=== PATIENT | female | born 1950 | race Caucasian/White ===

== ENCOUNTER 2018-03-29 10:32 | Emergency (ER) | payer BC, MEDICAID, SELFPAY ==
[2018-03-29 10:33] VITALS: BP 173/103; PULSE 71; RESP 16; TEMP 36.6; O2SAT 97; BMI 24.9
--- NOTE | 2018-03-29 11:03 | CT_ITS ---
STUDY: CT BRAIN WITHOUT CONTRAST REASON FOR EXAM: Female, 67 years old. Dizziness. RADIATION DOSAGE (If Supplied By Facility): CTDIvol = ( 44.99 ) mGy, DLP = ( 711.75 ) mGycm TECHNIQUE: Transaxial CT imaging of the brain was performed without administration of intravenous contrast material. Individualized dose optimization techniques were used for this CT. COMPARISON: None. FINDINGS: Normal soft tissue structures. Normal calvarium. There is mild cerebral atrophy with widening of the extra-axial spaces and ventricular dilatation. There are areas of decreased attenuation within the white matter tracts of the supratentorial brain, consistent with microvascular disease changes. Normal basal ganglia and thalami. Normal brainstem. Normal cerebellum. There is no intracranial hemorrhage. There are no findings of an acute ischemic infarction. Normal visualized paranasal sinuses. CT/Brain/Head without Contrast IMPRESSION: Chronic involutional changes of the brain. Electronically Signed: Cole Ngo MD at 12:26 EDT Tel [phone], Service support ,
--- NOTE | 2018-03-29 11:03 | EKG12_ITS ---
Test Reason : DIZZINESS Blood Pressure : / mmHG Vent. Rate : 061 BPM Atrial Rate : 061 BPM P-R Int : 164 ms QRS Dur : 070 ms QT Int : 426 ms P-R-T Axes : 035 040 022 degrees QTc Int : 428 ms Normal sinus rhythm T wave abnormality, consider anterolateral ischemia Abnormal ECG Confirmed by MELINDA ELLER ([id number]), science editor JEEVAN LINDQUIST ([id number]) on 04/02/2018 2:46:15 PM Referred By: MIGDALIA Confirmed By:MELINDA ELLER
--- NOTE | 2018-03-29 11:12 | ED.DCSUM_ITS ---
- ER Visit Summary Date of Service: 03/29/18 Chief Complaint: [] Intractable dizziness with ataxia for a few days History of Present Illness: The patient is a 67 F [] hypertension diabetes high cholesterol all stable reports a few days ago she began to have a sense of spinning sensation and trouble walking that has persisted to the point now she constantly bumps into things and she cannot walk normally. She does not have a headache she has no change in vision no mental cloudiness no neck pain chest pain abdominal pain #6 or paresthesias. She does have a history distant related to some type of a stroke that does not apparently cause any residual deficit, all of her other vitals are within normal range, she indicates her blood sugars running 120 and she is generally enjoyed good health review of systems are generally negative no vomiting fever cough normal bowel bladder habits she lives out of town is visiting Physical Examination: [] Vital signs are within normal range she will not stand up to walk because she states she is so ataxic she can keep her balance in the bed she has her normal speech she has prior facial surgery, she cranial nerves are intact without nystagmus full vision is normal neck is supple lungs are clear heart tones are unremarkable M soft nontender strength of upper lower extremities are normal sensation appears normal finger-nose [id number]-[id number] exams are normal her NIH currently would be 0 but again she will not walk her mental status is normal awake and alert ?3 answering questions appropriately with her normal speech pattern Test Results: [] Emergency Department Course and Treatment: [] The patient's studies are all generally unremarkable the CT head shows nothing acute chronic involution, the labs are all unremarkable, EKG shows a sinus rhythm with inverted T waves no old EKGs are available as the patient has not been [facility]. We discussed inpatient versus outpatient management with her we discussed the concept of a subtle or occult stroke TIA etc. she wanted to go home as a precaution I had the hospitalist see her, her desire to go home after discussion with the hospitalist we were able to arrange for an immediate MRI of brain which showed chronic changes nothing acute and she has been having symptoms for 2 or 3 days, she is on Plavix for prior stroke Treatment Plan: [] After the MRI returned I discussed all the test results with her and her daughter we discussed inpatient versus outpatient management again she wanted to go home understands to the concept of an occult injury or stroke she does indicate that she believes she has had in the past echocardiograms and carotid studies that were unremarkable she is taking the Plavix she will continue the Plavix she will take 2 baby aspirin she will follow-up with her family physician and I will also refer her to Dr. Mustafa of neurology at [place] for further management and she will return for change in symptoms Disposition: [] Home stable patient declined admission Impression: [] Acute vertigo spinning sensation improved to almost resolved This note was generated with [employer] dictation software. It may contain incorrect words, spelling, and punctuation that were not noted in review of the chart prior to signing ED Disposition - Plan for ED Patient: Chief Complaint: Dizziness
[2018-03-29 11:28] LABS: Absolute Lymphocyte Count 0.71 X10^3/ul (0.83-4.51); Absolute Neutrophil Count 2.7 X10^3/uL (2.0-7.7); Basophil# 0.01 X10^3/uL; Basophil% 0.3 % (0-1); Eosinophil# 0.07 X10^3/uL; Eosinophils% 1.8 % (0-5); Hematocrit 38.4 % (37-47); Hemoglobin 12.6 g/dl (12.0-15.0); Lymphocyte # 0.71 X10^3/ul (4.0); Lymphocyte % 18.3 % (19-41); Mean Corp Hgb Conc 32.8 g/gl (32-36); Mean Corpuscular Hgb 31.6 pg (27.0-32.0); Mean Corpuscular Volume 96.2 fL (81-99); Mean Platelet Vol. 12.2 fl (6.2-12.0); Monocyte# 0.41 X10^3/uL; Monocyte% 10.6 % (0-10); Neutrophil # 2.67 X10^3/uL (2.7-7.7); POSITIVE COUNT NO; POSITIVE DIFFERENTIAL NO; POSITIVE MORPHOLOGY NO; Platelet Count 172 K/mm3 (150-450); RBC Distribution Width CV 12.5 % (11.6-14.6); RBC Distribution Width SD 42.9 fl (35.1-43.9); Red Blood Count 3.99 M/mm3 (4.2-5.4); White Blood Count 3.9 K/mm3 (4.4-11.0)
[2018-03-29] MEDS: LORazepam 2 MG/ML Syringe 0.5 MG IV (11:29)
[2018-03-29 11:38] LABS: Anion Gap 6 (5-15); BUN 19 mg/dL (7-18); BUN/Creat Ratio 18.1 RATIO (10-20); Calcium,Total 9.3 mg/dL (8.5-10.1); Chloride 106 mmol/L (98-107); Creatinine, Serum 1.05 mg/dL (0.55-1.02); EST Glomerular Filtration Rate 56 mL/min (>60); Est Glom Filt Rate - Afr Amer 67 mL/min (>60); Estimated Creatinine Clearance 48.67 ml/min; Glucose 232 mg/dL (74-106); Potassium 3.8 mmol/L (3.5-5.1); Sodium Level 143 mmol/L (136-145)
--- NOTE | 2018-03-29 13:08 | MRI_ITS ---
STUDY: MRI BRAIN WITHOUT CONTRAST REASON FOR EXAM: Female, 67 years old. vertigo, hx prior cva TECHNIQUE: Standardized multiplanar fat and water weighted pulse sequences were obtained. COMPARISON: CT earlier in the day FINDINGS: Normal size of the ventricles and extra-axial spaces for the patient's age. There are multiple white matter hyperintensities, distributed throughout the deep white matter tracts of the cerebral hemispheres, consistent with mild to moderate chronic white matter ischemic changes. Normal bilateral basal ganglia. Normal thalami. There is no extra-axial fluid accumulation. Normal flow voids within the major intracranial circulation suggesting patency by spin echo criteria. Normal sella turcica, pituitary gland, infundibular stalk, optic chiasm and hypothalamus. Normal tectal plate and pineal gland. Normal midbrain, reji and medulla. Normal cerebellum. Normal basal cisterns. Normal bilateral temporal bones. Normal bilateral internal auditory canals. No demonstrated orbital abnormality, within the constraints of a routine brain study. Normal visualized paranasal sinuses. Normal calvarium and skull base. Normal visualized soft tissue structures. Normal visualized upper cervical spine. MRI/Brain without Contrast IMPRESSION: Involutional changes of the brain, as described above. There is mild to moderate small vessel ischemic white matter disease. Electronically Signed: Sandy Borges MD at 14:30 EDT , Service support ,
--- NOTE | 2018-03-29 13:13 | CASEMGMT ---
Social Work Note In to complete initial assessment as pt is to be admitted. Introduced self and role at [facility]. The pt is accompanied by her granddaughter, Lencho. Reports to live with her granddaughter and Great Granddaughter, Amber. They live in a one-story home and she denies access issues. DME consists of a walker and cane, but pt denies use of these. Claims to be independent with care and still drives. Denies having advanced directives and declines information at this time. Confirms that her PCP is Dr. Natalie Regan in [place], and denies any specialists. Preferred pharmacy is [facility] in [place], and SW educated pt to [facility] if more convenient at discharge. Pt denies hx of HHC or SNF. Reports a hx of depression and counseling years ago. Denies being on medication presently and feels that her mental health is well managed. Denies hx of substance abuse. Pt does not anticipate discharge needs, but is made aware that there will be an RN CM on her assigned unit that can assist with any discharge needs that may arise. Yi Rios, [employer], CLINICAL FACULTY
--- NOTE | 2018-03-29 13:23 | ED.RN ---
MRI INFORMATION SHEET COMPLETED AND FAXED TO MRI.
[2018-03-29 14:53] VITALS: BP 172/78; PULSE 61; RESP 20; O2SAT 96
[2018-03-29 16:05] VITALS: BP 148/95; PULSE 69; RESP 19; O2SAT 96
--- NOTE | 2018-03-29 16:26 | ED.DEP ---
ED Disposition - Plan for ED Patient: Chief Complaint: Dizziness Instructions: ED Dizziness [facility] Prescriptions: Meclizine HCl [Antivert] 25 mg PO BID PRN PRN 5 Days tab PRN Reason: Dizziness Referrals: Jason Mustafa MD [STAFF PHYSICIAN] - Additional Instructions: Please continue the Plavix, take 2 baby aspirin as well until your follow-up with your doctor or the neurologist you must follow-up with one or the other in a few days
== END 2018-03-29 17:00 | disposition home or self-care (01) ==
PROVIDERS: Emergency Provider Emergency Medicine
DX: R42 Dizziness and giddiness (principal); E11.9 Type 2 diabetes mellitus without complications; I10 Essential (primary) hypertension; E78.00 Pure hypercholesterolemia, unspecified
CPT/HCPCS: 70450; 70551; 80048; 84484; 85025; 93005; 99282; A4216

== ENCOUNTER 2019-04-29 15:09 | Observation (INO) | payer MEDICARE, MEDICAID, SELFPAY ==
[2019-04-29 15:09] VITALS: BP 141/90; PULSE 71; RESP 15; TEMP 36.6; O2SAT 97; BMI 24.7
--- NOTE | 2019-04-29 16:52 | ED.RN ---
PATIENT STATES DIZZINESS IS MOSTLY WITH MOVEMENT.
--- NOTE | 2019-04-29 17:15 | EKG12_ITS ---
Test Reason : DIZZINESS Blood Pressure : / mmHG Vent. Rate : 070 BPM Atrial Rate : 070 BPM P-R Int : 160 ms QRS Dur : 070 ms QT Int : 378 ms P-R-T Axes : 037 045 004 degrees QTc Int : 408 ms Normal sinus rhythm Nonspecific T wave abnormality Abnormal ECG Confirmed by ROXANN PALACIOS MD ([id number]), book editor JAROD HENRIQUEZ ([id number]) on 05/01/2019 1:39:28 PM Referred By: TAVO
--- NOTE | 2019-04-29 17:15 | CT_ITS ---
HISTORY:DIZZY DIZZY TECHNIQUE: Multiple axial images were obtained of the brain without intravenous contrast. A radiation dose optimization technique was used for this scan. IV Contrast dosage and agent: None. COMPARISON: March 29, 2018 FINDINGS: # of images incl. paperwork: 221 INFARCT: There is subtle irregularity seen within the midbrain that was not seen on the prior study however this may be artifactual. I would recommend MRI for further evaluation. This is best seen on axial image 14 series 1002 HEMORRHAGE: None PARENCHYMAL ATTENUATION:Mild periventricular white matter low density compatible with chronic small vessel ischemic change MASS: None MIDLINE SHIFT: None BASAL CISTERNS: Patent VENTRICLES: Normal in size and configuration for age PARANASAL SINUSES:Clear MASTOID AIR CELLS: Clear ORBITS:No acute pathology CALVARIUM: No acute pathology OTHER TISSUES: No acute pathology ASPECTS Score for Acute Strokes: 10 CT/Brain/Head without Contrast IMPRESSION: Subtle area of low density seen within the midbrain as discussed. This may be artifactual. It was not seen on the prior study however. I would recommend MRI for further evaluation Individualized dose optimization techniques were used for this CT. at 1800 Reported and signed by: Glendy Schmitz DO N.B. : The above information has been verbally conveyed by Glendy Schmitz DO to Julian Vegas MD, on 04/29/2019 17:59:20 (ET). Electronically Signed: Glendy Schmitz DO at 17:59 EDT Tel , Service support ,
[2019-04-29 17:26] VITALS: PULSE 73; RESP 14; O2SAT 98
[2019-04-29] MEDS: LORazepam 2 MG/ML Syringe 0.5 MG IV (17:27)
--- NOTE | 2019-04-29 17:50 | RAD_ITS ---
HISTORY:DIZZINESS DIZZINESS EXAM: XR Chest 1 View: COMPARISON: None FINDINGS: # of images incl. paperwork: 1 LINES/DEVICES: Postsurgical changes in the lower cervical spine LUNGS: Radiographically clear. No consolidation, edema or effusion. No pneumothorax. MEDIASTINUM AND CARDIOVASCULAR STRUCTURES: Cardiac silhouette not enlarged. BONES AND SOFT TISSUES: Unremarkable. RAD/Chest 1 View IMPRESSION: No radiographic evidence of acute cardiopulmonary disease. at 1801 Reported and signed by: Glendy Schmitz DO Electronically Signed: Glendy Schmitz DO at 18:00 EDT Tel , Service support ,
[2019-04-29 17:51] LABS: Absolute Lymphocyte Count 1.08 X10^3/uL (0.83-4.51); Absolute Neutrophil Count 2.7 X10^3/uL (2.0-7.7); Basophil# 0.02 X10^3/uL; Basophil% 0.5 % (0-1); Eosinophil# 0.07 X10^3/uL; Eosinophils% 1.6 % (0-5); Hemoglobin 12.4 g/dL (12.0-15.0); Lymphocyte # 1.08 X10^3/ul (4.0); Lymphocyte % 24.6 % (19-41); Mean Corp Hgb Conc 32.6 g/dL (32-36); Mean Corpuscular Hgb 32.6 pg (27.0-32.0); Monocyte# 0.47 X10^3/uL; Monocyte% 10.7 % (0-10); NRBC Flagged by Analyzer 0 % (0-5); Neutrophil # 2.74 X10^3/uL (2.7-7.7); Neutrophil % 62.4 % (47-70); Platelet Count 219 K/mm3 (150-450); RBC Distribution Width CV 14.1 % (11.6-14.6); RBC Distribution Width SD 50.4 fl (35.1-43.9); White Blood Count 4.4 K/mm3 (4.4-11.0)
[2019-04-29 17:54] LABS: Prothrombin Time (Protime)PT. 13.4 SECONDS (11.7-14.9)
[2019-04-29 18:00] LABS: Anion Gap 4 (5-15); BUN 19 mg/dL (7-18); BUN/Creat Ratio 16.1 RATIO (10-20); Calcium,Total 9.4 mg/dL (8.5-10.1); Chloride 104 mmol/L (98-107); Creatinine, Serum 1.18 mg/dL (0.55-1.02); EST Glomerular Filtration Rate 48 mL/min (>60); Est Glom Filt Rate - Afr Amer 59 mL/min (>60); Estimated Creatinine Clearance 42.72 ml/min; Glucose 272 mg/dL (74-106); Potassium 3.9 mmol/L (3.5-5.1); Sodium Level 136 mmol/L (136-145)
--- NOTE | 2019-04-29 19:03 | ED.VISSUMM ---
- ER Visit Summary Date of Service: 04/29/19 Chief Complaint: Dizziness History of Present Illness: The patient is a 68 F with dizziness that started overnight last night around 1 AM. She woke up with the room spinning. Worse with moving her head. She feels unsteady on her feet. She had similar symptoms about a year ago and had an MRI that was normal. Patient denies fevers or other neurologic symptoms. Denies any trauma. Physical Examination: Afebrile and vital signs unremarkable. HEENT exam unremarkable except for a small amount of blood or a possible hemorrhagic vesicle at her right tympanic membrane. No other abnormal findings. Heart regular peer lungs clear. Cranial nerves grossly intact. Normal strength and sensation. NIH stroke scale is 0. Test Results: EKG showed sinus rhythm at a rate of 70 with nonspecific T wave changes. CBC, BMP, coags, troponin unremarkable. Chest x-ray normal. CT brain showed a midbrain low-density lesion and MRI was advised. Emergency Department Course and Treatment: Patient presents with vertigo. She was treated with Ativan and had modest improvement. Her work-up was as above. She will need further evaluation in the hospital for MRI. Hospitalist was contacted and will admit. Treatment Plan: As above Disposition: Admission Impression: 1. Dizziness I still think doing this myles quicker than put in the whole thing in the computer This note was generated with [employer] dictation software. It may contain incorrect words, spelling, and punctuation that were not noted in review of the chart prior to signing ED Disposition - Plan for ED Patient: Referrals: Care Physician,No Primary [Primary Care Provider] -
[2019-04-29 19:17] VITALS: PULSE 71; RESP 17; O2SAT 96
--- NOTE | 2019-04-29 19:50 | HP.PCM_ITS ---
Problem List (1) Vertigo Status: Acute (2) DM type 2 (diabetes mellitus, type 2) Status: Acute (3) Hypothyroidism Status: Acute (4) HTN (hypertension) Status: Chronic History of Present Illness Date of Admission: 04/29/19 Chief Complaint: Dizziness The patient is a 68 year old F with PMH as below who presents with her second ep isode of vertigo in a year. She states that this is very similar to the last time she presented to the ER and was discharged home. She was normal last night when she went to bed and then this morning when she woke up she was very dizzy when she is stood up and she could hardly walk. She had some nausea and an episode of vomiting. It has since improved when she stays upright, however when she was in the ER and they laid her flat for her chest x-ray and then set her back up she became even more dizzy. Currently she is feeling okay after receiving a dose of Ativan in the ER though she still has some dizziness. She denies any focal weakness, numbness, tingling, lightheadedness, palpitations, chest pain, or shortness of breath. He did have a CT of her brain in the ER which demonstrated a possible hypodensity which is new from her previous exam. She also had an MRI during her previous ER stay last year. Past Medical History Past Medical History (Chronic Problems): Chronic Problems HTN (hypertension) (Chronic) Allergies morphine Allergy (Verified 04/29/19 16:53) Itching meperidine [From Demerol] Adverse Reaction (Verified 04/29/19 16:53) Nausea/Vom/Diarrhea Home Medications: Ambulatory Orders Medication Instructions Recorded Atorvastatin Calcium 80 mg PO DAILY 03/29/18 Clopidogrel Bisulfate [Clopidogrel] 75 mg PO DAILY 03/29/18 Fenofibrate [Tricor] 145 mg PO DAILY 03/29/18 Insulin Detemir [Levemir (BKC)] 100 units SC DAILY 03/29/18 Levothyroxine Sodium [Synthroid] 100 mcg PO DAILY 03/29/18 Losartan/Hydrochlorothiazide 1 each PO DAILY 03/29/18 [Losartan-Hctz 50-12.5 mg Tab] Metoprolol Tartrate 50 mg PO DAILY 03/29/18 Omeprazole 40 mg PO DAILY 03/29/18 Potassium Chloride [Klor-Con 8] 8 meq PO DAILY 03/29/18 Exenatide Microspheres [Bydureon 2 mg SQ DAILY 04/29/19 Bcise] Folic Acid 1 mg PO DAILY 04/29/19 Methotrexate Sodium [Methotrexate] 2.5 mg PO DAILY 04/29/19 Surgical History: - - Plastic surgery for cleft lip, metal plate and ankle and neck Lives: With Family Smoking Status: Former smoker Tobacco Use: Cigarettes Alcohol: None Drugs: None - *Family History Paternal History Items: Heart Disease Maternal History Items: Stroke Review of Systems Constitutional: Denies: Chills, Fever, Weight Change Eyes: Denies: Double vision HEENT: Denies: Dysphasia, Head Aches, Sinus Congestion, Sinus Drainage Cardiovascular: Denies: Chest Pain, Light Headedness, Palpitations Respiratory: Denies: Cough, Shortness of breath at rest, Sputum production Gastrointestinal: Denies: Abdominal Pain, Nausea, Vomiting Genitourinary: Denies: Dysuria Musculoskeletal: Denies: Joint Pain, Joint Tenderness Skin: Denies: Rash, Wounds Neurological: Reports: - - Dizziness. Denies: Blurred vision, Double vision, Change in Speech, Slurred speech, Difficulty swallowing, Focal weakness, Headaches, Incoordination, Numbness, Tingling Psychiatric: Denies: Anxiety, Depression Hematologic/ Lymphatic: Denies: Easy Bruising, Easy Bleeding VTE Information - Inpt Only VTE Present on Admission: No Patient Problems: Active and Suspected Problems Vertigo (Acute) DM type 2 (diabetes mellitus, type 2) (Acute) Hypothyroidism (Acute) - Physical Exam General: Alert, Oriented x3, Cooperative, No apparent distress HEENT: Atraumatic, PERRLA, EOMI, Normocephalic Oral: Moist Mucosa Neck: Supple, No JVD Lungs: Clear to auscultation, Normal air movement, No rhonchi, No wheeze, No rales, Diminished Cardiovascular: Regular rate, Regular Rhythm, Normal S1, Normal S2, No murmurs Abdomen: Soft, Non Tender, Non-Distended, No Hepato-splenomegaly Extremities: No edema, Capillary Refill Less than 3 Seconds Skin: No rashes, No breakdown Neurological: Neuro grossly intact, Motor Exam 5/5 strength throughout, Sensory exam intact to light touch and pain, - - No ataxia or drift Psych/Mental Status: Normal Affect, Appropriate Vital Signs Temp Pulse Resp BP Pulse Ox 97.9 F 71 17 141/90 H 96 04/29/19 15:09 04/29/19 19:17 04/29/19 19:17 04/29/19 15:09 04/29/19 19:17 Oxygen Delivery Method Room Air Weight: 153 lb Body Mass Index (BMI) 24.7 Laboratory Tests Past 24 Hrs 04/29/19 04/29/19 04/29/19 17:24 17:24 17:24 WBC 4.4 RBC 3.80 L Hgb 12.4 Hct 38.0 MCV 100.0 H MCH 32.6 H MCHC 32.6 RDW Std Deviation 50.4 H RDW Coeff of John 14.1 Plt Count 219 MPV 12.0 Immature Gran % (Auto) 0.200 Neut % (Auto) 62.4 Lymph % (Auto) 24.6 [place] % (Auto) 10.7 H Eos % (Auto) 1.6 Baso % (Auto) 0.5 Absolute Neuts (auto) 2.7 Absolute Lymphs (auto) 1.08 Absolute Nucleated RBC 0.00 Nucleated RBC % 0 PT 13.4 INR 1.0 APTT 23.0 L Sodium 136 Potassium 3.9 Chloride 104 Carbon Dioxide 28.0 Anion Gap 4 L BUN 19 H Creatinine 1.18 H Estim Creat Clear Calc 42.72 Est GFR (MDRD) Af Amer 59 L Est GFR (MDRD) Non-Af 48 L BUN/Creatinine Ratio 16.1 Glucose 272 H Calcium 9.4 Troponin I < 0.015 Assessment/Plan All Active Problems Vertigo (Acute) DM type 2 (diabetes mellitus, type 2) (Acute) Hypothyroidism (Acute) 1. Vertigo -Ativan did help, will start her on meclizine as an inpatient as needed -Orthostatics -We will obtain an MRI with and without contrast given this hypodensity on the CT of her brain -PT/OT evaluation 2. DM 2 -We will resume her home long-acting insulin and start her on a sliding scale -Accu-Cheks AC at bedtime 3. HTN/HLD -Blood pressure and vital signs are stable -We will continue her home medications and see if any of these medications cause her dizziness while here 4. GERD -Stable -Continue with PPI 5. Hypothyroidism -Stable -Continue with Synthroid 6. Macrocytosis with no significant anemia -Her lack of anemia with her macrocytosis likely secondary to her folic acid -will check a B12 7. RA -Stable -Continue with methotrexate and folic acid DVT: Lovenox Code Visit OBSV E&M: [id number] Initial observation care L3
[2019-04-29 20:47] LABS: Vitamin B12 770 pg/mL (211-911)
[2019-04-29 20:49] VITALS: BP 158/83; PULSE 72; RESP 16; TEMP 36.7; O2SAT 96
[2019-04-29 20:51] VITALS: BP 151/83
[2019-04-29 20:55] VITALS: BMI 23.6
[2019-04-29 21:04] VITALS: BMI 23.7
[2019-04-29] MEDS: 0.9% Normal Saline 1,000 ML 100 ML IV (21:13)
[2019-04-29 21:17] VITALS: BP 153/89; BP 165/88; BP 177/89; PULSE 76; PULSE 77; PULSE 80
[2019-04-29 22:55] LABS: Bedside Glucose 167 mg/dL (70-110)
[2019-04-29] MEDS: Insulin Lispro 100 UNIT/ML INSULN.PEN SC (23:03)
[2019-04-30 02:50] VITALS: BP 133/84; PULSE 69; RESP 18; TEMP 36.6; O2SAT 97
--- NOTE | 2019-04-30 05:55 | MRI_ITS ---
HISTORY: Dizziness 1 day and question of abnormal brainstem lesion seen on CT exam performed one day prior COMPARISON: CT brain performed one day prior 04/27/2019 and MRI brain 03/29/2018 TECHNIQUE: Multiphasic multiplanar MR imaging of the brain per department protocol without and with 13 ml of Dotarem intravenous gadolinium. # of images including paperwork: 329 FINDINGS: BRAIN: Diffusion-weighted imaging shows no acute infarct. No remote parenchymal infarct. No parenchymal hemorrhage, intra-axial mass, mass effect, or midline shift. No abnormal extra-axial fluid collections. Mild subcortical, deep, and periventricular white matter changes as seen by small foci of FLAIR and T2 hyperintense signal, not substantially changed from prior exam. VENTRICLES: Ventricles are normal in size and configuration. No hydrocephalus. POST CONTRAST: No abnormal enhancing parenchymal or dural based lesions. OTHER: Paranasal sinuses are clear. Mastoid air cells are clear. Orbits are unremarkable. MRI/Brain W/WO Contrast IMPRESSION: 1. No acute infarct or acute intracranial disease. 2. Mild chronic small vessel ischemic white matter changes. 3. Otherwise, negative pre-and postcontrast MR examination of brain. No significant interval change from March 2018. 4. The recently reported questionable lesion within the brainstem on CT exam performed one day prior is attributed to artifact. at 1303 Reported and signed by: Estevan Vicente MD Electronically Signed: Estevan Vicente MD at 13:02 EDT Tel , Service support ,
[2019-04-30 05:59] LABS: Absolute Lymphocyte Count 1.34 X10^3/uL (0.83-4.51); Absolute Neutrophil Count 1.9 X10^3/uL (2.0-7.7); Basophil# 0.01 X10^3/uL; Basophil% 0.3 % (0-1); Eosinophil# 0.11 X10^3/uL; Eosinophils% 2.9 % (0-5); Hemoglobin 11.3 g/dL (12.0-15.0); Lymphocyte # 1.34 X10^3/ul (4.0); Lymphocyte % 35.6 % (19-41); Mean Corp Hgb Conc 34.2 g/dL (32-36); Mean Corpuscular Hgb 33.9 pg (27.0-32.0); Mean Corpuscular Volume 99.1 fL (81-99); Mean Platelet Vol. 11.7 fl (6.2-12.0); Monocyte# 0.37 X10^3/uL; Monocyte% 9.8 % (0-10); NRBC Flagged by Analyzer 0 % (0-5); Neutrophil # 1.93 X10^3/uL (2.7-7.7); Neutrophil % 51.4 % (47-70); Platelet Count 190 K/mm3 (150-450); RBC Distribution Width CV 13.9 % (11.6-14.6); RBC Distribution Width SD 49.5 fl (35.1-43.9); Red Blood Count 3.33 M/mm3 (4.2-5.4); White Blood Count 3.8 K/mm3 (4.4-11.0)
[2019-04-30 06:22] LABS: Anion Gap 7 (5-15); BUN 16 mg/dL (7-18); BUN/Creat Ratio 16.3 RATIO (10-20); Calcium,Total 8.7 mg/dL (8.5-10.1); Chloride 108 mmol/L (98-107); Creatinine, Serum 0.98 mg/dL (0.55-1.02); EST Glomerular Filtration Rate 60 mL/min (>60); Est Glom Filt Rate - Afr Amer 73 mL/min (>60); Estimated Creatinine Clearance 51.43 ml/min; Glucose 180 mg/dL (74-106); Potassium 3.4 mmol/L (3.5-5.1); Sodium Level 142 mmol/L (136-145)
[2019-04-30] MEDS: Levothyroxine 100 MCG Tablet PO (07:05)
[2019-04-30 07:20] LABS: Bedside Glucose 147 mg/dL (70-110)
[2019-04-30 08:14] VITALS: BP 132/82; PULSE 65; RESP 15; TEMP 36.8; O2SAT 98
[2019-04-30] MEDS: Folic Acid 1 MG Tablet PO (08:27)
[2019-04-30 10:16] VITALS: BP 142/77; PULSE 67; RESP 14; TEMP 36.6; O2SAT 95
[2019-04-30] MEDS: Pantoprazole Sodium 40 MG Tablet PO (10:36)
[2019-04-30] MEDS: Losartan Potassium 50 MG Tablet PO (10:36)
[2019-04-30] MEDS: hydroCHLOROthiazide 12.5mg 12.5 MG PO (10:36)
[2019-04-30] MEDS: Fenofibrate 145 MG Tablet PO (10:36)
[2019-04-30] MEDS: Clopidogrel Bisulfate 75 MG Tablet PO (10:36)
[2019-04-30 10:37] VITALS: BP 142/77; PULSE 67
[2019-04-30] MEDS: Metoprolol Tartrate 50 MG Tablet PO (10:37)
[2019-04-30] MEDS: Enoxaparin 40 MG/0.4 ML Syringe SC (10:39)
[2019-04-30] MEDS: 0.9% Normal Saline 1,000 ML 100 ML IV (10:42)
[2019-04-30 11:11] LABS: Bedside Glucose 273 mg/dL (70-110)
[2019-04-30] MEDS: Insulin Lispro 100 UNIT/ML INSULN.PEN SC (12:41)
--- NOTE | 2019-04-30 13:08 | DCINST_ITS ---
- Discharge Diagnoses Current Active Problems: Current Active and Chronic Problems Vertigo (Acute) DM type 2 (diabetes mellitus, type 2) (Acute) Hypothyroidism (Acute) HTN (hypertension) (Chronic) You will use the following diet at home:: Calorie/Carbohydrate Controlled (specify 1200, 1400, etc) - 1800 [place]osh, Cardiac Your food should be the consistency of: Regular Discharge Activity: Return to Normal Activity Weight Bearing Status: Weight bearing as tolerated Call your doctor if you observe: Fever of 101 or Higher, Shortness of breath, Dizziness, Fainting spells, Chest pain, Increased palpitations (irregular heart beat), Uncontrolled pain Allergies/Adverse Reactions: Allergies morphine Allergy (Verified 04/29/19 16:53) Itching meperidine [From Demerol] Adverse Reaction (Verified 04/29/19 16:53) Nausea/Vom/Diarrhea Medications to take at Discharge Atorvastatin Calcium 80 mg PO DAILY 03/29/18 Clopidogrel Bisulfate [Clopidogrel] 75 mg PO DAILY 03/29/18 Fenofibrate [Tricor] 145 mg PO DAILY 03/29/18 Insulin Detemir [Levemir FlexPen] 80 units SC QHS 03/29/18 Levothyroxine Sodium [Synthroid] 100 mcg PO DAILY 03/29/18 Losartan/Hydrochlorothiazide [Losartan-Hctz 50-12.5 mg Tab] 1 each PO DAILY 03/29/18 Metoprolol Tartrate 50 mg PO DAILY 03/29/18 Omeprazole 40 mg PO DAILY 03/29/18 Potassium Chloride [Klor-Con 8] 8 meq PO DAILY 03/29/18 Exenatide Microspheres [Bydureon Bcise] 2 mg SQ DAILY 04/29/19 Folic Acid 1 mg PO DAILY 04/29/19 Methotrexate Sodium [Methotrexate] 2.5 mg PO DAILY 04/29/19 Primary Care Physician: Care Physician,No Primary [Primary Care Provider] - Please follow up with your Primary Care Physician in: 1-2 weeks. Test Results: Test results from this visit will be discussed in further detail at your follow- up appointment, if applicable.
--- NOTE | 2019-04-30 13:09 | DS.PCM_ITS ---
Discharge Date and Diagnosis - Problem List Patient Problems: Active and Suspected Problems Vertigo (Acute) Date of Admission: 04/29/19 Date of Discharge: 04/30/19 - Primary Discharge Diagnosis Active and Suspected Problems #1 vertigo, likely due to BPPV. #2 incidental finding of midbrain low-density, proved to be due to artifact by MRI brain, no acute infarct or hemorrhage. - Secondary Discharge Diagnosis Chronic Problems HTN (hypertension) (Chronic) Hospital Course and Treatment Imaging Results: 04/30/19 05:55 Brain W/WO Contrast [MRI] AM (NON MEDS) Clinical Impression(s) from Imaging Studies Brain CT 04/29/19 17:15 IMPRESSION: Subtle area of low density seen within the midbrain as discussed. This may be artifactual. It was not seen on the prior study however. I would recommend MRI for further evaluation Individualized dose optimization techniques were used for this CT. at 1800 Reported and signed by: Glendy Schmitz DO N.B. : The above information has been verbally conveyed by Glendy Schmitz DO to Julian Vegas MD, on 04/29/2019 17:59:20 (ET). Electronically Signed: Glendy Schmitz DO at 17:59 EDT Tel , Service support , ADDENDUM: 04/29/19 1203 IMPRESSION: Subtle area of low density seen within the midbrain as discussed. This may be artifactual. It was not seen on the prior study however. I would recommend MRI for further evaluation Individualized dose optimization techniques were used for this CT. at 1800 Reported and signed by: Glendy Schmitz DO N.B. : The above information has been verbally conveyed by Glendy Schmitz DO to Julian Vegas MD, on 04/29/2019 17:59:20 (ET). Electronically Signed: Glendy Schmitz DO at 17:59 EDT Tel , Service support , Chest X-Ray 04/29/19 17:50 IMPRESSION: No radiographic evidence of acute cardiopulmonary disease. at 1801 Reported and signed by: Glendy Schmitz DO Electronically Signed: Glendy Schmitz DO at 18:00 EDT Tel , Service support , Brain MRI 04/30/19 05:55 IMPRESSION: 1. No acute infarct or acute intracranial disease. 2. Mild chronic small vessel ischemic white matter changes. 3. Otherwise, negative pre-and postcontrast MR examination of brain. No significant interval change from March 2018. 4. The recently reported questionable lesion within the brainstem on CT exam performed one day prior is attributed to artifact. at 1303 Reported and signed by: Estevan Vicente MD Electronically Signed: Estevan Vicente MD at 13:02 EDT Tel , Service support , Operations: None Procedures: None Summary of Care Provided: Patient seen and examined on the day of discharge and appeared to be stable to be discharged home. She denies any more dizziness or spinning sensation upon ambulation. She has been ambulating to bathroom without any symptoms. Her vital signs are stable. The patient is a 68 year old F admitted because of dizziness with spinning sensation for evaluation. The working diagnosis was vertigo. On admission, CT scan brain showed revealed subtle area of low density within the midbrain. Patient was treated with Ativan and Antivert. With Antivert, his symptoms improved and she was able to ambulate without any symptoms. Her vital signs were stable. Her routine blood work was remarkable for mild hypokalemia which was replaced and corrected. She had MRI brain done with and without contrast that showed no acute infarct or hemorrhage, negative pre-and postcontrast MRI of the brain and they mentioned that the recently reported questionable lesion within the brainstem in the CAT scan was an artifact. Acute stroke or hemorrhage ruled out. Symptoms are likely due to BPPV. Patient discharged home in a stable medical condition, discharged on her previous home medication without any changes, discharged on Antivert as needed for vertigo, recommended follow-up with PCP in 1 to 2 weeks. Patient Problems: Active and Suspected Problems Vertigo (Acute) - Physical Exam General: Alert, Oriented x3, Cooperative, No apparent distress HEENT: Atraumatic, PERRLA, EOMI, Normocephalic Oral: Moist Mucosa, No Gingival or Mucosal Lesions/ Ulcerations Neck: Supple, No JVD, Negative Carotid Bruits, Trachea Midline, Thyroid Normal Size and Texture Lungs: Clear to auscultation, Normal air movement, No rhonchi, No wheeze, No rales, Diminished Cardiovascular: Regular rate, Regular Rhythm, Normal S1, Normal S2, PMI Normal Abdomen: Bowel Sounds Present, Soft, Non Tender, Non-Distended, No Hepato- splenomegaly Extremities: No clubbing, No cyanosis, No edema Skin: No rashes, No breakdown Lymphatic: No Cervical, Supraclavicular, or Inguinal Adenopathy Neurological: Cranial nerves II-XII grossly intact, Neuro grossly intact Psych/Mental Status: Normal Affect, Appropriate Vital Signs Temp Pulse Resp BP Pulse Ox 98 F 67 14 142/77 H 95 04/30/19 10:16 04/30/19 10:37 04/30/19 10:16 04/30/19 10:37 04/30/19 10:16 Oxygen Delivery Method Room Air Weight: 146 lb 9.718 oz Body Mass Index (BMI) 23.6 Orthostatic Vital Signs Start: 04/29/19 21:17 Freq: q24h Status: Active Protocol: Activity Type Activity Date Activity User E-Sign Co-Sign Detail Recorded Client Recorded Date Recorded By Document 04/29/19 21:17 CAD [id number] 04/29/19 21:25 CAD 04/29/19 21:17 Orthostatic Vitals Standing -Blood Pressure (90/60-120/80) 153/89 H -Extremity Use Right Arm -Pulse Rate (60-100) 80 Sitting -Blood Pressure (90/60-120/80) 165/88 H -Extremity Use Right Arm -Pulse Rate (60-100) 77 Lying -Blood Pressure (90/60-120/80) 177/89 H -Extremity Use Right Arm -Pulse Rate (60-100) 76 Intake and Output for Last 24 Hours 04/28/19 04/29/19 04/30/19 23:59 23:59 23:59 Intake Total 2045 Balance 2045 Laboratory Tests Past 24 Hrs 04/29/19 04/29/19 04/29/19 17:24 17:24 17:24 WBC 4.4 RBC 3.80 L Hgb 12.4 Hct 38.0 MCV 100.0 H MCH 32.6 H MCHC 32.6 RDW Std Deviation 50.4 H RDW Coeff of John 14.1 Plt Count 219 MPV 12.0 Immature Gran % (Auto) 0.200 Neut % (Auto) 62.4 Lymph % (Auto) 24.6 [place] % (Auto) 10.7 H Eos % (Auto) 1.6 Baso % (Auto) 0.5 Absolute Neuts (auto) 2.7 Absolute Lymphs (auto) 1.08 Absolute Nucleated RBC 0.00 Nucleated RBC % 0 PT 13.4 INR 1.0 APTT 23.0 L Sodium 136 Potassium 3.9 Chloride 104 Carbon Dioxide 28.0 Anion Gap 4 L BUN 19 H Creatinine 1.18 H Estim Creat Clear Calc 42.72 Est GFR (MDRD) Af Amer 59 L Est GFR (MDRD) Non-Af 48 L BUN/Creatinine Ratio 16.1 Glucose 272 H Calcium 9.4 Troponin I < 0.015 Vitamin B12 04/29/19 04/30/19 04/30/19 17:24 05:25 05:25 WBC 3.8 L RBC 3.33 L Hgb 11.3 L Hct 33.0 L MCV 99.1 H MCH 33.9 H MCHC 34.2 RDW Std Deviation 49.5 H RDW Coeff of John 13.9 Plt Count 190 MPV 11.7 Immature Gran % (Auto) 0.000 Neut % (Auto) 51.4 Lymph % (Auto) 35.6 [place] % (Auto) 9.8 Eos % (Auto) 2.9 Baso % (Auto) 0.3 Absolute Neuts (auto) 1.9 L Absolute Lymphs (auto) 1.34 Absolute Nucleated RBC 0.00 Nucleated RBC % 0 PT INR APTT Sodium 142 Potassium 3.4 L Chloride 108 H Carbon Dioxide 27.0 Anion Gap 7 BUN 16 Creatinine 0.98 Estim Creat Clear Calc 51.43 Est GFR (MDRD) Af Amer 73 Est GFR (MDRD) Non-Af 60 BUN/Creatinine Ratio 16.3 Glucose 180 H Calcium 8.7 Troponin I Vitamin B12 770 POC Glucose 04/30/19 04/30/19 04/29/19 11:05 07:07 21:30 POC Glucose 273 H 147 H 167 H Discharge Activity: Return to Normal Activity Weight Bearing Status: Weight bearing as tolerated Call your doctor if you observe: Fever of 101 or Higher, Shortness of breath, Dizziness, Fainting spells, Chest pain, Increased palpitations (irregular heartbeat), Uncontrolled pain Home Medications: Medications to take at Discharge Atorvastatin Calcium 80 mg PO DAILY 03/29/18 Clopidogrel Bisulfate [Clopidogrel] 75 mg PO DAILY 03/29/18 Fenofibrate [Tricor] 145 mg PO DAILY 03/29/18 Insulin Detemir [Levemir FlexPen] 80 units SC QHS 03/29/18 Levothyroxine Sodium [Synthroid] 100 mcg PO DAILY 03/29/18 Losartan/Hydrochlorothiazide [Losartan-Hctz 50-12.5 mg Tab] 1 each PO DAILY 03/29/18 Metoprolol Tartrate 50 mg PO DAILY 03/29/18 Omeprazole 40 mg PO DAILY 03/29/18 Potassium Chloride [Klor-Con 8] 8 meq PO DAILY 03/29/18 Exenatide Microspheres [Bydureon Bcise] 2 mg SQ DAILY 04/29/19 Folic Acid 1 mg PO DAILY 04/29/19 Methotrexate Sodium [Methotrexate] 2.5 mg PO DAILY 04/29/19 Meclizine HCl [Antivert] 12.5 mg PO TID PRN PRN #14 tab 04/30/19 Following Prescrptions Were Given to Patient: Meclizine HCl [Antivert] 12.5 mg PO TID PRN PRN #14 tab PRN Reason: Dizziness, vertigo Transmission Status: Received by [id number] Primary Care Physician: Care Physician,No Primary [Primary Care Provider] - Please follow up with your Primary Care Physician in: 1-2 weeks. Disposition: Home Minutes spent on discharge:: 25 Patient Condition:: Stable Medical Necessity - Tobacco Use Smoking Status: Former smoker Tobacco Use: Cigarettes Meaningful Use Info Meaningful Use Diagnoses (Choose all that apply): None applicable Code Visit OBSV E&M: 39789 Observation care discharge
--- NOTE | 2019-04-30 13:19 | DCINST_ITS ---
- Discharge Diagnoses Current Active Problems: Current Active and Chronic Problems Vertigo (Acute) DM type 2 (diabetes mellitus, type 2) (Chronic) Hypothyroidism (Chronic) HTN (hypertension) (Chronic) You will use the following diet at home:: Calorie/Carbohydrate Controlled (specify 1200, 1400, etc) - 1800 [place]., Cardiac Your food should be the consistency of: Regular Discharge Activity: Return to Normal Activity Weight Bearing Status: Weight bearing as tolerated Call your doctor if you observe: Fever of 101 or Higher, Shortness of breath, Dizziness, Fainting spells, Chest pain, Increased palpitations (irregular heartbeat), Uncontrolled pain Allergies/Adverse Reactions: Allergies morphine Allergy (Verified 04/29/19 16:53) Itching meperidine [From Demerol] Adverse Reaction (Verified 04/29/19 16:53) Nausea/Vom/Diarrhea Medications to take at Discharge Atorvastatin Calcium 80 mg PO DAILY 03/29/18 Clopidogrel Bisulfate [Clopidogrel] 75 mg PO DAILY 03/29/18 Fenofibrate [Tricor] 145 mg PO DAILY 03/29/18 Insulin Detemir [Levemir FlexPen] 80 units SC QHS 03/29/18 Levothyroxine Sodium [Synthroid] 100 mcg PO DAILY 03/29/18 Losartan/Hydrochlorothiazide [Losartan-Hctz 50-12.5 mg Tab] 1 each PO DAILY 03/29/18 Metoprolol Tartrate 50 mg PO DAILY 03/29/18 Omeprazole 40 mg PO DAILY 03/29/18 Potassium Chloride [Klor-Con 8] 8 meq PO DAILY 03/29/18 Exenatide Microspheres [Bydureon Bcise] 2 mg SQ DAILY 04/29/19 Folic Acid 1 mg PO DAILY 04/29/19 Methotrexate Sodium [Methotrexate] 2.5 mg PO DAILY 04/29/19 Meclizine HCl [Antivert] 12.5 mg PO TID PRN PRN #14 tab 04/30/19 The following prescriptions were given: Meclizine HCl [Antivert] 12.5 mg PO TID PRN PRN #14 tab PRN Reason: Dizziness, vertigo Transmission Status: [facility]ending to [id number] Primary Care Physician: Care Physician,No Primary [Primary Care Provider] - Please follow up with your Primary Care Physician in: 1-2 weeks. Test Results: Test results from this visit will be discussed in further detail at your follow- up appointment, if applicable.
[2019-04-30 13:59] VITALS: BP 132/70; PULSE 66; RESP 14; TEMP 36.7; O2SAT 96
== END 2019-04-30 13:08 | disposition home or self-care (01) ==
LOC: ED 17:30 → PCU 21:25
PROVIDERS: Admitting Provider Family Medicine; Emergency Provider Emergency Medicine; Visit Provider Hospitalist
DX: R42 Dizziness and giddiness (principal); E11.9 Type 2 diabetes mellitus without complications; E03.9 Hypothyroidism, unspecified; I10 Essential (primary) hypertension; K21.9 Gastro-esophageal reflux disease without esophagitis; E78.5 Hyperlipidemia, unspecified; D75.89 Other specified diseases of blood and blood-forming organs; M06.9 Rheumatoid arthritis, unspecified; Z79.899 Other long term (current) drug therapy; Z79.02 Long term (current) use of antithrombotics/antiplatelets; Z79.4 Long term (current) use of insulin; Z87.891 Personal history of nicotine dependence; R94.31 Abnormal electrocardiogram [ECG] [EKG]; R29.700 NIHSS score 0
CPT/HCPCS: 36415; 70450; 70553; 71045; 80048; 82607; 82962; 84484; 85025; 85610; 85730; 93005; 96361; 96372; 96374; 99218; 99285; A9575; J7030; A4216; G0378

== ENCOUNTER 2021-09-04 10:38 | Emergency (ER) | payer MEDICARE, MEDICAID, SELFPAY ==
[2021-09-04 10:39] VITALS: BP 187/105; PULSE 76; RESP 18; TEMP 35.8; O2SAT 98; BMI 21.4
--- NOTE | 2021-09-04 11:06 | EKG12_ITS ---
Test Reason : CP Blood Pressure : / mmHG Vent. Rate : 061 BPM Atrial Rate : 061 BPM P-R Int : 156 ms QRS Dur : 068 ms QT Int : 392 ms P-R-T Axes : 030 028 013 degrees QTc Int : 394 ms Normal sinus rhythm Normal ECG Confirmed by PHILIP SULTANA, ROXANN ([id number]), news videotape editor JAROD HENRIQUEZ ([id number]) on 09/07/2021 8:50:17 AM Referred By: CHIO/KRISTIN Confirmed By:ROXANN PALACIOS MD
--- NOTE | 2021-09-04 11:10 | RAD_ITS ---
STUDY: X-RAY CHEST REASON FOR EXAM: Female, 70 years old. Chest pain TECHNIQUE: Single AP portable view of the chest. COMPARISON: 04/29/2019. FINDINGS: The lungs are clear and expanded. There is no demonstrated pleural abnormality. Normal size heart. Normal mediastinum and bev. Normal visualized pulmonary arteries. Mild tortuosity of the thoracic aorta. Status post fusion of the lower cervical spine with plate and screws. Normal visualized ribs, clavicles, and shoulders. There is no demonstrated abnormality of the visualized soft tissue structures of the upper abdomen. RAD/Chest 1 View (Portable) IMPRESSION: No active pulmonary disease. Electronically Signed: Duran Jhaveri, at 11:32 EST Tel , Service support ,
[2021-09-04 11:13] LABS: Absolute Lymphocyte Count 1.58 X10^3/uL (0.83-4.51); Absolute Neutrophil Count 3.9 X10^3/uL (2.0-7.7); Basophil# 0.04 X10^3/uL; Basophil% 0.6 % (0-1); Eosinophil# 0.13 X10^3/uL; Eosinophils% 2.1 % (0-5); Hematocrit 36.2 % (37-47); Hemoglobin 12.2 g/dL (12.0-15.0); Lymphocyte # 1.58 X10^3/ul (0.83-4.51); Lymphocyte % 25.3 % (19-41); Mean Corp Hgb Conc 33.7 g/dL (32-36); Mean Corpuscular Hgb 32.8 pg (27.0-32.0); Mean Corpuscular Volume 97.3 fL (81-99); Mean Platelet Vol. 12.3 fl (6.2-12.0); Monocyte# 0.59 X10^3/uL; Monocyte% 9.5 % (0-10); NRBC Flagged by Analyzer 0 % (0-5); Neutrophil # 3.89 X10^3/uL (2.7-7.7); Neutrophil % 62.3 % (47-70); Platelet Count 237 K/mm3 (150-450); RBC Distribution Width CV 14.8 % (11.6-14.6); RBC Distribution Width SD 52.6 fl (35.1-43.9); Red Blood Count 3.72 M/mm3 (4.2-5.4); White Blood Count 6.2 K/mm3 (4.4-11.0)
[2021-09-04] MEDS: Aspirin 81 MG TAB.CHEW 324 MG PO (11:17)
[2021-09-04 11:18] VITALS: BP 170/91; PULSE 59; RESP 19; O2SAT 97
--- NOTE | 2021-09-04 11:21 | EDS_ITS ---
HPI History of Present Illness Chief Complaint: Chest Pain Informant: patient Narrative Narrative: 70-year-old female presenting to the emergency department with left arm pain. Patient states that around 2:00 in the morning she developed pain in the left shoulder which she was attributing to arthritis. She used some icy hot but felt that the pain was moving down her arm and her hand began to have paresthesias. She had a slight amount of left upper chest discomfort. She noted a slight amount of shortness of breath but no nausea or vomiting. No sweating. She states she has had prior heart cath and stress test that were normal. She notes a history of diabetes hypertension and is on Plavix due to prior stroke. She states that she is feeling better now but still has some discomfort in the left arm. [facility] Medical History (Updated 09/04/21 @ 12:[address] Julian Santana, ) DM hyperosmolarity type II High cholesterol HTN (hypertension) Hypothyroid Vertigo Home Medications atorvastatin 80 mg PO DAILY 03/29/18 [History Last Taken Unknown] clopidogrel 75 mg PO DAILY 03/29/18 [History Last Taken Unknown] fenofibrate nanocrystallized 145 mg PO DAILY 03/29/18 [History Last Taken Unknown] insulin detemir U-100 [Levemir FlexTouch U-100 Insuln] 80 units SUBCUT QHS 03/29/18 [History Last Taken Unknown] levothyroxine [Synthroid] 100 mcg PO DAILY 03/29/18 [History Last Taken Unknown] losartan-hydrochlorothiazide 1 ea PO DAILY 03/29/18 [History Last Taken Unknown] metoprolol tartrate 50 mg PO DAILY 03/29/18 [History Last Taken Unknown] omeprazole 40 mg PO DAILY 03/29/18 [History Last Taken Unknown] potassium chloride [Klor-Con 8] 8 meq PO DAILY 03/29/18 [History Last Taken Unknown] exenatide microspheres 2 mg SQ DAILY 04/29/19 [History Last Taken Unknown] folic acid 1 mg PO DAILY 04/29/19 [History Last Taken Unknown] methotrexate sodium 2.5 mg PO DAILY 04/29/19 [History Last Taken Unknown] meclizine 12.5 mg PO TID PRN PRN #14 tab 04/30/19 [Rx Last Taken Unknown] Allergy/AdvReac Type Severity Reaction Status Date / Time morphine Allergy Itching Verified 09/04/21 10:41 meperidine [From Demerol] AdvReac Nausea/Vom/ Verified 09/04/21 10:41 Diarrhea Social History (Updated 09/04/21 @ 11:[address] Julian Santana, DO) Smoking Status: Former smoker substance use type: does not use ROS ROS ED Constitutional Constitutional ED: Denies chills, fever(s) or weight loss Eyes Eyes: Denies change in vision or diplopia ENT ENT ED: Denies ear pain, rhinorrhea or sore throat Cardiovascular Cardiovascular: Reports chest pain; Denies orthopnea, palpitations or racing heartbeat Respiratory/Chest Respiratory/Chest: Denies cough, dyspnea or orthopnea Gastrointestinal Gastrointestinal: Denies abdominal pain, diarrhea, nausea or vomiting Genitourinary Genitourinary ED: Denies dysuria, hematuria or urinary frequency Musculoskeletal Musculoskeletal: Reports other Details: Left arm pain ; Denies arthralgias or myalgias Integumentary Denies abscess or rash Neurologic Neurologic: Reports paresthesias; Denies headache(s) or weakness Psychiatric Psychiatric: Denies anxiety, depression, suicidal ideation or suicidal thoughts Endocrine Endocrinology: Denies polydipsia, polyphagia or polyuria Allergic/Immunologic Allergic/Immunologic ED: Denies mouth swelling, tongue swelling or urticaria EXAM Physical Exam Const Vital Signs: 09/04/21 10:39 09/04/21 11:18 09/04/21 12:18 Temperature 96.5 F L Temperature Source Temporal Pulse Rate 76 59 L 57 L Respiratory Rate 18 19 H 17 Respiratory Effort Normal Non-Labored Blood Pressure 187/105 H 170/91 H 187/90 H Blood Pressure Mean 132 117 122 Pulse Ox 98 97 Oxygen Delivery Method Room Air Room Air 09/04/21 12:31 Temperature Temperature Source Pulse Rate Respiratory Rate Respiratory Effort Blood Pressure 198/92 H Blood Pressure Mean 127 Pulse Ox Oxygen Delivery Method Positive well nourished and well developed General Appearance ED: well developed HEENT Reports normocephalic, head/scalp atraumatic, TM's clear and moist mucous memb ranes normocephalic and atraumatic Tympanic Membrane ED: Yes TM's clear Eyes PERRL and EOMs intact bilaterally Neck no lymphadenopathy, supple and no JVD Resp normal respiratory effort and clear to auscultation bilaterally Cardio regular rate, regular rhythm and no murmurs GI normal to inspection, nondistended, normoactive bowel sounds and non-tender Palpation: soft Back/Spine no CVA tenderness and normal ROM Extremity normal to inspection General Extremety ED: Negative for edema General Extremity: Negative for edema Neuro oriented x3 and CN's II-XII intact bilaterally Sensorium / Orientation: alert Motor Exam: strength 5/5 throughout Psych mental status grossly normal Mood & Affect: Negative for depressed or tearful Skin no rashes or lesions noted and no wounds Heart Score History: Slightly/Non-Suspicious ECG: Normal Age: >/= 65 years Risk Factors: 1 or 2 Risk Factors Troponin: </= Normal Limit Score: 3 MDM MDM MDM Narrative Medical decision making narrative: Patient has had greater than 8 hours of symptoms. Her troponin is 10. Her EKG is a normal sinus rhythm with symptoms. Interpretation of the chest x-ray is no acute process. This point I think the patient can be discharged home. I gave her a dose of Toradol. Advised early follow-up return if worsening or new symptoms. Lab Data Attestation: I reviewed the patient's lab results. Labs: Laboratory Results - last 24 hr 09/04/21 09/04/21 10:55 10:55 WBC 6.2 RBC 3.72 L Hgb 12.2 Hct 36.2 L MCV 97.3 MCH 32.8 H MCHC 33.7 RDW Std Deviation 52.6 H RDW Coeff of John 14.8 H Plt Count 237 MPV 12.3 H Immature Gran % (Auto) 0.200 Neut % (Auto) 62.3 Lymph % (Auto) 25.3 [place] % (Auto) 9.5 Eos % (Auto) 2.1 Baso % (Auto) 0.6 Absolute Neuts (auto) 3.9 Absolute Lymphs (auto) 1.58 Nucleated RBC % 0 Sodium 142 Potassium 3.3 L Chloride 110 H Carbon Dioxide 26.0 Anion Gap 6 BUN 15 Creatinine 1.00 Estim Creat Clear Calc 49.00 Est GFR (MDRD) Af Amer 71 Est GFR (MDRD) Non-Af 58 L BUN/Creatinine Ratio 15.1 Glucose 89 Calcium 9.7 Troponin I High Sens 10 Radiography Diagnostic Testing: Clinical Impression(s) from Imaging Studies Chest X-Ray 09/04/21 11:10 IMPRESSION: No active pulmonary disease. Electronically Signed: Lele Viera1/11/27 at 11:32 EST Tel , Service support , EKG Initial EKG: Attestation: I personally reviewed and interpreted this EKG as follows: Comments: EKG demonstrates a normal sinus rhythm with a ventricular rate of 61 bpm. No concerning features of ACS or ectopy noted. Discharge Plan Triage Chief Complaint: Chest Pain ED Provider: Julian Santana Dx/Rx/DC Orders Clinical Impression: Chest pain, Arm pain, left Instructions: ED Chest Pain, Uncertain Cause Prescriptions: No Action levothyroxine [Synthroid] 137 MCG tablet 100 mcg PO DAILY RF: 0 atorvastatin 80 MG tablet 80 mg PO DAILY RF: 0 clopidogrel 75 MG tablet 75 mg PO DAILY RF: 0 omeprazole 40 MG Capsule.Dr 40 mg PO DAILY RF: 0 potassium chloride [Klor-Con 8] 8 MEQ Tablet.Er 8 meq PO DAILY RF: 0 metoprolol tartrate 50 MG tablet 50 mg PO DAILY RF: 0 losartan-hydrochlorothiazide 1 EACH tablet 1 ea PO DAILY RF: 0 insulin detemir U-100 [Levemir FlexTouch U-100 Insuln] 100 UNITS/ML Insuln.Pen 80 units subcut QHS RF: 0 fenofibrate nanocrystallized 145 MG tablet 145 mg PO DAILY RF: 0 methotrexate sodium 2.5 MG tablet 2.5 mg PO DAILY RF: 0 folic acid 1 MG tablet 1 mg PO DAILY RF: 0 exenatide microspheres 2MG/0.8 auto-injector 2 mg SQ DAILY RF: 0 meclizine 12.5 MG tablet 12.5 mg PO TID PRN PRN (Reason: Dizziness, vertigo) Qty: 14 RF: 0 Primary Care Provider: Meghan Person [employer]IOR [employer] INTELLIGENCE CONSULTANT Referrals: Meghan Person S[employer]IOR MARKET INTELLIGENCE CONSULTANT, S[employer]IOR MARKET INTELLIGENCE CONSULTANT-C [Primary Care Provider] - As Needed Disposition Disposition: Home, Self Care
[2021-09-04 11:35] LABS: Anion Gap 6 (5-15); BUN 15 mg/dL (7-18); BUN/Creat Ratio 15.1 RATIO (10-20); Calcium,Total 9.7 mg/dL (8.5-10.1); Chloride 110 mmol/L (98-107); EST Glomerular Filtration Rate 58 mL/min (>60); Est Glom Filt Rate - Afr Amer 71 mL/min (>60); Glucose 89 mg/dL (74-106); Potassium 3.3 mmol/L (3.5-5.1); Sodium Level 142 mmol/L (136-145); Troponin-I HS 10 pg/mL (3.0-54.0)
[2021-09-04 12:18] VITALS: BP 187/90; PULSE 57; RESP 17
[2021-09-04] MEDS: Ketorolac 15 MG/ML Vial IV (12:27)
[2021-09-04 12:31] VITALS: BP 198/92
[2021-09-04 12:39] VITALS: BP 192/99; PULSE 54; RESP 13; O2SAT 100
--- NOTE | 2021-09-04 12:54 | ED.RN ---
provider aware of bp
[2021-09-04 13:02] VITALS: BP 182/95
== END 2021-09-04 13:03 | disposition home or self-care (01) ==
PROVIDERS: Emergency Provider Emergency Medicine; PCP Nurse Practitioner
DX: M79.602 Pain in left arm (principal); R07.9 Chest pain, unspecified; E11.9 Type 2 diabetes mellitus without complications; I10 Essential (primary) hypertension; E03.9 Hypothyroidism, unspecified; Z86.73 Personal history of transient ischemic attack (TIA), and cerebral infarction without residual deficits; Z79.02 Long term (current) use of antithrombotics/antiplatelets; Z79.4 Long term (current) use of insulin; Z79.899 Other long term (current) drug therapy; Z87.891 Personal history of nicotine dependence
CPT/HCPCS: 71045; 80048; 84484; 85025; 93005; 96374; 99284; A4216

== ENCOUNTER 2021-11-28 16:26 | Emergency (ER) | payer MEDICARE, MEDICAID, SELFPAY ==
[2021-11-28 16:27] VITALS: BP 158/102; PULSE 71; RESP 15; TEMP 36.9; O2SAT 98; BMI 23.0
--- NOTE | 2021-11-28 16:54 | EDS_ITS ---
HPI <KINDRA HOWELL - Last Filed: 11/28/21 17:37> History of Present Illness Chief Complaint: Laceration Detail of Chief Complaint: Cut my finger while I was cutting a watermelon. Informant: patient Narrative Narrative: Patient presents with finger laceration to the 5th finger that occurred just prior to arrival while cutting a watermelon. PFSH <KINDRA HOWELL - Last Filed: 11/28/21 17:37> [facility] Medical History DM hyperosmolarity type II High cholesterol HTN (hypertension) Hypothyroid Vertigo Home Medications atorvastatin 80 mg PO DAILY 03/29/18 [History Last Taken Unknown] clopidogrel 75 mg PO DAILY 03/29/18 [History Last Taken Unknown] fenofibrate nanocrystallized 145 mg PO DAILY 03/29/18 [History Last Taken Unknown] insulin detemir U-100 [Levemir FlexTouch U-100 Insuln] 80 units SUBCUT QHS 03/29/18 [History Last Taken Unknown] levothyroxine [Synthroid] 100 mcg PO DAILY 03/29/18 [History Last Taken Unknown] losartan-hydrochlorothiazide 1 ea PO DAILY 03/29/18 [History Last Taken Unknown] metoprolol tartrate 50 mg PO DAILY 03/29/18 [History Last Taken Unknown] omeprazole 40 mg PO DAILY 03/29/18 [History Last Taken Unknown] potassium chloride [Klor-Con 8] 8 meq PO DAILY 03/29/18 [History Last Taken Unknown] exenatide microspheres 2 mg SQ DAILY 04/29/19 [History Last Taken Unknown] folic acid 1 mg PO DAILY 04/29/19 [History Last Taken Unknown] methotrexate sodium 2.5 mg PO DAILY 04/29/19 [History Last Taken Unknown] meclizine 12.5 mg PO TID PRN PRN #14 tab 04/30/19 [Rx Last Taken Unknown] Allergy/AdvReac Type Severity Reaction Status Date / Time morphine Allergy Itching Verified 11/28/21 16:27 meperidine [From Demerol] AdvReac Nausea/Vom/ Verified 11/28/21 16:27 Diarrhea Social History Smoking Status: Former smoker substance use type: does not use ROS <KINDRA HOWELL - Last Filed: 11/28/21 17:37> ROS ED Constitutional Constitutional ED: Denies chills or fever(s) Eyes Eyes: Denies change in vision ENT ENT ED: Denies sore throat Cardiovascular Cardiovascular: Denies chest pain Respiratory/Chest Respiratory/Chest: Denies dyspnea Gastrointestinal Gastrointestinal: Denies nausea Integumentary Reports other Details: Pain to laceration. Denies paresthesia to Lt 5th finger. EXAM <KINDRA REYESBECKY - Last Filed: 11/28/21 17:37> Physical Exam Const Vital Signs: 11/28/21 16:27 Temperature 98.5 F Temperature Source Temporal Pulse Rate 71 Respiratory Rate 15 Blood Pressure 158/102 H Blood Pressure Mean 120 Pulse Ox 98 Oxygen Delivery Method Room Air Positive well nourished and well developed General Appearance ED: well developed HEENT atraumatic Eyes PERRL and EOMs intact bilaterally Neck full ROM Resp normal respiratory effort and clear to auscultation bilaterally Cardio regular rhythm Rate: regular rate GI normal to inspection, nondistended, normoactive bowel sounds Neuro oriented x3 Sensorium / Orientation: alert Psych mental status grossly normal Skin Skin Narrative: 0.5 cm laceration to proximal, ventral LEFT 5th finger. Patient is on Plavix but bleeding has subsided. Full ROM of finger. Wounds: wounds noted size <Dr. Jolie Mendoza MD - Last Filed: 11/29/21 00:14> Physical Exam Const Vital Signs: 11/28/21 16:27 Temperature 98.5 F Temperature Source Temporal Pulse Rate 71 Respiratory Rate 15 Blood Pressure 158/102 H Blood Pressure Mean 120 Pulse Ox 98 Oxygen Delivery Method Room Air PROC <KINDRA HOWELL - Last Filed: 11/28/21 17:37> Procedures Lacerations Lt 5th finger: Length: 0.2 in Depth: Sub Q Shape: Linear Prep: Shure-Clens Laceration repair: Lidocaine (0.5 ml) and Skin sutures Number of Sutures/[place]: 2 Suture Information: Vicryl and 5-0 MDM <KINDRA REYESBECKY - Last Filed: 11/28/21 17:37> [facility] Narrative Medical decision making narrative: Patient states her last Tetanus immunization was 5 years ago. Treatment and Re-Evaluation Comments:: Bacitracin and bandaid applied after suture. Patient aware to follow- up with PCP for suture removal in 8 days. <Dr. Jolie Mendoza MD - Last Filed: 11/29/21 00:14> [facility] Treatment and Re-Evaluation Comments:: Patient seen and evaluated with [employer] student. Note reviewed and endorsed. Patient presents with laceration to the left fifth finger. She was cutting watermelon and cut her left fifth finger. She is left-hand dominant. Patient is a upright in bed no acute distress. Heart regular rate and rhythm. Lung sounds are clear. Left upper extremity examination reveals a 1/2 cm laceration along the radial side of the left fifth finger along the proximal phalanx. Bleeding is well controlled. Good range of motion with normal sensation and cap refill distally. 1/2 cc 1% lidocaine infused locally. Wound cleansed and irrigated. 2 simple interrupted sutures of 5-0 nylon placed with good approximation. Antibiotic ointment and Band-Aid applied. Patient instructed to have sutures out in 1 week. Discharge Plan Triage Chief Complaint: Laceration ED Provider: Jolie Mendoza Dx/Rx/DC Orders Clinical Impression: Finger laceration Instructions: ED Laceration, Hand: All Closures Prescriptions: No Action levothyroxine [Synthroid] 137 MCG tablet 100 mcg PO DAILY RF: 0 atorvastatin 80 MG tablet 80 mg PO DAILY RF: 0 clopidogrel 75 MG tablet 75 mg PO DAILY RF: 0 omeprazole 40 MG Capsule.Dr 40 mg PO DAILY RF: 0 potassium chloride [Klor-Con 8] 8 MEQ Tablet.Er 8 meq PO DAILY RF: 0 metoprolol tartrate 50 MG tablet 50 mg PO DAILY RF: 0 losartan-hydrochlorothiazide 1 EACH tablet 1 ea PO DAILY RF: 0 insulin detemir U-100 [Levemir FlexTouch U-100 Insuln] 100 UNITS/ML Insuln.Pen 80 units subcut QHS RF: 0 fenofibrate nanocrystallized 145 MG tablet 145 mg PO DAILY RF: 0 methotrexate sodium 2.5 MG tablet 2.5 mg PO DAILY RF: 0 folic acid 1 MG tablet 1 mg PO DAILY RF: 0 exenatide microspheres 2MG/0.8 auto-injector 2 mg SQ DAILY RF: 0 meclizine 12.5 MG tablet 12.5 mg PO TID PRN PRN (Reason: Dizziness, vertigo) Qty: 14 RF: 0 Primary Care Provider: Meghan Person [employer] Referrals: Meghan Person [employer], [employer] [Primary Care Provider] - 7 Days for suture removal Disposition Disposition: Home, Self Care Discharge Date/Time: 11/28/21 17:21
== END 2021-11-28 17:21 | disposition home or self-care (01) ==
LOC: ED 17:19
PROVIDERS: Emergency Provider Emergency Medicine; PCP Nurse Practitioner; Visit Provider Emergency Medicine
DX: S61.217A Laceration without foreign body of left little finger without damage to nail, initial encounter (principal); Z87.891 Personal history of nicotine dependence; X58.XXXA Exposure to other specified factors, initial encounter
CPT/HCPCS: 12001; 99283

== ENCOUNTER 2022-03-29 12:42 | Emergency (ER) | payer MEDICARE, MEDICAID, SELFPAY ==
[2022-03-29 12:44] VITALS: BP 115/73; PULSE 80; RESP 18; TEMP 36.5; O2SAT 99; BMI 23.3
[2022-03-29 13:41] LABS: Mucous, Urine 0 SEEN /hpf (<or=2+)
[2022-03-29 13:43] LABS: Color, Urine Amber (Yellow); Glucose, Dipstick 50 mg/dl (Normal); Ketone-Dipstick 5 mg/dl (Negative); Leukocyte Esterase-Dipstick 500 /ul (Negative); Nitrite-Dipstick Negative (Negative); Occult Blood-Urine 250 /ul (Negative); Protein-Dipstick 100 mg/dl (Negative); Specific Gravity, Urine 1.025 (1.002-1.030); Urine Clarity Cloudy (Clear); Urine Urobilinogen 4 mg/dl (Normal)
[2022-03-29 13:53] LABS: Urine Bilirubin Dipstick 3 mg/dL (Negative)
[2022-03-29 13:54] LABS: Bacteria 1+ /hpf (None Seen); White Blood Cells >100 SEEN /hpf (0-5)
[2022-03-29 13:55] LABS: Red Blood Cells-Urine 0-5 SEEN /hpf (0-5); Squamous Epithelial Cells - UA 0-5 SEEN /hpf (5-10)
[2022-03-29 14:08] VITALS: BP 124/76; PULSE 96; RESP 15; O2SAT 98
--- NOTE | 2022-03-29 14:14 | EDS_ITS ---
HPI History of Present Illness Chief Complaint: Complaint Informant: patient Narrative Narrative: -year-old female presenting to the emergency department dysuria. This is been present for 3 days. She notes urinary frequency. She denies nausea vomiting fever or flank pain. She notes frequent UTIs. She states her last UTI was 3 months ago. Patient states also that she has had pain in the left shoulder. This also began on Monday. She does not recall any injury to it or overuse injury. [facility] Medical History DM hyperosmolarity type II High cholesterol HTN (hypertension) Hypothyroid Vertigo Home Medications atorvastatin 80 mg tablet 80 mg PO DAILY 03/29/18 [History Last Taken Unknown] clopidogrel 75 mg tablet 75 mg PO DAILY 03/29/18 [History Last Taken Unknown] fenofibrate nanocrystallized 145 mg tablet 145 mg PO DAILY 03/29/18 [History Last Taken Unknown] insulin detemir U-100 100 unit/mL (3 mL) subcutaneous pen (Levemir FlexTouch U- 100 Insulin) 80 units subcut QHS 03/29/18 [History Last Taken Unknown] levothyroxine 137 mcg tablet (Synthroid) 100 mcg PO DAILY 03/29/18 [History Last Taken Unknown] losartan 50 mg-hydrochlorothiazide 12.5 mg tablet 1 ea PO DAILY 03/29/18 [History Last Taken Unknown] metoprolol tartrate 50 mg tablet 50 mg PO DAILY 03/29/18 [History Last Taken Unknown] omeprazole 40 mg capsule,delayed release 40 mg PO DAILY 03/29/18 [History Last Taken Unknown] potassium chloride 8 mEq tablet,extended release (Klor-Con) 8 meq PO DAILY 03/29/18 [History Last Taken Unknown] exenatide microspheres 2 mg/0.85 mL subcutaneous auto-injector 2 mg SQ DAILY 04/29/19 [History Last Taken Unknown] folic acid 1 mg tablet 1 mg PO DAILY 04/29/19 [History Last Taken Unknown] methotrexate sodium 2.5 mg tablet 2.5 mg PO DAILY 04/29/19 [History Last Taken Unknown] meclizine 12.5 mg tablet 12.5 mg PO TID PRN PRN Dizziness, vertigo #14 tabs 04/30/19 [Rx Last Taken Unknown] phenazopyridine 200 mg tablet (Pyridium) 200 mg PO TID #9 tabs 03/29/22 [Rx Last Taken Unknown] prednisone 20 mg tablet 60 mg PO DAILY #15 TABLETS 03/29/22 [Rx Last Taken Unk nown] sulfamethoxazole 800 mg-trimethoprim 160 mg tablet 1 tab PO BID #14 TABLETS 03/29/22 [Rx Last Taken Unknown] Allergy/AdvReac Type Severity Reaction Status Date / Time morphine Allergy Itching Verified 03/29/22 12:45 meperidine [From Demerol] AdvReac Nausea/Vom/ Verified 03/29/22 12:45 Diarrhea Social History Smoking Status: Former smoker substance use type: does not use ROS ROS ED Constitutional Constitutional ED: Denies chills or weight loss Eyes Eyes: Denies change in vision or diplopia ENT ENT ED: Denies ear pain, rhinorrhea or sore throat Cardiovascular Cardiovascular: Denies chest pain, orthopnea, palpitations or racing heartbeat Respiratory/Chest Respiratory/Chest: Denies cough, dyspnea or orthopnea Gastrointestinal Gastrointestinal: Denies abdominal pain, diarrhea, nausea or vomiting Genitourinary Genitourinary ED: Reports dysuria and urinary frequency; Denies hematuria Musculoskeletal Musculoskeletal: Denies arthralgias or myalgias Integumentary Denies abscess or rash Neurologic Neurologic: Denies headache(s) or weakness Psychiatric Psychiatric: Denies anxiety, depression, suicidal ideation or suicidal thoughts Endocrine Endocrinology: Denies polydipsia, polyphagia or polyuria Allergic/Immunologic Allergic/Immunologic ED: Denies mouth swelling, tongue swelling or urticaria EXAM Physical Exam Const Vital Signs: 03/29/22 12:44 03/29/22 14:08 Temperature 97.7 F L Temperature Source Temporal Pulse Rate 80 96 Respiratory Rate 18 15 Blood Pressure 115/73 124/76 H Blood Pressure Mean 87 92 Pulse Ox 99 98 Oxygen Delivery Method Room Air Room Air Positive well nourished and well developed General Appearance ED: well developed HEENT Reports normocephalic, head/scalp atraumatic and moist mucous membranes Eyes PERRL and EOMs intact bilaterally Neck no lymphadenopathy, supple and no JVD Resp normal respiratory effort and clear to auscultation bilaterally Cardio regular rate, regular rhythm and no murmurs GI normal to inspection, nondistended, normoactive bowel sounds and non-tender Palpation: soft Back/Spine no CVA tenderness and normal ROM Extremity Extremity Narrative: Patient notes tenderness to palpation in the subacromial space. She notes painful range of motion. She is unable to raise her arm past 60 degrees of abduction General Extremety ED: Negative for edema General Extremity: Negative for edema Neuro oriented x3 and CN's II-XII intact bilaterally Sensorium / Orientation: alert Motor Exam: strength 5/5 throughout Psych mental status grossly normal Mood & Affect: Negative for depressed or tearful Skin no rashes or lesions noted and no wounds MDM MDM MDM Narrative Medical decision making narrative: Urinalysis shows greater than 100 white cells 1+ bacteria. This be sent for culture. Place her on Bactrim. For the shoulder I will write for [place] and some prednisone. Follow-up with primary care Lab Data Attestation: I reviewed the patient's lab results. Labs: Laboratory Results - last 24 hr 03/29/22 13:36 Urine Color [place] Urine Clarity Cloudy Urine pH 5.0 Ur Specific [place] 1.025 Urine Protein 100 H Urine Glucose (UA) 50 H Urine Ketones 5 H Urine Occult Blood 250 H Urine Nitrite Negative Urine Bilirubin 3 H Urine Urobilinogen 4 H Ur Leukocyte Esterase 500 H Urine RBC 0-5 SEEN Urine WBC >100 SEEN Ur Squamous Epith Cells 0-5 SEEN Urine Bacteria 1+ Urine Mucus 0 SEEN Discharge Plan Triage Chief Complaint: Complaint ED Provider: Julian Santana Dx/Rx/DC Orders Clinical Impression: Acute cystitis, Acute bursitis of left shoulder Instructions: ED Bursitis, ED CYSTITIS Female Adult Prescriptions: New phenazopyridine [Pyridium] 200 mg tablet 200 mg PO TID Qty: 9 0RF prednisone 20 mg tablet 60 mg PO DAILY Qty: 15 0RF sulfamethoxazole-trimethoprim [sulfamethoxazole-trimethoprim] 800-160 mg tablet 1 tab PO BID Qty: 14 0RF No Action levothyroxine [Synthroid] 137 MCG tablet 100 mcg PO DAILY atorvastatin 80 MG tablet 80 mg PO DAILY clopidogrel 75 MG tablet 75 mg PO DAILY omeprazole 40 MG capsule,delayed release(DR/EC) 40 mg PO DAILY potassium chloride [Klor-Con 8] 8 MEQ tablet extended release 8 meq PO DAILY metoprolol tartrate 50 MG tablet 50 mg PO DAILY losartan-hydrochlorothiazide 1 EACH tablet 1 ea PO DAILY insulin detemir U-100 [Levemir FlexTouch U-100 Insuln] 100 UNITS/ML insulin pen 80 units subcut QHS fenofibrate nanocrystallized 145 MG tablet 145 mg PO DAILY methotrexate sodium 2.5 MG tablet 2.5 mg PO DAILY folic acid 1 MG tablet 1 mg PO DAILY exenatide microspheres 2MG/0.8 auto-injector 2 mg SQ DAILY meclizine 12.5 MG tablet 12.5 mg PO TID PRN PRN (Reason: Dizziness, vertigo) Qty: 14 0RF Primary Care Provider: Meghan Person NP Referrals: Meghan Person [employer]AC[employer] TECHNICAL DEVELOPER, [employer] [Primary Care Provider] - 1 Week Disposition Disposition: Home, Self Care
== END 2022-03-29 14:37 | disposition home or self-care (01) ==
LOC: ED 14:28
PROVIDERS: Emergency Provider Emergency Medicine; PCP Nurse Practitioner; Visit Provider Emergency Medicine
DX: N30.00 Acute cystitis without hematuria (principal); E11.9 Type 2 diabetes mellitus without complications; I10 Essential (primary) hypertension; Z87.891 Personal history of nicotine dependence; E78.00 Pure hypercholesterolemia, unspecified; R35.0 Frequency of micturition; M75.52 Bursitis of left shoulder; Z79.899 Other long term (current) drug therapy; Z79.02 Long term (current) use of antithrombotics/antiplatelets; Z79.890 Hormone replacement therapy
CPT/HCPCS: 81001; 87077; 87086; 87088; 87186; 99282

== ENCOUNTER 2022-10-27 08:40 | Emergency (ER) | payer MEDICARE, MEDICAID, SELFPAY ==
[2022-10-27 08:41] VITALS: BP 168/106; PULSE 96; RESP 16; TEMP 36; O2SAT 99; BMI 21.1
--- NOTE | 2022-10-27 09:15 | EX.ED.DYSGE1 ---
HPI History of Present Illness Chief Complaint: Complaint Informant: patient Onset/Context/Timing Onset: Days (2) Context: Gradual Onset Timing: Continuous Quality: Aching Location: Left flank and low back Worsened by: Nothing Relieved by: Nothing Narrative Narrative: Patient presents with left flank pain and low back pain that has been getting worse over the past 2 days. Patient states that she has also had some dribbling of her urine over the past couple days. Patient states she has been urinating somewhat more frequently. Patient denies any dysuria or hematuria however. Patient describes her pain as aching. Patient states the pain is mainly over the left flank and left lower lumbar area. Patient states nothing makes it worse and nothing makes it better. Patient denies any fevers or chills. Patient denies any nausea or vomiting. [facility] Medical History (Updated 10/27/22 @ 10:[address] Shaq Morataya, ) DM hyperosmolarity type II High cholesterol HTN (hypertension) Hypothyroid Vertigo Home Medications atorvastatin 80 mg tablet 80 mg PO DAILY 03/29/18 [History Last Taken Unknown] clopidogrel 75 mg tablet 75 mg PO DAILY 03/29/18 [History Last Taken Unknown] fenofibrate nanocrystallized 145 mg tablet 145 mg PO DAILY 03/29/18 [History Last Taken Unknown] insulin detemir U-100 100 unit/mL (3 mL) subcutaneous pen (Levemir FlexTouch U-100 Insulin) 80 units subcut QHS 03/29/18 [History Last Taken Unknown] levothyroxine 137 mcg tablet (Synthroid) 100 mcg PO DAILY 03/29/18 [History Last Taken Unknown] losartan 50 mg-hydrochlorothiazide 12.5 mg tablet 1 ea PO DAILY 03/29/18 [History Last Taken Unknown] metoprolol tartrate 50 mg tablet 50 mg PO DAILY 03/29/18 [History Last Taken Unknown] omeprazole 40 mg capsule,delayed release 40 mg PO DAILY 03/29/18 [History Last Taken Unknown] potassium chloride 8 mEq tablet,extended release (Klor-Con) 8 meq PO DAILY 03/29/18 [History Last Taken Unknown] exenatide microspheres 2 mg/0.85 mL subcutaneous auto-injector 2 mg SQ DAILY 04/29/19 [History Last Taken Unknown] folic acid 1 mg tablet 1 mg PO DAILY 04/29/19 [History Last Taken Unknown] methotrexate sodium 2.5 mg tablet 2.5 mg PO DAILY 04/29/19 [History Last Taken Unknown] meclizine 12.5 mg tablet 12.5 mg PO TID PRN PRN Dizziness, vertigo #14 tabs 04/30/19 [Rx Last Taken Unknown] phenazopyridine 200 mg tablet (Pyridium) 200 mg PO TID #9 tabs 03/29/22 [Rx Last Taken Unknown] prednisone 20 mg tablet 60 mg PO DAILY #15 TABLETS 03/29/22 [Rx Last Taken Unknown] sulfamethoxazole 800 mg-trimethoprim 160 mg tablet 1 tab PO BID #14 TABLETS 03/29/22 [Rx Last Taken Unknown] cephalexin 500 mg capsule 500 mg PO Q6 #20 CAPSULES 10/27/22 [Rx Last Taken Unknown] Allergy/AdvReac Type Severity Reaction Status Date / Time morphine Allergy Itching Verified 10/27/22 08:43 meperidine [From Demerol] AdvReac Nausea/Vom/ Verified 10/27/22 08:43 Diarrhea Surgical History History of facial surgery History of spinal fusion Hx of hysterectomy Status post ORIF of fracture of ankle Social History Smoking Status: Former smoker substance use type: does not use ROS ROS ED Constitutional Constitutional ED: Denies chills or fever(s) Eyes Eyes: Denies blurry vision or change in vision ENT ENT ED: Denies rhinorrhea or sore throat Cardiovascular Cardiovascular: Denies chest pain or palpitations Respiratory/Chest Respiratory/Chest: Reports cough; Denies dyspnea Gastrointestinal Gastrointestinal: Denies nausea or vomiting Genitourinary Genitourinary ED: Reports urinary frequency; Denies dysuria or hematuria Musculoskeletal Musculoskeletal: Reports back pain; Denies neck pain Integumentary Denies abscess or rash Neurologic Neurologic: Denies headache(s) or weakness Allergic/Immunologic Allergic/Immunologic ED: Denies mouth swelling or urticaria EXAM Physical Exam Const Vital Signs: 10/27/22 08:41 10/27/22 09:53 Temperature 96.8 F L 97.8 F Temperature Source Temporal Oral Pulse Rate 96 92 Respiratory Rate 16 17 Blood Pressure 168/106 H 158/92 H Blood Pressure Mean 126 114 Pulse Ox 99 95 Oxygen Delivery Method Room Air Room Air Positive well nourished and well developed General Appearance ED: well developed and NAD Neck supple and no JVD Resp normal respiratory effort and clear to auscultation bilaterally Cardio regular rate and regular rhythm GI normal to inspection, nondistended, normoactive bowel sounds and non-distended Palpation: soft and tender LLQ and LUQ; Negative for guarding or rebound tenderness present Back/Spine General Back: CVA tenderness left Neuro oriented x3, CN's II-XII intact bilaterally and no sensory deficits noted Sensorium / Orientation: alert Motor Exam: strength 5/5 throughout MDM MDM MDM Narrative Medical decision making narrative: Differential diagnosis includes pyelonephritis, urinary tract infection, ureteral calculus, or musculoskeletal strain. Patient was given IV fluids and a dose of [place]. CT scan of the abdomen pelvis will be obtained to check for urinary calculus and inflammatory changes with infection. Urinalysis will be obtained to check for infection or hematuria. CBC will be obtained to assess for leukocytosis and anemia. Basic metabolic profile will be obtained to check for electrolytes and renal function. Lab Data Lab results narrative: CBC was reviewed. This was essentially within normal limits. Basic metabolic profile was reviewed. Glucose was slightly elevated at 153 but the remainder was within normal limits. Urinalysis was reviewed. There is a leukocyte esterases of 500. There are no white blood cells. There are 5-10 hyaline cast. Because of this, a urine culture was ordered. Labs: Laboratory Results - last 24 hr 10/27/22 10/27/22 10/27/22 09:30 09:35 09:35 WBC 6.1 RBC 3.64 L Hgb 12.0 Hct 37.1 MCV 101.9 H MCH 33.0 H MCHC 32.3 RDW Std Deviation 52.1 H RDW Coeff of John 14.1 Plt Count 224 MPV 12.6 H Immature Gran % (Auto) 0.300 Neut % (Auto) 71.2 H Lymph % (Auto) 20.3 [place] % (Auto) 6.0 Eos % (Auto) 1.5 Baso % (Auto) 0.7 Absolute Neuts (auto) 4.3 Absolute Lymphs (auto) 1.23 Nucleated RBC % 0 Sodium 139 Potassium 4.0 Chloride 106 Carbon Dioxide 27.0 Anion Gap 6 BUN 16 Creatinine 0.93 Estim Creat Clear Calc 51.94 Est GFR (MDRD) Af Amer 76 Est GFR (MDRD) Non-Af 63 BUN/Creatinine Ratio 17.1 Glucose 153 H Calcium 9.3 Urine Color Yellow Urine Clarity Clear Urine pH 5.0 Ur Specific [place] 1.025 Urine Protein Negative Urine Glucose (UA) Normal Urine Ketones 5 H Urine Occult Blood Negative Urine Nitrite Negative Urine Bilirubin Negative Urine Urobilinogen Normal Ur Leukocyte Esterase 500 H Urine RBC 0 SEEN Urine WBC 0-5 SEEN Ur Squamous Epith Cells 0-5 SEEN Urine Bacteria 0 SEEN Hyaline Casts 5-10 SEEN Urine Mucus 1+ Radiography Diagnostic Testing: Clinical Impression(s) from Imaging Studies Abdomen/Pelvis CT 10/27/22 09:22 IMPRESSION: Solitary gallstone. No obstructive uropathy is seen. Calcified density in the posterior right cul-de-sac. Electronically Signed: Cole Ngo MD at 10:17 EST , CT scan of the abdomen pelvis was obtained. On my independent review, there is no obstructive uropathy. There is no free air. Radiologist also interpreted the CT scan noted a solitary gallstone. There is also calcified density in the posterior right cul-de-sac. Treatment and Re-Evaluation Narrative: Reevaluation at 1045, patient is resting comfortably. Patient was advised of her findings. Given her symptoms, we will treat the patient for urinary tract infection. Patient was given a prescription for Keflex. Patient was instructed to drink plenty of fluids. Patient was instructed to follow-up with her primary care physician in 5 to 7 days. Patient understood and was agreeable with the plan. All questions were answered. Discharge Plan Triage Chief Complaint: Complaint ED Provider: Shaq Morataya Dx/Rx/DC Orders Clinical Impression: Urinary tract infection, DM type 2 (diabetes mellitus, type 2), HTN (hypertension) Instructions: ED Cystitis Female Adult Prescriptions: New cephalexin [cephalexin] 500 mg capsule 500 mg PO Q6 Qty: 20 0RF No Action levothyroxine [Synthroid] 137 MCG tablet 100 mcg PO DAILY atorvastatin 80 MG tablet 80 mg PO DAILY clopidogrel 75 MG tablet 75 mg PO DAILY omeprazole 40 MG capsule,delayed release(DR/EC) 40 mg PO DAILY potassium chloride [Klor-Con 8] 8 MEQ tablet extended release 8 meq PO DAILY metoprolol tartrate 50 MG tablet 50 mg PO DAILY losartan-hydrochlorothiazide 1 EACH tablet 1 ea PO DAILY insulin detemir U-100 [Levemir FlexTouch U-100 Insuln] 100 UNITS/ML insulin pen 80 units subcut QHS fenofibrate nanocrystallized 145 MG tablet 145 mg PO DAILY methotrexate sodium 2.5 MG tablet 2.5 mg PO DAILY folic acid 1 MG tablet 1 mg PO DAILY exenatide microspheres 2MG/0.8 auto-injector 2 mg SQ DAILY meclizine 12.5 MG tablet 12.5 mg PO TID PRN PRN (Reason: Dizziness, vertigo) Qty: 14 0RF phenazopyridine [Pyridium] 200 mg tablet 200 mg PO TID Qty: 9 0RF prednisone 20 mg tablet 60 mg PO DAILY Qty: 15 0RF sulfamethoxazole-trimethoprim [sulfamethoxazole-trimethoprim] 800-160 mg tablet 1 tab PO BID Qty: 14 0RF Primary Care Provider: Meghan Person HEALTH MANAGER Referrals: Meghan Person HEALTH MANAGER, HEALTH MANAGER-C [Primary Care Provider] - 5-7 Days Disposition Disposition: Home, Self Care
--- NOTE | 2022-10-27 09:22 | CT_ITS ---
STUDY: CT ABDOMEN AND PELVIS WITHOUT CONTRAST REASON FOR EXAM: Female, 71 years old. Left flank pain. Dysuria. RADIATION DOSAGE (If Supplied By Facility): CTDIvol = ( 6.20 ) mGy, DLP = ( 320.72 ) mGycm TECHNIQUE: Transaxial images were obtained from the dome of the diaphragm to the symphysis pubis without oral contrast, and without intravenous contrast. Sagittal and coronal images were reconstructed. Individualized dose optimization techniques were used for this CT. COMPARISON: None. FINDINGS: The visualized lung bases are unremarkable. Coronary artery calcification. Macrocalcification in the right breast tissue. Normal liver. There is a solitary gallstone. Normal spleen. Normal pancreas. Normal bilateral adrenal glands. Normal right kidney. Normal left kidney. There is a small hiatal hernia. Normal small intestine. There are scattered colonic diverticula consistent with diverticulosis. The appendix is visualized and appears normal. There is scattered atherosclerotic calcification of the abdominal aorta, without a demonstrated aneurysm. Normal inferior vena cava. Normal retroperitoneum. Normal urinary bladder. There is absence of the uterus consistent with a prior hysterectomy. Ms. 1.5 sono by 1 cm densely calcified nodule in the posterior right cul-de-sac. Small right inguinal hernia containing fat. There are diffuse degenerative changes of the visualized lumbar spine. Straightening of the normal lumbar lordosis. CT/Abdomen/Pelvis without Cont IMPRESSION: Solitary gallstone. No obstructive uropathy is seen. Calcified density in the posterior right cul-de-sac. Electronically Signed: Cole Ngo MD at 10:17 EST ,
[2022-10-27 09:37] LABS: Bacteria 0 SEEN /hpf (None Seen); Red Blood Cells-Urine 0 SEEN /hpf (0-5)
[2022-10-27 09:38] LABS: Color, Urine Yellow (Yellow); Glucose, Dipstick Normal (Normal); Ketone-Dipstick 5 mg/dl (Negative); Leukocyte Esterase-Dipstick 500 /ul (Negative); Nitrite-Dipstick Negative (Negative); Occult Blood-Urine Negative /ul (Negative); Protein-Dipstick Negative (Negative); Specific Gravity, Urine 1.025 (1.002-1.030); Urine Bilirubin Dipstick Negative (Negative); Urine Clarity Clear (Clear); Urine Urobilinogen Normal (Normal)
[2022-10-27 09:43] LABS: Absolute Lymphocyte Count 1.23 X10^3/uL (0.83-4.51); Absolute Neutrophil Count 4.3 X10^3/uL (2.0-7.7); Basophil# 0.04 X10^3/uL; Basophil% 0.7 % (0-1); Eosinophil# 0.09 X10^3/uL; Eosinophils% 1.5 % (0-5); Hematocrit 37.1 % (37-47); Lymphocyte # 1.23 X10^3/ul (0.83-4.51); Lymphocyte % 20.3 % (19-41); Mean Corp Hgb Conc 32.3 g/dL (32-36); Mean Corpuscular Volume 101.9 fL (81-99); Mean Platelet Vol. 12.6 fl (6.2-12.0); Monocyte# 0.36 X10^3/uL; NRBC Flagged by Analyzer 0 % (0-5); Neutrophil # 4.31 X10^3/uL (2.7-7.7); Neutrophil % 71.2 % (47-70); Platelet Count 224 K/mm3 (150-450); RBC Distribution Width CV 14.1 % (11.6-14.6); RBC Distribution Width SD 52.1 fl (35.1-43.9); Red Blood Count 3.64 M/mm3 (4.2-5.4); White Blood Count 6.1 K/mm3 (4.4-11.0)
[2022-10-27] MEDS: HYDROcodone Bitartrate/Apap 5/325 Tablet PO (09:47)
[2022-10-27] MEDS: 0.9% Normal Saline 1,000 ML 1000 ML IV (09:48)
[2022-10-27 09:53] VITALS: BP 158/92; PULSE 92; RESP 17; TEMP 36.6; O2SAT 95
[2022-10-27 09:54] LABS: Anion Gap 6 (5-15); BUN 16 mg/dL (7-18); BUN/Creat Ratio 17.1 RATIO (10-20); Calcium,Total 9.3 mg/dL (8.5-10.1); Chloride 106 mmol/L (98-107); Creatinine, Serum 0.93 mg/dL (0.55-1.02); EST Glomerular Filtration Rate 63 mL/min (>60); Est Glom Filt Rate - Afr Amer 76 mL/min (>60); Estimated Creatinine Clearance 51.94 ml/min; Glucose 153 mg/dL (74-106); Sodium Level 139 mmol/L (136-145)
[2022-10-27 10:06] LABS: Hyaline Cast 5-10 SEEN /lpf (0-5); Mucous, Urine 1+ /hpf (<or=2+); Squamous Epithelial Cells - UA 0-5 SEEN /hpf (5-10); White Blood Cells 0-5 SEEN /hpf (0-5)
[2022-10-27 11:03] VITALS: BP 182/84; PULSE 84; RESP 16; O2SAT 97
[2022-10-27] MEDS: Cephalexin 500 MG Capsule PO (11:06)
== END 2022-10-27 11:11 | disposition home or self-care (01) ==
PROVIDERS: Emergency Provider Emergency Medicine; PCP Nurse Practitioner; Visit Provider Emergency Medicine
DX: N39.0 Urinary tract infection, site not specified (principal); E11.9 Type 2 diabetes mellitus without complications; E78.00 Pure hypercholesterolemia, unspecified; I10 Essential (primary) hypertension; R35.0 Frequency of micturition; Z87.891 Personal history of nicotine dependence
CPT/HCPCS: 74176; 80048; 81001; 85025; 87086; 96360; 99284; J7030; A4216

== ENCOUNTER → 2023-02-07 | Outpatient (CLI) | payer MEDICARE, MEDICAID, SELFPAY ==
[2023-02-07 16:42] LABS: Erythrocyte Sedimentation Rate 14 mm/hr (0-30)
[2023-02-07 16:44] LABS: Uric Acid 2.1 mg/dL (2.6-6.0)
== END | disposition home or self-care (01) ==
LOC: LABSPEC 16:01
PROVIDERS: PCP Nurse Practitioner; Referring Provider Nurse Practitioner Acute Care; Visit Provider Nurse Practitioner Acute Care
DX: M25.432 Effusion, left wrist (principal)
CPT/HCPCS: 84550; 85652

== ENCOUNTER 2023-05-20 10:58 | Emergency (ER) | payer MEDICARE, MEDICAID, SELFPAY ==
[2023-05-20 10:59] VITALS: BP 177/87; PULSE 96; RESP 16; TEMP 36.1; O2SAT 96
--- NOTE | 2023-05-20 11:10 | EX.ED.DYSGE1 ---
HPI <JESSICA Jacobs - Last Filed: 05/20/23 11:40> History of Present Illness Chief Complaint: Lower Extremity Injury Narrative Narrative: Patient presenting today with pain to her left second and third toes that she has had for the past week. She reports that she accidentally kicked the back of her granddaughter's heel a week ago and was experiencing pain for few days that did seem to be going away. [place] and now reports that the pain is worse than it has ever been. She denies any other injury. [facility] <JESSICA Jacobs - Last Filed: 05/20/23 11:40> [facility] Medical History DM hyperosmolarity type II High cholesterol HTN (hypertension) Hypothyroid Vertigo Home Medications atorvastatin 80 mg tablet 80 mg PO DAILY 03/29/18 [History Last Taken Unknown] clopidogrel 75 mg tablet 75 mg PO DAILY 03/29/18 [History Last Taken Unknown] fenofibrate nanocrystallized 145 mg tablet 145 mg PO DAILY 03/29/18 [History Last Taken Unknown] insulin detemir U-100 100 unit/mL (3 mL) subcutaneous pen (Levemir FlexTouch U-100 Insulin) 80 units subcut QHS 03/29/18 [History Last Taken Unknown] levothyroxine 137 mcg tablet (Synthroid) 100 mcg PO DAILY 03/29/18 [History Last Taken Unknown] losartan 50 mg-hydrochlorothiazide 12.5 mg tablet 1 ea PO DAILY 03/29/18 [History Last Taken Unknown] metoprolol tartrate 50 mg tablet 50 mg PO DAILY 03/29/18 [History Last Taken Unknown] omeprazole 40 mg capsule,delayed release 40 mg PO DAILY 03/29/18 [History Last Taken Unknown] potassium chloride 8 mEq tablet,extended release (Klor-Con) 8 meq PO DAILY 03/29/18 [History Last Taken Unknown] exenatide microspheres 2 mg/0.85 mL subcutaneous auto-injector 2 mg SQ DAILY 04/29/19 [History Last Taken Unknown] folic acid 1 mg tablet 1 mg PO DAILY 04/29/19 [History Last Taken Unknown] methotrexate sodium 2.5 mg tablet 2.5 mg PO DAILY 04/29/19 [History Last Taken Unknown] meclizine 12.5 mg tablet 12.5 mg PO TID PRN PRN Dizziness, vertigo #14 tabs 04/30/19 [Rx Last Taken Unknown] phenazopyridine 200 mg tablet (Pyridium) 200 mg PO TID #9 tabs 03/29/22 [Rx Last Taken Unknown] prednisone 20 mg tablet 60 mg (3 x 20 mg) PO DAILY #15 TABLETS 03/29/22 [Rx Last Taken Unknown] sulfamethoxazole 800 mg-trimethoprim 160 mg tablet 1 tab PO BID #14 TABLETS 03/29/22 [Rx Last Taken Unknown] cephalexin 500 mg capsule 500 mg PO Q6 #20 CAPSULES 10/27/22 [Rx Last Taken Unknown] Allergy/AdvReac Type Severity Reaction Status Date / Time morphine Allergy Itching Verified 05/20/23 11:01 meperidine [From Demerol] AdvReac Nausea/Vom/ Verified 05/20/23 11:01 Diarrhea Surgical History History of facial surgery History of spinal fusion Hx of hysterectomy Status post ORIF of fracture of ankle Social History Smoking Status: Former smoker substance use type: does not use ROS <JESSICA Jacobs - Last Filed: 05/20/23 11:40> ROS ED Constitutional Constitutional ED: Denies chills or fever(s) Cardiovascular Cardiovascular: Denies chest pain Respiratory/Chest Respiratory/Chest: Denies cough or dyspnea Gastrointestinal Gastrointestinal: Denies abdominal pain, nausea or vomiting Genitourinary Genitourinary ED: Denies dysuria, hematuria or urinary urgency Musculoskeletal Musculoskeletal: Reports arthralgias; Denies myalgias Integumentary Denies Abrasions or rash Neurologic Neurologic: Denies paresthesias or weakness EXAM <EJSSICA Jacobs - Last Filed: 05/20/23 11:40> Physical Exam Const Vital Signs: 05/20/23 10:59 Temperature 97 F L Temperature Source Temporal Pulse Rate 96 Respiratory Rate 16 Blood Pressure 177/87 H Blood Pressure Mean 117 Pulse Ox 96 Oxygen Delivery Method Room Air Positive well nourished, well developed and no apparent distress General Appearance ED: well developed HEENT Reports normocephalic and head/scalp atraumatic Mouth ED: Yes moist mucous membranes normal Eyes PERRL and EOMs intact bilaterally Neck full ROM and supple Chest Wall inspection of chest normal Resp normal respiratory effort and clear to auscultation bilaterally Cardio regular rate and regular rhythm GI soft to palpation, non-tender, non-distended and no masses Back/Spine normal ROM and normal to inspection Extremity Extremity Narrative: Left second and third toes slightly edematous in comparison to the right foot. Decreased range of motion to left second and third toes due to pain. DP pulses 2+ and equal bilaterally, good capillary refill, sensation intact. Neuro oriented x3, CN's II-XII intact bilaterally, moves all extremities, no focal motor deficits and no sensory deficits noted Sensorium / Orientation: awake and alert Psych mental status grossly normal and thought process normal Skin no rashes or lesions noted and no wounds <Dr. Chava Cleveland MD - Last Filed: 05/20/23 11:49> Physical Exam Const Vital Signs: 05/20/23 10:59 Temperature 97 F L Temperature Source Temporal Pulse Rate 96 Respiratory Rate 16 Blood Pressure 177/87 H Blood Pressure Mean 117 Pulse Ox 96 Oxygen Delivery Method Room Air MDM <JESSICA Jacobs - Last Filed: 05/20/23 11:40> [facility] Narrative Medical decision making narrative: Patient presenting for evaluation due to pain to her left second and third toes that she has had over the past week after kicking the back of her granddaughter's heel. The pain did seem to be getting better over this week but [place] and the pain has now worsened. She is well-appearing and in no acute distress. She has pain to palpation to the left second and third toes with very mild edema to the toes. There is no signs of infection. X-ray of the left foot will be obtained to rule out fracture/dislocation and is negative. She has been given RICE instructions and will be discharged home in stable condition. She is comfortable with plan. <Dr. Chava Cleveland MD - Last Filed: 05/20/23 11:49> [facility] Narrative Medical decision making narrative: Patient presenting for evaluation due to pain to her left second and third toes that she has had over the past week after kicking the back of her granddaughter's heel. The pain did seem to be getting better over this week but then [place] and the pain has now worsened. She is well-appearing and in no acute distress. She has pain to palpation to the left second and third toes with very mild edema to the toes. There is no signs of infection. X-ray of the left foot will be obtained to rule out fracture/dislocation and is negative. She has been given RICE instructions and will be discharged home in stable condition. She is comfortable with plan. I have personally performed a face to face assessment of the patient and have reviewed the AMANDA Note. I performed a substantive portion of the visit including all aspects of the following. My blair findings include: History is remarkable for blunt trauma. She bumped into the back of grandchild's foot. She presents with pain to her second and third toe. She states he is unable to put her shoe on. She denies paresthesia, anesthesia medics. She does have history of renal disease due to diabetes. Exam is there is soft tissue swelling over the proximal phalanx of the left second and third toe and second and third metatarsal. There is pain to palpation dominantly dorsal side versus plantar side. There is no subungual hematoma of any toe. Cap refill is normal. Sensation is normal. There is no pain ovation of the base of the fifth metatarsal. Medical Decision Making x-ray was obtained to evaluate for fracture. Three-view x-rays independent reviewed interpreted by me at 1138 as negative for fracture, subluxation or dislocation. There is no foreign body noted. Other additions or changes: Patient was instructed ice, elevate and Tylenol for pain Discharge Plan Triage Chief Complaint: Lower Extremity Injury ED Midlevel Provider: Dayna Staley ED Provider: Chava Cleveland Dx/Rx/DC Orders Clinical Impression: Contusion of second toe of left foot, Contusion of left foot, Contusion of third toe of left foot Instructions: ED Foot Contusion Prescriptions: No Action levothyroxine [Synthroid] 137 MCG tablet 100 mcg PO DAILY atorvastatin 80 MG tablet 80 mg PO DAILY clopidogrel 75 MG tablet 75 mg PO DAILY omeprazole 40 MG capsule,delayed release(DR/EC) 40 mg PO DAILY potassium chloride [Klor-Con 8] 8 MEQ tablet extended release 8 meq PO DAILY metoprolol tartrate 50 MG tablet 50 mg PO DAILY losartan-hydrochlorothiazide 1 EACH tablet 1 ea PO DAILY insulin detemir U-100 [Levemir FlexTouch U100 Insulin] 100 UNITS/ML insulin pen 80 units subcut QHS fenofibrate nanocrystallized 145 MG tablet 145 mg PO DAILY methotrexate sodium 2.5 MG tablet 2.5 mg PO DAILY folic acid 1 MG tablet 1 mg PO DAILY exenatide microspheres 2MG/0.8 auto-injector 2 mg SQ DAILY meclizine 12.5 MG tablet 12.5 mg PO TID PRN PRN (Reason: Dizziness, vertigo) Qty: 14 0RF phenazopyridine [Pyridium] 200 mg tablet 200 mg PO TID Qty: 9 0RF prednisone 20 mg tablet 60 mg PO DAILY Qty: 15 0RF sulfamethoxazole-trimethoprim [sulfamethoxazole-trimethoprim] 800-160 mg tablet 1 tab PO BID Qty: 14 0RF cephalexin [cephalexin] 500 mg capsule 500 mg PO Q6 Qty: 20 0RF Primary Care Provider: Meghan Person FOOD SERVICE AMBASSADOR Referrals: Meghan Person FOOD SERVICE AMBASSADOR, FOOD SERVICE AMBASSADOR-C [Primary Care Provider] - 5-7 Days Activity Restrictions/Additional Instructions: Please your toe several times a day for the next few days your foot elevated to help with swelling. You can take Tylenol for your pain as needed. Disposition Disposition: Home, Self Care
--- NOTE | 2023-05-20 11:19 | RAD_ITS ---
INDICATION: pain 2nd and 3rd toes EXAMINATION/TECHNIQUE: X-RAY - LEFT XR Foot Min 3 Views 3 VIEWS COMPARISON: No prior examinations are available for comparison. FINDINGS: SOFT TISSUES: No soft tissue swelling or gas. No radiopaque foreign body. BONES/JOINTS: No acute fracture or subluxation.. Normal alignment. Preservation of the joint space.. Surgical screws in medial malleolus. Side plate and screws in the visualized distal fibula. RAD/Foot min 3 Views IMPRESSION: No evidence of acute osseous changes. Electronically Signed: Duran Jhaveri MD at 12:11 EDT ,
== END 2023-05-20 11:56 | disposition home or self-care (01) ==
PROVIDERS: Emergency Provider Emergency Medicine; PCP Nurse Practitioner; Visit Provider Emergency Medicine
DX: S90.122A Contusion of left lesser toe(s) without damage to nail, initial encounter (principal); E11.22 Type 2 diabetes mellitus with diabetic chronic kidney disease; I12.9 Hypertensive chronic kidney disease with stage 1 through stage 4 chronic kidney disease, or unspecified chronic kidney disease; E78.00 Pure hypercholesterolemia, unspecified; S90.32XA Contusion of left foot, initial encounter; Z87.891 Personal history of nicotine dependence; N18.9 Chronic kidney disease, unspecified; W22.8XXA Striking against or struck by other objects, initial encounter
CPT/HCPCS: 73630; 99282

== ENCOUNTER 2024-01-08 10:53 | Inpatient (IN) | payer MEDICARE, SELFPAY ==
[2024-01-08] VITALS (7 sets, daily range): BP systolic 147–204; BP diastolic 71–114; PULSE 69–92; RESP 12–20; TEMP 36.1–36.9; O2SAT 94–98; BMI 24.0; BMI 23.3
--- NOTE | 2024-01-08 11:25 | EDS_ITS ---
HPI History of Present Illness Chief Complaint: Back Informant: patient Narrative Narrative: Patient presents secondary to left-sided low back pain. She has a history of chronic back pain and is in pain management. She normally takes oxycodone. She states that over the past months she has had intermittent symptoms consistent with sciatica. Over the past 3 days the symptoms have been worse and she has not been able to get out of bed. She states she did run out of her pain medication overnight and has no more oxycodone at home. Her prescription was last filled on December 13 for a 30-day supply. Patient denies any new trauma or injury to her back. No problems with bowel or bladder control. No fever. [facility] Medical History DM hyperosmolarity type II High cholesterol HTN (hypertension) Hypothyroid Vertigo Home Medications atorvastatin 80 mg tablet 80 mg PO DAILY 03/29/18 [History Last Taken Unknown] clopidogrel 75 mg tablet 75 mg PO DAILY 03/29/18 [History Last Taken Unknown] fenofibrate nanocrystallized 145 mg tablet 145 mg PO DAILY 03/29/18 [History Last Taken Unknown] insulin detemir U-100 100 unit/mL (3 mL) subcutaneous pen (Levemir FlexTouch U- 100 Insulin) 80 units subcut QHS 03/29/18 [History Last Taken Unknown] losartan 50 mg-hydrochlorothiazide 12.5 mg tablet 1 ea PO DAILY 03/29/18 [History Last Taken Unknown] metoprolol tartrate 50 mg tablet 50 mg PO DAILY 03/29/18 [History Last Taken Unknown] omeprazole 40 mg capsule,delayed release 40 mg PO DAILY 03/29/18 [History Last Taken Unknown] potassium chloride 8 mEq tablet,extended release (Klor-Con) 8 meq PO DAILY 03/29/18 [History Last Taken Unknown] exenatide microspheres 2 mg/0.85 mL subcutaneous auto-injector 2 mg SQ DAILY 04/29/19 [History Last Taken Unknown] folic acid 1 mg tablet 1 mg PO DAILY 04/29/19 [History Last Taken Unknown] methotrexate sodium 2.5 mg tablet 2.5 mg PO DAILY 04/29/19 [History Last Taken Unknown] meclizine 12.5 mg tablet 12.5 mg PO TID PRN PRN Dizziness, vertigo #14 tabs 04/30/19 [Rx Last Taken Unknown] phenazopyridine 200 mg tablet (Pyridium) 200 mg PO TID #9 tabs 03/29/22 [Rx Last Taken Unknown] prednisone 20 mg tablet 60 mg (3 x 20 mg) PO DAILY #15 TABLETS 03/29/22 [Rx Last Taken Unknown] sulfamethoxazole 800 mg-trimethoprim 160 mg tablet 1 tab PO BID #14 TABLETS 03/29/22 [Rx Last Taken Unknown] cephalexin 500 mg capsule 500 mg PO Q6 #20 CAPSULES 10/27/22 [Rx Last Taken Unknown] dulaglutide 3 mg/0.5 mL subcutaneous pen injector (Trulicity) mg subcut 01/08/24 [History Last Taken Unknown] duloxetine 30 mg capsule,delayed release 30 mg PO DAILY 01/08/24 [History Last Taken Unknown] insulin lispro 100 unit/mL subcutaneous pen (Humalog KwikPen (U-100) Insulin) subcut 01/08/24 [History Last Taken Unknown] levothyroxine 125 mcg tablet 125 mcg PO 01/08/24 [History Last Taken Unknown] losartan 100 mg-hydrochlorothiazide 12.5 mg tablet 1 tab PO DAILY 01/08/24 [History Last Taken Unknown] metformin 500 mg tablet,extended release 24 hr 1,000 mg PO BID 01/08/24 [History Last Taken Unknown] oxycodone 5 mg tablet 5 mg PO 4X/DAY 01/08/24 [History Last Taken Unknown] Allergy/AdvReac Type Severity Reaction Status Date / Time morphine Allergy Itching Verified 05/20/23 11:01 meperidine [From Demerol] AdvReac Nausea/Vom/ Verified 05/20/23 11:01 Diarrhea Surgical History History of facial surgery History of spinal fusion Hx of hysterectomy Status post ORIF of fracture of ankle Social History Smoking Status: Former smoker substance use type: does not use ROS ROS ED Constitutional Constitutional ED: Denies chills or fever(s) Eyes Eyes: Denies change in vision or discharge from eye(s) ENT ENT ED: Denies discharge from eye(s), rhinorrhea or sore throat Cardiovascular Cardiovascular: Denies chest pain or palpitations Respiratory/Chest Respiratory/Chest: Denies cough or dyspnea Gastrointestinal Gastrointestinal: Denies abdominal pain, nausea or vomiting Genitourinary Genitourinary ED: Denies dysuria Musculoskeletal Musculoskeletal: Reports back pain and extremity pain Integumentary Denies Abrasions or rash Neurologic Neurologic: Denies headache(s) or weakness Psychiatric Psychiatric: Denies anxiety or depression Allergic/Immunologic Allergic/Immunologic ED: Denies lip swelling or urticaria EXAM Physical Exam Const Vital Signs: 01/08/24 10:54 01/08/24 10:58 01/08/24 10:58 Temperature 96.9 F L Temperature Source Temporal Pulse Rate 92 88 Respiratory Rate 18 Blood Pressure 204/114 H Blood Pressure Mean 144 Pulse Ox 98 97 Oxygen Delivery Method Room Air 01/08/24 11:45 01/08/24 13:19 Temperature Temperature Source Pulse Rate 80 69 Respiratory Rate 16 12 Blood Pressure 159/99 H 167/113 H Blood Pressure Mean 119 131 Pulse Ox 97 97 Oxygen Delivery Method Room Air Room Air Positive well nourished and well developed General Appearance ED: well developed HEENT Reports moist mucous membranes Resp normal respiratory effort and clear to auscultation bilaterally Cardio regular rate and regular rhythm GI soft to palpation and non-tender Back/Spine Back/Spine Narrative: Tenderness outpatient over the left SI joint. Patient most comfortable when holding her hip in flexion. Good distal pulses and sensation. Extremity normal to inspection Neuro oriented x3 MDM MDM MDM Narrative Medical decision making narrative: Patient is significantly hypertensive on arrival, but states that she has not been able to get out of bed to take her blood pressure medication. IV line will be established. She will be given IV labetalol for blood pressure control. She will be given a dose of fentanyl along with lab work. A dose of IV steroid also given to control nerve inflammation. History & Record Review Discussion w/independent historian: Patient Lab Data Attestation: I reviewed the patient's lab results. Labs: Laboratory Results - last 24 hr 01/08/24 10:20 WBC 7.3 RBC 4.72 Hgb 14.7 Hct 45.7 MCV 96.8 MCH 31.1 MCHC 32.2 RDW Std Deviation 52.0 H RDW Coeff of John 14.5 Plt Count 265 MPV 12.2 H Immature Gran % (Auto) 0.400 Neut % (Auto) 61.7 Lymph % (Auto) 24.8 Mccreary % (Auto) 11.2 H Eos % (Auto) 1.2 Baso % (Auto) 0.7 Absolute Neuts (auto) 4.5 Absolute Lymphs (auto) 1.81 Nucleated RBC % 0 Sodium 139 Potassium 3.2 L Chloride 101 Carbon Dioxide 27.0 Anion Gap 11 BUN 15 Creatinine 1.08 H Estim Creat Clear Calc 43.43 Est GFR (MDRD) Af Amer 64 Est GFR (MDRD) Non-Af 53 L BUN/Creatinine Ratio 13.9 Glucose 230 H Calcium 10.7 H Treatment and Re-Evaluation Narrative: CBC was normal white count 7.3 with a hemoglobin of 14.7. Differential unremarkable. Chemistry studies significant for slightly low potassium at 3.2. Glucose is 230. Patient has been ordered labetalol for blood pressure control, however nursing staff states her next blood pressure reading was in the 150-160 systolic range. Labetalol was therefore held. Patient has received 2 doses of fentanyl along with a dose of IV Solu-Medrol. She states her pain is somewhat better, but not well enough where she can walk and take care of herself. I will speak with hospitalist regarding observation for pain management and physical therapy. Discharge Plan Triage Chief Complaint: Back ED Provider: Jolie Mendoza Dx/Rx/DC Orders Clinical Impression: Sciatica, Unable to ambulate Prescriptions: No Action atorvastatin 80 MG tablet 80 mg PO DAILY clopidogrel 75 MG tablet 75 mg PO DAILY omeprazole 40 MG capsule,delayed release(DR/EC) 40 mg PO DAILY potassium chloride [Klor-Con 8] 8 MEQ tablet extended release 8 meq PO DAILY metoprolol tartrate 50 MG tablet 50 mg PO DAILY losartan-hydrochlorothiazide 1 EACH tablet 1 ea PO DAILY insulin detemir U-100 [Levemir FlexTouch U100 Insulin] 100 UNITS/ML insulin pen 80 units subcut QHS fenofibrate nanocrystallized 145 MG tablet 145 mg PO DAILY methotrexate sodium 2.5 MG tablet 2.5 mg PO DAILY folic acid 1 MG tablet 1 mg PO DAILY exenatide microspheres 2MG/0.8 auto-injector 2 mg SQ DAILY meclizine 12.5 MG tablet 12.5 mg PO TID PRN PRN (Reason: Dizziness, vertigo) Qty: 14 0RF phenazopyridine [Pyridium] 200 mg tablet 200 mg PO TID Qty: 9 0RF prednisone 20 mg tablet 60 mg PO DAILY Qty: 15 0RF sulfamethoxazole-trimethoprim [sulfamethoxazole-trimethoprim] 800-160 mg tablet 1 tab PO BID Qty: 14 0RF cephalexin [cephalexin] 500 mg capsule 500 mg PO Q6 Qty: 20 0RF levothyroxine 125 mcg tablet 125 mcg PO metformin 500 mg tablet extended release 24 hr 1,000 mg PO BID oxycodone 5 mg tablet 5 mg PO 4X/DAY insulin lispro [Humalog KwikPen Insulin] 100 unit/mL insulin pen subcut duloxetine 30 mg capsule,delayed release(DR/EC) 30 mg PO DAILY losartan-hydrochlorothiazide 100-12.5 mg tablet 1 tab PO DAILY Trulicity 3 mg/0.5 mL pen injector subcut Primary Care Provider: Vincent Beal Referrals: Meghan Gaines SHEET METAL TECHNICIAN, SHEET METAL TECHNICIAN-C [Non-Staff] - Disposition Disposition: Acute Care Hospital [facility]
[2024-01-08] MEDS: Ketorolac 15 MG/ML Vial IV (11:32)
[2024-01-08 11:33] LABS: Absolute Lymphocyte Count 1.81 X10^3/uL (0.83-4.51); Absolute Neutrophil Count 4.5 X10^3/uL (2.0-7.7); Basophil# 0.05 X10^3/uL; Basophil% 0.7 % (0-1); Eosinophil# 0.09 X10^3/uL; Eosinophils% 1.2 % (0-5); Hematocrit 45.7 % (37-47); Hemoglobin 14.7 g/dL (12.0-15.0); Lymphocyte # 1.81 X10^3/ul (0.83-4.51); Lymphocyte % 24.8 % (19-41); Mean Corp Hgb Conc 32.2 g/dL (32-36); Mean Corpuscular Hgb 31.1 pg (27.0-32.0); Mean Corpuscular Volume 96.8 fL (81-99); Mean Platelet Vol. 12.2 fl (6.2-12.0); Monocyte# 0.82 X10^3/uL; Monocyte% 11.2 % (0-10); NRBC Flagged by Analyzer 0 % (0-5); Neutrophil # 4.51 X10^3/uL (2.7-7.7); Neutrophil % 61.7 % (47-70); Platelet Count 265 K/mm3 (150-450); RBC Distribution Width CV 14.5 % (11.6-14.6); Red Blood Count 4.72 M/mm3 (4.2-5.4); White Blood Count 7.3 K/mm3 (4.4-11.0)
[2024-01-08] MEDS: fentaNYL 100 MCG/2 ML Ampul 25 MCG IV ×2 (11:36→12:42)
[2024-01-08] MEDS: MethylPREDNISolone 125 MG/2 ML Vial 80 MG IV (11:39)
--- NOTE | 2024-01-08 11:42 | ED.RN ---
BP159/99.HOLD LABETALOL PER DR LOVE
[2024-01-08 11:46] LABS: Anion Gap 11 (5-15); BUN 15 mg/dL (7-18); BUN/Creat Ratio 13.9 RATIO (10-20); Calcium,Total 10.7 mg/dL (8.5-10.1); Chloride 101 mmol/L (98-107); Creatinine, Serum 1.08 mg/dL (0.55-1.02); EST Glomerular Filtration Rate 53 mL/min (>60); Est Glom Filt Rate - Afr Amer 64 mL/min (>60); Estimated Creatinine Clearance 43.43 ml/min; Glucose 230 mg/dL (74-106); Potassium 3.2 mmol/L (3.5-5.1); Sodium Level 139 mmol/L (136-145)
[2024-01-08] MEDS: Potassium Chloride Oral Soln 20 MEQ/15 ML UDC 40 MEQ PO (12:42)
--- NOTE | 2024-01-08 14:12 | PCM.HP.STD ---
HPI - General General Date of Admission: 01/08/24 Date of Service: 01/08/24 Chief Complaint: Left thumb leg radicular pain HPI Narrative GABRIELLE RIDLEY, is a 73 F who presents to the emergency room at [facility] with complaints of severe pain going from the left hip area radiating down the leg to the left foot x 3 days. Patient has not been able ambulate, she has had a past history of lumbar surgery in 2016-patient states L4-L5, she denies having any MRI of her back recently. She sees a family practice doctor in [place] who dispenses pain medication for her. Her family doctor is Dr. Beal. Patient denies any lower lumbar pain. Patient lives with her daughter. Patient states that she has so much pain yesterday that she did not take her blood pressure pills, she did did not give me a reason other than pain why she did not take the medication. No imaging studies were obtained in the ER, patient was given 80 mg of Solu-Medrol IV and IV fentanyl. Patient will be placed into observation status on MedSurg 3 for left leg radicular pain, MRI will be ordered, patient will be seen by PT and OT and she will receive IV pain meds and oral pain meds as needed. I will place the patient on IV Decadron 4 mg every 6 hours. [facility] Medical History DM hyperosmolarity type II High cholesterol HTN (hypertension) Hypothyroid Vertigo Home Medications atorvastatin 80 mg tablet 80 mg PO DAILY 03/29/18 [History Last Taken 01/07/24] clopidogrel 75 mg tablet 75 mg PO DAILY 03/29/18 [History Last Taken 01/07/24] fenofibrate nanocrystallized 145 mg tablet 145 mg PO DAILY 03/29/18 [History Last Taken 01/07/24] insulin detemir U-100 100 unit/mL (3 mL) subcutaneous pen (Levemir FlexTouch U-100 Insulin) 32 units subcut QHS 03/29/18 [History Last Taken 01/07/24] metoprolol tartrate 50 mg tablet 50 mg PO DAILY 03/29/18 [History Last Taken 01/07/24] omeprazole 40 mg capsule,delayed release 40 mg PO DAILY 03/29/18 [History Last Taken 01/07/24] potassium chloride 8 mEq tablet,extended release (Klor-Con) 8 meq PO DAILY 03/29/18 [History Last Taken 01/07/24] dulaglutide 3 mg/0.5 mL subcutaneous pen injector (Trulicity) 3 mg subcut QWEEK 01/08/24 [History Last Taken 12/31/23] duloxetine 30 mg capsule,delayed release 30 mg PO DAILY 01/08/24 [History Last Taken Unknown] insulin lispro 100 unit/mL subcutaneous pen (Humalog KwikPen (U-100) Insulin) 14 unit subcut TID 01/08/24 [History Last Taken Unknown] levothyroxine 125 mcg tablet 125 mcg PO DAILY 01/08/24 [History Last Taken 01/07/24] oxycodone 5 mg tablet 5 mg PO 4X/DAY 01/08/24 [History Last Taken 01/07/24] Allergy/AdvReac Type Severity Reaction Status Date / Time morphine Allergy Itching Verified 05/20/23 11:01 meperidine [From Demerol] AdvReac Nausea/Vom/ Verified 05/20/23 11:01 Diarrhea Surgical History History of facial surgery History of spinal fusion Hx of hysterectomy Status post ORIF of fracture of ankle Social History Smoking Status: Former smoker substance use type: does not use ROS Constitutional Constitutional: Denies anorexia, change in weight, chills, fatigue, fever(s), night sweats or weakness Eyes Eyes: Denies blurry vision, change in vision, discharge from eye(s) or eye pain Cardiovascular Cardiovascular: Denies chest pain, claudication, dyspnea on exertion, edema or palpitations Respiratory/Chest Respiratory/Chest: Denies cough, hemoptysis, shortness of breath at rest or shortness of breath with exertion Gastrointestinal Gastrointestinal: Denies abdominal pain, constipation, diarrhea, hematemesis, hematochezia, melena, nausea or vomiting Genitourinary Genitourinary: Denies dysuria, hematuria, urinary frequency, urinary hesitancy, urinary incontinence or urinary urgency Musculoskeletal Musculoskeletal: Reports other Details: Patient complains of left leg pain, the pain radiates from the patient's left hip area down to the left foot. She is unable to ambulate because of this ; Denies back pain, joint pain, joint stiffness, joint swelling, myalgias or neck pain Neurologic Neurologic: Reports other Details: Patient complains of left leg radicular pain x 3 days ; Denies abnormal speech, dizziness, focal weakness, headache(s), loss of vision, numbness, other visual disturbances, paresthesias, syncope or tingling Psychiatric Psychiatric: Denies anxiety, cognitive impairment, depression, irritability, mood swings or suicidal ideation Endocrine Endocrinology: Denies change in body appearance, cold intolerance, excessive sweating, heat intolerance, polydipsia or polyuria Hematologic/Lymphatic Hematologic/Lymphatic: Denies none, anemia, easy bleeding, easy bruising or lymphadenopathy Allergic/Immunologic Allergic/Immunologic: Denies rhinitis, urticaria, eczemia or asthma Vital Signs Vital Signs Vital Signs: 01/08/24 10:54 01/08/24 10:58 01/08/24 10:58 Temperature 96.9 F L Temperature Source Temporal Pulse Rate 92 88 Respiratory Rate 18 Blood Pressure 204/114 H Blood Pressure Mean 144 Pulse Ox 98 97 Oxygen Delivery Method Room Air 01/08/24 11:45 01/08/24 13:19 Temperature Temperature Source Pulse Rate 80 69 Respiratory Rate 16 12 Blood Pressure 159/99 H 167/113 H Blood Pressure Mean 119 131 Pulse Ox 97 97 Oxygen Delivery Method Room Air Room Air Weight Weight: 67.5 kg Body Mass Index (BMI) 24.0 Physical Exam Const alert, oriented x3 and no apparent distress General Appearance: cooperative, well kempt and well developed Orientation / Consciousness: awake, oriented to person, oriented to place and oriented to time HEENT normocephalic, head/scalp atraumatic, hearing grossly normal bilaterally and moist oral mucous membranes Eyes PERRL, EOMs intact bilaterally and conjunctivae normal Neck supple, no JVD, thyroid normal and no carotid bruits General: trachea midline Resp normal respiratory effort, no retractions, no use of accessory muscles and clear to auscultation bilaterally Auscultation: Negative for rales, rhonchi or wheezes Cardio regular rate, regular rhythm, S1 normal heart sound, S2 normal heart sound, no murmurs, no rub and no gallops GI normal to inspection, nondistended, normoactive bowel sounds, soft to palpation, non-tender and non-distended Extremity no clubbing, cyanosis or edema Skin no rashes or lesions noted General Skin Exam: no breakdown Neuro oriented x3, CN's II-XII intact bilaterally, moves all extremities, no focal motor deficits and no sensory deficits noted Sensorium / Orientation: awake, alert, oriented to person, oriented to place and oriented to time Speech: speech normal Psych affect normal Results Lab / Micro Data 01/08/24 10:20 01/08/24 10:20 Labs: Laboratory Results - last 24 hr 01/08/24 10:20: WBC 7.3, RBC 4.72, Hgb 14.7, Hct 45.7, MCV 96.8, MCH 31.1, MCHC 32.2, RDW Std Deviation 52.0 H, RDW Coeff of John 14.5, Plt Count 265, MPV 12.2 H, Immature Gran % (Auto) 0.400, Neut % (Auto) 61.7, Lymph % (Auto) 24.8, Cross % (Auto) 11.2 H, Eos % (Auto) 1.2, Baso % (Auto) 0.7, Absolute Neuts (auto) 4.5, Absolute Lymphs (auto) 1.81, Nucleated RBC % 0, Sodium 139, Potassium 3.2 L, Chloride 101, Carbon Dioxide 27.0, Anion Gap 11, BUN 15, Creatinine 1.08 H, Estim Creat Clear Calc 43.43, Est GFR (MDRD) Af Amer 64, Est GFR (MDRD) Non-Af 53 L, BUN/Creatinine Ratio 13.9, Glucose 230 H, Calcium 10.7 H Assessment & Plan Assessment/Plan (1) Sciatica: PLAN: Plan 1. Left leg radicular pain-most probably secondary to nerve impingement at the L4-L5 and L5-S1 level, patient will be placed in observation status on MedSur, she will receive IV corticosteroids, IV narcotics as needed and oral narcotics if needed. Patient will undergo an MRI of the lumbar spine, she will be seen by PT and OT #2 type 2 diabetes-blood sugars will be monitored via fingerstick blood sugars, sliding scale insulin will be given #3 essential hypertension-patient will remain on her blood pressure medications #4 hyperlipidemia-patient is on a statin #5 acute debility-patient will be seen by PT and OT, it is possible she may need temporary placement in long term facility if her symptoms do not improve. #6 cerebrovascular disease-patient stated that she had a stroke in the , she is currently taking Plavix Total clinical time spent by myself addressing the patient's medical issues, reviewing all of her data, collaborating with patient's care team: 75-minute Charges/Coding Visit Charges Inpatient E&M: 85293 Init Hosp L3
--- NOTE | 2024-01-08 15:57 | MRI_ITS ---
STUDY: MRI LUMBAR SPINE WITHOUT CONTRAST REASON FOR EXAM: Female, 73 years old. Left leg radiculopathy TECHNIQUE: Standardized fat and water weighted pulse sequences were obtained in the sagittal and axial planes. COMPARISON: None FINDINGS: T12-L1: Normal endplates. Normal disc height, hydration and morphology. Normal bilateral facet joints. Normal central canal and bilateral lateral recesses. Normal bilateral intervertebral neural foramina. Normal lumbar lordosis. There is no substantial scoliosis. Normal conus medullaris that terminates at T12-L1 L1-2: Normal endplates. Normal disc height, desiccation and normal morphology. Normal bilateral facet joints. Normal central canal and bilateral lateral recesses. Normal bilateral intervertebral neural foramina. L2-3: Normal endplates. Narrowed disc space with desiccation of disc and moderate annular bulge.. Mild facet arthropathy and thickening of ligamenta flava.. Mild to moderate narrowing of the central canal association with posterior epidural fat pad. Normal bilateral lateral recesses. Moderate bilateral neural foraminal stenosis L3-4: Narrowed disc space with desiccation of the disc and mild to moderate annular bulge. Arthropathy and thickening of ligamenta flava Moderate central canal stenosis exaggerated by prominent posterior epidural fat. Moderate bilateral lateral recess stenosis and severe neural foraminal stenosis exaggerated by shortened pedicles L4-5: Status post post bilateral laminectomy Degenerative endplate changes.. Normal disc height, desiccation and moderate annular bulge. Facet arthropathy.. Moderate central canal and bilateral lateral recess stenosis. Severe bilateral neural foraminal stenosis exaggerated by shortened pedicles L5-S1: Normal endplates. Normal disc height, disc space and mild annular bulge with left posterolateral/foraminal disc protrusion.. Mild facet arthropathy. Mildly narrowed central canal and moderate left lateral recess stenosis. Moderate right neural foraminal stenosis and severe narrowing on the left.. Normal visualized sacral ala. Normal visualized paraspinous soft tissue structures. MRI/Spine Lumbar (Routine) IMPRESSION: No acute fracture or other significant bony pathology. Postop changes at L4-5. Multilevel spinal stenosis secondary to disc disease and bony hypertrophy Findings as above Electronically Signed: Praful Beach MD at 19:42 EDT ,
[2024-01-08] MEDS: oxyCODONE 5 MG Tablet 10 MG PO ×2 (16:23→20:28)
[2024-01-08] MEDS: Acetaminophen 325 MG Tablet 650 MG PO (16:24)
[2024-01-08] MEDS: Insulin Lispro 100 UNIT/ML INSULN.PEN SC ×2 (16:30→21:21)
[2024-01-08] MEDS: Insulin Lispro 100 UNIT/ML INSULN.PEN 14 UNIT SC (16:30)
[2024-01-08 16:45] LABS: Bedside Glucose 303 mg/dL (74-106)
[2024-01-08] MEDS: dexAMETHasone 4 MG/ML Vial IV ×2 (17:56→23:11)
[2024-01-08] MEDS: 0.9% Saline Lock 10 ML Syringe IV (17:56)
[2024-01-08] MEDS: Insulin Glargine-YFGN 100 UNIT/ML Pen 32 UNIT SC (21:20)
[2024-01-08] MEDS: Heparin Injection (Vial) 5,000 UNIT/ML VIAL 5000 UNIT SC (21:22)
[2024-01-08 22:01] LABS: Bedside Glucose 379 mg/dL (74-106)
[2024-01-09] VITALS (8 sets, daily range): BP systolic 157–192; BP diastolic 78–96; PULSE 66–102; RESP 18; TEMP 36.3–36.8; O2SAT 93–97
[2024-01-09] MEDS: Levothyroxine 125 MCG Tablet PO (05:54)
[2024-01-09] MEDS: Insulin Lispro 100 UNIT/ML INSULN.PEN SC ×4 (05:55→20:51)
[2024-01-09] MEDS: dexAMETHasone 4 MG/ML Vial IV ×2 (05:56→11:41)
[2024-01-09 06:15] LABS: Bedside Glucose 292 mg/dL (74-106)
[2024-01-09] MEDS: Metoprolol Tartrate 50 MG Tablet PO (08:18)
[2024-01-09] MEDS: Pantoprazole Sodium 40 MG Tablet PO (08:18)
[2024-01-09] MEDS: Atorvastatin Calcium 80 MG Tablet PO (08:18)
[2024-01-09] MEDS: Potassium Chloride Oral Tablet 10 MEQ PO (08:18)
[2024-01-09] MEDS: Fenofibrate 145 MG Tablet PO (08:18)
[2024-01-09] MEDS: Heparin Injection (Vial) 5,000 UNIT/ML VIAL 5000 UNIT SC (08:19)
[2024-01-09] MEDS: Insulin Lispro 100 UNIT/ML INSULN.PEN 14 UNIT SC ×3 (08:19→16:20)
[2024-01-09 09:14] LABS: Anion Gap 8 (5-15); BUN 30 mg/dL (7-18); BUN/Creat Ratio 23.6 RATIO (10-20); Calcium,Total 9.9 mg/dL (8.5-10.1); Chloride 104 mmol/L (98-107); Creatinine, Serum 1.27 mg/dL (0.55-1.02); EST Glomerular Filtration Rate 44 mL/min (>60); Est Glom Filt Rate - Afr Amer 53 mL/min (>60); Estimated Creatinine Clearance 36.93 ml/min; Glucose 250 mg/dL (74-106); Potassium 3.6 mmol/L (3.5-5.1); Sodium Level 137 mmol/L (136-145)
--- NOTE | 2024-01-09 09:49 | CASEMGMT ---
Discharge Planning A list of?SNF providers including quality and resource use data and consistent with the patient's preferred geographic region, medical needs, and insurance network was created in [employer] Guide.? This list was provided to the SW. Ritu Teague Discharge Planning Asst.
[2024-01-09] MEDS: 0.9% Saline Lock 10 ML Syringe IV (11:41)
[2024-01-09 12:22] LABS: Bedside Glucose 285 mg/dL (74-106)
--- NOTE | 2024-01-09 13:26 | CASEMGMT ---
DOMINIQUE XAVIER Assessment Face to Face with patient for initial transition planning/care coordination assessment. RN MORENITA introduced self and role at [facility], pt voices understanding. Pt is A&Ox4 and is resting comfortably in bed and is calm. Pt GD at bedside. Care providers, pharmacy, and demographics verified. Admitting dx: Sciatica LACE Strata: 2 PCP: Emigdio Specialists: Denies Preferred Pharmacy:[facility] Insurance: FRACISCO Carl Prescription Benefit: Yes LNOK: Lencho Light (GD) Living Arrangements: Pt lives with her GD and 2 Great GD's (Age 1 and 6) in a single story home with a BM with HR with 3 steps to enter with HR. ADLs/IADLs: Pt reports normally being Ind before all of this. Transportation: Self, GD DME: Walker, cane, and shower seat that the pt does not need to use. Pt also states that she has a working BGM with enough supplies to check her BS. Shower GB. Raised toilet seat. BP Cuff HHC/SNF: Denies history Pt?s goal: Return to PLOF Plan: TBD. 6-click score is 13. PT Eval is pending. Pt states that she wants to go home at DC but does not know if she will be able to ambulate independently. Per Dr. Simmons, the pt is to have surgery on Monday. CM and JENNA to follow pt progression in the hospital for safe DC from [facility]. Jonathan Harper RN, CM
--- NOTE | 2024-01-09 14:00 | PN_ITS ---
Subjective Subjective Patient seen and examined. She says her left leg pain is much better when she is laying still but is aggravated by movement. Review of systems otherwise negative. Objective Data Objective Data Vital Signs: Vital Signs Temp Pulse Resp BP Pulse Ox O2 Del Method 97.7 F L 79 18 185/96 H 93 Room Air 01/09/24 08:02 01/09/24 08:18 01/09/24 08:02 01/09/24 08:02 01/09/24 08:02 01/09/24 08:15 Oxygen Delivery Method Room Air Weight: 144 lb 6.444 oz Body Mass Index (BMI) 23.3 Intake & Output: Intake and Output for Last 24 Hours 01/07/24 01/08/24 01/09/24 23:59 23:59 23:59 Intake Total 50 / 50 440 / 440 Output Total 700 / 700 Balance 50 / -250 -260 / -260 Lab / Micro Data 01/08/24 10:20 01/09/24 08:35 Labs: Laboratory Results - last 24 hr 01/08/24 16:27: POC Glucose 303 H 01/08/24 21:18: POC Glucose 379 H 01/09/24 05:53: POC Glucose 292 H 01/09/24 08:35: Sodium 137, Potassium 3.6, Chloride 104, Carbon Dioxide 25.0, Anion Gap 8, BUN 30 H, Creatinine 1.27 H, Estim Creat Clear Calc 36.93, Est GFR (MDRD) Af Amer 53 L, Est GFR (MDRD) Non-Af 44 L, BUN/Creatinine Ratio 23.6 H, Glucose 250 H, Calcium 9.9 01/09/24 11:38: POC Glucose 285 H Radiography Diagnostic Testing: Radiology Impression Lumbar Spine MRI 01/08/24 15:57 IMPRESSION: No acute fracture or other significant bony pathology. Postop changes at L4-5. Multilevel spinal stenosis secondary to disc disease and bony hypertrophy Findings as above Electronically Signed: Praful Beach MD at 19:42 EDT , Physical Exam Const alert, oriented x3, no apparent distress and well nourished General Appearance: cooperative and well developed HEENT normocephalic, head/scalp atraumatic, moist oral mucous membranes and oropharynx normal Eyes PERRL and EOMs intact bilaterally Neck no lymphadenopathy and supple Lymph Lymphatic: no lymphadenopathy noted and no lymphedema noted Resp normal respiratory effort, normal air movement and clear to auscultation bi laterally Cardio regular rate, regular rhythm, S1 normal heart sound, S2 normal heart sound and no murmurs GI normal to inspection, nondistended, normoactive bowel sounds, soft to palpation, non-tender and non-distended Extremity normal capillary refill, no clubbing, cyanosis or edema and no calf tenderness General Extremity: no tenderness to palpation of joints or extremities Skin General Skin Exam: no breakdown Neuro CN's II-XII intact bilaterally, no focal motor deficits, no sensory deficits noted and deep tendon reflexes 2+ bilaterally Neuro Narrative: Straight leg raising test of the right lower extremity positive Motor Exam: strength 5/5 throughout and general weakness Psych thought process normal, cooperative and affect normal Appearance: appropriate Assessment & Plan Assessment/Plan (1) Sciatica: (2) HTN (hypertension): PLAN: Plan #Left lower radicular pain due to sciatica * says pain is much better when she is laying still but is aggravated by movement. * MRI of the lumbar spine showed no acute fracture or other significant bony pathology, with multilevel spinal stenosis secondary to disc disease and bony hypertrophy as well as postop changes at L4-5 * PT/OT on board * on IV steroids, IV pain meds * will dc IV solumedrol, especially in light of type 2 diabetes mellitus and potential for hyperglycemia * pain management consulted. * #Benign essential hypertension: on metoprolol #Hyperlipidemia: on statin. #Hyperlipidemia: on statin and fenofibrate #BRAYAN: Cr is 1.27. Baseline Cr is ~ 0.93. Will hydrate with IVF and trend Cr. #TYpe 2 diabetes mellitus * on lantus 32 units daily. * ISS. Accuchecks ACHS * #Hypothyroidism: on synthroid #History of CVA; on plavix. WIll hold plavix as pain management is considering doing a procedure on Monday. DVT prophylaxis: SCDs Charges/Coding Visit Charges Inpatient E&M: 43260 Subs Hosp L2
--- NOTE | 2024-01-09 15:39 | CASEMGMT ---
Met with pt to complete KUMARI form. KUMARI form explained to pt who voiced understanding and signed form. Original form placed in pt?s chart and copy provided to pt.? Ritu Teague, Discharge Planning Asst
[2024-01-09 17:13] LABS: Bedside Glucose 246 mg/dL (74-106)
[2024-01-09] MEDS: oxyCODONE 5 MG Tablet 10 MG PO (20:47)
[2024-01-09] MEDS: Insulin Glargine-YFGN 100 UNIT/ML Pen 32 UNIT SC (20:51)
[2024-01-09] MEDS: hydrALAZINE 20 MG/ML Vial 10 MG IV (22:07)
[2024-01-09 22:18] LABS: Bedside Glucose 308 mg/dL (74-106)
[2024-01-10] VITALS (7 sets, daily range): BP systolic 145–193; BP diastolic 68–105; PULSE 60–94; RESP 12–18; TEMP 36.6–37; O2SAT 95–98; BMI 23.3
[2024-01-10] MEDS: Levothyroxine 125 MCG Tablet PO (05:06)
[2024-01-10 05:54] LABS: Absolute Lymphocyte Count 3.34 X10^3/uL (0.83-4.51); Absolute Neutrophil Count 11.5 X10^3/uL (2.0-7.7); Basophil# 0.03 X10^3/uL; Basophil% 0.2 % (0-1); Eosinophil# 0.01 X10^3/uL; Eosinophils% 0.1 % (0-5); Hemoglobin 13.2 g/dL (12.0-15.0); Lymphocyte # 3.34 X10^3/ul (0.83-4.51); Lymphocyte % 20.5 % (19-41); Mean Corp Hgb Conc 32.2 g/dL (32-36); Mean Corpuscular Hgb 31.2 pg (27.0-32.0); Mean Corpuscular Volume 96.9 fL (81-99); Mean Platelet Vol. 11.8 fl (6.2-12.0); Monocyte# 1.33 X10^3/uL; Monocyte% 8.2 % (0-10); NRBC Flagged by Analyzer 0 % (0-5); Neutrophil # 11.47 X10^3/uL (2.7-7.7); Neutrophil % 70.4 % (47-70); Platelet Count 271 K/mm3 (150-450); RBC Distribution Width CV 14.9 % (11.6-14.6); RBC Distribution Width SD 53.1 fl (35.1-43.9); Red Blood Count 4.23 M/mm3 (4.2-5.4); White Blood Count 16.3 K/mm3 (4.4-11.0)
[2024-01-10 06:21] LABS: Anion Gap 5 (5-15); BUN 37 mg/dL (7-18); BUN/Creat Ratio 31.1 RATIO (10-20); Chloride 107 mmol/L (98-107); Creatinine, Serum 1.19 mg/dL (0.55-1.02); EST Glomerular Filtration Rate 47 mL/min (>60); Est Glom Filt Rate - Afr Amer 57 mL/min (>60); Estimated Creatinine Clearance 39.42 ml/min; Glucose 132 mg/dL (74-106); Sodium Level 139 mmol/L (136-145)
[2024-01-10 08:25] LABS: Hemoglobin A1c 7.3 % (3.8-5.6)
[2024-01-10] MEDS: Metoprolol Tartrate 50 MG Tablet PO (08:47)
[2024-01-10 09:06] LABS: Bedside Glucose 122 mg/dL (74-106)
--- NOTE | 2024-01-10 09:47 | NURSING ---
call placed to dr. brown's office as surgery charge nurse states no knowledge of procedure at this time.
--- NOTE | 2024-01-10 09:49 | CASEMGMT ---
DOMINIQUE CM to pt room regarding DC planning. Pt did well with therapy and PT is not recommending any additional therapy. At this time, pt states that she feels safe and comfortable discharging home with no additional needs. Pt denies the need for OP therapy or HHC. Per Dr. Simmons, the pt is scheduled for a procedure today with Dr. Soliz and the DC will either be today or tomorrow depending on when the pt can be seen. SUSY.
--- NOTE | 2024-01-10 10:32 | PN_ITS ---
Subjective Subjective Patient seen and examined. She had no complaints and felt better today. Back pain is better controlled. She is due for a pain shot by pain management today. Review of systems is otherwise negative. Objective Data Objective Data Vital Signs: Vital Signs Temp Pulse Resp BP Pulse Ox O2 Del Method 97.8 F 72 18 181/90 H 97 Room Air 01/10/24 07:42 01/10/24 08:47 01/10/24 07:42 01/10/24 07:42 01/10/24 07:42 01/10/24 07:43 Oxygen Delivery Method Room Air Weight: 144 lb 6.444 oz Body Mass Index (BMI) 23.3 Intake & Output: Intake and Output for Last 24 Hours 01/08/24 01/09/24 01/10/24 23:59 23:59 23:59 Intake Total 50 / 50 840 / 840 200 / 200 Output Total 1100 / 1100 Balance 50 / -250 -260 / -260 200 / 200 Lab / Micro Data 01/10/24 05:43 01/10/24 05:43 Labs: Laboratory Results - last 24 hr 01/09/24 11:38: POC Glucose 285 H 01/09/24 16:18: POC Glucose 246 H 01/09/24 20:50: POC Glucose 308 H 01/10/24 05:43: WBC 16.3 H, RBC 4.23, Hgb 13.2, Hct 41.0, MCV 96.9, MCH 31.2, MCHC 32.2, RDW Std Deviation 53.1 H, RDW Coeff of John 14.9 H, Plt Count 271, MPV 11.8, Immature Gran % (Auto) 0.600, Neut % (Auto) 70.4 H, Lymph % (Auto) 20.5, [place] % (Auto) 8.2, Eos % (Auto) 0.1, Baso % (Auto) 0.2, Absolute Neuts (auto) 11.5 H, Absolute Lymphs (auto) 3.34, Nucleated RBC % 0, Sodium 139, Potassium 4 .0, Chloride 107, Carbon Dioxide 27.0, Anion Gap 5, BUN 37 H, Creatinine 1.19 H, Estim Creat Clear Calc 39.42, Est GFR (MDRD) Af Amer 57 L, Est GFR (MDRD) Non-Af 47 L, BUN/Creatinine Ratio 31.1 H, Glucose 132 H, Hemoglobin A1c 7.3 H, Calcium 10.0 01/10/24 07:35: POC Glucose 122 H Physical Exam Const alert, oriented x3 and no apparent distress General Appearance: cooperative, well kempt and well developed Orientation / Consciousness: awake HEENT normocephalic, head/scalp atraumatic, hearing grossly normal bilaterally, moist oral mucous membranes and oropharynx normal Eyes PERRL, EOMs intact bilaterally and conjunctivae normal Neck no lymphadenopathy, supple, no JVD, thyroid normal and no carotid bruits General: trachea midline Lymph Lymphatic: no lymphadenopathy noted and no lymphedema noted Resp normal respiratory effort, normal air movement, no retractions, no use of accessory muscles and clear to auscultation bilaterally Auscultation: Negative for rales, rhonchi or wheezes Cardio regular rate, regular rhythm, S1 normal heart sound, S2 normal heart sound, no murmurs, no rub and no gallops GI normal to inspection, nondistended, normoactive bowel sounds, soft to palpation, non-tender and non-distended Extremity normal capillary refill, no clubbing, cyanosis or edema and no calf tenderness General Extremity: no tenderness to palpation of joints or extremities Skin no rashes or lesions noted General Skin Exam: no breakdown Neuro oriented x3, CN's II-XII intact bilaterally, moves all extremities, no focal motor deficits, no sensory deficits noted and deep tendon reflexes 2+ bilaterally Sensorium / Orientation: awake and alert Speech: speech normal Motor Exam: strength 5/5 throughout and general weakness Psych thought process normal, cooperative and affect normal Appearance: appropriate Assessment & Plan Assessment/Plan (1) Sciatica: (2) HTN (hypertension): PLAN: Plan #Left lower radicular pain due to sciatica * says pain has improved significantly. * MRI of the lumbar spine showed no acute fracture or other significant bony pathology, with multilevel spinal stenosis secondary to disc disease and bony hypertrophy as well as postop changes at L4-5 * PT/OT on board * pain management consulted; for a pain shot today by pain management * on PO tylenol and PO oxyodone * #Benign essential hypertension: on metoprolol #Hyperlipidemia: on statin. #Hyperlipidemia: on statin and fenofibrate #BRAYAN: improving. Cr is down to 1.19. Will continue to monitor. #TYpe 2 diabetes mellitus * on lantus 32 units daily. * ISS. Accuchecks ACHS * #Hypothyroidism: on synthroid #History of CVA; on plavix. Plavix held as pain management is considering doing a procedure on Monday. DVT prophylaxis: SCDs Charges/Coding Visit Charges Inpatient E&M: 53127 Subs Hosp L2
[2024-01-10] MEDS: Pantoprazole Sodium 40 MG Tablet PO (10:39)
[2024-01-10 12:03] LABS: Bedside Glucose 112 mg/dL (74-106)
--- NOTE | 2024-01-10 15:35 | NURSING ---
called Dr. Soliz's office again talked with his nurse Lizeth. aware Epidural injection would not be occuring today. discussed per pt not had plavix since Monday. Aware pt's diet may change to NPO after midnight.
[2024-01-10] MEDS: Potassium Chloride Oral Tablet 10 MEQ PO (15:47)
[2024-01-10] MEDS: Fenofibrate 145 MG Tablet PO (15:48)
[2024-01-10] MEDS: Atorvastatin Calcium 80 MG Tablet PO (15:49)
--- NOTE | 2024-01-10 16:04 | NURSING ---
All documentation by nursing unit manager, Judith Condon, reviewed by supervisor public health nursing, Jolie BRENNANN, RN.
[2024-01-10 17:10] LABS: Bedside Glucose 93 mg/dL (74-106)
[2024-01-10] MEDS: oxyCODONE 5 MG Tablet 10 MG PO (18:28)
[2024-01-10] MEDS: Insulin Lispro 100 UNIT/ML INSULN.PEN SC (21:12)
[2024-01-10] MEDS: hydroCHLOROthiazide 12.5mg 12.5 MG PO (21:17)
[2024-01-10] MEDS: Losartan Potassium 100 MG Tablet PO (21:18)
[2024-01-10] MEDS: Insulin Glargine-YFGN 100 UNIT/ML Pen 32 UNIT SC (21:18)
[2024-01-10 22:12] LABS: Bedside Glucose 194 mg/dL (74-106)
[2024-01-11] VITALS (9 sets, daily range): BP systolic 112–179; BP diastolic 62–107; PULSE 56–88; RESP 14–16; TEMP 36–36.6; O2SAT 96–98; BMI 23.3
[2024-01-11 06:29] LABS: Absolute Lymphocyte Count 3.46 X10^3/uL (0.83-4.51); Absolute Neutrophil Count 5.3 X10^3/uL (2.0-7.7); Basophil# 0.05 X10^3/uL; Basophil% 0.5 % (0-1); Eosinophil# 0.08 X10^3/uL; Eosinophils% 0.8 % (0-5); Hematocrit 39.7 % (37-47); Hemoglobin 12.9 g/dL (12.0-15.0); Lymphocyte # 3.46 X10^3/ul (0.83-4.51); Lymphocyte % 35.7 % (19-41); Mean Corp Hgb Conc 32.5 g/dL (32-36); Mean Corpuscular Hgb 31.6 pg (27.0-32.0); Mean Corpuscular Volume 97.3 fL (81-99); Mean Platelet Vol. 11.2 fl (6.2-12.0); Monocyte# 0.81 X10^3/uL; Monocyte% 8.4 % (0-10); NRBC Flagged by Analyzer 0 % (0-5); Neutrophil # 5.27 X10^3/uL (2.7-7.7); Neutrophil % 54.3 % (47-70); Platelet Count 231 K/mm3 (150-450); RBC Distribution Width SD 53.9 fl (35.1-43.9); Red Blood Count 4.08 M/mm3 (4.2-5.4); White Blood Count 9.7 K/mm3 (4.4-11.0)
[2024-01-11 06:48] LABS: Anion Gap 5 (5-15); BUN 35 mg/dL (7-18); BUN/Creat Ratio 28.9 RATIO (10-20); Calcium,Total 9.3 mg/dL (8.5-10.1); Chloride 110 mmol/L (98-107); Creatinine, Serum 1.21 mg/dL (0.55-1.02); EST Glomerular Filtration Rate 46 mL/min (>60); Est Glom Filt Rate - Afr Amer 56 mL/min (>60); Estimated Creatinine Clearance 38.76 ml/min; Glucose 121 mg/dL (74-106); Potassium 3.8 mmol/L (3.5-5.1); Sodium Level 142 mmol/L (136-145)
[2024-01-11 08:11] LABS: Bedside Glucose 123 mg/dL (74-106)
[2024-01-11] MEDS: Pantoprazole Sodium 40 MG Tablet PO (11:20)
[2024-01-11] MEDS: Levothyroxine 125 MCG Tablet PO (11:20)
[2024-01-11] MEDS: oxyCODONE 5 MG Tablet 10 MG PO (11:20)
[2024-01-11] MEDS: Metoprolol Tartrate 50 MG Tablet PO (11:20)
[2024-01-11 11:52] LABS: Bedside Glucose 171 mg/dL (74-106)
--- NOTE | 2024-01-11 14:20 | RAD_ITS ---
PROCEDURE: Transforaminal L4-L5 and L5-S1 block. DATE OF EXAMINATION: January 11, 2024. INDICATION: Female, 73 years old. Pain. FLUOROSCOPY TIME (if supplied): (10.7 seconds) minutes/seconds. 2 images were submitted. RAD/Fluor Guidance for Spine Inj IMPRESSION: Intraoperative imaging provided for L4-L5 L5-S1 transforaminal block. Electronically Signed: Cole Ngo MD at 15:03 EDT ,
[2024-01-11] MEDS: Lidocaine 0.5% (50 ml) 50 ML Vial (14:24)
[2024-01-11] MEDS: Triamcinolone Acetonide 40 MG/ML Vial (14:24)
--- NOTE | 2024-01-11 15:37 | DS.PCM_ITS ---
Providers Date of Admission: 01/10/24 Date of Discharge: 01/11/24 Primary Care Physician: Dr. Vincent Beal MD Consultations 01/08/24 15:57 Consult: Pain Management Routine Consulting Provider: Chano Soliz Reason for Consult: left leg radicular apain EMERGENT Consult: No MD Notified: Yes Date Notified: 01/08/24 Time Notified: 16:17 Method of Notification: office Reason For Visit: back Diagnosis Discharge Diagnosis (1) Sciatica: Status: Acute Code(s): M54.30 - Sciatica, unspecified side (2) HTN (hypertension): Status: Chronic Code(s): I10 - Essential (primary) hypertension Plan #Left lower radicular pain due to sciatica * says pain has improved significantly. * MRI of the lumbar spine showed no acute fracture or other significant bony pathology, with multilevel spinal stenosis secondary to disc disease and bony hypertrophy as well as postop changes at L4-5 * PT/OT on board * pain management consulted; for a pain shot today by pain management * on PO tylenol and PO oxyodone * #Benign essential hypertension: on metoprolol #Hyperlipidemia: on statin. #Hyperlipidemia: on statin and fenofibrate #BRAYAN: improving. Cr is down to 1.19. Will continue to monitor. #TYpe 2 diabetes mellitus * on lantus 32 units daily. * ISS. Accuchecks ACHS * #Hypothyroidism: on synthroid #History of CVA; on plavix. Plavix held as pain management is considering doing a procedure on Monday. DVT prophylaxis: SCDs Medications at Discharge Home Medications atorvastatin 80 mg tablet 80 mg PO DAILY 03/29/18 clopidogrel 75 mg tablet 75 mg PO DAILY 03/29/18 fenofibrate nanocrystallized 145 mg tablet 145 mg PO DAILY 03/29/18 insulin detemir U-100 100 unit/mL (3 mL) subcutaneous pen (Levemir FlexTouch U-1 00 Insulin) 32 units subcut QHS 03/29/18 metoprolol tartrate 50 mg tablet 50 mg PO DAILY 03/29/18 omeprazole 40 mg capsule,delayed release 40 mg PO DAILY 03/29/18 potassium chloride 8 mEq tablet,extended release (Klor-Con) 8 meq PO DAILY 03/29/18 dulaglutide 3 mg/0.5 mL subcutaneous pen injector (Trulicity) 3 mg subcut THAO dm 01/08/24 insulin lispro 100 unit/mL subcutaneous pen (Humalog KwikPen (U-100) Insulin) 14 unit subcut TID 01/08/24 levothyroxine 125 mcg tablet 125 mcg PO DAILY 01/08/24 oxycodone 5 mg tablet 5 mg PO 4X/DAY 01/08/24 duloxetine 30 mg capsule,delayed release 30 mg PO DAILY see provider 01/10/24 losartan 100 mg-hydrochlorothiazide 12.5 mg tablet 1 tab PO DAILY blood pressure 01/10/24 Hospital Course Operations None Procedures - (selective nerve root block on the left of L5-S1) Summary of Care Provided Minutes Spent on Discharge: 45 Hospital Course: Coming patient is a 73-year-old female with past medical history as outlined was admitted through the ED on 01/08/2024 with a complaint of severe lower back pain. Patient had a history of lumbar stenosis and says she had also had sciatica and had required surgery for it in the past. She was on chronic pain medication. She started having severe pain in her lower back which radiated down her left lower leg and she could not lift her leg to any significant degree. She therefore came into the ED. She was started on IV Solu-Medrol and IV fentanyl. She had MRI of the lumbar spine which showed acute fracture or other significant bony pathology with multilevel spinal stenosis secondary to disc disease and bony hypertrophy as well as postop changes at L4-L5. The IV Solu-Medrol was discontinued in light of her type 2 diabetes mellitus and risk for hyperglycemia. She did have BRAYAN as well with creatinine of 1.27 and baseline of 0.93. Creatinine trended down with hydration. Pain management was consulted and patient had a selective nerve root block on the left of L5-S1 on 01/11/2024. She had been doing well with therapy and ambulating around the hospital. She was therefore discharged on 01/11/2024. She is follow-up with her primary care doctor within 1 to 2 weeks and also to follow-up with pain management. Next Patient seen and examined prior to discharge. She felt well and was eager to be discharged home. She had no other complaints and review of symptoms otherwise negative. Labs and vitals reviewed. Home medication reviewed and reconciled. Physical Exam Const alert, oriented x3, no apparent distress and well nourished General Appearance: cooperative, comfortable, well kempt and well developed Orientation / Consciousness: awake, oriented to person, oriented to place and oriented to time Exam Limitations: no limitations HEENT normocephalic, head/scalp atraumatic, hearing grossly normal bilaterally, moist oral mucous membranes and oropharynx normal Mouth: oral and palatal mucosa normal Eyes PERRL, EOMs intact bilaterally and conjunctivae normal Neck no lymphadenopathy, supple, no JVD, thyroid normal and no carotid bruits General: trachea midline Lymph Lymphatic: no lymphadenopathy noted and no lymphedema noted Resp normal respiratory effort, normal air movement, no retractions, no use of accessory muscles and clear to auscultation bilaterally Auscultation: Negative for rales, rhonchi or wheezes Cardio regular rate, regular rhythm, S1 normal heart sound, S2 normal heart sound, no murmurs, no rub and no gallops GI normal to inspection, nondistended, normoactive bowel sounds, soft to palpation, non-tender and non-distended Extremity normal capillary refill, no clubbing, cyanosis or edema and no calf tenderness General Extremity: no tenderness to palpation of joints or extremities Skin no rashes or lesions noted General Skin Exam: no breakdown Neuro oriented x3, CN's II-XII intact bilaterally, moves all extremities, no focal motor deficits, no sensory deficits noted and deep tendon reflexes 2+ bilaterally Neuro Narrative: Straight leg raising test of the right lower extremity positive Sensorium / Orientation: awake, alert, oriented to person, oriented to place and oriented to time Speech: speech normal Motor Exam: strength 5/5 throughout and general weakness Psych thought process normal, cooperative and affect normal Appearance: appropriate Weight / BMI Weight Weight: 144 lb 6.444 oz Body Mass Index (BMI) 23.3 ABG / Lab / Microbiology Data 01/11/24 06:15 01/11/24 06:15 Laboratory: Laboratory Results - last 24 hr 01/10/24 16:08: POC Glucose 93 01/10/24 21:11: POC Glucose 194 H 01/11/24 06:15: WBC 9.7, RBC 4.08 L, Hgb 12.9, Hct 39.7, MCV 97.3, MCH 31.6, MCHC 32.5, RDW Std Deviation 53.9 H, RDW Coeff of John 15.0 H, Plt Count 231, MPV 11.2, Immature Gran % (Auto) 0.300, Neut % (Auto) 54.3, Lymph % (Auto) 35.7, [place] % (Auto) 8.4, Eos % (Auto) 0.8, Baso % (Auto) 0.5, Absolute Neuts (auto) 5.3, Absolute Lymphs (auto) 3.46, Nucleated RBC % 0, Sodium 142, Potassium 3.8, Chloride 110 H, Carbon Dioxide 27.0, Anion Gap 5, BUN 35 H, Creatinine 1.21 H, Estim Creat Clear Calc 38.76, Est GFR (MDRD) Af Amer 56 L, Est GFR (MDRD) Non-Af 46 L, BUN/Creatinine Ratio 28.9 H, Glucose 121 H, Calcium 9.3 01/11/24 07:53: POC Glucose 123 H 01/11/24 11:31: POC Glucose 171 H Radiography Diagnostic Testing: Radiology Impression Guidance Fluoroscopy 01/11/24 14:20 IMPRESSION: Intraoperative imaging provided for L4-L5 L5-S1 transforaminal block. Electronically Signed: Cole Ngo MD at 15:03 EDT Reading Location ID and State: [address] [place] [address] , Service support , D/C Instructions Discharge Diet: Low fat / Low cholesterol Discharge Activity: Return to Normal Activity Weight Bearing Status: Weight bearing as tolerated Call your doctor if you observe: Fever of 101 or Higher, Shortness of breath, Dizziness, Swelling in the ankles and Chest pain Meaningful Use Info Meaningful Use Diagnoses (Choose all that apply): None applicable Discharge Plan Admission Admit Date/Time: 01/10/24 14:33 Primary Reason for Your Visit: back pain Attending Provider: Noemi Simmons Primary Care Provider: Vincent Beal Consulting Providers: Chano Soliz; Rick Pineda Instructions Patient Instructions: Self-Care for Low Back Pain, Low Back Leg Pain Causes, ED Sciatica Discharge Orders/Prescriptions Prescriptions: Continued atorvastatin 80 MG tablet 80 mg PO DAILY clopidogrel 75 MG tablet 75 mg PO DAILY omeprazole 40 MG capsule,delayed release(DR/EC) 40 mg PO DAILY potassium chloride [Klor-Con 8] 8 MEQ tablet extended release 8 meq PO DAILY metoprolol tartrate 50 MG tablet 50 mg PO DAILY Levemir FlexTouch U100 Insulin 100 UNITS/ML insulin pen 32 units subcut QHS fenofibrate nanocrystallized 145 MG tablet 145 mg PO DAILY levothyroxine 125 mcg tablet 125 mcg PO DAILY oxycodone 5 mg tablet 5 mg PO 4X/DAY insulin lispro [Humalog KwikPen Insulin] 100 unit/mL insulin pen 14 unit subcut TID Trulicity 3 mg/0.5 mL pen injector 3 mg subcut THOA Patient Comments: Take it on Sundays duloxetine 30 mg capsule,delayed release(DR/EC) 30 mg PO DAILY losartan-hydrochlorothiazide 100-12.5 mg tablet 1 tab PO DAILY Referrals / Follow Up: Chano Soliz MD [Med Staff - Active Staff] - (f/u in 2 weeks) Vincent Beal MD [Primary Care Provider] - Meghan Gaines [employer] REPAIRER, [employer] REPAIRER-C [Non-Staff] - Disposition Disposition (needs filled in before D/C Order can be placed): Home, Self Care Charges/Coding Visit Charges Inpatient E&M: 38376 Disch Hosp >30min
--- NOTE | 2024-01-11 15:37 | PCM.DC ---
Discharge Instructions Diet Discharge Diet: Low fat / Low cholesterol Activity Discharge Activity: Return to Normal Activity Weight Bearing Status: Weight bearing as tolerated Dressing / Incision Call your doctor if you observe: Fever of 101 or Higher, Shortness of breath, Dizziness, Swelling in the ankles and Chest pain Follow Up Care Test Results: Test results from this visit will be discussed in further detail at your follow-up appointment, if applicable. Discharge Plan Admission Admit Date/Time: 01/10/24 14:33 Primary Reason for Your Visit: back pain Attending Provider: Noemi Simmons Primary Care Provider: Vincent Beal Consulting Providers: Chano Soliz; Rick Pineda Instructions Patient Instructions: Self-Care for Low Back Pain, Low Back Leg Pain Causes, ED Sciatica Discharge Orders/Prescriptions Prescriptions: Continued atorvastatin 80 MG tablet 80 mg PO DAILY clopidogrel 75 MG tablet 75 mg PO DAILY omeprazole 40 MG capsule,delayed release(DR/EC) 40 mg PO DAILY potassium chloride [Klor-Con 8] 8 MEQ tablet extended release 8 meq PO DAILY metoprolol tartrate 50 MG tablet 50 mg PO DAILY Levemir FlexTouch U100 Insulin 100 UNITS/ML insulin pen 32 units subcut QHS fenofibrate nanocrystallized 145 MG tablet 145 mg PO DAILY levothyroxine 125 mcg tablet 125 mcg PO DAILY oxycodone 5 mg tablet 5 mg PO 4X/DAY insulin lispro [Humalog KwikPen Insulin] 100 unit/mL insulin pen 14 unit subcut TID Trulicity 3 mg/0.5 mL pen injector 3 mg subcut THAO Patient Comments: Take it on Sundays duloxetine 30 mg capsule,delayed release(DR/EC) 30 mg PO DAILY losartan-hydrochlorothiazide 100-12.5 mg tablet 1 tab PO DAILY Referrals / Follow Up: Chano Soliz MD [Med Staff - Active Staff] - (f/u in 2 weeks) Vincent Beal MD [Primary Care Provider] - Meghan Gaines RETAIL ASSET PROTECTION SPECIALIST, RETAIL ASSET PROTECTION SPECIALIST-C [Non-Staff] - Disposition Disposition (needs filled in before D/C Order can be placed): Home, Self Care
[2024-01-11 18:35] LABS: Bedside Glucose 129 mg/dL (74-106)
== END 2024-01-11 17:40 | disposition home or self-care (01) | DRG 552 ==
LOC: ED 13:59 → MS3 14:37
PROVIDERS: Anesthesiology; Anesthesiology Pain Medicine; Admitting Provider Internal Medicine; Emergency Provider Emergency Medicine; PCP Internal Medicine; Visit Provider Student in an Organized Health Care Education/Training Program
PROC: 3E0S3BZ Introduction of Anesthetic Agent into Epidural Space, Percutaneous Approach (ICD-10-PCS; principal; 2024-01-11 13:55)
DX: M54.42 Lumbago with sciatica, left side (principal); N17.9 Acute kidney failure, unspecified; E11.9 Type 2 diabetes mellitus without complications; Z79.4 Long term (current) use of insulin; E03.9 Hypothyroidism, unspecified; I10 Essential (primary) hypertension; M96.1 Postlaminectomy syndrome, not elsewhere classified; E78.00 Pure hypercholesterolemia, unspecified; M48.061 Spinal stenosis, lumbar region without neurogenic claudication; R53.81 Other malaise; G89.29 Other chronic pain; Z79.02 Long term (current) use of antithrombotics/antiplatelets; Z79.85 Long-term (current) use of injectable non-insulin antidiabetic drugs; Z79.890 Hormone replacement therapy; Z79.899 Other long term (current) drug therapy; Z86.73 Personal history of transient ischemic attack (TIA), and cerebral infarction without residual deficits; Z87.891 Personal history of nicotine dependence
CPT/HCPCS: 36415; 64483; 72148; 77003; 80048; 82962; 83036; 85025; 93005; 97116; 97161; 97166; 99283; J7040; J7120; A4216; J2405

== ENCOUNTER 2024-01-14 18:09 | Inpatient (IN) | payer MEDICARE, SELFPAY ==
[2024-01-14 18:13] VITALS: BP 234/99; PULSE 62; RESP 16; TEMP 36.4; O2SAT 98; BMI 24.5
--- NOTE | 2024-01-14 18:25 | EX.ED.DYSGE1 ---
HPI <JESSICA Sagastume - Last Filed: 01/14/24 19:53> History of Present Illness Chief Complaint: Lower Extremity Injury Narrative Narrative: Patient was admitted on 01/08/2024 through 01/11/2024 for left lower radicular pain due to sciatica. She had an MRI of the lumbar spine showing multilevel spinal stenosis from disc disease and bony hypertrophy, and no acute fracture, postoperative changes at L4-L5. On 01/10 pain management did a selective nerve root block on the left of L5-S1. She was ambulatory at discharge and states she was taking her oxycodone every 6 hours and felt fine for 2 days. This morning she was able to walk a little bit but then had increased left low back pain in the same spot and has been lying in bed all day. Her granddaughter states she could not get up. They had to use a cup in bed so she could urinate. Patient is had no new fall or trauma. No fever or chills. No urinary symptoms. She was brought in by EMS who administered IV fentanyl and Zofran. Patient still feels nauseated. [facility] <JESSICA Sagastume - Last Filed: 01/14/24 19:53> [facility] Medical History (Updated 01/14/24 @ 19:53 by JESSICA Sagastume) Diabetes DM hyperosmolarity type II Former smoker High cholesterol HTN (hypertension) Hypothyroid Rheumatoid arthritis Stroke/cerebrovascular accident Vertigo Home Medications atorvastatin 80 mg tablet 80 mg PO DAILY 03/29/18 [History Last Taken 01/07/24] clopidogrel 75 mg tablet 75 mg PO DAILY 03/29/18 [History Last Taken 01/07/24] fenofibrate nanocrystallized 145 mg tablet 145 mg PO DAILY 03/29/18 [History Last Taken 01/07/24] insulin detemir U-100 100 unit/mL (3 mL) subcutaneous pen (Levemir FlexTouch U-100 Insulin) 32 units subcut QHS 03/29/18 [History Last Taken 01/07/24] metoprolol tartrate 50 mg tablet 50 mg PO DAILY 03/29/18 [History Last Taken 01/07/24] omeprazole 40 mg capsule,delayed release 40 mg PO DAILY 03/29/18 [History Last Taken 01/07/24] potassium chloride 8 mEq tablet,extended release (Klor-Con) 8 meq PO DAILY 03/29/18 [History Last Taken 01/07/24] dulaglutide 3 mg/0.5 mL subcutaneous pen injector (Trulicity) 3 mg subcut THAO dm 01/08/24 [History Last Taken 12/31/23] insulin lispro 100 unit/mL subcutaneous pen (Humalog KwikPen (U-100) Insulin) 14 unit subcut TID 01/08/24 [History Last Taken Unknown] levothyroxine 125 mcg tablet 125 mcg PO DAILY 01/08/24 [History Last Taken 01/07/24] duloxetine 30 mg capsule,delayed release 30 mg PO DAILY see provider 01/10/24 [History Last Taken Unknown] losartan 100 mg-hydrochlorothiazide 12.5 mg tablet 1 tab PO DAILY blood pressure 01/10/24 [History Last Taken Unknown] oxycodone 5 mg tablet 5 mg PO Q6H PRN pain 5 days #20 tabs 01/11/24 [Rx Last Taken Unknown] Allergy/AdvReac Type Severity Reaction Status Date / Time morphine Allergy Itching Verified 05/20/23 11:01 meperidine [From Demerol] AdvReac Nausea/Vom/ Verified 05/20/23 11:01 Diarrhea Surgical History History of appendectomy History of facial surgery History of spinal fusion Hx of hysterectomy Status post ORIF of fracture of ankle Social History Smoking Status: Former smoker substance use type: does not use ROS <JESSICA Sagastume - Last Filed: 01/14/24 19:53> ROS ED ROS Narrative Constitutional: Negative for fever, chills, malaise. GI: Negative for abdominal pain. : Negative for dysuria, frequency. Neuro: Negative for motor/sensory dysfunction. EXAM <JESSICA Sagastume - Last Filed: 01/14/24 19:53> Physical Exam Narrative Exam Narrative: CONST: Patient lying in bed on her right side with emesis bag. EYES: Normal inspection. NECK: Normal inspection. RESP: No respiratory distress, CTAB. CVS: Regular rate and rhythm, no murmur, no gallop. ABD: Soft and nontender, no guarding or rebound, nondistended. Back: Normal inspection, no midline tenderness. Healed lumbar surgical scar. Tender over left SI joint. SKIN: Color normal, no rash, warm, dry, intact. EXTREMITIES: Normal appearance, 5/5 strength in bilateral hip flexion and DF/PF, normal sensation, 2+ DP pulses, no pedal edema. NEURO: Alert and answering questions appropriately. PSYCH: Normal affect. Const Vital Signs: 01/14/24 18:13 01/14/24 19:01 Temperature 97.6 F L Temperature Source Oral Pulse Rate 62 Respiratory Rate 16 Blood Pressure 234/99 H 186/76 H Blood Pressure Mean 144 112 Pulse Ox 98 Oxygen Delivery Method Room Air <Dr. Shahbaz Liriano MD - Last Filed: 01/14/24 18:47> Physical Exam Const Vital Signs: 01/14/24 18:13 01/14/24 19:01 Temperature 97.6 F L Temperature Source Oral Pulse Rate 62 Respiratory Rate 16 Blood Pressure 234/99 H 186/76 H Blood Pressure Mean 144 112 Pulse Ox 98 Oxygen Delivery Method Room Air MDM <JESSICA Sagastume - Last Filed: 01/14/24 19:53> [facility] Narrative Medical decision making narrative: History gathered from: Patient and granddaughter Patient was recently admitted for left lower back pain from sciatica. She had a nerve block done and has been taking oxycodone. Today her pain worsened to the point she could not get out of bed all day. She had no new fall or injury. She was given IV fentanyl and Zofran by the squad and presents and is vomiting after medication. She is hypertensive likely from pain. The rest of her vitals are stable. She has no spinal tenderness. There is an old lumbar surgical scar. She is tender over the left lumbar muscles/SI joint. Lower extremity MSPs intact. She was treated with IM Phenergan and screening labs were obtained. CBC and BMP overall unremarkable except for glucose of 297. At this point the patient failed outpatient back pain control and cannot ambulate safely and case was discussed with the hospitalist for admission. I have personally performed a face to face assessment of the patient and have reviewed the AMANDA Note. I performed a substantive portion of the visit including all aspects of the following. My blair findings include: History is 73-year-old female history of sciatica her recent hospitalization and discharged on . She did have a nerve block done. Today having increased pain going down her leg. No bowel or bladder incontinence. Was brought in by squad treated with IV fentanyl and now has nausea and vomiting and spite of nausea medication they gave her. Exam is [73-year-old female vital signs stable blood pressure elevated 234/99 most likely secondary to her pain. H EENT exam unremarkable atraumatic. Pupils round react light. No facial droop. Normal speech. Neck nontender. Lungs clear to auscultation bilaterally. Heart regular rhythm rate about 60 no murmur. Chest wall and ribs nontender. Abdomen soft nontender. Back she has no spine tenderness. Well-healed prior lumbar surgical scar. She has left SI tenderness with a positive straight leg raise. No cauda equina. No saddle anesthesia. Normal medial thigh sensation. Normal dorsi plantarflexion. Patient is awake alert. Answer questions following commands.] Medical Decision Making [73-year-old recent admission for left-sided sciatica. Additional nausea medication. She may need to be admitted screening labs.] Other additions or changes: [None] Lab Data Labs: Laboratory Results - last 24 hr 01/14/24 18:55 WBC 4.5 RBC 3.79 L Hgb 12.3 Hct 36.2 L MCV 95.5 MCH 32.5 H MCHC 34.0 RDW Std Deviation 50.0 H RDW Coeff of John 14.2 Plt Count 163 MPV 12.7 H Immature Gran % (Auto) 0.200 Neut % (Auto) 66.5 Lymph % (Auto) 20.9 [place] % (Auto) 11.8 H Eos % (Auto) 0.2 Baso % (Auto) 0.4 Absolute Neuts (auto) 3.0 Absolute Lymphs (auto) 0.94 Nucleated RBC % 0 Sodium 140 Potassium 3.8 Chloride 107 Carbon Dioxide 27.0 Anion Gap 6 BUN 25 H Creatinine 1.08 H Estim Creat Clear Calc 43.43 Est GFR (MDRD) Af Amer 64 Est GFR (MDRD) Non-Af 53 L BUN/Creatinine Ratio 23.1 H Glucose 297 H Calcium 9.4 <Dr. Shahbaz Liriano MD - Last Filed: 01/14/24 18:47> [facility] MDM Narrative Medical decision making narrative: I have personally performed a face to face assessment of the patient and have reviewed the AMANDA Note. I performed a substantive portion of the visit including all aspects of the following. My blair findings include: History is 73-year-old female history of sciatica her recent hospitalization and discharged on . She did have a nerve block done. Today having increased pain going down her leg. No bowel or bladder incontinence. Was brought in by squad treated with IV fentanyl and now has nausea and vomiting and spite of nausea medication they gave her. Exam is [73-year-old female vital signs stable blood pressure elevated 234/99 most likely secondary to her pain. H EENT exam unremarkable atraumatic. Pupils round react light. No facial droop. Normal speech. Neck nontender. Lungs clear to auscultation bilaterally. Heart regular rhythm rate about 60 no murmur. Chest wall and ribs nontender. Abdomen soft nontender. Back she has no spine tenderness. Well-healed prior lumbar surgical scar. She has left SI tenderness with a positive straight leg raise. No cauda equina. No saddle anesthesia. Normal medial thigh sensation. Normal dorsi plantarflexion. Patient is awake alert. Answer questions following commands.] Medical Decision Making [73-year-old recent admission for left-sided sciatica. Additional nausea medication. She may need to be admitted screening labs.] Other additions or changes: [None] History & Record Review Discussion w/independent historian: Patient and Family Additional record(s) reviewed:: Prior inpatient record, Prior outpatient record, Prior ED visit and Prior labs Lab Data Labs: Laboratory Results - last 24 hr 01/14/24 18:55 WBC 4.5 RBC 3.79 L Hgb 12.3 Hct 36.2 L MCV 95.5 MCH 32.5 H MCHC 34.0 RDW Std Deviation 50.0 H RDW Coeff of John 14.2 Plt Count 163 MPV 12.7 H Immature Gran % (Auto) 0.200 Neut % (Auto) 66.5 Lymph % (Auto) 20.9 [place] % (Auto) 11.8 H Eos % (Auto) 0.2 Baso % (Auto) 0.4 Absolute Neuts (auto) 3.0 Absolute Lymphs (auto) 0.94 Nucleated RBC % 0 Sodium 140 Potassium 3.8 Chloride 107 Carbon Dioxide 27.0 Anion Gap 6 BUN 25 H Creatinine 1.08 H Estim Creat Clear Calc 43.43 Est GFR (MDRD) Af Amer 64 Est GFR (MDRD) Non-Af 53 L BUN/Creatinine Ratio 23.1 H Glucose 297 H Calcium 9.4 Discharge Plan Triage Chief Complaint: Lower Extremity Injury ED Midlevel Provider: Tennille Jackson ED Provider: Shahbaz Liriano Dx/Rx/DC Orders Clinical Impression: Intractable back pain, Unable to ambulate Prescriptions: No Action atorvastatin 80 MG tablet 80 mg PO DAILY clopidogrel 75 MG tablet 75 mg PO DAILY omeprazole 40 MG capsule,delayed release(DR/EC) 40 mg PO DAILY potassium chloride [Klor-Con 8] 8 MEQ tablet extended release 8 meq PO DAILY metoprolol tartrate 50 MG tablet 50 mg PO DAILY Levemir FlexTouch U100 Insulin 100 UNITS/ML insulin pen 32 units subcut QHS fenofibrate nanocrystallized 145 MG tablet 145 mg PO DAILY levothyroxine 125 mcg tablet 125 mcg PO DAILY insulin lispro [Humalog KwikPen Insulin] 100 unit/mL insulin pen 14 unit subcut TID Trulicity 3 mg/0.5 mL pen injector 3 mg subcut THAO Patient Comments: Take it on Sundays duloxetine 30 mg capsule,delayed release(DR/EC) 30 mg PO DAILY losartan-hydrochlorothiazide 100-12.5 mg tablet 1 tab PO DAILY oxycodone 5 mg tablet 5 mg PO Q6H PRN (Reason: pain) 5 Days Qty: 20 0RF Primary Care Provider: Vincent Beal Referrals: Vincent Beal MD [Primary Care Provider] -
[2024-01-14] MEDS: proMETHazine 25 MG/ML Syringe 12.5 MG IM (18:34)
[2024-01-14 19:01] VITALS: BP 186/76
[2024-01-14 19:14] LABS: Absolute Lymphocyte Count 0.94 X10^3/uL (0.83-4.51); Basophil# 0.02 X10^3/uL; Basophil% 0.4 % (0-1); Eosinophil# 0.01 X10^3/uL; Eosinophils% 0.2 % (0-5); Hematocrit 36.2 % (37-47); Hemoglobin 12.3 g/dL (12.0-15.0); Lymphocyte # 0.94 X10^3/ul (0.83-4.51); Lymphocyte % 20.9 % (19-41); Mean Corpuscular Hgb 32.5 pg (27.0-32.0); Mean Corpuscular Volume 95.5 fL (81-99); Mean Platelet Vol. 12.7 fl (6.2-12.0); Monocyte# 0.53 X10^3/uL; Monocyte% 11.8 % (0-10); NRBC Flagged by Analyzer 0 % (0-5); Neutrophil # 2.99 X10^3/uL (2.7-7.7); Neutrophil % 66.5 % (47-70); Platelet Count 163 K/mm3 (150-450); RBC Distribution Width CV 14.2 % (11.6-14.6); Red Blood Count 3.79 M/mm3 (4.2-5.4); White Blood Count 4.5 K/mm3 (4.4-11.0)
[2024-01-14 19:15] LABS: Anion Gap 6 (5-15); BUN 25 mg/dL (7-18); BUN/Creat Ratio 23.1 RATIO (10-20); Calcium,Total 9.4 mg/dL (8.5-10.1); Chloride 107 mmol/L (98-107); Creatinine, Serum 1.08 mg/dL (0.55-1.02); EST Glomerular Filtration Rate 53 mL/min (>60); Est Glom Filt Rate - Afr Amer 64 mL/min (>60); Estimated Creatinine Clearance 43.43 ml/min; Glucose 297 mg/dL (74-106); Potassium 3.8 mmol/L (3.5-5.1); Sodium Level 140 mmol/L (136-145)
--- NOTE | 2024-01-14 19:28 | HP.PCM.HOS_ITS ---
HPI - General General Date of Admission: 01/14/24 Date of Service: 01/14/24 Chief Complaint: Recurrent lumbar back pain and radiculopathy, unable to ambulate. HPI Narrative The patient is a 73 y/o F w/ PMHx: HTN, HLD, GERD, Hypothyroidism, Rheumatoid arthritis, Hx CVA, Diabetes mellitus type II, Anxiety and Depression, recent discharge 01/11/24 secondary to significant lumbar back pain with left lower extremity radiculopathy with MRI of the lumbar spine with multilevel spinal stenosis from disc disease, bony hypertrophy with no acute fracture but noted postoperative changes L4-5 with pain management nerve root block L5-S1 on the left with improvements in ability to discharge to home on oral oxycodone however patient now represents to the [facility] ED on 01/14/24 with recurrent symptoms unable to get out of bed through the last day requiring her to even urinate in a cup with recurrent similar symptoms prompting EMS call. EMS on route given patient pain complaints administered her IV fentanyl and IV Zofran. Patient has been nauseated with the pain. Patient denies any recent falls or injury. She does report currently her pain is 8 out of 10 in severity and worse, 10 out of 10 with any attempted movement even in the bed alone. She notes her current status is exactly how she felt when she initially presented. Workup in the ED included T97.6, heart 62, BP 234/99, respiratory rate 16, 98% on room air, CBC with WBC 4.5, hemoglobin 12.3, MCV 95.5, platelet 163 without marked shift, BMP with BUN/creatinine 25/1.08, glucose 297 otherwise not marked appearing. In the ED patient ministered Phenergan 12.5 mg IM x 1. [facility], [facility] Medical History (Updated 01/14/24 @ 19:[address] Ting Franklin MD) DM type 2 (diabetes mellitus, type 2) Former smoker High cholesterol HTN (hypertension) Hypothyroidism Rheumatoid arthritis Stroke/cerebrovascular accident Home Medications atorvastatin 80 mg tablet 80 mg PO DAILY 03/29/18 [History Last Taken 01/07/24] clopidogrel 75 mg tablet 75 mg PO DAILY 03/29/18 [History Last Taken 01/07/24] fenofibrate nanocrystallized 145 mg tablet 145 mg PO DAILY 03/29/18 [History Last Taken 01/07/24] insulin detemir U-100 100 unit/mL (3 mL) subcutaneous pen (Levemir FlexTouch U- 100 Insulin) 32 units subcut QHS 03/29/18 [History Last Taken 01/07/24] metoprolol tartrate 50 mg tablet 50 mg PO DAILY 03/29/18 [History Last Taken 01/07/24] omeprazole 40 mg capsule,delayed release 40 mg PO DAILY 03/29/18 [History Last Taken 01/07/24] potassium chloride 8 mEq tablet,extended release (Klor-Con) 8 meq PO DAILY 03/29/18 [History Last Taken 01/07/24] dulaglutide 3 mg/0.5 mL subcutaneous pen injector (Trulicity) 3 mg subcut THAO dm 01/08/24 [History Last Taken 12/31/23] insulin lispro 100 unit/mL subcutaneous pen (Humalog KwikPen (U-100) Insulin) 14 unit subcut TID 01/08/24 [History Last Taken Unknown] levothyroxine 125 mcg tablet 125 mcg PO DAILY 01/08/24 [History Last Taken 01/07/24] duloxetine 30 mg capsule,delayed release 30 mg PO DAILY see provider 01/10/24 [History Last Taken Unknown] losartan 100 mg-hydrochlorothiazide 12.5 mg tablet 1 tab PO DAILY blood pressure 01/10/24 [History Last Taken Unknown] oxycodone 5 mg tablet 5 mg PO Q6H PRN pain 5 days #20 tabs 01/11/24 [Rx Last Taken Unknown] Allergy/AdvReac Type Severity Reaction Status Date / Time morphine Allergy Itching Verified 05/20/23 11:01 meperidine [From Demerol] AdvReac Nausea/Vom/ Verified 05/20/23 11:01 Diarrhea Family History Mother Thyroid disorder Father Heart disease CAD (coronary artery disease) Hypertension Myocardial infarction Surgical History History of appendectomy History of facial surgery History of spinal fusion Hx of hysterectomy Status post ORIF of fracture of ankle Social History (Updated 01/14/24 @ 19:[address] Ting Franklin MD) household members: none Smoking Status: Former smoker how long ago did patient quit smoking: Smoked age [age] ~1/2 ppd. alcohol intake: never substance use type: does not use ROS ROS Narrative Admission Review of Systems: CONSTITUTIONAL: No weight loss, fever, chills, + weakness or fatigue. HEENT: Eyes: No visual loss, blurred vision, double vision or yellow sclerae. Ears, Nose, Throat: No hearing loss, sneezing, congestion, runny nose or sore throat. SKIN: No rash or itching, lesions, wounds. CARDIOVASCULAR: No chest pain, chest pressure or chest discomfort, palpitations, edema, orthopnea, syncopal events. RESPIRATORY: No shortness of breath, cough or sputum, wheezing, hemoptysis. GASTROINTESTINAL: + Anorexia, nausea. No vomiting or diarrhea, abdominal pain, melena, BRBPR. GENITOURINARY: No dysuria, frequency, urgency or retention. NEUROLOGICAL: + Lumbar back pain with significant radiculopathy left lower extremity, debility, unable to ambulate. No headache, dizziness, syncope, para lysis, ataxia, change in bowel or bladder control, seizure. MUSCULOSKELETAL: + muscle, back pain, joint pain or stiffness. HEMATOLOGIC: No anemia, bleeding or bruising. LYMPHATICS: No enlarged nodes. No history of splenectomy. PSYCHIATRIC: + History of anxiety and depression. ENDOCRINOLOGIC: No reports of sweating, cold or heat intolerance. No polyuria or polydipsia. ALLERGIES: No history of asthma, hives, eczema or rhinitis. Vital Signs Vital Signs Vital Signs: 01/14/24 18:13 01/14/24 19:01 Temperature 97.6 F L Temperature Source Oral Pulse Rate 62 Respiratory Rate 16 Blood Pressure 234/99 H 186/76 H Blood Pressure Mean 144 112 Pulse Ox 98 Oxygen Delivery Method Room Air Weight Weight: 151 lb 14.376 oz Body Mass Index (BMI) 24.5 Physical Exam Narrative Physical Examination: General: Awake, alert, oriented x 3 and cooperative, laying in the ED bed, uncomfortable, rating pain 8 out of 10 in severity, mildly tearful. Skin: Normal color, normal turgor, no icterus, no cyanosis except for occasional staged ecchymoses. HEENT: AT/NC, EOMI, PERRLA, dry MM, no carotid bruits or JVD noted. Lungs: Mildly diminished, greater bases, appropriate effort, no rales, ronchi or wheezing. Heart: Mildly bradycardic with regular rhythm; no gallop, rub audible. Abdomen: Soft, NTTP, ND, hyperactive BS, no appreciated HSM. Extremities: No cyanosis, no clubbing, no marked peripheral edema, significant difficulty with lower extremity leg raise bilaterally although left greater than right. Neurological: Patient awake, alert, oriented as noted, cognitive function intact; pupils equally reactive to light and accommodation, cranial nerves grossly normal, moving all 4 extremities however extremely limited given significant debility with left lower extremity radicular pain, lumbar back pain, strength accordingly severely globally decreased, sensation intact. Psychiatric: Affect appears uncomfortable appearing, no acute evidence of depressive or anxiety feelings. Results Lab / Micro Data 01/14/24 18:55 01/14/24 18:55 Labs: Laboratory Results - last 24 hr 01/14/24 18:55: WBC 4.5, RBC 3.79 L, Hgb 12.3, Hct 36.2 L, MCV 95.5, MCH 32.5 H, MCHC 34.0, RDW Std Deviation 50.0 H, RDW Coeff of John 14.2, Plt Count 163, MPV 1 2.7 H, Immature Gran % (Auto) 0.200, Neut % (Auto) 66.5, Lymph % (Auto) 20.9, Jennings % (Auto) 11.8 H, Eos % (Auto) 0.2, Baso % (Auto) 0.4, Absolute Neuts (auto) 3.0, Absolute Lymphs (auto) 0.94, Nucleated RBC % 0, Sodium 140, Potassium 3.8, Chloride 107, Carbon Dioxide 27.0, Anion Gap 6, BUN 25 H, Creatinine 1.08 H, Estim Creat Clear Calc 43.43, Est GFR (MDRD) Af Amer 64, Est GFR (MDRD) Non-Af 53 L, BUN/Creatinine Ratio 23.1 H, Glucose 297 H, Calcium 9.4 Assessment & Plan Assessment/Plan (1) Intractable back pain: PLAN: Plan The patient is a 73 y/o F w/ PMHx: HTN, HLD, GERD, Hypothyroidism, Rheumatoid arthritis, Hx CVA, Diabetes mellitus type II, Anxiety and Depression, recent discharge 01/11/24 secondary to significant lumbar back pain with left lower extremity radiculopathy with MRI of the lumbar spine with multilevel spinal stenosis from disc disease, bony hypertrophy with no acute fracture but noted postoperative changes L4-5 with pain management nerve root block L5-S1 on the left with improvements in ability to discharge to home on oral oxycodone however patient now represents to the [facility] ED on 01/14/24 with recurrent symptoms unable to get out of bed through the last day requiring her to even urinate in a cup with recurrent similar symptoms prompting EMS call. #1. Acute Intractable Back Pain, recurrent with left lower extremity radiculopathy, inability to ambulate with adult failure to thrive: Will admit to [place] and given notable debility, recent similar presentation with 4 day admission will admit as full admission status given suspect > 48 hour admission and high fall risk to return to home, given recent films including recent MRI back will defer repeat imaging at this time but will maintain on fall precautions, fr equent positioning, initiate IV toradol low dose x 5 doses cautiously, low-dose TID gabapentin, lidocaine patches, low dose PRN tizanidine, medrol dose pack, po/IV narcotic pain regimen, anti-emetics, bowel regimen. Will consult PT and OT for evaluation as well as Case management for discharge planning. If patient has minimal improvement then may need to reconsult pain management versus orthospine. #2. History CVA: Will continue patient home Plavix, statin, hypertensive regimen, diabetic regimen with adjustments as noted. #3. Diabetes mellitus type II: Hold oral home regimen, continue home insulin regimen, ADA diet, accu checks w/ ISS. #4. Hypertension: Continue home regimen including losartan, metoprolol, PRN hydralazine. #5. Hyperlipidemia: We will continue patient on statin therapy. #6. Hypothyroidism: We will continue patient on levothyroxine regimen #7. Anxiety and depression: We will continue patient home duloxetine regimen. #8. Rheumatoid arthritis: Per current list not on any specific chronic regimen, encourage continued outpatient follow-up with rheumatology as previously arranged. #9. GERD: We will continue patient on PPI. #10. DVT prophylaxis: Lovenox. If patient were to need any type of injection would need to hold chemoprophylaxis but also would need to hold patient Plavix and given recent injection already performed usually these are not immediately redone but if necessary as noted may reinvolve pain management to ascertain. #11. CODE status: Patient HCPOA and living will are not in place but she notes that she was unable to make medical decisions for herself she would want her granddaughter who is present to make these decisions. Discussed CODE status at length including difference between FULL code, DNR-CCA and DNR-CC status. Foll owing discussions about the differences in these status, requested Full Code status. Advanced Care Planning Face to Face Time: 16 minutes. Charges/Coding Visit Charges Inpatient E&M: 61013 Init Hosp L2 Procedures Hospitalists Procedures: 62271 Advncd Care Plan 30 Min
[2024-01-14 20:29] VITALS: BP 180/93; PULSE 69; RESP 16; TEMP 37; O2SAT 97
[2024-01-14 20:55] VITALS: BMI 23.2
[2024-01-14 21:03] VITALS: BP 222/94; PULSE 64; RESP 17; TEMP 36.9; O2SAT 98
[2024-01-14] MEDS: 0.9% Normal Saline (1000mL) 1,000 ML 100 ML IV (21:22)
[2024-01-14] MEDS: Ketorolac 15 MG/ML Vial IV (21:22)
[2024-01-14] MEDS: oxyCODONE 5 MG Tablet PO (21:23)
[2024-01-14 21:29] VITALS: BP 222/94; PULSE 64
[2024-01-14] MEDS: tiZANidine HCl 2 MG Tablet PO (21:29)
[2024-01-14] MEDS: Gabapentin 100 MG Capsule PO (21:29)
[2024-01-14] MEDS: hydrALAZINE 20 MG/ML Vial 10 MG IV (21:29)
[2024-01-14] MEDS: Insulin Lispro 100 UNIT/ML INSULN.PEN 14 UNIT SC (21:35)
[2024-01-14] MEDS: Insulin Lispro 100 UNIT/ML INSULN.PEN SC (21:35)
[2024-01-14] MEDS: DiphenhydrAMINE 50 MG/ML Syringe 25 MG IV (21:59)
[2024-01-14] MEDS: Morphine 2 MG/ML Syringe IV (21:59)
[2024-01-14] MEDS: 0.9% Saline Lock 10 ML Syringe IV (22:01)
[2024-01-14] MEDS: Ondansetron 4 MG/2 ML Vial IV (22:04)
[2024-01-14] MEDS: MethylPREDNISolone DosePak 4 MG BOX PO (22:05)
[2024-01-14] MEDS: Lidocaine 5% Patch 2 PATCH TOPICAL (22:07)
[2024-01-14] MEDS: Insulin Glargine-YFGN 100 UNIT/ML Pen 32 UNIT SC (22:08)
[2024-01-14 22:10] LABS: Bedside Glucose 223 mg/dL (74-106)
[2024-01-14 22:23] VITALS: BP 198/82; PULSE 86; RESP 16; TEMP 36.6; O2SAT 97
[2024-01-15] VITALS (8 sets, daily range): BP systolic 121–198; BP diastolic 56–90; PULSE 60–86; RESP 16–18; TEMP 36.6–37.1; O2SAT 93–95; BMI 23.1
[2024-01-15] MEDS: hydrALAZINE 20 MG/ML Vial 10 MG IV (00:03)
[2024-01-15] MEDS: Acetaminophen 325 MG Tablet 650 MG PO ×4 (05:33→23:20)
[2024-01-15] MEDS: oxyCODONE 5 MG Tablet PO ×3 (05:33→16:49)
[2024-01-15] MEDS: Levothyroxine 125 MCG Tablet PO (05:33)
[2024-01-15] MEDS: Ketorolac 15 MG/ML Vial IV ×3 (05:34→23:10)
[2024-01-15 06:21] LABS: Absolute Lymphocyte Count 0.72 X10^3/uL (0.83-4.51); Absolute Neutrophil Count 6.7 X10^3/uL (2.0-7.7); Basophil# 0.02 X10^3/uL; Basophil% 0.3 % (0-1); Eosinophil# 0.01 X10^3/uL; Eosinophils% 0.1 % (0-5); Hematocrit 37.2 % (37-47); Hemoglobin 12.1 g/dL (12.0-15.0); Lymphocyte # 0.72 X10^3/ul (0.83-4.51); Lymphocyte % 9.1 % (19-41); Mean Corp Hgb Conc 32.5 g/dL (32-36); Mean Corpuscular Hgb 31.7 pg (27.0-32.0); Mean Corpuscular Volume 97.4 fL (81-99); Mean Platelet Vol. 12.7 fl (6.2-12.0); Monocyte% 6.3 % (0-10); NRBC Flagged by Analyzer 0 % (0-5); Neutrophil # 6.68 X10^3/uL (2.7-7.7); Neutrophil % 83.9 % (47-70); Platelet Count 160 K/mm3 (150-450); RBC Distribution Width CV 14.6 % (11.6-14.6); RBC Distribution Width SD 51.9 fl (35.1-43.9); Red Blood Count 3.82 M/mm3 (4.2-5.4)
[2024-01-15 06:50] LABS: ALB/GLOB Ratio 0.8 RATIO (0.9-2.4); AST(SGOT) 27 U/L (15-37); Alanine Aminotransfer ALT/SGPT 24 U/L (13-56); Albumin, Serum 2.8 g/dL (3.2-5.0); Alkaline Phosphatase 52 U/L (45-117); Anion Gap 4 (5-15); BUN 26 mg/dL (7-18); BUN/Creat Ratio 22.2 RATIO (10-20); Calcium,Total 8.9 mg/dL (8.5-10.1); Chloride 109 mmol/L (98-107); Creatinine, Serum 1.17 mg/dL (0.55-1.02); EST Glomerular Filtration Rate 48 mL/min (>60); Est Glom Filt Rate - Afr Amer 58 mL/min (>60); Estimated Creatinine Clearance 40.09 ml/min; Globulin 3.7 g/dL (2.2-4.2); Glucose 158 mg/dL (74-106); Potassium 4.2 mmol/L (3.5-5.1); Protein, Total 6.5 g/dL (6.4-8.2); Sodium Level 141 mmol/L (136-145)
[2024-01-15] MEDS: Insulin Lispro 100 UNIT/ML INSULN.PEN 14 UNIT SC ×2 (07:17→11:35)
[2024-01-15] MEDS: Insulin Lispro 100 UNIT/ML INSULN.PEN SC ×2 (07:17→11:35)
[2024-01-15 07:45] LABS: Bedside Glucose 168 mg/dL (74-106)
[2024-01-15] MEDS: DULoxetine Hcl 30 MG Capsule PO (08:58)
[2024-01-15] MEDS: Clopidogrel Bisulfate 75 MG Tablet PO (08:58)
[2024-01-15] MEDS: Gabapentin 100 MG Capsule PO ×2 (08:58→11:59)
[2024-01-15] MEDS: hydroCHLOROthiazide 12.5mg 12.5 MG PO (08:58)
[2024-01-15] MEDS: Metoprolol Tartrate 50 MG Tablet PO (08:58)
[2024-01-15] MEDS: Losartan Potassium 100 MG Tablet PO (08:58)
[2024-01-15] MEDS: Potassium Chloride Oral Tablet 10 MEQ PO (08:58)
[2024-01-15] MEDS: Pantoprazole Sodium 40 MG Tablet PO (08:58)
[2024-01-15] MEDS: Lidocaine 5% Patch 2 PATCH TOPICAL (08:59)
[2024-01-15] MEDS: Fenofibrate 145 MG Tablet PO (08:59)
[2024-01-15] MEDS: MethylPREDNISolone DosePak 4 MG BOX PO ×3 (08:59→16:44)
[2024-01-15] MEDS: Enoxaparin 40 MG/0.4 ML Syringe SC (09:03)
[2024-01-15] MEDS: tiZANidine HCl 2 MG Tablet PO ×2 (09:49→23:20)
--- NOTE | 2024-01-15 10:58 | CASEMGMT ---
DOMINIQUE XAVIER Readmission Note Previous Admission: 01/08/24-01/11/24 Diagnosis: back pain DC Disposition: Home Current Admission: Admitted 01/14/24 Current Diagnosis: intractable back pain Pt admitted on index admission with back pain and was seen by pain management, and pt received nerve block. Pt then had significant relief and was dc'd home with no therapy recommended. Pt subsequently returned on 01/14/24 with inability to ambulate. DOMINIQUE XAVIER into pt room, pt states that initially when she got home she did well and then a couple of days later she was in so much pain she couldn't get out of bed again. Pt states she hopes she can have surgery to take care of this issue. Pt would like to return home. , ortho consulted. DC Plan: TBD pending therapy and ortho consult
[2024-01-15 11:54] LABS: Bedside Glucose 181 mg/dL (74-106)
[2024-01-15] MEDS: 0.9% Saline Lock 10 ML Syringe IV ×2 (14:24→23:19)
--- NOTE | 2024-01-15 14:36 | CON.PCM.OR_ITS ---
HPI Consult Data Date of Consult: 01/15/24 HPI Narrative HPI Narrative: GABRIELLE RIDLEY, is a 73 F who presents low back pain and left lower extremity radiation. Patient has had multiple admissions for the same issue. This is a second admission. Her last admission was about a week ago when she received an epidural injection. I was consulted for the first time today. I saw the patient in 317. She is comfortable lying in bed. She complains of pain that starts in the left buttock region goes into the posterior and lateral thigh. Below the knee, her pain and numbness is vague and seems circumferential. She says that the injection did not help. Based on imaging available, it appears that she underwent left L4-5 and L5-S1 transforaminal epidural injection. She says that she was able to ambulate without any ambulatory aid. She started having pain going to the left lower extremity about 2 months ago. She denies any obvious injury or episode that aggravated this pain. Her pain severely worsened about 2 weeks ago for which she was admitted. She has not been able to walk at least since yesterday morning. She says that anytime she moves or tries to get out of bed, there is severe shooting pain. She is a diabetic with last A1c of 7.3. She underwent L4-5 laminectomy in 2016 for similar left-sided radicular symptoms which resolved after the surgery. She has also had an ACDF about 10 years ago for symptoms of left-sided neck pain. She has had a stroke in the 90s which caused her to have left hemiparesis. She however does not say that she ever used ambulatory aid after the stroke. She is on blood thinners including Plavix. [facility] Medical History (Updated 01/15/24 @ 14:[address] Lenin Jones MD) DM type 2 (diabetes mellitus, type 2) Former smoker High cholesterol HTN (hypertension) Hypothyroidism Rheumatoid arthritis Stroke/cerebrovascular accident Home Medications atorvastatin 80 mg tablet 80 mg PO DAILY CHOLESTEROL 03/29/18 [History Last Taken 01/07/24] clopidogrel 75 mg tablet 75 mg PO DAILY BLOOD THINNER 03/29/18 [History Last Taken 01/07/24] fenofibrate nanocrystallized 145 mg tablet 145 mg PO DAILY SUPLIMENT 03/29/18 [History Last Taken 01/07/24] insulin detemir U-100 100 unit/mL (3 mL) subcutaneous pen (Levemir FlexTouch U- 100 Insulin) 32 units subcut QHS GLUCOSE 03/29/18 [History Last Taken 01/07/24] metoprolol tartrate 50 mg tablet 50 mg PO DAILY bp 03/29/18 [History Last Taken 01/07/24] omeprazole 40 mg capsule,delayed release 40 mg PO DAILY n/v 03/29/18 [History Last Taken 01/07/24] potassium chloride 8 mEq tablet,extended release (Klor-Con) 8 meq PO DAILY suppliment 03/29/18 [History Last Taken 01/07/24] dulaglutide 3 mg/0.5 mL subcutaneous pen injector (Trulicity) 3 mg subcut THAO dm 01/08/24 [History Last Taken 01/13/24] insulin lispro 100 unit/mL subcutaneous pen (Humalog KwikPen (U-100) Insulin) 14 unit subcut TID GLUCOSE 01/08/24 [History Last Taken Unknown] levothyroxine 125 mcg tablet 125 mcg PO DAILY THRYROID 01/08/24 [History Last Taken 01/07/24] duloxetine 30 mg capsule,delayed release 30 mg PO DAILY see provider 01/10/24 [History Last Taken Unknown] oxycodone 5 mg tablet 5 mg PO Q6H PRN pain 5 days #20 tabs 01/11/24 [Rx Last Taken 01/13/24] diclofenac sodium 1 % topical gel (Arthritis Pain (diclofenac)) 2 g topical DAILY PRN Pain 01/14/24 [History Last Taken Unknown] losartan 50 mg-hydrochlorothiazide 12.5 mg tablet 1 tab PO DAILY Fluid 01/14/24 [History Last Taken 01/13/24] Allergy/AdvReac Type Severity Reaction Status Date / Time morphine Allergy Itching Verified 05/20/23 11:01 meperidine [From Demerol] AdvReac Nausea/Vom/ Verified 05/20/23 11:01 Diarrhea Family History Mother Thyroid disorder Father Heart disease CAD (coronary artery disease) Hypertension Myocardial infarction Surgical History History of appendectomy History of facial surgery History of spinal fusion Hx of hysterectomy Status post ORIF of fracture of ankle Social History (Updated 01/14/24 @ 19:[address] Ting Franklin MD) household members: none Smoking Status: Former smoker how long ago did patient quit smoking: Smoked age [age] ~1/2 ppd. alcohol intake: never substance use type: does not use Vital Signs Vital Signs Vital Signs: 01/14/24 18:13 01/14/24 19:01 01/14/24 20:29 Temperature 97.6 F L 98.6 F Temperature Source Oral Pulse Rate 62 69 Respiratory Rate 16 16 Respiratory Effort Respiratory Depth Respiratory Pattern Blood Pressure 234/99 H 186/76 H 180/93 H Blood Pressure Mean 144 112 122 Blood Pressure Source Blood Pressure Position Blood Pressure Location Pulse Ox 98 97 Oxygen Delivery Method Room Air 01/14/24 21:03 01/14/24 21:29 01/14/24 22:23 Temperature 98.4 F 98 F Temperature Source Temporal Temporal Pulse Rate 64 64 86 Respiratory Rate 17 16 Respiratory Effort Respiratory Depth Respiratory Pattern Blood Pressure 222/94 H 222/94 H 198/82 H Blood Pressure Mean 136 120 Blood Pressure Source Monitor Manual Blood Pressure Position Semi-Fowlers Semi-Fowlers Blood Pressure Location Right Arm Left Arm Pulse Ox 98 97 Oxygen Delivery Method Room Air Room Air 01/14/24 21:00 01/15/24 00:03 01/15/24 01:00 Temperature 97.8 F Temperature Source Temporal Pulse Rate 86 67 Respiratory Rate 16 Respiratory Effort Normal Non-Labored Respiratory Depth Normal Respiratory Pattern Normal Blood Pressure 198/82 H 128/56 H Blood Pressure Mean 80 Blood Pressure Source Monitor Blood Pressure Position Semi-Fowlers Blood Pressure Location Left Arm Pulse Ox 94 Oxygen Delivery Method Room Air Room Air 01/15/24 06:00 01/15/24 08:54 01/15/24 08:58 Temperature 98.5 F 98.7 F Temperature Source Temporal Oral Pulse Rate 66 72 72 Respiratory Rate 16 18 Respiratory Effort Respiratory Depth Respiratory Pattern Blood Pressure 154/90 H 121/58 H Blood Pressure Mean 111 79 Blood Pressure Source Monitor Monitor Blood Pressure Position Semi-Fowlers Semi-Fowlers Blood Pressure Location Left Arm Left Arm Pulse Ox 95 94 Oxygen Delivery Method Room Air Room Air 01/15/24 09:00 01/15/24 13:31 01/15/24 14:29 Temperature 98 F Temperature Source Temporal Pulse Rate 60 Respiratory Rate 18 Respiratory Effort Normal Non-Labored Respiratory Depth Normal Respiratory Pattern Normal Blood Pressure 167/79 H Blood Pressure Mean 108 Blood Pressure Source Monitor Blood Pressure Position Semi-Fowlers Blood Pressure Location Left Arm Pulse Ox 93 93 Oxygen Delivery Method Room Air Room Air Room Air Weight Weight: 143 lb 2.4 oz Body Mass Index (BMI) 23.1 Physical Exam Narrative Examination the back shows lidocaine patch. I remove the patch to evaluate. She has a midline incisional scar. There is left paraspinal tenderness to lower lumbar spine. Neurologic evaluation of lower extremity shows 5 out of 5 power in all muscle groups except for left ankle dorsiflexion and plantarflexion which is 4, normal sensations in all dermatomes. Passive straight leg raise test is positive on the left. There is no hyperreflexia. Upper extremity shows 5 x 5 strength in the right and 4+ by 5 on the left which, patient says is baseline. Isabelle's is negative. I was not able to evaluate patient's gait as patient de clines any change of position. Lab / Micro Data 01/15/24 05:57 01/15/24 05:57 Labs: Laboratory Results - last 24 hr 01/14/24 18:55: WBC 4.5, RBC 3.79 L, Hgb 12.3, Hct 36.2 L, MCV 95.5, MCH 32.5 H, MCHC 34.0, RDW Std Deviation 50.0 H, RDW Coeff of John 14.2, Plt Count 163, MPV 12.7 H, Immature Gran % (Auto) 0.200, Neut % (Auto) 66.5, Lymph % (Auto) 20.9, Harlan % (Auto) 11.8 H, Eos % (Auto) 0.2, Baso % (Auto) 0.4, Absolute Neuts (auto) 3.0, Absolute Lymphs (auto) 0.94, Nucleated RBC % 0, Sodium 140, Potassium 3.8, Chloride 107, Carbon Dioxide 27.0, Anion Gap 6, BUN 25 H, Creatinine 1.08 H, Estim Creat Clear Calc 43.43, Est GFR (MDRD) Af Amer 64, Est GFR (MDRD) Non-Af 53 L, BUN/Creatinine Ratio 23.1 H, Glucose 297 H, Calcium 9.4 01/14/24 21:27: POC Glucose 223 H 01/15/24 05:57: WBC 8.0, RBC 3.82 L, Hgb 12.1, Hct 37.2, MCV 97.4, MCH 31.7, MCHC 32.5, RDW Std Deviation 51.9 H, RDW Coeff of John 14.6, Plt Count 160, MPV 12.7 H, Immature Gran % (Auto) 0.300, Neut % (Auto) 83.9 H, Lymph % (Auto) 9.1 L , Harlan % (Auto) 6.3, Eos % (Auto) 0.1, Baso % (Auto) 0.3, Absolute Neuts (auto) 6.7, Absolute Lymphs (auto) 0.72 L, Nucleated RBC % 0, Sodium 141, Potassium 4.2, Chloride 109 H, Carbon Dioxide 28.0, Anion Gap 4 L, BUN 26 H, Creatinine 1.17 H, Estim Creat Clear Calc 40.09, Est GFR (MDRD) Af Amer 58 L, Est GFR (MDRD) Non-Af 48 L, BUN/Creatinine Ratio 22.2 H, Glucose 158 H, Calcium 8.9, Total Bilirubin 0.50, AST 27, ALT 24, Alkaline Phosphatase 52, Total Protein 6.5, Albumin 2.8 L, Globulin 3.7, Albumin/Globulin Ratio 0.8 L 01/15/24 07:16: POC Glucose 168 H 01/15/24 11:34: POC Glucose 181 H Assessment & Plan Assessment/Plan (1) Lumbar radiculopathy: PLAN: Plan I evaluated the MRI lumbar spine done on 01/08/2024. I also reviewed CT abdomen from last year to evaluate the spine. She has postsurgical changes of L4-5 laminectomy. There is a recurrent acute disc herniation L4-5 which is left paracentral causing mild lateral recess stenosis. There is also a broad-based left L5-S1 disc bulge with lateral recess stenosis. Severe left foraminal stenosis at both L4-5 and L5-S1 noticed. Patient has degenerative scoliosis although upright images are not available. CT abdomen from last year shows vacuum phenomenon at both L3-4 and L4-5 levels. Current MRI shows right L3-4 disc extrusion, but patient does not have any right-sided symptoms. Screening i mages of cervical spine show prior ACDF with possible adjacent segment degeneration above and below with possible cord compression, although patient does not seem myelopathic clinically. I explained to her the imaging findings in detail. Her acute LLE radiculopathy symptoms are likely related to the L4-5 and L5-S1 left-sided disc herniations. Of these L4-5 left paracentral disc extrusion seems acute, and is likely a recurrent disc herniation at this level. I explained to her that since she has had laminectomy her central canal is wide open. Addressing the newer acute symptoms surgically would likely require wider decompression into the foramina which may entail a fusion. I explained to her that such as surgery should be contemplated only after exertion of nonsurgical treatment. Surgery may not guarantee pain relief and is only a quality of life surgery. Having had a recent epidural injection, I would like to wait at least 6 weeks until discussion of fusion surgery. Patient will follow-up with me on an outpatient basis for discuss this if needed. At this point, for her acute pain, pain management will be appropriate. No acute surgical intervention recommended. Continued physical therapy with possible modalities was discussed. Trial of further injections was also discussed. Encouraged patient to maintain mobility even if it hurts. Patient was in agreement and may follow-up as an outpatient. Charges/Coding Visit Charges Inpatient E&M: 16185 Init Hosp L3
--- NOTE | 2024-01-15 16:00 | PCM.PN.HOSP ---
Reason for Visit Reason for Visit: Diagnoses Radiculopathy, lumbar region (01/14/24) Dorsalgia, unspecified (01/14/24) Subjective Subjective Patient was seen and examined today, I had orthopedic surgery see the patient to give an opinion whether she would need to undergo a surgical option for her radicular pain, they felt that the patient would not be a good candidate and would need a fusion. They recommended PT and OT and medical treatment. Objective Data Objective Data Vital Signs: Vital Signs Temp Pulse Resp BP Pulse Ox O2 Del Method 98 F 60 18 167/79 H 93 Room Air 01/15/24 14:29 01/15/24 14:29 01/15/24 14:29 01/15/24 14:29 01/15/24 14:29 01/15/24 14:29 Oxygen Delivery Method Room Air Weight: 64.932 kg Body Mass Index (BMI) 23.1 Intake & Output: Intake and Output for Last 24 Hours 01/13/24 01/14/24 01/15/24 23:59 23:59 23:59 Intake Total 0 / 0 1000 / 1000 Output Total 800 / 800 Balance 0 / -300 200 / 200 Lab / Micro Data 01/15/24 05:57 01/15/24 05:57 Labs: Laboratory Results - last 24 hr 01/14/24 18:55: WBC 4.5, RBC 3.79 L, Hgb 12.3, Hct 36.2 L, MCV 95.5, MCH 32.5 H, MCHC 34.0, RDW Std Deviation 50.0 H, RDW Coeff of John 14.2, Plt Count 163, MPV 12.7 H, Immature Gran % (Auto) 0.200, Neut % (Auto) 66.5, Lymph % (Auto) 20.9, Hughes % (Auto) 11.8 H, Eos % (Auto) 0.2, Baso % (Auto) 0.4, Absolute Neuts (auto) 3.0, Absolute Lymphs (auto) 0.94, Nucleated RBC % 0, Sodium 140, Potassium 3.8, Chloride 107, Carbon Dioxide 27.0, Anion Gap 6, BUN 25 H, Creatinine 1.08 H, Estim Creat Clear Calc 43.43, Est GFR (MDRD) Af Amer 64, Est GFR (MDRD) Non-Af 53 L, BUN/Creatinine Ratio 23.1 H, Glucose 297 H, Calcium 9.4 01/14/24 21:27: POC Glucose 223 H 01/15/24 05:57: WBC 8.0, RBC 3.82 L, Hgb 12.1, Hct 37.2, MCV 97.4, MCH 31.7, MCHC 32.5, RDW Std Deviation 51.9 H, RDW Coeff of John 14.6, Plt Count 160, MPV 12.7 H, Immature Gran % (Auto) 0.300, Neut % (Auto) 83.9 H, Lymph % (Auto) 9.1 L, Hughes % (Auto) 6.3, Eos % (Auto) 0.1, Baso % (Auto) 0.3, Absolute Neuts (auto) 6.7, Absolute Lymphs (auto) 0.72 L, Nucleated RBC % 0, Sodium 141, Potassium 4.2, Chloride 109 H, Carbon Dioxide 28.0, Anion Gap 4 L, BUN 26 H, Creatinine 1.17 H, Estim Creat Clear Calc 40.09, Est GFR (MDRD) Af Amer 58 L, Est GFR (MDRD) Non-Af 48 L, BUN/Creatinine Ratio 22.2 H, Glucose 158 H, Calcium 8.9, Total Bilirubin 0.50, AST 27, ALT 24, Alkaline Phosphatase 52, Total Protein 6.5, Albumin 2.8 L, Globulin 3.7, Albumin/Globulin Ratio 0.8 L 01/15/24 07:16: POC Glucose 168 H 01/15/24 11:34: POC Glucose 181 H Physical Exam Const alert, oriented x3 and no apparent distress General Appearance: cooperative, well kempt and well developed Orientation / Consciousness: awake, oriented to person, oriented to place and oriented to time HEENT normocephalic, head/scalp atraumatic and moist oral mucous membranes Eyes PERRL, EOMs intact bilaterally and conjunctivae normal Neck supple, no JVD, thyroid normal and no carotid bruits General: trachea midline Resp normal respiratory effort, no retractions, no use of accessory muscles and clear to auscultation bilaterally Auscultation: Negative for rales, rhonchi or wheezes Cardio regular rate, regular rhythm, S1 normal heart sound, S2 normal heart sound, no murmurs, no rub and no gallops GI normal to inspection, nondistended, normoactive bowel sounds, soft to palpation, non-tender and non-distended Extremity no clubbing, cyanosis or edema Skin no rashes or lesions noted General Skin Exam: no breakdown Neuro oriented x3, CN's II-XII intact bilaterally and no sensory deficits noted Sensorium / Orientation: awake and alert Speech: speech normal Psych affect normal Assessment & Plan Assessment/Plan (1) Lumbar radiculopathy: PLAN: Plan 1. Lumbar radiculopathy with debility, I decided to place the patient on IV corticosteroids, continue PT and OT, patient told me that her transforaminal nerve block which she had done on 01/11/2024 did not provide any relief from her discomfort. Patient will continue to receive pain meds as needed and I will look at increasing her gabapentin. #2 degenerative disc disease lumbar spine-complicates care, management, recovery, and prognosis, again orthopedic/spine surgery does not feel they can offer her any surgical intervention. #3 essential hypertension-patient will remain on her current medications, they will be adjusted as needed #4 type 2 diabetes-blood sugars will be monitored, it is likely her blood sugars will elevate due to IV corticosteroids. Total clinical time spent by myself addressing patient's medical issues, reviewing all of her data, and collaborating with patient's care team: 35 minutes Charges/Coding Visit Charges Inpatient E&M: 02777 Subs Hosp L2
[2024-01-15 17:03] LABS: Bedside Glucose 85 mg/dL (74-106)
[2024-01-15] MEDS: Atorvastatin Calcium 80 MG Tablet PO (23:12)
[2024-01-15] MEDS: dexAMETHasone 4 MG/ML Vial IV (23:17)
[2024-01-16] VITALS (12 sets, daily range): BP systolic 102–208; BP diastolic 63–95; PULSE 57–63; RESP 16–20; TEMP 36.2–37; O2SAT 94–98; BMI 23.1
[2024-01-16] MEDS: oxyCODONE 5 MG Tablet PO ×3 (01:57→12:20)
[2024-01-16] MEDS: Acetaminophen 325 MG Tablet 650 MG PO ×3 (05:50→21:14)
[2024-01-16] MEDS: 0.9% Saline Lock 10 ML Syringe IV ×3 (05:51→21:14)
[2024-01-16] MEDS: dexAMETHasone 4 MG/ML Vial IV ×3 (05:51→21:14)
[2024-01-16] MEDS: Levothyroxine 125 MCG Tablet PO (05:51)
[2024-01-16] MEDS: Ketorolac 15 MG/ML Vial IV (05:51)
[2024-01-16 06:04] LABS: Bedside Glucose 126 mg/dL (74-106)
[2024-01-16] MEDS: Metoprolol Tartrate 50 MG Tablet PO (07:52)
[2024-01-16] MEDS: Gabapentin 300 MG Capsule PO ×3 (07:52→16:44)
[2024-01-16] MEDS: DULoxetine Hcl 30 MG Capsule PO (07:53)
[2024-01-16] MEDS: Losartan Potassium 100 MG Tablet PO (07:53)
[2024-01-16] MEDS: hydroCHLOROthiazide 12.5mg 12.5 MG PO (07:54)
[2024-01-16] MEDS: tiZANidine HCl 2 MG Tablet PO (08:00)
[2024-01-16 08:01] LABS: Bedside Glucose 210 mg/dL (74-106)
[2024-01-16] MEDS: Insulin Lispro 100 UNIT/ML INSULN.PEN 14 UNIT SC ×3 (09:00→16:40)
[2024-01-16] MEDS: Insulin Lispro 100 UNIT/ML INSULN.PEN SC ×4 (09:01→21:23)
[2024-01-16] MEDS: Potassium Chloride Oral Tablet 10 MEQ PO (10:02)
[2024-01-16] MEDS: Lidocaine 5% Patch 2 PATCH TOPICAL (10:02)
[2024-01-16] MEDS: Enoxaparin 40 MG/0.4 ML Syringe SC (10:03)
[2024-01-16] MEDS: Clopidogrel Bisulfate 75 MG Tablet PO (10:03)
[2024-01-16] MEDS: Pantoprazole Sodium 40 MG Tablet PO (10:03)
[2024-01-16] MEDS: Fenofibrate 145 MG Tablet PO (10:03)
--- NOTE | 2024-01-16 11:57 | CASEMGMT ---
Noted pt PT annie. RN CM into pt room, pt tearful with granddtr at bedside. Pt states she did not receive good news from ortho yesterday. She states she cannot bear this pain and will have to go somewhere where she can have surgery. Pt not able to discuss dc planning at this time, she would like to wait until she sees hospitalist.
[2024-01-16 12:30] LABS: Bedside Glucose 238 mg/dL (74-106)
--- NOTE | 2024-01-16 13:11 | CHAPLAIN ---
Type of Pastoral Visit _x__ Initial Visit ___ Follow-up Visit ___ On-call Visit ___ General Patient Visit ___ Spiritual Assessment ___ Family Conference ___ Bereavement ___ Rapid Response ___ Code Blue ___ Other (describe below) Pastoral Care Referral From _x__ Patient ___ Family ___ Nurse ___ Physician ___ Clinical Trials Specialist ___ Geothermal Heat Pump Machinist ___ Other (describe below) Sacrament/Intervention _x__ Active listening ___ Anointing ___ Pentecostalism ___ Bereavement ___ Communion ___ Chelsie exploration ___ ___ Life review _x__ Prayer ___ Reconciliation ___ Sacrament of Sick _x__ Supportive presence ___ Wedding ___ Other (describe below) Pastoral Comments patient is alert and admits to pain; pt is focused on her pain and wants relief; pt is given opportunity to have some other things to think about and talk about; prayer is given
[2024-01-16] MEDS: oxyCODONE CR 15 MG Tablet PO ×2 (14:58→21:17)
--- NOTE | 2024-01-16 16:02 | PCM.PN.HOSP ---
Reason for Visit Reason for Visit: Diagnoses Radiculopathy, lumbar region (01/14/24) Dorsalgia, unspecified (01/14/24) Subjective Subjective Patient was seen and examined today, she is still having radicular pain down her left leg, I have elected to place her on time-released narcotics and attempt to allow her to be more mobile and work with physical therapy. Objective Data Objective Data Vital Signs: Vital Signs Temp Pulse Resp BP Pulse Ox O2 Del Method 98.3 F 62 16 146/75 H 96 Room Air 01/16/24 13:59 01/16/24 13:59 01/16/24 13:59 01/16/24 13:59 01/16/24 14:50 01/16/24 13:59 Oxygen Delivery Method Room Air Weight: 64.93 kg Body Mass Index (BMI) 23.1 Intake & Output: Intake and Output for Last 24 Hours 01/14/24 01/15/24 01/16/24 23:59 23:59 23:59 Intake Total 0 / 0 1000 / 1000 450 / 450 Output Total 1100 / 1300 650 / 650 Balance 0 / -300 -100 / -300 -200 / -200 Lab / Micro Data 01/15/24 05:57 01/15/24 05:57 Labs: Laboratory Results - last 24 hr 01/15/24 16:42: POC Glucose 85 01/15/24 23:07: POC Glucose 126 H 01/16/24 07:43: POC Glucose 210 H 01/16/24 12:12: POC Glucose 238 H Physical Exam Narrative alert, oriented x3 and no apparent distress General Appearance: cooperative, well kempt and well developed Orientation / Consciousness: awake, oriented to person, oriented to place and oriented to time HEENT normocephalic, head/scalp atraumatic and moist oral mucous membranes Eyes PERRL, EOMs intact bilaterally and conjunctivae normal Neck supple, no JVD, thyroid normal and no carotid bruits General: trachea midline Resp normal respiratory effort, no retractions, no use of accessory muscles and clear to auscultation bilaterally Auscultation: Negative for rales, rhonchi or wheezes Cardio regular rate, regular rhythm, S1 normal heart sound, S2 normal heart sound, no murmurs, no rub and no gallops GI normal to inspection, nondistended, normoactive bowel sounds, soft to palpation, non-tender and non-distended Extremity no clubbing, cyanosis or edema Skin no rashes or lesions noted General Skin Exam: no breakdown Neuro oriented x3, CN's II-XII intact bilaterally and no sensory deficits noted Sensorium / Orientation: awake and alert Speech: speech normal Psych affect normal Assessment & Plan Assessment/Plan (1) Lumbar radiculopathy: PLAN: Plan 1. Lumbar radiculopathy with debility-patient will continue gabapentin, IV corticosteroids, and was placed on time-released pain medication at this time, I have also increased her as needed oxycodone to 10 mg. #2 degenerative disc disease lumbar spine-complicates care, management, recovery, and prognosis, again orthopedic/spine surgery does not feel they can offer her any surgical intervention. #3 essential hypertension-patient will remain on her current medications, they will be adjusted as needed #4 type 2 diabetes-blood sugars will be monitored, patient's blood sugars remain elevated due to corticosteroid administration, sliding scale insulin continue to be given as needed Total clinical time spent by myself addressing patient's medical issues, reviewing all of her data, and collaborating with patient's care team: 35 minutes Charges/Coding Visit Charges Inpatient E&M: 23781 Subs Hosp L2
[2024-01-16 16:28] LABS: Bedside Glucose 331 mg/dL (74-106)
[2024-01-16] MEDS: Atorvastatin Calcium 80 MG Tablet PO (21:21)
[2024-01-16] MEDS: Insulin Glargine-YFGN 100 UNIT/ML Pen 32 UNIT SC (21:22)
[2024-01-16 21:36] LABS: Bedside Glucose 343 mg/dL (74-106)
[2024-01-17] VITALS (7 sets, daily range): BP systolic 129–208; BP diastolic 65–88; PULSE 57–61; RESP 16–18; TEMP 36.3–36.7; O2SAT 95–97; BMI 23.1
[2024-01-17] MEDS: hydrALAZINE 20 MG/ML Vial 10 MG IV (00:10)
[2024-01-17] MEDS: dexAMETHasone 4 MG/ML Vial IV ×3 (05:23→22:23)
[2024-01-17] MEDS: 0.9% Saline Lock 10 ML Syringe IV ×3 (05:23→22:24)
[2024-01-17] MEDS: Levothyroxine 125 MCG Tablet PO (05:23)
[2024-01-17] MEDS: Lidocaine 5% Patch 2 PATCH TOPICAL (08:35)
[2024-01-17] MEDS: Insulin Lispro 100 UNIT/ML INSULN.PEN SC ×4 (08:36→22:29)
[2024-01-17] MEDS: Insulin Lispro 100 UNIT/ML INSULN.PEN 14 UNIT SC ×3 (08:36→16:48)
[2024-01-17] MEDS: Enoxaparin 40 MG/0.4 ML Syringe SC (08:37)
[2024-01-17] MEDS: Metoprolol Tartrate 50 MG Tablet PO (08:38)
[2024-01-17] MEDS: Clopidogrel Bisulfate 75 MG Tablet PO (08:38)
[2024-01-17] MEDS: Fenofibrate 145 MG Tablet PO (08:38)
[2024-01-17] MEDS: Pantoprazole Sodium 40 MG Tablet PO (08:38)
[2024-01-17] MEDS: Potassium Chloride Oral Tablet 10 MEQ PO (08:39)
[2024-01-17] MEDS: hydroCHLOROthiazide 12.5mg 12.5 MG PO (08:39)
[2024-01-17] MEDS: Losartan Potassium 100 MG Tablet PO (08:39)
[2024-01-17] MEDS: DULoxetine Hcl 30 MG Capsule PO (08:39)
[2024-01-17] MEDS: oxyCODONE CR 15 MG Tablet PO (08:44)
[2024-01-17] MEDS: Gabapentin 300 MG Capsule PO ×2 (08:44→12:08)
[2024-01-17 08:56] LABS: Bedside Glucose 293 mg/dL (74-106)
[2024-01-17 12:41] LABS: Bedside Glucose 271 mg/dL (74-106)
--- NOTE | 2024-01-17 15:00 | CASEMGMT ---
Social Work This worker met with patient to discuss DC options. Pt was pleasant during visit. She stated she is feeling better today with recent pain medication adjustments. She stated she feels that she can go home in the current state she is feeling. She stated she was hoping to get out of bed and do some walking to see how she does. She stated she really does not want to go to a long-term. SW discussed option of short term rehab in a SNF vs returning home with home health therapy. SW provided patient with list of both SNF and C providers including quality and resource use data and consistent with the patient?s preferred geographic region, medical needs, and insurance network from the [employer]. SW notified therapy that patient is feeling better today and wants to try therapy. SW will continue to assist with DC planning. Bonita HODGE
--- NOTE | 2024-01-17 15:33 | CASEMGMT ---
DOMINIQUE CM into pt room, pt worked with therapy. Pt reports that she feels she can go home if she is sent home on the same meds that she is on in the hospital. Pt is agreeable to [facility]. Updated hospitalist who reports that pt can be dc'd on meds. Updated pt on this. She will review [facility] list and provide top 3 preferences. Plan for dc tomorrow.
--- NOTE | 2024-01-17 16:20 | NURSING ---
All documentation by student nurse, Judith Condon, reviewed by nursing department chairperson, Jolie BRENNANN, RN.
[2024-01-17] MEDS: Gabapentin 400 MG Capsule PO (16:48)
[2024-01-17 17:04] LABS: Bedside Glucose 382 mg/dL (74-106)
--- NOTE | 2024-01-17 17:41 | PCM.PN.HOSP ---
Reason for Visit Reason for Visit: Diagnoses Radiculopathy, lumbar region (01/14/24) Dorsalgia, unspecified (01/14/24) Subjective Subjective Patient was seen and examined today, I increased her gabapentin and OxyContin, she told case management today that she plans on going home rather than go to an extended care facility. Objective Data Objective Data Vital Signs: Vital Signs Temp Pulse Resp BP Pulse Ox O2 Del Method 97.4 F L 60 16 136/71 H 96 Room Air 01/17/24 14:00 01/17/24 14:00 01/17/24 14:00 01/17/24 14:00 01/17/24 14:00 01/17/24 14:00 Oxygen Delivery Method Room Air Weight: 65 kg Body Mass Index (BMI) 23.1 Intake & Output: Intake and Output for Last 24 Hours 01/15/24 01/16/24 01/17/24 23:59 23:59 23:59 Intake Total 1000 / 1000 750 / 750 Output Total 1100 / 1300 1000 / 1250 1000 / 1000 Balance -100 / -300 -250 / -500 -1000 / -1000 Lab / Micro Data 01/15/24 05:57 01/15/24 05:57 Labs: Laboratory Results - last 24 hr 01/16/24 21:13: POC Glucose 343 H 01/17/24 08:31: POC Glucose 293 H 01/17/24 12:01: POC Glucose 271 H 01/17/24 16:46: POC Glucose 382 H Physical Exam Narrative alert, oriented x3 and no apparent distress General Appearance: cooperative, well kempt and well developed Orientation / Consciousness: awake, oriented to person, oriented to place and oriented to time HEENT normocephalic, head/scalp atraumatic and moist oral mucous membranes Eyes PERRL, EOMs intact bilaterally and conjunctivae normal Neck supple, no JVD, thyroid normal and no carotid bruits General: trachea midline Resp normal respiratory effort, no retractions, no use of accessory muscles and clear to auscultation bilaterally Auscultation: Negative for rales, rhonchi or wheezes Cardio regular rate, regular rhythm, S1 normal heart sound, S2 normal heart sound, no murmurs, no rub and no gallops GI normal to inspection, nondistended, normoactive bowel sounds, soft to palpation, non-tender and non-distended Extremity no clubbing, cyanosis or edema Skin no rashes or lesions noted General Skin Exam: no breakdown Neuro oriented x3, CN's II-XII intact bilaterally and no sensory deficits noted Sensorium / Orientation: awake and alert Speech: speech normal Psych affect normal Assessment & Plan Assessment/Plan (1) Lumbar radiculopathy: PLAN: Plan 1. Lumbar radiculopathy with debility-patient will continue gabapentin, IV corticosteroids, and OxyContin, she will receive oxycodone as needed, I will reevaluate the patient in the morning #2 degenerative disc disease lumbar spine-complicates care, management, recovery, and prognosis, again orthopedic/spine surgery does not feel they can offer her any surgical intervention. #3 essential hypertension-patient will remain on her current medications, they will be adjusted as needed #4 type 2 diabetes-blood sugars will be monitored, patient's blood sugars remain elevated due to corticosteroid administration, sliding scale insulin continue to be given as needed Total clinical time spent by myself addressing patient's medical issues, reviewing all of her data, and collaborating with patient's care team: 35 minutes Charges/Coding Visit Charges Inpatient E&M: 54894 Subs Hosp L2
[2024-01-17] MEDS: oxyCODONE HCl Cr 10 MG Tablet 20 MG PO (22:22)
[2024-01-17] MEDS: Atorvastatin Calcium 80 MG Tablet PO (22:23)
[2024-01-17] MEDS: Insulin Glargine-YFGN 100 UNIT/ML Pen 32 UNIT SC (22:30)
[2024-01-17 23:04] LABS: Bedside Glucose 393 mg/dL (74-106)
[2024-01-18] VITALS (7 sets, daily range): BP systolic 144–187; BP diastolic 74–85; PULSE 55–70; RESP 16–18; TEMP 36.2–37.1; O2SAT 94–98; BMI 23.2
[2024-01-18] MEDS: Levothyroxine 125 MCG Tablet PO (06:44)
[2024-01-18] MEDS: Acetaminophen 325 MG Tablet 650 MG PO (06:44)
[2024-01-18] MEDS: Losartan Potassium 100 MG Tablet PO (06:44)
[2024-01-18] MEDS: oxyCODONE 5 MG Tablet 10 MG PO (06:44)
[2024-01-18] MEDS: dexAMETHasone 4 MG/ML Vial IV (06:45)
[2024-01-18] MEDS: 0.9% Saline Lock 10 ML Syringe IV (06:45)
[2024-01-18] MEDS: Insulin Lispro 100 UNIT/ML INSULN.PEN 14 UNIT SC ×2 (08:38→12:07)
[2024-01-18] MEDS: Insulin Lispro 100 UNIT/ML INSULN.PEN SC (08:38)
[2024-01-18] MEDS: Gabapentin 400 MG Capsule PO ×2 (08:46→13:11)
[2024-01-18 08:57] LABS: Bedside Glucose 262 mg/dL (74-106)
[2024-01-18] MEDS: oxyCODONE HCl Cr 10 MG Tablet 20 MG PO (10:10)
[2024-01-18] MEDS: Lidocaine 5% Patch 2 PATCH TOPICAL (10:11)
[2024-01-18] MEDS: hydroCHLOROthiazide 12.5mg 12.5 MG PO (10:11)
[2024-01-18] MEDS: Clopidogrel Bisulfate 75 MG Tablet PO (10:12)
[2024-01-18] MEDS: Pantoprazole Sodium 40 MG Tablet PO (10:12)
[2024-01-18] MEDS: Metoprolol Tartrate 50 MG Tablet PO (10:12)
[2024-01-18] MEDS: Enoxaparin 40 MG/0.4 ML Syringe SC (10:13)
[2024-01-18] MEDS: Potassium Chloride Oral Tablet 10 MEQ PO (10:13)
[2024-01-18] MEDS: DULoxetine Hcl 30 MG Capsule PO (10:13)
[2024-01-18] MEDS: Fenofibrate 145 MG Tablet PO (10:13)
--- NOTE | 2024-01-18 10:30 | CASEMGMT ---
Social Work SW met with patient to discuss DC plans. Pt will be DC home today. Pt stated she looked through the list provided and would like [facility]. Pt stated her granddaughter can pick her up to take her home. Pt stated she is feeling good today and feels ready to return home. Bonita HODGE
--- NOTE | 2024-01-18 10:31 | CASEMGMT ---
Addendum entered by Deanna Raman 01/18/24 12:11: TC from Nadeen at [facility], they can accept pt for SOC tomorrow. RN CM updated pt. Original Note: TC to [facility], spoke with Nadeen, referral made for SN, PT and OT. Will await acceptance.
--- NOTE | 2024-01-18 11:53 | PCM.DC ---
Discharge Instructions Diet Discharge Diet: 1800 Calorie Control Diet Activity Discharge Activity: Return to Normal Activity and Use Walker (If necessary) Weight Bearing Status: Full weight bearing Follow Up Care Test Results: Test results from this visit will be discussed in further detail at your follow-up appointment, if applicable. Discharge Plan Admission Admit Date/Time: 01/14/24 19:28 Primary Reason for Your Visit: Spinal stenosis, degenerative disc disease of the lumbar spine Attending Provider: Rick Pineda Primary Care Provider: Vincent Beal Consulting Providers: Ting Franklin; Lenin Jones Instructions Additional Instructions / Restrictions: Follow-up with your paperhanger and painter within 10 days Discharge Orders/Prescriptions Prescriptions: New gabapentin 400 mg Capsule 400 mg PO TIDCM Qty: 90 0RF oxycodone 5 mg Tablet 10 mg PO Q4H PRN PRN (Reason: Pain Score 4-10) 7 Days Qty: 40 0RF Rx Instructions: 1-2 every 4 hours as needed for left leg pain oxycodone [OxyContin] 10 mg Tablet,Oral Only,Ext.Rel.12 Hr 20 mg PO BID 10 Days Qty: 40 0RF prednisone 20 mg tablet 20 mg PO BID Qty: 20 0RF Rx Instructions: 1 tab twice a day for 3 days, then 1 and half tabs daily for 3 days, then 1 tab daily thereafter until prescription finished Continued atorvastatin 80 MG tablet 80 mg PO DAILY clopidogrel 75 MG tablet 75 mg PO DAILY omeprazole 40 MG capsule,delayed release(DR/EC) 40 mg PO DAILY potassium chloride [Klor-Con 8] 8 MEQ tablet extended release 8 meq PO DAILY metoprolol tartrate 50 MG tablet 50 mg PO DAILY Levemir FlexTouch U100 Insulin 100 UNITS/ML insulin pen 32 units subcut QHS fenofibrate nanocrystallized 145 MG tablet 145 mg PO DAILY losartan-hydrochlorothiazide 50-12.5 mg tablet 1 tab PO DAILY diclofenac sodium [Arthritis Pain (diclofenac)] 1 % gel 2 g topical DAILY PRN levothyroxine 125 mcg tablet 125 mcg PO DAILY insulin lispro [Humalog KwikPen Insulin] 100 unit/mL insulin pen 14 unit subcut TID Trulicity 3 mg/0.5 mL pen injector 3 mg subcut THAO Patient Comments: Take it on Sundays duloxetine 30 mg capsule,delayed release(DR/EC) 30 mg PO DAILY Discontinued oxycodone 5 mg tablet 5 mg PO Q6H PRN (Reason: pain) 5 Days Qty: 20 0RF Referrals / Follow Up: Vincent Beal MD [Primary Care Provider] - Within 2 Weeks Disposition Disposition (needs filled in before D/C Order can be placed): Home, Self Care
--- NOTE | 2024-01-18 12:08 | PCM.DC.SUM ---
Providers Date of Admission: 01/14/24 Date of Discharge: 01/18/24 Primary Care Physician: Dr. Vincent Beal MD Consultations 01/15/24 10:59 Consult: Orthopedics Routine Consulting Provider: Lenin Jones Reason for Consult: spinal stenosis EMERGENT Consult: No MD Notified: Yes Date Notified: 01/15/24 Time Notified: 10:59 Method of Notification: Verbal Reason For Visit: INTRACTABLE BACK PAIN Diagnosis Discharge Diagnosis (1) Lumbar radiculopathy: Status: Acute Code(s): M54.16 - Radiculopathy, lumbar region Plan 1. Lumbar radiculopathy with debility-patient will continue gabapentin, IV corticosteroids, and OxyContin, she will receive oxycodone as needed, I will reevaluate the patient in the morning #2 degenerative disc disease lumbar spine-complicates care, management, recovery, and prognosis, again orthopedic/spine surgery does not feel they can offer her any surgical intervention. #3 essential hypertension-patient will remain on her current medications, they will be adjusted as needed #4 type 2 diabetes-blood sugars will be monitored, patient's blood sugars remain elevated due to corticosteroid administration, sliding scale insulin continue to be given as needed Total clinical time spent by myself addressing patient's medical issues, reviewing all of her data, and collaborating with patient's care team: 35 minutes Medications at Discharge Home Medications atorvastatin 80 mg tablet 80 mg PO DAILY CHOLESTEROL 03/29/18 clopidogrel 75 mg tablet 75 mg PO DAILY BLOOD THINNER 03/29/18 fenofibrate nanocrystallized 145 mg tablet 145 mg PO DAILY SUPLIMENT 03/29/18 insulin detemir U-100 100 unit/mL (3 mL) subcutaneous pen (Levemir FlexTouch U-100 Insulin) 32 units subcut QHS GLUCOSE 03/29/18 metoprolol tartrate 50 mg tablet 50 mg PO DAILY bp 03/29/18 omeprazole 40 mg capsule,delayed release 40 mg PO DAILY n/v 03/29/18 potassium chloride 8 mEq tablet,extended release (Klor-Con) 8 meq PO DAILY suppliment 03/29/18 dulaglutide 3 mg/0.5 mL subcutaneous pen injector (Trulicity) 3 mg subcut THAO dm 01/08/24 insulin lispro 100 unit/mL subcutaneous pen (Humalog KwikPen (U-100) Insulin) 14 unit subcut TID GLUCOSE 01/08/24 levothyroxine 125 mcg tablet 125 mcg PO DAILY THRYROID 01/08/24 duloxetine 30 mg capsule,delayed release 30 mg PO DAILY see provider 01/10/24 diclofenac sodium 1 % topical gel (Arthritis Pain (diclofenac)) 2 g topical DAILY PRN Pain 01/14/24 losartan 50 mg-hydrochlorothiazide 12.5 mg tablet 1 tab PO DAILY Fluid 01/14/24 gabapentin 400 mg capsule 400 mg PO TIDCM #90 caps 01/18/24 oxycodone 10 mg tablet,crush resistant,extended release 12 hr (OxyContin) 20 mg (2 x 10 mg) PO BID Chronic left leg radiculopathy 10 days #40 tabs 01/18/24 oxycodone 5 mg tablet 10 mg (2 x 5 mg) PO Q4H PRN PRN Pain Score 4-10 7 days #40 tabs 01/18/24 prednisone 20 mg tablet 20 mg PO BID #20 tabs 01/18/24 Hospital Course Operations None Procedures None Summary of Care Provided Minutes Spent on Discharge: 32 Hospital Course: This 73-year-old white female was seen in the emergency room at [facility] with complaints of severe left leg pain and inability to ambulate at home. Patient had been discharged from the hospital here at [facility] recently for the same complaints [place]. Received a transforaminal steroid injection and appeared to improve during that hospitalization and was sent home. Patient has a history of degenerative joint disease of the lumbar spine with spinal stenosis. Patient was admitted to [place] [id number] and placed on IV corticosteroids, she was seen by PT and OT, she was placed on gabapentin and she was placed on narcotics for pain. Patient improved slowly during her hospitalization, she was seen in consultation by spinal surgery who recommended no acute surgery at this time and recommend the patient continue PT and OT and medical modalities. Patient improved during hospitalization, on 01/18/2024, patient was seen and examined: On examination she appeared in good health and spirits, she does not appear to be in any distress. Vital signs as documented. Skin warm and dry and without overt rashes. Neck without JVD, thyroid appears normal, trachea is midline, neck is supple. Lungs clear, normal air movement was noted. Heart exam notable for regular rhythm, normal sounds and absence of murmurs, rubs or gallops. Abdomen unremarkable and without evidence of organomegaly, masses, or abdominal aortic enlargement, bowel sounds are present in all 4 quadrants, no abdominal tenderness was noted. Extremities nonedematous, no cyanosis was noted, no clubbing was noted. Neuro: Cranial nerves II through XII are grossly intact, no focal motor deficits were noted, sensation to light touch and pinprick is intact, motor exam 5/5 throughout. Psych: Patient is alert and oriented x3, she does not appear anxious or depressed, she does not appear agitated. Patient appears stable for discharge home on 01/18/2024. Weight / BMI Weight Weight: 65.3 kg Body Mass Index (BMI) 23.2 ABG / Lab / Microbiology Data 01/15/24 05:57 01/15/24 05:57 Laboratory: Laboratory Results - last 24 hr 01/17/24 12:01: POC Glucose 271 H 01/17/24 16:46: POC Glucose 382 H 01/17/24 22:26: POC Glucose 393 H 01/18/24 08:37: POC Glucose 262 H D/C Instructions Discharge Diet: 1800 Calorie Control Diet Weight Bearing Status: Full weight bearing Meaningful Use Info Meaningful Use Diagnoses (Choose all that apply): None applicable Discharge Plan Admission Admit Date/Time: 01/14/24 19:28 Primary Reason for Your Visit: Spinal stenosis, degenerative disc disease of the lumbar spine Attending Provider: Rick Pineda Primary Care Provider: Vincent Beal Consulting Providers: Ting Franklin; Lenin Jones Instructions Additional Instructions / Restrictions: Follow-up with your spray i painter within 10 days Discharge Orders/Prescriptions Prescriptions: New gabapentin 400 mg Capsule 400 mg PO TIDCM Qty: 90 0RF oxycodone 5 mg Tablet 10 mg PO Q4H PRN PRN (Reason: Pain Score 4-10) 7 Days Qty: 40 0RF Rx Instructions: 1-2 every 4 hours as needed for left leg pain oxycodone [OxyContin] 10 mg Tablet,Oral Only,Ext.Rel.12 Hr 20 mg PO BID 10 Days Qty: 40 0RF prednisone 20 mg tablet 20 mg PO BID Qty: 20 0RF Rx Instructions: 1 tab twice a day for 3 days, then 1 and half tabs daily for 3 days, then 1 tab daily thereafter until prescription finished Continued atorvastatin 80 MG tablet 80 mg PO DAILY clopidogrel 75 MG tablet 75 mg PO DAILY omeprazole 40 MG capsule,delayed release(DR/EC) 40 mg PO DAILY potassium chloride [Klor-Con 8] 8 MEQ tablet extended release 8 meq PO DAILY metoprolol tartrate 50 MG tablet 50 mg PO DAILY Levemir FlexTouch U100 Insulin 100 UNITS/ML insulin pen 32 units subcut QHS fenofibrate nanocrystallized 145 MG tablet 145 mg PO DAILY losartan-hydrochlorothiazide 50-12.5 mg tablet 1 tab PO DAILY diclofenac sodium [Arthritis Pain (diclofenac)] 1 % gel 2 g topical DAILY PRN levothyroxine 125 mcg tablet 125 mcg PO DAILY insulin lispro [Humalog KwikPen Insulin] 100 unit/mL insulin pen 14 unit subcut TID Trulicity 3 mg/0.5 mL pen injector 3 mg subcut THAO Patient Comments: Take it on Sundays duloxetine 30 mg capsule,delayed release(DR/EC) 30 mg PO DAILY Discontinued oxycodone 5 mg tablet 5 mg PO Q6H PRN (Reason: pain) 5 Days Qty: 20 0RF Referrals / Follow Up: Vincent Beal MD [Primary Care Provider] - Within 2 Weeks Disposition Disposition (needs filled in before D/C Order can be placed): Home, Self Care Charges/Coding Visit Charges Inpatient E&M: 16745 Disch Hosp >30min
[2024-01-18 12:25] LABS: Bedside Glucose 458 mg/dL (74-106)
[2024-01-18] MEDS: Insulin Lispro 100 UNIT/ML INSULN.PEN 15 UNIT SC (12:30)
== END 2024-01-18 13:29 | disposition home health service (06) | DRG 552 ==
LOC: ED 18:43 → MS3 20:02
PROVIDERS: Physician Assistant; Admitting Provider Family Medicine; Emergency Provider Emergency Medicine; PCP Internal Medicine; Visit Provider Internal Medicine
DX: M51.16 Intervertebral disc disorders with radiculopathy, lumbar region (principal); I69.354 Hemiplegia and hemiparesis following cerebral infarction affecting left non-dominant side; E11.9 Type 2 diabetes mellitus without complications; Z79.4 Long term (current) use of insulin; M06.9 Rheumatoid arthritis, unspecified; E03.9 Hypothyroidism, unspecified; I10 Essential (primary) hypertension; F32.A Depression, unspecified; M51.17 Intervertebral disc disorders with radiculopathy, lumbosacral region; K21.9 Gastro-esophageal reflux disease without esophagitis; E78.00 Pure hypercholesterolemia, unspecified; M48.061 Spinal stenosis, lumbar region without neurogenic claudication; M41.50 Other secondary scoliosis, site unspecified; M48.07 Spinal stenosis, lumbosacral region; F41.9 Anxiety disorder, unspecified; R62.7 Adult failure to thrive; Z68.23 Body mass index [BMI] 23.0-23.9, adult; R53.81 Other malaise; Z91.81 History of falling; Z79.02 Long term (current) use of antithrombotics/antiplatelets; Z79.85 Long-term (current) use of injectable non-insulin antidiabetic drugs; Z79.890 Hormone replacement therapy; Z79.899 Other long term (current) drug therapy; Z87.891 Personal history of nicotine dependence
CPT/HCPCS: 36415; 80048; 80053; 82962; 85025; 94668; 97116; 97162; 97166; 97530; 97535; 99252; 99284; J7030; A4216; G0463; J2405

== ENCOUNTER 2024-10-17 09:29 | Inpatient (IN) | payer MEDICARE, SELFPAY ==
[2024-10-17] VITALS (21 sets, daily range): BP systolic 160–234; BP diastolic 91–124; PULSE 72–86; RESP 10–19; TEMP 36.4–36.6; O2SAT 95–99; BMI 27.6; BMI 27.4
--- NOTE | 2024-10-17 09:52 | EKG12_ITS ---
Test Reason : EDEMA Blood Pressure : */* mmHG Vent. Rate : 77 BPM Atrial Rate : 77 BPM P-R Int : 176 ms QRS Dur : 58 ms QT Int : 362 ms P-R-T Axes : 31 28 3 degrees QTcB Int : 409 ms Normal sinus rhythm Normal ECG Confirmed by Estevan Nieto ([id number]), newspaper or periodical editor JAROD HENRIQUEZ ([id number]) on 10/18/2024 9:34:10 AM Referred By: Confirmed By: Estevan Nieto
--- NOTE | 2024-10-17 09:53 | VDLE_ITS ---
Reason For Study: Bilateral leg swelling RIGHT LEFT GSV is normal. GSV is normal. CFV is compressible, spontaneous, competent CFV is compressible, spontaneous, competent, and demonstrates pulsatile venous flow. and demonstrates pulsatile venous flow. FV is compressible, spontaneous, competent FV is compressible, spontaneous, competent and demonstrates pulsatile venous flow. and demonstrates pulsatile venous flow. POP V is compressible, spontaneous, competent POP V is compressible, spontaneous, competent and demonstrates pulsatile venous flow. and demonstrates pulsatile venous flow. T/P Trunk is compressible. T/P Trunk is compressible. PTV is compressible. PTV is compressible. RT PerV is compressible. LT PerV is compressible. Procedure This is a venous duplex using B-mode, color flow and spectral Doppler. Exam performed portable in ED. A preliminary report was called and/or faxed to Dr. Vazquez. VL/Venous Duplex US - Alberto Extrem Interpretation Summary Deep veins of the bilateral lower extremity are patent and compressible segment ally. There is no evidence of bilateral lower extremity deep vein thrombosis. The bilateral great saphenous veins appear patent and compressible segmentally. Ordering Physician: Sen Vazquez Referring Physician: Vincent Beal M.D. Performed By: Melonie Villa RVT
--- NOTE | 2024-10-17 09:53 | EDS_ITS ---
HPI History of Present Illness Chief Complaint: Other, Pain/Inj Narrative Narrative: 73-year-old female past medical history of hypertension, diabetes, hypothyroidism, presents at the direction of her primary care provider Dr. Beal because of concern for heart failure and DVTs because of swelling of both legs. Patient relates history that over the last month she has had swollen legs. She also states she has had at least a 40 pound weight gain over the last few months as well. Her main complaint is that she has had dyspnea on exertion as well. No recent fevers or chills, no cough. She states that she saw her primary care provider last week, and they performed her laboratory work. She states that they called her today and told her to come to the emergency department because her laboratory work was out of whack. She states that she is going into renal failure, and now they think that she has congestive heart failure. [facility] Medical History Intractable back pain Rheumatoid arthritis Former smoker Stroke/cerebrovascular accident Sciatica High cholesterol HTN (hypertension) HTN (hypertension) Hypothyroidism DM type 2 (diabetes mellitus, type 2) Home Medications ?Medication ?Instructions ?Recorded ?Last Taken ?Type atorvastatin 80 mg tablet 80 mg PO DAILY CHOLESTEROL 03/29/18 01/07/24 History clopidogrel 75 mg tablet 75 mg PO DAILY BLOOD THINNER 03/29/18 01/07/24 History fenofibrate nanocrystallized 145 145 mg PO DAILY SUPLIMENT 03/29/18 01/07/24 History mg tablet insulin detemir U-100 100 unit/mL 32 units subcut QHS GLUCOSE 03/29/18 01/07/24 History (3 mL) subcutaneous pen (Levemir FlexTouch U-100 Insulin) omeprazole 40 mg capsule,delayed 40 mg PO DAILY n/v 03/29/18 01/07/24 History release potassium chloride 8 mEq 8 meq PO DAILY suppliment 03/29/18 01/07/24 History tablet,extended release (Klor-Con) dulaglutide 3 mg/0.5 mL 3 mg subcut THAO dm 01/08/24 01/13/24 History subcutaneous pen injector (Trulicity) insulin lispro 100 unit/mL 14 unit subcut TID GLUCOSE 01/08/24 Unknown History subcutaneous pen (Humalog KwikPen (U-100) Insulin) levothyroxine 125 mcg tablet 125 mcg PO DAILY THRYROID 01/08/24 01/07/24 History duloxetine 30 mg capsule,delayed 30 mg PO DAILY see provider 01/10/24 Unknown History release diclofenac sodium 1 % topical gel 2 g topical DAILY PRN Pain 01/14/24 Unknown History (Arthritis Pain (diclofenac)) gabapentin 400 mg capsule 400 mg PO TIDCM #90 caps 01/18/24 Unknown Rx oxycodone 10 mg tablet,crush 20 mg (2 x 10 mg) PO BID Chronic 01/18/24 Unknown Rx resistant,extended release 12 hr left leg radiculopathy 10 days #40 (OxyContin) tabs oxycodone 5 mg tablet 10 mg (2 x 5 mg) PO Q4H PRN PRN 01/18/24 Unknown Rx Pain Score 4-10 7 days #40 tabs amlodipine 5 mg tablet 5 mg PO DAILY 10/17/24 Unknown History etanercept 50 mg/mL (1 mL) mg subcut 10/17/24 Unknown History subcutaneous pen injector (Enbrel SureClick) furosemide 20 mg tablet 20 mg PO DAILY 10/17/24 Unknown History insulin glargine 100 unit/mL (3 32 unit subcut QHS 10/17/24 Unknown History mL) subcutaneous pen (Lantus Solostar U-100 Insulin) losartan 100 1 tab PO DAILY 10/17/24 Unknown History mg-hydrochlorothiazide 12.5 mg tablet metoprolol succinate 50 mg 50 mg PO DAILY 10/17/24 Unknown History tablet,extended release 24 hr prednisone 5 mg tablet 10 mg PO DAILY diabetes mellitus 10/17/24 Unknown History Allergy/AdvReac Type Severity Reaction Status Date / Time morphine Allergy Itching Verified 10/17/24 09:31 meperidine (From Demerol) AdvReac Nausea/Vom/ Verified 10/17/24 09:31 Diarrhea Family History Mother Thyroid disorder Father Heart disease CAD (coronary artery disease) Hypertension Myocardial infarction Surgical History History of appendectomy History of facial surgery Status post ORIF of fracture of ankle Hx of hysterectomy History of spinal fusion Social History household members: none Smoking Status: Former smoker how long ago did patient quit smoking: Smoked age [age] ~1/2 ppd. alcohol intake: never substance use type: does not use ROS ROS ED ROS Narrative Review of systems positive for dyspnea on exertion, bilateral leg swelling, and weight gain. Patient denies any recent fevers or chills, no nausea or vomiting, no diarrhea, no abdominal pain. She may have had occasional ache in her chest, but denies any diaphoresis. No exacerbating or alleviating factors except for she gets very short of breath with exertion. EXAM Physical Exam Narrative Exam Narrative: Afebrile. Vital signs noted. Nontoxic-appearing. HEENT examination grossly unremarkable with PERRL, EOMI. Cardiovascular examination reveals a regular rate and rhythm. Lung sounds are clear to auscultation with the exception of occasional bibasilar rales. Abdomen is soft and nontender with positive bowel sounds. No guarding or rebound. Bilateral lower extremities do show woody edema of the bilateral lower extremities. No palpable cord. No noted erythema. Neurological examination is nonfocal and nonlateralizing. Const Vital Signs: 10/17/24 09:31 Temperature 98 F Temperature Source Temporal Pulse Rate 86 Respiratory Rate 18 Blood Pressure 224/116 H Blood Pressure Mean 152 Pulse Ox 99 Oxygen Delivery Method Room Air MDM MDM MDM Narrative Medical decision making narrative: Differential diagnosis includes but not limited to ACS versus CHF versus undiagnosed COPD versus pneumonia versus pneumothorax. She does have elevated blood pressure initially at 224/116. This may be more hypertensive urgency/emergency. There is a triage note and there is also concern for bilateral DVTs given the swelling. Ultrasounds will be obtained to rule out DVTs of the bilateral lower extremities. Additionally comprehensive workup was pursued including chest x-ray and CBC, BMP, single troponin, and a BNP. Discharge Plan Triage Chief Complaint: Other, Pain/Inj ED Provider: Sen Vazquez Dx/Rx/DC Orders Prescriptions: No Action atorvastatin 80 MG tablet 80 mg PO DAILY clopidogrel 75 MG tablet 75 mg PO DAILY omeprazole 40 MG capsule,delayed release(DR/EC) 40 mg PO DAILY potassium chloride [Klor-Con 8] 8 MEQ tablet extended release 8 meq PO DAILY Levemir FlexTouch U100 Insulin 100 UNITS/ML insulin pen 32 units subcut QHS fenofibrate nanocrystallized 145 MG tablet 145 mg PO DAILY diclofenac sodium [Arthritis Pain (diclofenac)] 1 % gel 2 g topical DAILY PRN gabapentin 400 mg Capsule 400 mg PO TIDCM Qty: 90 0RF oxycodone 5 mg Tablet 10 mg PO Q4H PRN PRN (Reason: Pain Score 4-10) 7 Days Qty: 40 0RF Rx Instructions: 1-2 every 4 hours as needed for left leg pain oxycodone [OxyContin] 10 mg Tablet,Oral Only,Ext.Rel.12 Hr 20 mg PO BID 10 Days Qty: 40 0RF levothyroxine 125 mcg tablet 125 mcg PO DAILY insulin lispro [Humalog KwikPen Insulin] 100 unit/mL insulin pen 14 unit subcut TID Trulicity 3 mg/0.5 mL pen injector 3 mg subcut THAO Patient Comments: Take it on Sundays duloxetine 30 mg capsule,delayed release(DR/EC) 30 mg PO DAILY metoprolol succinate 50 mg tablet extended release 24 hr 50 mg PO DAILY prednisone 5 mg tablet 10 mg PO DAILY amlodipine 5 mg tablet 5 mg PO DAILY furosemide 20 mg tablet 20 mg PO DAILY losartan-hydrochlorothiazide 100-12.5 mg tablet 1 tab PO DAILY Enbrel SureClick 50 mg/mL (1 mL) pen injector subcut insulin glargine [Lantus Solostar U-100 Insulin] 100 unit/mL (3 mL) insulin pen 32 unit subcut QHS Primary Care Provider: Vincent Beal Referrals: Vincent Beal MD [Primary Care Provider] - Print Language: Polish
--- NOTE | 2024-10-17 09:53 | EX.ED.DYSGE1 ---
HPI History of Present Illness Chief Complaint: Other, Pain/Inj Narrative Narrative: 73-year-old female past medical history of hypertension, diabetes, hypothyroidism, presents at the direction of her primary care provider Dr. Beal because of concern for heart failure and DVTs because of swelling of both legs. Patient relates history that over the last month she has had swollen legs. She also states she has had at least a 40 pound weight gain over the last few months as well. Her main complaint is that she has had dyspnea on exertion as well. No recent fevers or chills, no cough. She states that she saw her primary care provider last week, and they performed her laboratory work. She states that they called her today and told her to come to the emergency department because her laboratory work was out of whack. She states that she is going into renal failure, and now they think that she has congestive heart failure. [facility] Medical History Intractable back pain Rheumatoid arthritis Former smoker Stroke/cerebrovascular accident Sciatica High cholesterol HTN (hypertension) HTN (hypertension) Hypothyroidism DM type 2 (diabetes mellitus, type 2) Home Medications ?Medication ?Instructions ?Recorded ?Last Taken ?Type atorvastatin 80 mg tablet 80 mg PO DAILY CHOLESTEROL 03/29/18 10/17/24 History clopidogrel 75 mg tablet 75 mg PO DAILY BLOOD THINNER 03/29/18 10/17/24 History fenofibrate nanocrystallized 145 145 mg PO DAILY SUPLIMENT 03/29/18 10/17/24 History mg tablet omeprazole 40 mg capsule,delayed 40 mg PO DAILY n/v 03/29/18 10/17/24 History release potassium chloride 8 mEq 8 meq PO DAILY suppliment 03/29/18 10/17/24 History tablet,extended release (Klor-Con) dulaglutide 3 mg/0.5 mL 3 mg subcut THAO dm 01/08/24 10/13/24 History subcutaneous pen injector (Trulicity) insulin lispro 100 unit/mL 14 unit subcut TID GLUCOSE 01/08/24 10/16/24 History subcutaneous pen (Humalog KwikPen (U-100) Insulin) levothyroxine 125 mcg tablet 125 mcg PO DAILY THRYROID 01/08/24 10/17/24 History gabapentin 400 mg capsule 400 mg PO TIDCM #90 caps 01/18/24 10/17/24 Rx oxycodone 5 mg tablet 10 mg (2 x 5 mg) PO Q4H PRN PRN 01/18/24 10/17/24 Rx Pain Score 4-10 7 days #40 tabs amlodipine 5 mg tablet 5 mg PO DAILY 10/17/24 10/17/24 History etanercept 50 mg/mL (1 mL) 50 mg subcut QWEEK 10/17/24 10/09/24 History subcutaneous pen injector (Enbrel SureClick) furosemide 20 mg tablet 20 mg PO DAILY 10/17/24 10/16/24 History insulin glargine 100 unit/mL (3 32 unit subcut QHS 10/17/24 10/16/24 History mL) subcutaneous pen (Lantus Solostar U-100 Insulin) losartan 100 1 tab PO DAILY 10/17/24 10/17/24 History mg-hydrochlorothiazide 12.5 mg tablet metoprolol succinate 50 mg 50 mg PO DAILY 10/17/24 10/17/24 History tablet,extended release 24 hr prednisone 5 mg tablet 10 mg PO DAILY diabetes mellitus 10/17/24 10/17/24 History Allergy/AdvReac Type Severity Reaction Status Date / Time morphine Allergy Itching Verified 10/17/24 09:31 meperidine (From Demerol) AdvReac Nausea/Vom/ Verified 10/17/24 09:31 Diarrhea Family History Mother Thyroid disorder Father Heart disease CAD (coronary artery disease) Hypertension Myocardial infarction Surgical History History of appendectomy History of facial surgery Status post ORIF of fracture of ankle Hx of hysterectomy History of spinal fusion Social History household members: none Smoking Status: Former smoker how long ago did patient quit smoking: Smoked age [age] ~1/2 ppd. alcohol intake: never substance use type: does not use ROS ROS ED ROS Narrative Review of systems positive for dyspnea on exertion, bilateral leg swelling, and weight gain. Patient denies any recent fevers or chills, no nausea or vomiting, no diarrhea, no abdominal pain. She may have had occasional ache in her chest, but denies any diaphoresis. No exacerbating or alleviating factors except for she gets very short of breath with exertion. EXAM Physical Exam Narrative Exam Narrative: Afebrile. Vital signs noted. Nontoxic-appearing. HEENT examination grossly unremarkable with PERRL, EOMI. Cardiovascular examination reveals a regular rate and rhythm. Lung sounds are clear to auscultation with the exception of occasional bibasilar rales. Abdomen is soft and nontender with positive bowel sounds. No guarding or rebound. Bilateral lower extremities do show woody edema of the bilateral lower extremities. No palpable cord. No noted erythema. Neurological examination is nonfocal and nonlateralizing. Const Vital Signs: 10/17/24 09:31 10/17/24 10:09 10/17/24 10:17 Temperature 98 F Temperature Source Temporal Pulse Rate 86 80 Respiratory Rate 18 10 L Respiratory Effort Normal Non-Labored Respiratory Pattern Normal Blood Pressure 224/116 H 234/120 H Blood Pressure Mean 152 158 Pulse Ox 99 97 Oxygen Delivery Method Room Air Room Air 10/17/24 11:00 Temperature Temperature Source Pulse Rate 80 Respiratory Rate 14 Respiratory Effort Respiratory Pattern Blood Pressure 206/103 H Blood Pressure Mean 137 Pulse Ox 98 Oxygen Delivery Method Room Air MDM MDM MDM Narrative Medical decision making narrative: Differential diagnosis includes but not limited to ACS versus CHF versus undiagnosed COPD versus pneumonia versus pneumothorax. She does have elevated blood pressure initially at 224/116. This may be more hypertensive urgency/emergency. There is a triage note and there is also concern for bilateral DVTs given the swelling. Ultrasounds will be obtained to rule out DVTs of the bilateral lower extremities. Additionally comprehensive workup was pursued including chest x-ray and CBC, BMP, single troponin, and a BNP. I reviewed the venous Doppler initial report and there is no evidence of DVT bilaterally. She did have pulsatile venous flow. I reviewed her laboratory work and she has normal white count of 7.7 with hemoglobin 11.5, hematocrit 35.3 and platelet count normal at 257. Other labs were hemolyzed but on repeat, BUN is elevated at 87 with a creatinine of 2.66 up from previous consistent with acute kidney injury. Sodium 140 and potassium normal at 4.7. Chloride slightly elevated at 108 which I think is nonspecific, normal anion gap of 10. BNP is elevated at 323. High-sensitivity troponin 41. She has had her dyspnea on exertion for at least a week. Chest x-ray in 1 view interpreted by myself independently shows no evidence of consolidation, no pneumonia or pneumothorax. I reviewed the radiology report which confirms my independent interpretation. It does comment on left basilar atelectasis. In review of her cardiology EMR, she has not had a recent echocardiogram. I discussed patient with Dr. Carmen Jain for admission to the PCU for new onset heart failure. After hydralazine and labetalol, systolic blood pressure is now 163. I feel she is stable for admission. Disposition is admit. History & Record Review Discussion w/independent historian: Patient Lab Data Attestation: I reviewed the patient's lab results. Labs: Laboratory Results - last 24 hr 10/17/24 10/17/24 10:17 10:45 WBC 7.7 RBC 3.62 L Hgb 11.5 L Hct 35.3 L MCV 97.5 MCH 31.8 MCHC 32.6 RDW Std Deviation 55.3 H RDW Coeff of John 15.7 H Plt Count 257 MPV 12.1 H Immature Gran % (Auto) 0.500 Neut % (Auto) 74.5 H Lymph % (Auto) 16.6 L O'Brien % (Auto) 7.3 Eos % (Auto) 0.8 Baso % (Auto) 0.3 Absolute Neuts (auto) 5.7 Absolute Lymphs (auto) 1.27 Nucleated RBC % 0 Sodium Cancelled 140 Potassium Cancelled 4.7 Chloride Cancelled 108 H Carbon Dioxide Cancelled 22.0 Anion Gap Cancelled 10 BUN Cancelled 87 H Creatinine Cancelled 2.66 H Estim Creat Clear Calc Cancelled 19.83 Est GFR (MDRD) Af Amer Cancelled 23 L Est GFR (MDRD) Non-Af Cancelled 19 L BUN/Creatinine Ratio Cancelled 32.7 H Glucose Cancelled 250 H Calcium Cancelled 8.1 L Total Bilirubin Cancelled 0.70 AST Cancelled 86 H ALT Cancelled 35 Alkaline Phosphatase Cancelled 52 Troponin I High Sens Cancelled 41 B-Natriuretic Peptide 323.3 H Total Protein Cancelled 6.1 L Albumin Cancelled 2.6 L Globulin Cancelled 3.5 Albumin/Globulin Ratio Cancelled 0.7 L Radiography Diagnostic Testing: Clinical Impression(s) from Imaging Studies Chest X-Ray 10/17/24 10:44 IMPRESSION: Mild left basilar atelectasis. Electronically Signed: Caty Barton MD at 11:09 EST , Discharge Plan Dx/Rx/DC Orders Clinical Impression: Acute kidney injury, Peripheral edema, Uncontrolled hypertension, Congestive heart failure Disposition Disposition: Acute Care [facility]
[2024-10-17] MEDS: hydrALAZINE 20 MG/ML Vial 10 MG IV (10:14)
[2024-10-17 10:27] LABS: Absolute Lymphocyte Count 1.27 X10^3/uL (0.83-4.51); Absolute Neutrophil Count 5.7 X10^3/uL (2.0-7.7); Basophil# 0.02 X10^3/uL; Basophil% 0.3 % (0-1); Eosinophil# 0.06 X10^3/uL; Eosinophils% 0.8 % (0-5); Hematocrit 35.3 % (37-47); Hemoglobin 11.5 g/dL (12.0-15.0); Lymphocyte # 1.27 X10^3/ul (0.83-4.51); Lymphocyte % 16.6 % (19-41); Mean Corp Hgb Conc 32.6 g/dL (32-36); Mean Corpuscular Hgb 31.8 pg (27.0-32.0); Mean Corpuscular Volume 97.5 fL (81-99); Mean Platelet Vol. 12.1 fl (6.2-12.0); Monocyte# 0.56 X10^3/uL; Monocyte% 7.3 % (0-10); NRBC Flagged by Analyzer 0 % (0-5); Neutrophil # 5.72 X10^3/uL (2.7-7.7); Neutrophil % 74.5 % (47-70); Platelet Count 257 K/mm3 (150-450); RBC Distribution Width CV 15.7 % (11.6-14.6); RBC Distribution Width SD 55.3 fl (35.1-43.9); Red Blood Count 3.62 M/mm3 (4.2-5.4); White Blood Count 7.7 K/mm3 (4.4-11.0)
[2024-10-17 10:42] LABS: BNP,B-Type NATRIURETIC PEPTIDE 323.3 pg/mL (0-100)
--- NOTE | 2024-10-17 10:44 | RAD_ITS ---
HISTORY: Dyspnea on exertion. TECHNIQUE: XR Chest 1 View. COMPARISON: 09/04/2021. FINDINGS: CARDIOMEDIASTINAL BORDERS: Cardiac silhouette within normal limits in size. Mediastinal contour unremarkable. LUNGS: Mild linear opacity of the left lung base. PLEURA: No pleural effusion or pneumothorax seen. OSSEOUS STRUCTURES: Cervical spinal fusion hardware noted. RAD/Chest 1 View (Portable) IMPRESSION: Mild left basilar atelectasis. Electronically Signed: Caty Barton MD at 11:09 EST ,
[2024-10-17 11:31] LABS: ALB/GLOB Ratio 0.7 RATIO (0.9-2.4); AST(SGOT) 86 U/L (15-37); Alanine Aminotransfer ALT/SGPT 35 U/L (13-56); Albumin, Serum 2.6 g/dL (3.2-5.0); Alkaline Phosphatase 52 U/L (45-117); Anion Gap 10 (5-15); BUN 87 mg/dL (7-18); BUN/Creat Ratio 32.7 RATIO (10-20); Calcium,Total 8.1 mg/dL (8.5-10.1); Chloride 108 mmol/L (98-107); Creatinine, Serum 2.66 mg/dL (0.55-1.02); EST Glomerular Filtration Rate 19 mL/min (>60); Est Glom Filt Rate - Afr Amer 23 mL/min (>60); Estimated Creatinine Clearance 19.83 ml/min; Globulin 3.5 g/dL (2.2-4.2); Glucose 250 mg/dL (74-106); Potassium 4.7 mmol/L (3.5-5.1); Protein, Total 6.1 g/dL (6.4-8.2); Sodium Level 140 mmol/L (136-145); Troponin-I HS 41 pg/mL (3.0-54.0)
--- NOTE | 2024-10-17 12:22 | PCM.HP.STD ---
[facility] - General General Date of Service: 10/17/24 Chief Complaint: CLARKE, feeling generally unwell HPI Narrative GABRIELLE RIDLEY, is a 73 F with a history of GERD, CKD stage IIIa, history of CVA, hypertension, hypothyroidism who presented to [facility] ED 10/17/2024 at the urging of her primary care physician due to increasing swelling in her lower extremities and dyspnea on exertion with worsening kidney function found on labs. In the ED she was found to have a BNP of over 300, lower extremity edema, and systolic blood pressure of 234 over diastolic of 120 as well as creatinine of 2.66 up from baseline around 1.2. Given concern for new onset heart failure as well as kidney failure hospitalist contacted for admission. Patient evaluated at bedside and reports that over the past months she has had increased swelling in her lower extremities, dyspnea on exertion, and weight gain as well as some nausea and poor appetite. Denies fevers or chills, does sometimes have headaches, no chest pain, minimal cough with no sputum production. Reports the legs always with some edema now and not necessarily changed throughout the day. Denies any diarrhea. Patient does note decreased urine output with dark color ON LICENSE OF [facility] Medical History Intractable back pain Rheumatoid arthritis Former smoker Stroke/cerebrovascular accident Sciatica High cholesterol HTN (hypertension) HTN (hypertension) Hypothyroidism DM type 2 (diabetes mellitus, type 2) Home Medications ?Medication ?Instructions ?Recorded ?Last Taken ?Type atorvastatin 80 mg tablet 80 mg PO DAILY CHOLESTEROL 03/29/18 10/17/24 History clopidogrel 75 mg tablet 75 mg PO DAILY BLOOD THINNER 03/29/18 10/17/24 History fenofibrate nanocrystallized 145 145 mg PO DAILY SUPLIMENT 03/29/18 10/17/24 History mg tablet omeprazole 40 mg capsule,delayed 40 mg PO DAILY n/v 03/29/18 10/17/24 History release potassium chloride 8 mEq 8 meq PO DAILY suppliment 03/29/18 10/17/24 History tablet,extended release (Klor-Con) dulaglutide 3 mg/0.5 mL 3 mg subcut THAO dm 01/08/24 10/13/24 History subcutaneous pen injector (Trulicity) insulin lispro 100 unit/mL 14 unit subcut TID GLUCOSE 01/08/24 10/16/24 History subcutaneous pen (Humalog KwikPen (U-100) Insulin) levothyroxine 125 mcg tablet 125 mcg PO DAILY THRYROID 01/08/24 10/17/24 History gabapentin 400 mg capsule 400 mg PO TIDCM #90 caps 01/18/24 10/17/24 Rx oxycodone 5 mg tablet 10 mg (2 x 5 mg) PO Q4H PRN PRN 01/18/24 10/17/24 Rx Pain Score 4-10 7 days #40 tabs amlodipine 5 mg tablet 5 mg PO DAILY 10/17/24 10/17/24 History etanercept 50 mg/mL (1 mL) 50 mg subcut QWEEK 10/17/24 10/09/24 History subcutaneous pen injector (Enbrel SureClick) furosemide 20 mg tablet 20 mg PO DAILY 10/17/24 10/16/24 History insulin glargine 100 unit/mL (3 32 unit subcut QHS 10/17/24 10/16/24 History mL) subcutaneous pen (Lantus Solostar U-100 Insulin) losartan 100 1 tab PO DAILY 10/17/24 10/17/24 History mg-hydrochlorothiazide 12.5 mg tablet metoprolol succinate 50 mg 50 mg PO DAILY 10/17/24 10/17/24 History tablet,extended release 24 hr prednisone 5 mg tablet 10 mg PO DAILY diabetes mellitus 10/17/24 10/17/24 History Allergy/AdvReac Type Severity Reaction Status Date / Time morphine Allergy Itching Verified 10/17/24 09:31 meperidine (From Demerol) AdvReac Nausea/Vom/ Verified 10/17/24 09:31 Diarrhea Family History Mother Thyroid disorder Father Heart disease CAD (coronary artery disease) Hypertension Myocardial infarction Surgical History History of appendectomy History of facial surgery Status post ORIF of fracture of ankle Hx of hysterectomy History of spinal fusion Social History household members: none Smoking Status: Former smoker how long ago did patient quit smoking: Smoked age [age] ~1/2 ppd. alcohol intake: never substance use type: does not use ROS ROS Narrative General: Denies fever/chills HENT: Sometimes headaches, denies stuffy nose, denies sore throat EYES: Denies changes in vision Resp: Increased shortness of breath particularly on exertion with minimal nonproductive cough Cardiac: Denies chest pain GI: Denies abdominal pain but has some just general discomfort and intermittently feels a little bit sick to her stomach with poor appetite, denies changes in bowel : Decreased urine output and dark in color Extremity: Some increased swelling in bilateral lower extremities MSK: Denies weakness Neuro: Denies any numbness/tingling Heme: Denies any bleeding or bruising Skin: Denies rashes Psychiatric: No complaints voiced Vital Signs Vital Signs Vital Signs: 10/17/24 09:31 10/17/24 10:09 10/17/24 10:17 Temperature 98 F Temperature Source Temporal Pulse Rate 86 80 Respiratory Rate 18 10 L Respiratory Effort Normal Non-Labored Respiratory Pattern Normal Blood Pressure 224/116 H 234/120 H Blood Pressure Mean 152 158 Pulse Ox 99 97 Oxygen Delivery Method Room Air Room Air 10/17/24 11:00 10/17/24 12:00 10/17/24 12:05 Temperature 97.9 F Temperature Source Pulse Rate 80 82 82 Respiratory Rate 14 14 16 Respiratory Effort Respiratory Pattern Blood Pressure 206/103 H 191/94 H 191/94 H Blood Pressure Mean 137 126 126 Pulse Ox 98 98 98 Oxygen Delivery Method Room Air Room Air Weight Weight: 77.746 kg Body Mass Index (BMI) 27.6 Physical Exam Narrative General: Alert, oriented, no apparent distress HEENT: Atraumatic, normocephalic, cleft lip repair noted Eyes: Anicteric, normal conjunctiva, extraocular movements grossly intact Neck: Supple Respiratory: Possibly some slight crackles at the bases with slight increase in respiratory effort Cardiovascular: Regular rate GI: Soft, no overt tenderness, nondistended Extremities: 1+ bilateral lower extremity pitting edema Musculoskeletal: Moving all extremities Neuro: No overt focal neurological deficits Skin: No rashes appreciated Psych: Cooperative Results Lab / Micro Data 10/17/24 10:17 10/17/24 10:45 Labs: Laboratory Results - last 24 hr 10/17/24 10:17: WBC 7.7, RBC 3.62 L, Hgb 11.5 L, Hct 35.3 L, MCV 97.5, MCH 31.8, MCHC 32.6, RDW Std Deviation 55.3 H, RDW Coeff of John 15.7 H, Plt Count 257, MPV 12.1 H, Immature Gran % (Auto) 0.500, Neut % (Auto) 74.5 H, Lymph % (Auto) 16.6 L, Wagoner % (Auto) 7.3, Eos % (Auto) 0.8, Baso % (Auto) 0.3, Absolute Neuts (auto) 5.7, Absolute Lymphs (auto) 1.27, Nucleated RBC % 0, Sodium Cancelled, Potassium Cancelled, Chloride Cancelled, Carbon Dioxide Cancelled, Anion Gap Cancelled, BUN Cancelled, Creatinine Cancelled, Estim Creat Clear Calc Cancelled, Est GFR (MDRD) Af Amer Cancelled, Est GFR (MDRD) Non-Af Cancelled, BUN/Creatinine Ratio Cancelled, Glucose Cancelled, Calcium Cancelled, Total Bilirubin Cancelled, AST Cancelled, ALT Cancelled, Alkaline Phosphatase Cancelled, Troponin I High Sens Cancelled, B-Natriuretic Peptide 323.3 H, Total Protein Cancelled, Albumin Cancelled, Globulin Cancelled, Albumin/Globulin Ratio Cancelled 10/17/24 10:45: Sodium 140, Potassium 4.7, Chloride 108 H, Carbon Dioxide 22.0, Anion Gap 10, BUN 87 H, Creatinine 2.66 H, Estim Creat Clear Calc 19.83, Est GFR (MDRD) Af Amer 23 L, Est GFR (MDRD) Non-Af 19 L, BUN/Creatinine Ratio 32.7 H, Glucose 250 H, Calcium 8.1 L, Total Bilirubin 0.70, AST 86 H, ALT 35, Alkaline Phosphatase 52, Troponin I High Sens 41, Total Protein 6.1 L, Albumin 2.6 L, Globulin 3.5, Albumin/Globulin Ratio 0.7 L Imaging Radiology Impression Chest X-Ray 10/17/24 10:44 IMPRESSION: Mild left basilar atelectasis. Electronically Signed: Caty Barton MD at 11:09 EST , Assessment & Plan Assessment/Plan (1) Acute kidney injury: PLAN: Plan # Possible new onset heart failure -Admit to telemetry -BNP 323 -CXR read as atelectasis -Will give small dose of IV Lasix to assess response clinically and with renal function -No echo available in our system -Echo ordered -Daily weights, I's and O's -Heart healthy diet # BRAYAN on CKD stage IIIa -Creatinine 2.66 with a baseline around 1.2 -Will hold losartan -May be cardiorenal but cannot say definitively -Trialing small dose of IV Lasix as above and will monitor renal function closely -Will obtain bladder scan -Urine electrolytes -UA -Urine microalbumin -Low threshold for nephrology consult if worsening -Monitor I's and O's # Hypertensive urgency versus emergency -Patient with systolic blood pressure in the 200s down into the 190s the patient does report intermittent headaches and does have this renal failure and shortness of breath -Will increase patient's amlodipine -Continue metoprolol, may need to switch to carvedilol -given kidney function holding her lisinopril/HCTZ combination -Adding hydralazine as needed, will adjust medications based on labs and vitals moving forward #Type 2 diabetes mellitus -Glucose checks and sliding scale insulin -Continue home long-acting insulin, will resume at slightly decreased dose as patient reports poor appetite and want to avoid hypoglycemia #Hypothyroidism -Continue Synthroid -Will check TSH #Hx CVA -Continue Plavix and atorvastatin #GERD -Continue PPI #DVT ppx: Heparin subcu Carmen Jain MD Charges/Coding Visit Charges Inpatient E&M: 40707 Init Hosp L2
--- NOTE | 2024-10-17 13:35 | US_ITS ---
HISTORY: renal failure. TECHNIQUE: Case scale and color doppler images were obtained of the kidneys. 71 images. COMPARISON: CT 10/27/2022. FINDINGS: RIGHT KIDNEY: 11.1 cm in length. Cortical thickness 1.6 cm. Echogenicity unremarkable. No hydronephrosis. No gross renal mass demonstrated. LEFT KIDNEY: 12.5 cm in length. Cortical thickness 1.4 cm. Echogenicity unremarkable. No hydronephrosis. 1.5 x 1.5 x 2.1 cm cyst with 7 mm echogenic focus in the upper pole. URINARY BLADDER: Unremarkable at 131 cc with a 2 mm wall thickness. US/Kidney and Bladder IMPRESSION: 2.1 cm left renal cyst with small mural calcification or nodule. Recommend CT or MRI renal mass protocol. Electronically Signed: Caty Barton MD at 15:11 EST ,
--- NOTE | 2024-10-17 14:43 | ECHOCS_ITS ---
Reason For Study: Dyspnea/SOB Procedure This was a 2D Doppler, Color Flow transthoracic echocardiogram. Contrast injection was performed. Exam performed portable in patient room. Left Ventricle Normal LV size. The estimated ejection fraction is 70 %. Unable to assess diastolic dysfunction. No regional wall motion abnormalities noted. Right Ventricle Normal RV size. Normal systolic function. Atria The left and right atria are normal. No doppler evidence for ASD. Mitral Valve There is moderate mitral annular calcification. There is no mitral valve stenosis. Mild (1+) mitral valve insufficiency. Tricuspid Valve There is no tricuspid stenosis. Unable to estimate RV systolic pressure due to inadequate jet, pulmonary artery pressure probably normal. Aortic Valve Trisinus/trileaflet aortic valve. There is no aortic stenosis. No aortic valve insufficiency. Pulmonic Valve There is no pulmonic valvular stenosis. No pulmonic valve insufficiency. Great Vessels Normal aortic root. Pericardium/Pleural Small (<1.0 cm) pericardial effusion. Medication Diluted definity 2ml given slow IV push to enhance endocardial definition. MMode/2D Measurements & Calculations LVIDd: 4.2 cm IVSd: 1.3 cm Ao root diam: 3.0 cm LVIDs: 2.9 cm LVPWd: 1.3 cm FS: 30.0 % LAV(MOD-bp): 54.4 ml LA A4 area: 20.3 cm2 LA dimension(2D): 4.1 cm LAV(MOD-bp) Indexed: 29.1 ml/m2 LAV(MOD-sp2): 49.3 ml LAV(MOD-sp4): 54.9 ml Time Measurements MV dec time: 0.19 sec Doppler Measurements & Calculations MV E max keith: 110.0 cm/sec Lat Peak E' Keith: 5.6 cm/sec Med Peak E' Keith: 6.3 cm/sec MV A max keith: 122.0 cm/sec E/E' lat: 19.5 E/E' med: 17.6 MV E/A: 0.90 MV V2 max: 136.2 cm/sec MV P1/2t max keith: 118.9 cm/sec Ao V2 max: 117.1 cm/sec MV max P.4 mmHg MV P1/2t: 69.5 msec Ao max P.5 mmHg MV V2 mean: 80.4 cm/sec MV dec slope: 500.6 cm/sec2 Ao V2 mean: 78.4 cm/sec MV mean P.0 mmHg Ao mean P.8 mmHg MV V2 VTI: 30.9 cm MVA(P1/2t): 3.2 cm2 Ao V2 VTI: 25.4 cm AV (velocity ratio): 0.82 LV V1 max: 92.3 cm/sec MR max keith: 562.4 cm/sec PA V2 max: 85.2 cm/sec LV V1 max P.4 mmHg MR max P.5 mmHg PA V2 mean: 65.0 cm/sec LV V1 mean P.9 mmHg LV V1 mean: 64.9 cm/sec LV V1 VTI: 20.9 cm ECHO/Echo Complete W/ Contrast Interpretation Summary The estimated ejection fraction is 70 %. Unable to assess diastolic dysfunction. Mild (1+) mitral valve insufficiency. Small pericardial effusion. Ordering Physician: Carmen Jain Performed By: Derick Martin RCS
[2024-10-17] MEDS: Heparin Injection (Vial) 5,000 UNIT/ML VIAL 5000 UNIT SC ×2 (15:08→21:16)
[2024-10-17] MEDS: amLODIPine 5 MG Tablet PO (15:08)
[2024-10-17] MEDS: Furosemide 20 MG/2 ML VIAL IV (15:08)
[2024-10-17] MEDS: Insulin Lispro 100 UNIT/ML INSULN.PEN SC ×2 (16:24→21:16)
[2024-10-17] MEDS: Gabapentin 400 MG Capsule PO (16:24)
[2024-10-17] MEDS: Insulin Lispro 100 UNIT/ML INSULN.PEN 10 UNIT SC (16:24)
[2024-10-17] MEDS: Glucerna Shake 120 ML LIQUID PO (16:28)
[2024-10-17 16:46] LABS: Bedside Glucose 231 mg/dL (74-106)
[2024-10-17 17:03] LABS: Color, Urine Yellow (Yellow); Glucose, Dipstick Normal (Normal); Ketone-Dipstick Negative (Negative); Leukocyte Esterase-Dipstick 500 /ul (Negative); Nitrite-Dipstick Negative (Negative); Occult Blood-Urine 250 /ul (Negative); Protein-Dipstick 500 mg/dl (Negative); Urine Bilirubin Dipstick Negative (Negative); Urine Clarity Cloudy (Clear); Urine Urobilinogen Normal (Normal)
[2024-10-17 17:05] LABS: Urine Chloride 39 mmol/L (Not Establ.); Urine Sodium 22 mmol/L (Not Establ.)
[2024-10-17 17:10] LABS: Urea Nitrogen, Urine 382 mg/dL (NO RANGE EST.)
[2024-10-17 17:15] LABS: Bacteria 3+ /hpf (None Seen); Mucous, Urine 1+ /hpf (<or=2+); Red Blood Cells-Urine 5-10 SEEN /hpf (0-5); Squamous Epithelial Cells - UA 5-10 SEEN /hpf (5-10); Transitional Epithelial - Ur 0-5 SEEN /hpf (0-5); White Blood Cells 25-50 SEEN /hpf (0-5)
[2024-10-17 17:16] LABS: White Cell Cast 0-5 SEEN /lpf (None Seen)
[2024-10-17] MEDS: Insulin Glargine-YFGN 100 UNIT/ML Pen 28 UNIT SC (21:15)
[2024-10-17 23:20] LABS: Bedside Glucose 191 mg/dL (74-106)
[2024-10-18] VITALS (9 sets, daily range): BP systolic 147–196; BP diastolic 79–97; PULSE 68–78; RESP 16–18; TEMP 36.2–36.6; O2SAT 95–98; BMI 28.6; BMI 28.5
[2024-10-18] MEDS: hydrALAZINE 20 MG/ML Vial 5 MG IV (03:52)
[2024-10-18] MEDS: Heparin Injection (Vial) 5,000 UNIT/ML VIAL 5000 UNIT SC ×3 (05:15→20:47)
[2024-10-18] MEDS: Levothyroxine 125 MCG Tablet PO (05:15)
[2024-10-18 07:08] LABS: Bedside Glucose 129 mg/dL (74-106)
[2024-10-18 07:28] LABS: Absolute Lymphocyte Count 2.25 X10^3/uL (0.83-4.51); Basophil# 0.04 X10^3/uL; Basophil% 0.4 % (0-1); Eosinophil# 0.07 X10^3/uL; Eosinophils% 0.8 % (0-5); Hematocrit 34.6 % (37-47); Hemoglobin 11.5 g/dL (12.0-15.0); Lymphocyte # 2.25 X10^3/ul (0.83-4.51); Lymphocyte % 24.9 % (19-41); Mean Corp Hgb Conc 33.2 g/dL (32-36); Mean Corpuscular Hgb 31.9 pg (27.0-32.0); Mean Corpuscular Volume 96.1 fL (81-99); Mean Platelet Vol. 12.1 fl (6.2-12.0); Monocyte# 0.69 X10^3/uL; Monocyte% 7.6 % (0-10); NRBC Flagged by Analyzer 0 % (0-5); Neutrophil # 5.96 X10^3/uL (2.7-7.7); Neutrophil % 65.9 % (47-70); Platelet Count 261 K/mm3 (150-450); RBC Distribution Width CV 15.5 % (11.6-14.6); RBC Distribution Width SD 55.2 fl (35.1-43.9); White Blood Count 9.1 K/mm3 (4.4-11.0)
[2024-10-18 07:45] LABS: Anion Gap 8 (5-15); BUN 99 mg/dL (7-18); BUN/Creat Ratio 38.1 RATIO (10-20); Calcium,Total 8.6 mg/dL (8.5-10.1); Chloride 110 mmol/L (98-107); EST Glomerular Filtration Rate 19 mL/min (>60); Est Glom Filt Rate - Afr Amer 23 mL/min (>60); Estimated Creatinine Clearance 20.62 ml/min; Glucose 138 mg/dL (74-106); Potassium 4.2 mmol/L (3.5-5.1); Sodium Level 138 mmol/L (136-145)
[2024-10-18] MEDS: Insulin Lispro 100 UNIT/ML INSULN.PEN 10 UNIT SC ×3 (08:47→16:52)
[2024-10-18] MEDS: Gabapentin 400 MG Capsule PO ×2 (08:49→11:59)
[2024-10-18] MEDS: Potassium Chloride Oral Tablet 10 MEQ PO (08:49)
[2024-10-18] MEDS: Furosemide 20 MG/2 ML VIAL IV (08:50)
[2024-10-18] MEDS: Glucerna Shake 120 ML LIQUID PO (08:50)
[2024-10-18] MEDS: Pantoprazole Sodium 40 MG Tablet PO (08:51)
[2024-10-18] MEDS: amLODIPine 10 MG Tablet PO (08:51)
[2024-10-18] MEDS: Atorvastatin Calcium 80 MG Tablet PO (08:51)
[2024-10-18] MEDS: Metoprolol(XL)Succ 50 MG Tablet PO (08:51)
[2024-10-18] MEDS: Clopidogrel Bisulfate 75 MG Tablet PO (08:51)
[2024-10-18] MEDS: Fenofibrate 145 MG Tablet PO (08:52)
--- NOTE | 2024-10-18 11:42 | CASEMGMT ---
DOMINIQUE XAVIER Assessment Face to Face with patient for initial transition planning/care coordination assessment. DOMINIQUE XAVIER introduced self and role at [facility], pt voices understanding. Pt is A&Ox4 and is resting comfortably in bed and is calm. Pt GD at bedside. Care providers, pharmacy, and demographics verified. Admitting dx: HF, Kidney Failure LACE Strata: 2 PCP: Emigdio Specialists: [employer] D[employer] Specialist and PM but unsure of the names [facility]erred [facility] Insurance: FRACISCO Carl Prescription Benefit: Yes LNOK: Lencho Light (GD) Living Arrangements: Pt lives with her GD and 2 Great GD's (Ages 2 and 6) in a single story home with a basement with handrails with 3 steps to enter with handrails. ADLs/IADLs: Pt reports ind Transportation: Self, GD DME: Walker, cane, and shower seat that the pt does not need to use. Pt also states that she has a working BGM with enough supplies to check her BS. Shower GB. Raised toilet seat. BP Cuff HHC/SNF: [facility] HH Hx. Denies SNF Hx or needs Pt?s goal: Return home Plan: Home, anticipate no needs. Pt denies the need for HH, OP Tx, or CCN and states that she feels safe returning home with her family once she is medically ready. Follow nephro consult. Pt denies further concerns at this time. Report given to WORK ENVIRONMENT SAFETY INSPECTOR CM. Jonathan Harper RN, CM
[2024-10-18 11:44] LABS: Bedside Glucose 171 mg/dL (74-106)
[2024-10-18] MEDS: Insulin Lispro 100 UNIT/ML INSULN.PEN SC (11:52)
[2024-10-18 12:09] LABS: International Normalized Ratio 1.1; Prothrombin Time (Protime)PT. 14.6 SECONDS (11.7-14.9)
[2024-10-18 12:10] LABS: Partial Thromboplast Time 22.4 Seconds (24.1-36.2)
--- NOTE | 2024-10-18 13:11 | PCM.CONS.R ---
Assessment & Plan Assessment/Plan (1) Acute kidney injury: PLAN: Review of her records from [facility]. As of August 16, 2024, her creatinine was 1.0 albumin creatinine ratio was 360 mg. Recent BNP 4000. Chest x-ray 10/15/2024 was normal. Echocardiogram with normal ejection fraction, diastolic dysfunction could not be assessed. Venous Dopplers negative for DVT. Nephrotic range proteinuria, 10 g. She has microscopic hematuria. Urine is somewhat cola colored. Serum albumin 2.6. Most likely some form of nephrotic syndrome She has history of poorly controlled diabetes but as of 2 months ago her creatinine was 1.0 and urine albumin 0.3 g. Sent out serologies. Will need a kidney biopsy. Medication list reviewed. She is on Plavix. She says she takes this for history of stroke more than 20 years ago. Discussed with hospitalist. Okay to hold Plavix. Will place on hold today. I believe interventional radiology requires Plavix held for 3 days, will verify. Kidney biopsy depending on IR requirement of Plavix hold Anasarca. Presumably due to nephrotic syndrome. Change Lasix to 40 mg IV 3 times daily Medication list reviewed. Adjust gabapentin dose down in view of renal failure Patient says her granddaughter is in the hospital and may require surgery. She may have to leave if needed. We can arrange biopsy as outpatient but explained that the lower extremity edema is significant and she will probably need IV diuretics. She is agreeable to stay for now. If she wants to leave over the weekend, can follow-up in the office. Plan was discussed with hospitalist HPI Consult Data Date of Consult: 10/18/24 HPI Narrative Reason for Consultation: anasarca HPI Narrative: GABRIELLE RIDLEY, is a 73 F who presents to the hospital with anasarca. Nephrology on consultation in view of acute renal failure. She presented to her primary care physician with lower extremity edema and was referred to the emergency room. She says the swelling started about 4 to 5 weeks ago. No new medications that she can think of. She was diagnosed with nonsevere COVID in September did not require any medications, hospitalization. She has known history of type 2 diabetes, historically poorly controlled. However on review of her labs from [facility], her creatinine was less than 1 in August, urine albumin was less than 0.3 g. She states urine has become dark, today it is mildly cola colored. She states it has been like this for last 4 weeks. No gross hematuria, no sinus symptoms, shortness of breath, occasional dry cough. No significant appetite changes. Weight has increased in the setting of swelling. [facility] Medical History (Updated 10/17/24 @ 14:29 by Shanel Mcnally) Hypothyroidism Diabetes Kidney disease TIA (transient ischemic attack) Intractable back pain Rheumatoid arthritis Former smoker Stroke/cerebrovascular accident Sciatica High cholesterol HTN (hypertension) HTN (hypertension) Hypothyroidism DM type 2 (diabetes mellitus, type 2) Home Medications ?Medication ?Instructions ?Recorded ?Last Taken ?Type atorvastatin 80 mg tablet 80 mg PO DAILY CHOLESTEROL 03/29/18 10/17/24 History clopidogrel 75 mg tablet 75 mg PO DAILY BLOOD THINNER 03/29/18 10/17/24 History fenofibrate nanocrystallized 145 145 mg PO DAILY SUPLIMENT 03/29/18 10/17/24 History mg tablet omeprazole 40 mg capsule,delayed 40 mg PO DAILY n/v 03/29/18 10/17/24 History release potassium chloride 8 mEq 8 meq PO DAILY suppliment 03/29/18 10/17/24 History tablet,extended release (Klor-Con) dulaglutide 3 mg/0.5 mL 3 mg subcut THAO dm 01/08/24 10/13/24 History subcutaneous pen injector (Trulicity) insulin lispro 100 unit/mL 14 unit subcut TID GLUCOSE 01/08/24 10/16/24 History subcutaneous pen (Humalog KwikPen (U-100) Insulin) levothyroxine 125 mcg tablet 125 mcg PO DAILY THRYROID 01/08/24 10/17/24 History gabapentin 400 mg capsule 400 mg PO TIDCM #90 caps 01/18/24 10/17/24 Rx oxycodone 5 mg tablet 10 mg (2 x 5 mg) PO Q4H PRN PRN 01/18/24 10/17/24 Rx Pain Score 4-10 7 days #40 tabs amlodipine 5 mg tablet 5 mg PO DAILY 10/17/24 10/17/24 History etanercept 50 mg/mL (1 mL) 50 mg subcut QWEEK 10/17/24 10/09/24 History subcutaneous pen injector (Enjuliana Gonzalez) furosemide 20 mg tablet 20 mg PO DAILY 10/17/24 10/16/24 History insulin glargine 100 unit/mL (3 32 unit subcut QHS 10/17/24 10/16/24 History mL) subcutaneous pen (Lantus Solostar U-100 Insulin) losartan 100 1 tab PO DAILY 10/17/24 10/17/24 History mg-hydrochlorothiazide 12.5 mg tablet metoprolol succinate 50 mg 50 mg PO DAILY 10/17/24 10/17/24 History tablet,extended release 24 hr prednisone 5 mg tablet 10 mg PO DAILY diabetes mellitus 10/17/24 10/17/24 History Allergy/AdvReac Type Severity Reaction Status Date / Time morphine Allergy Itching Verified 10/17/24 09:31 meperidine (From Demerol) AdvReac Nausea/Vom/ Verified 10/17/24 09:31 Diarrhea Family History Mother Thyroid disorder Father Heart disease CAD (coronary artery disease) Hypertension Myocardial infarction Surgical History History of appendectomy History of facial surgery Status post ORIF of fracture of ankle Hx of hysterectomy History of spinal fusion Social History household members: none Smoking Status: Former smoker how long ago did patient quit smoking: Smoked age [age] ~1/2 ppd. alcohol intake: never substance use type: does not use ROS ROS Narrative Negative except above Physical Exam Narrative Alert awake oriented x 3 no obvious distress no pallor no icterus no JVD s1s2 no murmurs lungs clear abdomen soft no organomegaly +++ edema no cyanosis Lab / Micro Data 10/18/24 06:43 10/18/24 06:43 Labs: Laboratory Results - last 24 hr 10/17/24 10:45: TSH 45.400 H 10/17/24 15:35: Urine Color Yellow, Urine Clarity Cloudy, Urine pH 5.0, Ur Specific Duck 1.020, Urine Protein 500 H, Urine Glucose (UA) Normal, Urine Ketones Negative, Urine Occult Blood 250 H, Urine Nitrite Negative, Urine Bilirubin Negative, Urine Urobilinogen Normal, Ur Leukocyte Esterase 500 H, Urine RBC 5-10 SEEN, Urine WBC 25-50 SEEN, Ur Squamous Epith Cells 5-10 SEEN, Ur Transition Epith Cell 0-5 SEEN, Urine Bacteria 3+, WBC Casts 0-5 SEEN, Urine Mucus 1+, Ur Random Microalbumin 71464.0, Ur Random Sodium 22, Urine Creatinine 168.00 10/17/24 15:35: Urine Creatinine 171.00, Microalb/Creat Ratio 79629.0 H, Urine Potassium 46.0, Urine Chloride 39, Urine Urea Nitrogen 382 10/17/24 16:23: POC Glucose 231 H 10/17/24 20:54: POC Glucose 191 H 10/18/24 06:43: WBC 9.1, RBC 3.60 L, Hgb 11.5 L, Hct 34.6 L, MCV 96.1, MCH 31.9, MCHC 33.2, RDW Std Deviation 55.2 H, RDW Coeff of John 15.5 H, Plt Count 261, MPV 12.1 H, Immature Gran % (Auto) 0.400, Neut % (Auto) 65.9, Lymph % (Auto) 24.9, [place] % (Auto) 7.6, Eos % (Auto) 0.8, Baso % (Auto) 0.4, Absolute Neuts (auto) 6.0, Absolute Lymphs (auto) 2.25, Nucleated RBC % 0, Sodium 138, Potassium 4.2, Chloride 110 H, Carbon Dioxide 20.0 L, Anion Gap 8, BUN 99 H, Creatinine 2.60 H, Estim Creat Clear Calc 20.62, Est GFR (MDRD) Af Amer 23 L, Est GFR (MDRD) Non-Af 19 L, BUN/Creatinine Ratio 38.1 H, Glucose 138 H, Calcium 8.6 10/18/24 06:45: POC Glucose 129 H 10/18/24 11:20: POC Glucose 171 H 10/18/24 11:49: PT 14.6, INR 1.1, APTT 22.4 L, Double Strand DNA Ab TNP Imaging Radiology Impression Venous Doppler Study 10/17/24 09:53 Interpretation Summary Deep veins of the bilateral lower extremity are patent and compressible segmentally. There is no evidence of bilateral lower extremity deep vein thrombosis. The bilateral great saphenous veins appear patent and compressible segmentally. Ordering Physician: Sen Vazquez Referring Physician: Vincent Beal M.D. Performed By: Melonie Villa RVT Renal Ultrasound 10/17/24 13:35 IMPRESSION: 2.1 cm left renal cyst with small mural calcification or nodule. Recommend CT or MRI renal mass protocol. Electronically Signed: Caty Barton MD at 15:11 EST , Echocardiogram 10/17/24 14:43 Interpretation Summary The estimated ejection fraction is 70 %. Unable to assess diastolic dysfunction. Mild (1+) mitral valve insufficiency. Small pericardial effusion. Ordering Physician: Carmen Jain Performed By: Derick Martin, LACEY
[2024-10-18] MEDS: Furosemide 40 MG/4 ML Vial IV ×2 (14:48→20:47)
[2024-10-18] MEDS: 0.9% Saline Lock 10 ML Syringe IV ×2 (14:51→20:48)
--- NOTE | 2024-10-18 15:59 | PCM.PN.HOSP ---
Reason for Visit Reason for Visit: Diagnoses Acute kidney failure, unspecified (10/17/24) Subjective Subjective Patient still short of breath on exertion, also tearful as she has a granddaughter who is hospitalized another hospital may have to have surgery. Supportive care provided Objective Data Objective Data Vital Signs: Vital Signs Temp Pulse Resp BP Pulse Ox O2 Del Method 97.6 F L 72 18 174/89 H 97 Room Air 10/18/24 14:30 10/18/24 14:30 10/18/24 14:30 10/18/24 14:30 10/18/24 14:30 10/18/24 14:30 Oxygen Delivery Method Room Air Weight: 80.5 kg Body Mass Index (BMI) 28.6 Intake & Output: Intake and Output for Last 24 Hours 10/16/24 10/17/24 10/18/24 23:59 23:59 23:59 Intake Total 300 / 300 Balance 300 / 300 Lab / Micro Data 10/18/24 06:43 10/18/24 06:43 Labs: Laboratory Results - last 24 hr 10/17/24 15:35: Urine Color Yellow, Urine Clarity Cloudy, Urine pH 5.0, Ur Specific [place] 1.020, Urine Protein 500 H, Urine Glucose (UA) Normal, Urine Ketones Negative, Urine Occult Blood 250 H, Urine Nitrite Negative, Urine Bilirubin Negative, Urine Urobilinogen Normal, Ur Leukocyte Esterase 500 H, Urine RBC 5-10 SEEN, Urine WBC 25-50 SEEN, Ur Squamous Epith Cells 5-10 SEEN, Ur Transition Epith Cell 0-5 SEEN, Urine Bacteria 3+, WBC Casts 0-5 SEEN, Urine Mucus 1+, Ur Random Microalbumin 65793.0, Ur Random Sodium 22, Urine Creatinine 168.00 10/17/24 15:35: Urine Creatinine 171.00, Microalb/Creat Ratio 72149.0 H, Urine Potassium 46.0, Urine Chloride 39, Urine Urea Nitrogen 382 10/17/24 16:23: POC Glucose 231 H 10/17/24 20:54: POC Glucose 191 H 10/18/24 06:43: WBC 9.1, RBC 3.60 L, Hgb 11.5 L, Hct 34.6 L, MCV 96.1, MCH 31.9, MCHC 33.2, RDW Std Deviation 55.2 H, RDW Coeff of John 15.5 H, Plt Count 261, MPV 12.1 H, Immature Gran % (Auto) 0.400, Neut % (Auto) 65.9, Lymph % (Auto) 24.9, [place] % (Auto) 7.6, Eos % (Auto) 0.8, Baso % (Auto) 0.4, Absolute Neuts (auto) 6.0, Absolute Lymphs (auto) 2.25, Nucleated RBC % 0, Sodium 138, Potassium 4.2, Chloride 110 H, Carbon Dioxide 20.0 L, Anion Gap 8, BUN 99 H, Creatinine 2.60 H, Estim Creat Clear Calc 20.62, Est GFR (MDRD) Af Amer 23 L, Est GFR (MDRD) Non-Af 19 L, BUN/Creatinine Ratio 38.1 H, Glucose 138 H, Calcium 8.6 10/18/24 06:45: POC Glucose 129 H 10/18/24 11:20: POC Glucose 171 H 10/18/24 11:49: PT 14.6, INR 1.1, APTT 22.4 L, Double Strand DNA Ab TNP Radiography Diagnostic Testing: Radiology Impression Venous Doppler Study 10/17/24 09:53 Interpretation Summary Deep veins of the bilateral lower extremity are patent and compressible segmentally. There is no evidence of bilateral lower extremity deep vein thrombosis. The bilateral great saphenous veins appear patent and compressible segmentally. Ordering Physician: Sen Vazquez Referring Physician: Vincent Beal M.D. Performed By: Melonie Villa RVT Echocardiogram 10/17/24 14:43 Interpretation Summary The estimated ejection fraction is 70 %. Unable to assess diastolic dysfunction. Mild (1+) mitral valve insufficiency. Small pericardial effusion. Ordering Physician: Carmen Jain Performed By: Derick Martin RCS Physical Exam Narrative General: Alert, oriented, no apparent distress HEENT: Atraumatic, normocephalic, cleft lip repair noted Eyes: Anicteric, normal conjunctiva, extraocular movements grossly intact Neck: Supple Respiratory: Slightly improved respiratory effort Cardiovascular: Regular rate GI: Soft, no overt tenderness, nondistended Extremities: 1+ bilateral lower extremity pitting edema Musculoskeletal: Moving all extremities Neuro: No overt focal neurological deficits Skin: No rashes appreciated Psych: Cooperative Assessment & Plan Assessment/Plan (1) Acute kidney injury: PLAN: Plan # BRAYAN on CKD stage IIIa, concern for nephrotic syndrome -Creatinine 2.66 with a baseline around 1.2 -Will hold losartan -May be cardiorenal but cannot say definitively -Trialing small dose of IV Lasix as above and will monitor renal function closely -Will obtain bladder scan -Urine electrolytes -UA -Urine microalbumin -Low threshold for nephrology consult if worsening -Monitor I's and O's -10/18: Kidney function today similar to previous. Discussed with nephrology. In August she had a creatinine of 1 and her creatinine albumin ratio was 360, now she has nephrotic range proteinuria 10 g and microscopic hematuria with serum albumin 2.6, concern for nephrotic syndrome. Serology sent out patient will need kidney biopsy, Plavix held and will need kidney biopsy next week. # Fluid overload with anasarca, possibly due to nephrotic syndrome -Admit to telemetry -BNP 323 -CXR read as atelectasis -Will give small dose of IV Lasix to assess response clinically and with renal function -No echo available in our system -Echo ordered -Daily weights, I's and O's -Heart healthy diet -10/18: Initially thought new onset heart failure however patient's echo with normal EF but indeterminate diastolic function. Her anasarca is likely due to nephrotic syndrome, IV Lasix scheduled 40 every 8 by nephrology # Hypertensive urgency versus emergency -Patient with systolic blood pressure in the 200s down into the 190s the patient does report intermittent headaches and does have this renal failure and shortness of breath -Will increase patient's amlodipine -Continue metoprolol, may need to switch to carvedilol -given kidney function holding her lisinopril/HCTZ combination -Adding hydralazine as needed, will adjust medications based on labs and vitals moving forward -10/18: On amlodipine, Lasix added, voiding DARCI and HCTZ at this time #Type 2 diabetes mellitus -Glucose checks and sliding scale insulin -Continue home long-acting insulin, will resume at slightly decreased dose as patient reports poor appetite and want to avoid hypoglycemia -10/18: Glucose fairly well-controlled on current regimen, will continue #Hypothyroidism -Continue Synthroid -Will check TSH -10/18: TSH 45, patient reports compliance with her medication and the way she is supposed to take it but unclear. Will continue her current Synthroid. Will need to repeat labs #Hx CVA -Continue Plavix and atorvastatin -10/18: Holding Plavix to allow for kidney biopsy next week Chronic medical problems: #GERD -Continue PPI #DVT ppx: Heparin subcu Carmen Jain MD Time spent in the patient's overall evaluation,decision-making process, review of diagnostic data, adjustment of management, discussion with other providers, nursing nursing and ancillary staff involved in patient's care documentation, 36 Minutes Charges/Coding Visit Charges Inpatient E&M: 12144 Subs Hosp L2
[2024-10-18 17:15] LABS: Bedside Glucose 111 mg/dL (74-106)
[2024-10-18] MEDS: Insulin Glargine-YFGN 100 UNIT/ML Pen 28 UNIT SC (20:46)
[2024-10-18] MEDS: oxyCODONE 5 MG Tablet PO (20:48)
[2024-10-18 22:28] LABS: Bedside Glucose 94 mg/dL (74-106)
[2024-10-19] VITALS (9 sets, daily range): BP systolic 150–192; BP diastolic 78–99; PULSE 68–70; RESP 16–18; TEMP 36.2–36.7; O2SAT 95–98; BMI 28.8
[2024-10-19] MEDS: hydrALAZINE 20 MG/ML Vial 5 MG IV ×2 (03:08→20:34)
[2024-10-19] MEDS: 0.9% Saline Lock 10 ML Syringe IV ×5 (03:08→20:42)
[2024-10-19 06:29] LABS: Absolute Lymphocyte Count 2.62 X10^3/uL (0.83-4.51); Absolute Neutrophil Count 6.6 X10^3/uL (2.0-7.7); Basophil# 0.04 X10^3/uL; Basophil% 0.4 % (0-1); Eosinophil# 0.15 X10^3/uL; Eosinophils% 1.4 % (0-5); Hematocrit 34.2 % (37-47); Hemoglobin 11.1 g/dL (12.0-15.0); Lymphocyte # 2.62 X10^3/ul (0.83-4.51); Lymphocyte % 25.3 % (19-41); Mean Corp Hgb Conc 32.5 g/dL (32-36); Mean Corpuscular Hgb 31.3 pg (27.0-32.0); Mean Corpuscular Volume 96.3 fL (81-99); Mean Platelet Vol. 11.6 fl (6.2-12.0); Monocyte# 0.88 X10^3/uL; Monocyte% 8.5 % (0-10); NRBC Flagged by Analyzer 0 % (0-5); Neutrophil # 6.62 X10^3/uL (2.7-7.7); Platelet Count 272 K/mm3 (150-450); RBC Distribution Width CV 15.3 % (11.6-14.6); RBC Distribution Width SD 54.6 fl (35.1-43.9); Red Blood Count 3.55 M/mm3 (4.2-5.4); White Blood Count 10.4 K/mm3 (4.4-11.0)
[2024-10-19] MEDS: Levothyroxine 125 MCG Tablet PO (06:49)
[2024-10-19] MEDS: Heparin Injection (Vial) 5,000 UNIT/ML VIAL 5000 UNIT SC ×3 (06:49→20:35)
[2024-10-19] MEDS: Furosemide 40 MG/4 ML Vial IV ×3 (06:49→20:42)
[2024-10-19 07:37] LABS: Anion Gap 6 (5-15); BUN 112 mg/dL (7-18); BUN/Creat Ratio 35.4 RATIO (10-20); Calcium,Total 8.2 mg/dL (8.5-10.1); Chloride 111 mmol/L (98-107); Creatinine, Serum 3.16 mg/dL (0.55-1.02); EST Glomerular Filtration Rate 15 mL/min (>60); Est Glom Filt Rate - Afr Amer 19 mL/min (>60); Estimated Creatinine Clearance 17.04 ml/min; Glucose 88 mg/dL (74-106); Potassium 4.9 mmol/L (3.5-5.1); Sodium Level 138 mmol/L (136-145)
--- NOTE | 2024-10-19 08:04 | PCM.PN.HOSP ---
Reason for Visit Reason for Visit: Diagnoses Acute kidney failure, unspecified (10/17/24) Subjective Subjective Laying in bed, breathing roughly the same, lower extremities roughly the same Objective Data Objective Data Vital Signs: Vital Signs Temp Pulse Resp BP Pulse Ox O2 Del Method 98.0 F 70 18 150/79 H 97 Room Air 10/19/24 02:53 10/19/24 03:08 10/19/24 02:53 10/19/24 03:59 10/19/24 02:53 10/19/24 02:59 Oxygen Delivery Method Room Air Weight: 81.2 kg Body Mass Index (BMI) 28.8 Intake & Output: Intake and Output for Last 24 Hours 10/17/24 10/18/24 10/19/24 23:59 23:59 23:59 Intake Total 300 / 300 950 / 950 120 / 120 Output Total 350 / 350 Balance 300 / 300 600 / 600 120 / 120 Lab / Micro Data 10/19/24 06:17 10/19/24 06:17 Labs: Laboratory Results - last 24 hr 10/18/24 11:20: POC Glucose 171 H 10/18/24 11:49: PT 14.6, INR 1.1, APTT 22.4 L, Double Strand DNA Ab TNP 10/18/24 16:48: POC Glucose 111 H 10/18/24 20:41: POC Glucose 94 10/19/24 06:17: WBC 10.4, RBC 3.55 L, Hgb 11.1 L, Hct 34.2 L, MCV 96.3, MCH 31.3, MCHC 32.5, RDW Std Deviation 54.6 H, RDW Coeff of John 15.3 H, Plt Count 272, MPV 11.6, Immature Gran % (Auto) 0.400, Neut % (Auto) 64.0, Lymph % (Auto) 25.3, [place] % (Auto) 8.5, Eos % (Auto) 1.4, Baso % (Auto) 0.4, Absolute Neuts (auto) 6.6, Absolute Lymphs (auto) 2.62, Nucleated RBC % 0, Sodium 138, Potassium 4.9, Chloride 111 H, Carbon Dioxide 20.0 L, Anion Gap 6, BUN 112 H*, Creatinine 3.16 H, Estim Creat Clear Calc 17.04, Est GFR (MDRD) Af Amer 19 L, Est GFR (MDRD) Non-Af 15 L, BUN/Creatinine Ratio 35.4 H, Glucose 88, Calcium 8.2 L Radiography Diagnostic Testing: Radiology Impression Echocardiogram 10/17/24 14:43 Interpretation Summary The estimated ejection fraction is 70 %. Unable to assess diastolic dysfunction. Mild (1+) mitral valve insufficiency. Small pericardial effusion. Ordering Physician: Carmen Jain Performed By: Derick Martin RCS Physical Exam Narrative General: Alert, oriented, no apparent distress HEENT: Atraumatic, normocephalic, cleft lip repair noted Eyes: Anicteric, normal conjunctiva, extraocular movements grossly intact Neck: Supple Respiratory: No respiratory distress at rest Cardiovascular: Regular rate GI: Soft, no overt tenderness, nondistended Extremities: 1+ bilateral lower extremity pitting edema Musculoskeletal: Moving all extremities Neuro: No overt focal neurological deficits Skin: Has some patchy erythema over bilateral lower shins more near the ankles without particular warmth and no drainage Psych: Cooperative Assessment & Plan Assessment/Plan (1) Acute kidney injury: PLAN: Plan # BRAYAN on CKD stage IIIa, concern for nephrotic syndrome -Creatinine 2.66 with a baseline around 1.2 -Will hold losartan -May be cardiorenal but cannot say definitively -Trialing small dose of IV Lasix as above and will monitor renal function closely -Will obtain bladder scan -Urine electrolytes -UA -Urine microalbumin -Low threshold for nephrology consult if worsening -Monitor I's and O's -10/18: Kidney function today similar to previous. Discussed with nephrology. In August she had a creatinine of 1 and her creatinine albumin ratio was 360, now she has nephrotic range proteinuria 10 g and microscopic hematuria with serum albumin 2.6, concern for nephrotic syndrome. Serology sent out patient will need kidney biopsy, Plavix held and will need kidney biopsy next week. -10/19: Kidney function further worsened with a creatinine of 3.16 and a BUN of 112, nephrology following, plan for kidney biopsy next week, Plavix on hold. Will further down titrate Neurontin given creatinine clearance # Fluid overload with anasarca, possibly due to nephrotic syndrome -Admit to telemetry -BNP 323 -CXR read as atelectasis -Will give small dose of IV Lasix to assess response clinically and with renal function -No echo available in our system -Echo ordered -Daily weights, I's and O's -Heart healthy diet -10/18: Initially thought new onset heart failure however patient's echo with normal EF but indeterminate diastolic function. Her anasarca is likely due to nephrotic syndrome, IV Lasix scheduled 40 every 8 by nephrology -10/19: Patient on IV Lasix, nephrology following, monitoring I's and O's # Hypertensive urgency versus emergency -Patient with systolic blood pressure in the 200s down into the 190s the patient does report intermittent headaches and does have this renal failure and shortness of breath -Will increase patient's amlodipine -Continue metoprolol, may need to switch to carvedilol -given kidney function holding her lisinopril/HCTZ combination -Adding hydralazine as needed, will adjust medications based on labs and vitals moving forward -10/18: On amlodipine, Lasix added, voiding DARCI and HCTZ at this time -10/19: Patient is a BP still considerably variable but blood pressure/morning is 150/79 which is better than it had been #Type 2 diabetes mellitus -Glucose checks and sliding scale insulin -Continue home long-acting insulin, will resume at slightly decreased dose as patient reports poor appetite and want to avoid hypoglycemia -10/18: Glucose fairly well-controlled on current regimen, will continue -10/19: Glucose only 94 today, decrease long-acting and hold short acting while continuing sliding scale. Can reuptitrate with worsening kidney function patient may have decreased clearance and want to avoid hypoglycemia #Hypothyroidism -Continue Synthroid -Will check TSH -10/18: TSH 45, patient reports compliance with her medication and the way she is supposed to take it but unclear. Will continue her current Synthroid. Will need to repeat labs -10/19: Continuing Synthroid at this time #Hx CVA -Continue Plavix and atorvastatin -10/18: Holding Plavix to allow for kidney biopsy next week -10/19: Plavix remains on hold, continue statin and continue fenofibrate Chronic medical problems: #GERD -Continue PPI #DVT ppx: Heparin subcu Time spent in the patient's overall evaluation,decision-making process, review of diagnostic data, adjustment of management, discussion with other providers, nursing nursing and ancillary staff involved in patient's care documentation, 35 Minutes Charges/Coding Visit Charges Inpatient E&M: 60673 Subs Hosp L2
[2024-10-19 08:49] LABS: Bedside Glucose 77 mg/dL (74-106)
[2024-10-19] MEDS: oxyCODONE 5 MG Tablet PO (09:14)
[2024-10-19] MEDS: Acetaminophen 325 MG Tablet 650 MG PO (09:14)
[2024-10-19] MEDS: Pantoprazole Sodium 40 MG Tablet PO (09:15)
[2024-10-19] MEDS: Atorvastatin Calcium 80 MG Tablet PO (09:15)
[2024-10-19] MEDS: amLODIPine 10 MG Tablet PO (09:15)
[2024-10-19] MEDS: Metoprolol(XL)Succ 50 MG Tablet PO (09:15)
[2024-10-19] MEDS: Potassium Chloride Oral Tablet 10 MEQ PO (09:15)
[2024-10-19] MEDS: Gabapentin 100 MG Capsule PO ×2 (09:35→16:56)
[2024-10-19 12:45] LABS: Bedside Glucose 135 mg/dL (74-106)
[2024-10-19 17:04] LABS: Bedside Glucose 137 mg/dL (74-106)
[2024-10-19 21:09] LABS: Bedside Glucose 101 mg/dL (74-106)
[2024-10-20] VITALS (10 sets, daily range): BP systolic 160–198; BP diastolic 82–101; PULSE 71–90; RESP 12–18; TEMP 36.4–37.1; O2SAT 94–98; BMI 29.2
[2024-10-20] MEDS: Ondansetron 4 MG/2 ML Vial IV (03:31)
[2024-10-20] MEDS: 0.9% Saline Lock 10 ML Syringe IV ×2 (03:32→18:42)
[2024-10-20] MEDS: Heparin Injection (Vial) 5,000 UNIT/ML VIAL 5000 UNIT SC ×3 (06:16→20:08)
[2024-10-20] MEDS: Furosemide 40 MG/4 ML Vial IV (06:16)
[2024-10-20] MEDS: Levothyroxine 125 MCG Tablet PO (06:17)
[2024-10-20 06:41] LABS: Absolute Lymphocyte Count 1.52 X10^3/uL (0.83-4.51); Absolute Neutrophil Count 7.9 X10^3/uL (2.0-7.7); Basophil# 0.03 X10^3/uL; Basophil% 0.3 % (0-1); Hematocrit 33.3 % (37-47); Hemoglobin 10.7 g/dL (12.0-15.0); Lymphocyte # 1.52 X10^3/ul (0.83-4.51); Lymphocyte % 14.6 % (19-41); Mean Corp Hgb Conc 32.1 g/dL (32-36); Mean Corpuscular Hgb 30.8 pg (27.0-32.0); Mean Platelet Vol. 11.7 fl (6.2-12.0); Monocyte# 0.82 X10^3/uL; Monocyte% 7.9 % (0-10); NRBC Flagged by Analyzer 0 % (0-5); Neutrophil # 7.94 X10^3/uL (2.7-7.7); Neutrophil % 75.9 % (47-70); Platelet Count 260 K/mm3 (150-450); RBC Distribution Width CV 15.4 % (11.6-14.6); RBC Distribution Width SD 54.2 fl (35.1-43.9); Red Blood Count 3.47 M/mm3 (4.2-5.4); White Blood Count 10.4 K/mm3 (4.4-11.0)
[2024-10-20 06:42] LABS: Bedside Glucose 80 mg/dL (74-106)
[2024-10-20 07:32] LABS: Anion Gap 6 (5-15); BUN 120 mg/dL (7-18); BUN/Creat Ratio 35.5 RATIO (10-20); Calcium,Total 8.4 mg/dL (8.5-10.1); Chloride 112 mmol/L (98-107); Creatinine, Serum 3.38 mg/dL (0.55-1.02); EST Glomerular Filtration Rate 14 mL/min (>60); Est Glom Filt Rate - Afr Amer 17 mL/min (>60); Estimated Creatinine Clearance 16.03 ml/min; Glucose 83 mg/dL (74-106); Potassium 5.7 mmol/L (3.5-5.1); Sodium Level 137 mmol/L (136-145)
--- NOTE | 2024-10-20 08:16 | PCM.PN.HOSP ---
Reason for Visit Reason for Visit: Diagnoses Acute kidney failure, unspecified (10/17/24) Subjective Subjective Patient resting comfortably in bed, still some shortness of breath with exertion, still some lower extremity edema though it is improving Objective Data Objective Data Vital Signs: Vital Signs Temp Pulse Resp BP Pulse Ox O2 Del Method 97.8 F 75 18 170/88 H 96 Room Air 10/20/24 03:50 10/20/24 03:50 10/20/24 03:50 10/20/24 03:50 10/20/24 03:50 10/20/24 03:50 Oxygen Delivery Method Room Air Weight: 82.3 kg Body Mass Index (BMI) 29.2 Intake & Output: Intake and Output for Last 24 Hours 10/18/24 10/19/24 10/20/24 23:59 23:59 23:59 Intake Total 950 / 950 680 / 680 Output Total 350 / 350 200 / 200 200 / 200 Balance 600 / 600 480 / 480 -200 / -200 Lab / Micro Data 10/20/24 05:49 10/20/24 13:10 Labs: Laboratory Results - last 24 hr 10/19/24 08:31: POC Glucose 77 10/19/24 12:20: POC Glucose 135 H 10/19/24 16:45: POC Glucose 137 H 10/19/24 20:31: POC Glucose 101 10/20/24 05:49: WBC 10.4, RBC 3.47 L, Hgb 10.7 L, Hct 33.3 L, MCV 96.0, MCH 30.8, MCHC 32.1, RDW Std Deviation 54.2 H, RDW Coeff of John 15.4 H, Plt Count 260, MPV 11.7, Immature Gran % (Auto) 0.300, Neut % (Auto) 75.9 H, Lymph % (Auto) 14.6 L, Nye % (Auto) 7.9, Eos % (Auto) 1.0, Baso % (Auto) 0.3, Absolute Neuts (auto) 7.9 H, Absolute Lymphs (auto) 1.52, Nucleated RBC % 0, Sodium 137, Potassium 5.7 H, Chloride 112 H, Carbon Dioxide 20.0 L, Anion Gap 6, BUN 120 H*, Creatinine 3.38 H, Estim Creat Clear Calc 16.03, Est GFR (MDRD) Af Amer 17 L, Est GFR (MDRD) Non-Af 14 L, BUN/Creatinine Ratio 35.5 H, Glucose 83, Calcium 8.4 L 10/20/24 06:14: POC Glucose 80 Physical Exam Narrative General: Alert, oriented, no apparent distress HEENT: Atraumatic, normocephalic, cleft lip repair noted Eyes: Anicteric, normal conjunctiva, extraocular movements grossly intact Neck: Supple Respiratory: No respiratory distress at rest Cardiovascular: Regular rate GI: Soft, no overt tenderness, nondistended Extremities: 1+ bilateral lower extremity pitting edema, does seem to be slightly better today Musculoskeletal: Moving all extremities Neuro: No overt focal neurological deficits Skin: Has some patchy erythema over bilateral lower shins more near the ankles without particular warmth and no drainage Psych: Cooperative Assessment & Plan Assessment/Plan (1) Acute kidney injury: PLAN: Plan # BRAYAN on CKD stage IIIa, concern for nephrotic syndrome -Creatinine 2.66 with a baseline around 1.2 -Will hold losartan -May be cardiorenal but cannot say definitively -Trialing small dose of IV Lasix as above and will monitor renal function closely -Will obtain bladder scan -Urine electrolytes -UA -Urine microalbumin -Low threshold for nephrology consult if worsening -Monitor I's and O's -10/18: Kidney function today similar to previous. Discussed with nephrology. In August she had a creatinine of 1 and her creatinine albumin ratio was 360, now she has nephrotic range proteinuria 10 g and microscopic hematuria with serum albumin 2.6, concern for nephrotic syndrome. Serology sent out patient will need kidney biopsy, Plavix held and will need kidney biopsy next week. -10/19: Kidney function further worsened with a creatinine of 3.16 and a BUN of 112, nephrology following, plan for kidney biopsy next week, Plavix on hold. Will further down titrate Neurontin given creatinine clearance -10/20: Continues to worsen, will need biopsy, nephrology following. CT-guided biopsy ordered but Plavix has to be held for 5 days, tentatively biopsy for Monday # Hyperkalemia -10/20: Will order Kayexalate, hold potassium supplementation, notify nephrology. Potassium did downtrend with this # Fluid overload with anasarca, possibly due to nephrotic syndrome -Admit to telemetry -BNP 323 -CXR read as atelectasis -Will give small dose of IV Lasix to assess response clinically and with renal function -No echo available in our system -Echo ordered -Daily weights, I's and O's -Heart healthy diet -10/18: Initially thought new onset heart failure however patient's echo with normal EF but indeterminate diastolic function. Her anasarca is likely due to nephrotic syndrome, IV Lasix scheduled 40 every 8 by nephrology -10/19: Patient on IV Lasix, nephrology following, monitoring I's and O's -10/20: Patient has been diuresed, Lasix now held due to BRAYAN. Discussed with nephrology # Hypertensive urgency versus emergency -Patient with systolic blood pressure in the 200s down into the 190s the patient does report intermittent headaches and does have this renal failure and shortness of breath -Will increase patient's amlodipine -Continue metoprolol, may need to switch to carvedilol -given kidney function holding her lisinopril/HCTZ combination -Adding hydralazine as needed, will adjust medications based on labs and vitals moving forward -10/18: On amlodipine, Lasix added, voiding DARCI and HCTZ at this time -10/19: Patient is a BP still considerably variable but blood pressure/morning is 150/79 which is better than it had been -10/20: Continues to be quite variable, continue to monitor, has as needed hydralazine and on amlodipine #Type 2 diabetes mellitus -Glucose checks and sliding scale insulin -Continue home long-acting insulin, will resume at slightly decreased dose as patient reports poor appetite and want to avoid hypoglycemia -10/18: Glucose fairly well-controlled on current regimen, will continue -10/19: Glucose only 94 today, decrease long-acting and hold short acting while continuing sliding scale. Can reuptitrate with worsening kidney function patient may have decreased clearance and want to avoid hypoglycemia -10/20: Will further decrease given patient's glucose is 80 today Chronic medical problems: #Hypothyroidism -Continue Synthroid -Will check TSH -10/18: TSH 45, patient reports compliance with her medication and the way she is supposed to take it but unclear. Will continue her current Synthroid. Will need to repeat labs -10/19: Continuing Synthroid at this time #Hx CVA -Continue Plavix and atorvastatin -10/18: Holding Plavix to allow for kidney biopsy next week -10/19: Plavix remains on hold, continue statin and continue fenofibrate #GERD -Continue PPI #DVT ppx: Heparin subcu Time spent in the patient's overall evaluation,decision-making process, review of diagnostic data, adjustment of management, discussion with other providers, nursing nursing and ancillary staff involved in patient's care documentation, 36 Minutes Charges/Coding Visit Charges Inpatient E&M: 59749 Subs Hosp L2
[2024-10-20] MEDS: Sodium Polystyrene Sulfonate 15 GM/60 ML UDC 30 GM PO (08:44)
[2024-10-20] MEDS: Metoprolol(XL)Succ 50 MG Tablet PO (08:45)
[2024-10-20] MEDS: Gabapentin 100 MG Capsule PO ×2 (08:45→18:03)
[2024-10-20] MEDS: amLODIPine 10 MG Tablet PO (08:45)
[2024-10-20] MEDS: Atorvastatin Calcium 80 MG Tablet PO (08:46)
[2024-10-20] MEDS: Pantoprazole Sodium 40 MG Tablet PO (08:46)
[2024-10-20 11:55] LABS: Bedside Glucose 124 mg/dL (74-106)
[2024-10-20 13:41] LABS: Anion Gap 8 (5-15); BUN 120 mg/dL (7-18); BUN/Creat Ratio 32.6 RATIO (10-20); Calcium,Total 8.8 mg/dL (8.5-10.1); Chloride 112 mmol/L (98-107); Creatinine, Serum 3.68 mg/dL (0.55-1.02); EST Glomerular Filtration Rate 13 mL/min (>60); Est Glom Filt Rate - Afr Amer 16 mL/min (>60); Estimated Creatinine Clearance 14.72 ml/min; Glucose 136 mg/dL (74-106); Potassium 5.1 mmol/L (3.5-5.1); Sodium Level 141 mmol/L (136-145)
--- NOTE | 2024-10-20 15:02 | PN.RENAL_ITS ---
Subjective Subjective no new events edema better Objective Data Objective Data Vital Signs: Vital Signs Temp Pulse Resp BP Pulse Ox O2 Del Method 98.0 F 75 16 197/96 H 96 Room Air 10/20/24 14:35 10/20/24 14:35 10/20/24 14:35 10/20/24 14:35 10/20/24 14:35 10/20/24 14:35 Oxygen Delivery Method Room Air Weight: 82.3 kg Body Mass Index (BMI) 29.2 Intake & Output: Intake and Output for Last 24 Hours 10/18/24 10/19/24 10/20/24 23:59 23:59 23:59 Intake Total 950 / 950 680 / 680 240 / 240 Output Total 350 / 350 200 / 200 300 / 300 Balance 600 / 600 480 / 480 -60 / -60 Lab / Micro Data 10/20/24 05:49 10/20/24 13:10 Labs: Laboratory Results - last 24 hr 10/19/24 16:45: POC Glucose 137 H 10/19/24 20:31: POC Glucose 101 10/20/24 05:49: WBC 10.4, RBC 3.47 L, Hgb 10.7 L, Hct 33.3 L, MCV 96.0, MCH 30.8, MCHC 32.1, RDW Std Deviation 54.2 H, RDW Coeff of John 15.4 H, Plt Count 260, MPV 11.7, Immature Gran % (Auto) 0.300, Neut % (Auto) 75.9 H, Lymph % (Auto) 14.6 L, Woods % (Auto) 7.9, Eos % (Auto) 1.0, Baso % (Auto) 0.3, Absolute Neuts (auto) 7.9 H, Absolute Lymphs (auto) 1.52, Nucleated RBC % 0, Sodium 137, Potassium 5.7 H, Chloride 112 H, Carbon Dioxide 20.0 L, Anion Gap 6, BUN 120 H*, Creatinine 3.38 H, Estim Creat Clear Calc 16.03, Est GFR (MDRD) Af Amer 17 L, E st GFR (MDRD) Non-Af 14 L, BUN/Creatinine Ratio 35.5 H, Glucose 83, Calcium 8.4 L 10/20/24 06:14: POC Glucose 80 10/20/24 11:37: POC Glucose 124 H 10/20/24 13:10: Sodium 141, Potassium 5.1, Chloride 112 H, Carbon Dioxide 21.0, Anion Gap 8, BUN 120 H*, Creatinine 3.68 H, Estim Creat Clear Calc 14.72, Est GFR (MDRD) Af Amer 16 L, Est GFR (MDRD) Non-Af 13 L, BUN/Creatinine Ratio 32.6 H , Glucose 136 H, Calcium 8.8 Physical Exam Narrative Alert awake oriented x 3 no obvious distress no pallor no icterus no JVD s1s2 no murmurs lungs clear abdomen soft no organomegaly +++ edema no cyanosis Assessment & Plan Assessment/Plan (1) Acute kidney injury: PLAN: Review of her records from [facility] [place]. As of August 16, 2024, her creatinine was 1.0 albumin creatinine ratio was 360 mg. Recent BNP 4000. Chest x-ray 10/15/2024 was normal. Echocardiogram with normal ejection fraction, diastolic dysfunction could not be assessed. Venous Dopplers negative for DVT. Nephrotic range proteinuria, 10 g. She has microscopic hematuria. Urine is somewhat cola colored. Serum albumin 2.6. Most likely some form of nephrotic syndrome She has history of poorly controlled diabetes but as of 2 months ago her creatinine was 1.0 and urine albumin 0.3 g. Sent out serologies. biopsy ordered Anasarca. Presumably due to nephrotic syndrome. hold lasix due to BRAYAN Medication list reviewed. Adjusted gabapentin dose down in view of renal failure dw hospitalist
[2024-10-20] MEDS: hydrALAZINE 50 MG Tablet PO ×2 (15:25→20:09)
[2024-10-20] MEDS: hydrALAZINE 20 MG/ML Vial 5 MG IV (16:57)
[2024-10-20 17:07] LABS: Bedside Glucose 166 mg/dL (74-106)
[2024-10-20] MEDS: Insulin Lispro 100 UNIT/ML INSULN.PEN SC ×2 (18:03→20:08)
[2024-10-20 21:26] LABS: Bedside Glucose 235 mg/dL (74-106)
[2024-10-20] MEDS: oxyCODONE 5 MG Tablet PO (21:49)
[2024-10-21] VITALS (11 sets, daily range): BP systolic 137–189; BP diastolic 67–88; PULSE 72–83; RESP 16–20; TEMP 36.7–37.2; O2SAT 94–96; BMI 29.0
[2024-10-21 05:53] LABS: Hematocrit 30.6 % (37-47); Mean Corp Hgb Conc 32.7 g/dL (32-36); Mean Corpuscular Hgb 31.5 pg (27.0-32.0); Mean Corpuscular Volume 96.5 fL (81-99); Mean Platelet Vol. 12.1 fl (6.2-12.0); Platelet Count 247 K/mm3 (150-450); RBC Distribution Width CV 15.5 % (11.6-14.6); RBC Distribution Width SD 54.8 fl (35.1-43.9); Red Blood Count 3.17 M/mm3 (4.2-5.4); White Blood Count 8.7 K/mm3 (4.4-11.0)
[2024-10-21] MEDS: hydrALAZINE 50 MG Tablet PO ×2 (06:13→13:58)
[2024-10-21] MEDS: Levothyroxine 125 MCG Tablet PO (06:15)
[2024-10-21 06:34] LABS: Bedside Glucose 98 mg/dL (74-106)
[2024-10-21 06:41] LABS: Anion Gap 6 (5-15); BUN 123 mg/dL (7-18); BUN/Creat Ratio 28.3 RATIO (10-20); Calcium,Total 8.1 mg/dL (8.5-10.1); Chloride 112 mmol/L (98-107); Creatinine, Serum 4.34 mg/dL (0.55-1.02); EST Glomerular Filtration Rate 11 mL/min (>60); Est Glom Filt Rate - Afr Amer 13 mL/min (>60); Estimated Creatinine Clearance 12.45 ml/min; Glucose 104 mg/dL (74-106); Potassium 5.1 mmol/L (3.5-5.1); Sodium Level 139 mmol/L (136-145)
--- NOTE | 2024-10-21 09:15 | PN.RENAL_ITS ---
Subjective Subjective Following for BRAYAN and proteinuria. The patient denies chest pain, dyspnea at rest, nausea. She complains of increasing edema which is now involving her arms and hands. Objective Data Objective Data Vital Signs: Vital Signs Temp Pulse Resp BP Pulse Ox O2 Del Method 98.0 F 76 18 152/77 H 94 Room Air 10/21/24 03:20 10/21/24 06:13 10/21/24 03:20 10/21/24 03:20 10/21/24 03:20 10/21/24 03:20 Oxygen Delivery Method Room Air Weight: 81.8 kg Body Mass Index (BMI) 29.0 Intake & Output: Intake and Output for Last 24 Hours 10/19/24 10/20/24 10/21/24 23:59 23:59 23:59 Intake Total 680 / 680 720 / 720 Output Total 200 / 200 400 / 400 200 / 200 Balance 480 / 480 320 / 320 -200 / -200 Lab / Micro Data 10/21/24 05:17 10/21/24 05:17 Labs: Laboratory Results - last 24 hr 10/20/24 11:37: POC Glucose 124 H 10/20/24 13:10: Sodium 141, Potassium 5.1, Chloride 112 H, Carbon Dioxide 21.0, Anion Gap 8, BUN 120 H*, Creatinine 3.68 H, Estim Creat Clear Calc 14.72, Est GFR (MDRD) Af Amer 16 L, Est GFR (MDRD) Non-Af 13 L, BUN/Creatinine Ratio 32.6 H , Glucose 136 H, Calcium 8.8 10/20/24 16:48: POC Glucose 166 H 10/20/24 20:06: POC Glucose 235 H 10/21/24 05:17: WBC 8.7, RBC 3.17 L, Hgb 10.0 L, Hct 30.6 L, MCV 96.5, MCH 31.5, MCHC 32.7, RDW Std Deviation 54.8 H, RDW Coeff of John 15.5 H, Plt Count 247, MPV 12.1 H, Sodium 139, Potassium 5.1, Chloride 112 H, Carbon Dioxide 21.0, Anion Gap 6, BUN 123 H*, Creatinine 4.34 H, Estim Creat Clear Calc 12.45, Est GFR (MDRD) Af Amer 13 L, Est GFR (MDRD) Non-Af 11 L, BUN/Creatinine Ratio 28.3 H, Glucose 104, Calcium 8.1 L 10/21/24 06:14: POC Glucose 98 Physical Exam Narrative Alert awake oriented x 3 no obvious distress no pallor no icterus no JVD s1s2 no murmurs lungs clear abdomen soft no organomegaly +++ edema/anasarca no cyanosis Assessment & Plan Assessment/Plan (1) Acute kidney injury: (2) Nephrotic syndrome: PLAN: Plan Assessment/Plan: The patient is a 73-year-old female with past history of CKD stage G3a, type 2 diabetes mellitus, hypertension, stroke, hypothyroidism, rheumatoid arthritis, and hyperlipidemia. Patient presented to hospital on 10/17/2024 with generalized weakness and malaise. Patient was also told to come to the hospital because of increasing edema/anasarca, dyspnea, and decreased kidney function found on outpatient labs. Nephrology is following for BRAYAN on CKD in the setting of nephrotic syndrome. BRAYAN on CKD stage G3a with nephrotic syndrome. The patient has baseline serum creatinine 1.20 mg/dL (January 2024). Patient presented to hospital with serum creatinine of 2.66 mg/dL on 10/17/2024 with serum albumin of 2.6 g/dL. Urine albumin to creatinine ratio is 10 g/g. Serologies have been sent including ANCA's, FABIANA, and complements. They are all pending. Will also add phospholipase A2 receptor antibody and glomerular basement membrane antibody to be complete. The patient needs a kidney biopsy for definitive diagnosis to help guide therapy. Kidney biopsy will not be done until 07/23/2025 because patient had been on clopidogrel. Despite holding diuretic since 07/18/2025 patient feels more edematous, kidney function is declining.. Therefore, I will dose patient with furosemide 60 mg IV x 1 today. I have discussed the need for hemodialysis with the patient. Although there is no immediate need for dialysis today, the trajectory of renal function is on a downward slope. I told the patient that she would need dialysis in the next 24 to 48 hours if there is no improvement of renal function (which I do not anticipate). Dialyzing patient before kidney biopsy may also help prevent bleeding from platelet dysfunction as well since BUN is above 120 mg/dL. I discussed this with Dr. Jain. We will consult surgery for dialysis access. Will find out from surgeon when he would be safe to place tunneled dialysis catheter since she had been on clopidogrel. Last dose of clopidogrel was 07/18/2025. Nephrology plan is discussed with Dr. Jain.
[2024-10-21] MEDS: amLODIPine 10 MG Tablet PO (10:15)
[2024-10-21] MEDS: Metoprolol(XL)Succ 50 MG Tablet PO (10:15)
[2024-10-21] MEDS: Pantoprazole Sodium 40 MG Tablet PO (10:15)
[2024-10-21] MEDS: Furosemide 100 MG/10 ML Vial 60 MG IV (10:22)
[2024-10-21] MEDS: hydrALAZINE 20 MG/ML Vial 5 MG IV (10:22)
[2024-10-21] MEDS: Gabapentin 100 MG Capsule PO ×2 (10:23→17:37)
[2024-10-21] MEDS: 0.9% Saline Lock 10 ML Syringe IV ×2 (10:27→16:08)
[2024-10-21 11:50] LABS: Bedside Glucose 88 mg/dL (74-106)
--- NOTE | 2024-10-21 12:41 | PN.HOSP_ITS ---
Reason for Visit Reason for Visit: Diagnoses Nephrotic syndrome with unspecified morphologic changes (10/17/24) Acute kidney failure, unspecified (10/17/24) Subjective Subjective Patient reports leg swelling about the same but feeling little bit more swollen today with upper extremity edema, breathing unchanged Objective Data Objective Data Vital Signs: Vital Signs Temp Pulse Resp BP Pulse Ox O2 Del Method 98.0 F 83 18 167/88 H 95 Room Air 10/21/24 11:44 10/21/24 11:44 10/21/24 11:44 10/21/24 11:44 10/21/24 11:44 10/21/24 11:44 Oxygen Delivery Method Room Air Weight: 81.8 kg Body Mass Index (BMI) 29.0 Intake & Output: Intake and Output for Last 24 Hours 10/19/24 10/20/24 10/21/24 23:59 23:59 23:59 Intake Total 680 / 680 720 / 720 Output Total 200 / 200 400 / 400 200 / 200 Balance 480 / 480 320 / 320 -200 / -200 Lab / Micro Data 10/21/24 05:17 10/21/24 05:17 Labs: Laboratory Results - last 24 hr 10/20/24 13:10: Sodium 141, Potassium 5.1, Chloride 112 H, Carbon Dioxide 21.0, Anion Gap 8, BUN 120 H*, Creatinine 3.68 H, Estim Creat Clear Calc 14.72, Est GFR (MDRD) Af Amer 16 L, Est GFR (MDRD) Non-Af 13 L, BUN/Creatinine Ratio 32.6 H , Glucose 136 H, Calcium 8.8 10/20/24 16:48: POC Glucose 166 H 10/20/24 20:06: POC Glucose 235 H 10/21/24 05:17: WBC 8.7, RBC 3.17 L, Hgb 10.0 L, Hct 30.6 L, MCV 96.5, MCH 31.5, MCHC 32.7, RDW Std Deviation 54.8 H, RDW Coeff of John 15.5 H, Plt Count 247, MPV 12.1 H, Sodium 139, Potassium 5.1, Chloride 112 H, Carbon Dioxide 21.0, Anion Gap 6, BUN 123 H*, Creatinine 4.34 H, Estim Creat Clear Calc 12.45, Est GFR (MDRD) Af Amer 13 L, Est GFR (MDRD) Non-Af 11 L, BUN/Creatinine Ratio 28.3 H, Glucose 104, Calcium 8.1 L 10/21/24 06:14: POC Glucose 98 10/21/24 10:29: POC Glucose 88 Physical Exam Narrative General: Alert, oriented, no apparent distress HEENT: Atraumatic, normocephalic, cleft lip repair noted Eyes: Anicteric, normal conjunctiva, extraocular movements grossly intact Neck: Supple Respiratory: No respiratory distress at rest Cardiovascular: Regular rate GI: Soft, no overt tenderness, nondistended Extremities: 1+ bilateral lower extremity pitting edema, additionally now has some trace pitting edema in upper extremities Musculoskeletal: Moving all extremities Neuro: No overt focal neurological deficits Skin: Has some patchy erythema over bilateral lower shins more near the ankles, fairly similar to previous Psych: Cooperative Assessment & Plan Assessment/Plan (1) Acute kidney injury: PLAN: Plan # BRAYAN on CKD stage IIIa, concern for nephrotic syndrome -Creatinine 2.66 with a baseline around 1.2 -Will hold losartan -May be cardiorenal but cannot say definitively -Trialing small dose of IV Lasix as above and will monitor renal function closely -Will obtain bladder scan -Urine electrolytes -UA -Urine microalbumin -Low threshold for nephrology consult if worsening -Monitor I's and O's -10/18: Kidney function today similar to previous. Discussed with nephrology. In August she had a creatinine of 1 and her creatinine albumin ratio was 360, now she has nephrotic range proteinuria 10 g and microscopic hematuria with serum albumin 2.6, concern for nephrotic syndrome. Serology sent out patient will need kidney biopsy, Plavix held and will need kidney biopsy next week. -10/19: Kidney function further worsened with a creatinine of 3.16 and a BUN of 112, nephrology following, plan for kidney biopsy next week, Plavix on hold. Will further down titrate Neurontin given creatinine clearance -10/20: Continues to worsen, will need biopsy, nephrology following. CT-guided biopsy ordered but Plavix has to be held for 5 days, tentatively biopsy for Monday -10/21: Biopsy Monday, if kidney function continues to worsen she has decreased output may need dialysis, discussed with nephrology and is advised to consult surgery for tunneled dialysis catheter with anticipation that if patient needs dialysis will be in the next 24 to 48 hours. Last dose of Plavix morning of 10/18/2024. Patient to receive another dose of IV Lasix today # Hyperkalemia -10/20: Will order Kayexalate, hold potassium supplementation, notify nephrology. Potassium did downtrend with this -10/21: Renal diet, potassium 5.1 this a.m., repeat tomorrow # Fluid overload with anasarca, possibly due to nephrotic syndrome -Admit to telemetry -BNP 323 -CXR read as atelectasis -Will give small dose of IV Lasix to assess response clinically and with renal function -No echo available in our system -Echo ordered -Daily weights, I's and O's -Heart healthy diet -10/18: Initially thought new onset heart failure however patient's echo with normal EF but indeterminate diastolic function. Her anasarca is likely due to nephrotic syndrome, IV Lasix scheduled 40 every 8 by nephrology -10/19: Patient on IV Lasix, nephrology following, monitoring I's and O's -10/20: Patient has been diuresed, Lasix now held due to BRAYAN. Discussed with nephrology -10/21: Patient received another dose of IV Lasix, now feels swollen in her arms # Hypertensive urgency versus emergency -Patient with systolic blood pressure in the 200s down into the 190s the patient does report intermittent headaches and does have this renal failure and shortness of breath -Will increase patient's amlodipine -Continue metoprolol, may need to switch to carvedilol -given kidney function holding her lisinopril/HCTZ combination -Adding hydralazine as needed, will adjust medications based on labs and vitals moving forward -10/18: On amlodipine, Lasix added, voiding DARCI and HCTZ at this time -10/19: Patient is a BP still considerably variable but blood pressure/morning is 150/79 which is better than it had been -10/20: Continues to be quite variable, continue to monitor, has as needed hydralazine and on amlodipine -10/21: Scheduled hydralazine was added to her current scheduled regimen, also add as needed labetalol #Type 2 diabetes mellitus -Glucose checks and sliding scale insulin -Continue home long-acting insulin, will resume at slightly decreased dose as patient reports poor appetite and want to avoid hypoglycemia -10/18: Glucose fairly well-controlled on current regimen, will continue -10/19: Glucose only 94 today, decrease long-acting and hold short acting while continuing sliding scale. Can reuptitrate with worsening kidney function patient may have decreased clearance and want to avoid hypoglycemia -10/20: Will further decrease given patient's glucose is 80 today -10/21: Glucose continues to be low 100s to 80s which is tighter control than is necessary for acute hospitalization, decreasing glargine further Chronic medical problems: #Hypothyroidism -Continue Synthroid -Will check TSH -10/18: TSH 45, patient reports compliance with her medication and the way she is supposed to take it but unclear. Will continue her current Synthroid. Will need to repeat labs -10/19: Continuing Synthroid at this time #Hx CVA -Continue Plavix and atorvastatin -10/18: Holding Plavix to allow for kidney biopsy next week -10/19: Plavix remains on hold, continue statin and continue fenofibrate #GERD -Continue PPI #DVT ppx: Heparin subcu Charges/Coding Visit Charges Inpatient E&M: 86722 Subs Hosp L2
[2024-10-21 13:04] LABS: Magnesium 1.6 mg/dL (1.6-2.6); Phosphorus 7.8 mg/dL (2.5-4.9)
--- NOTE | 2024-10-21 15:55 | EX.PCM.CON.S ---
Assessment & Plan Assessment/Plan (1) Nephrotic syndrome: PLAN: Plan The patient is a 73-year-old female in need of a tunneled dialysis catheter in the next 24 to 48 hours due to increasing creatinine due to renal failure. I have her placed on the operative schedule for tomorrow afternoon. Will make her n.p.o. Recommend continuing to hold Plavix. Ideally would like to wait 5 days however from a risk-benefit standpoint I think it is prudent to proceed tomorrow. We discussed the details of the planned procedure including risks benefits and alternatives. She wishes to proceed. Surgery will occur tomorrow afternoon HPI Consult Data Date of Consult: 10/21/24 HPI Narrative Reason for Consultation: Tunneled dialysis catheter placement HPI Narrative: GABRIELLE RIDLEY, is a 73 F who has a past medical history of chronic kidney disease, GERD, history of CVA, hypertension, and hypothyroidism who presented to [place] emergency department with not feeling well and increasing swelling to her lower extremities. She was seen evaluate by the ER staff. She was found to have worsening kidney function based on laboratory values. She was also found to be hypertensive. There was concern for new onset of heart as well as kidney failure. She was subsidy admitted. Throughout the hospitalization it was noted that her creatinine was continuing to increase. Nephrology was consulted and they are anticipating the need for hemodialysis within the next couple of days. As a result, a surgical consult has been requested to place a tunneled dialysis catheter. Patient is on Plavix and has been held since October 18 [facility] Medical History (Updated 10/21/24 @ 09:[address] Rafaela Howe MD) Hypothyroidism Diabetes Kidney disease TIA (transient ischemic attack) Intractable back pain Rheumatoid arthritis Former smoker Stroke/cerebrovascular accident Sciatica High cholesterol HTN (hypertension) HTN (hypertension) Hypothyroidism DM type 2 (diabetes mellitus, type 2) Home Medications ?Medication ?Instructions ?Recorded ?Last Taken ?Type atorvastatin 80 mg tablet 80 mg PO QHS CHOLESTEROL 03/29/18 10/17/24 History clopidogrel 75 mg tablet 75 mg PO DAILY BLOOD THINNER 03/29/18 10/17/24 History fenofibrate nanocrystallized 145 145 mg PO DAILY SUPLIMENT 03/29/18 10/17/24 History mg tablet omeprazole 40 mg capsule,delayed 40 mg PO DAILY n/v 03/29/18 10/17/24 History release potassium chloride 8 mEq 8 meq PO DAILY suppliment 03/29/18 10/17/24 History tablet,extended release (Klor-Con) dulaglutide 3 mg/0.5 mL 3 mg subcut THAO dm 01/08/24 10/13/24 History subcutaneous pen injector (Trulicity) insulin lispro 100 unit/mL 14 unit subcut TID GLUCOSE 01/08/24 10/16/24 History subcutaneous pen (Humalog KwikPen (U-100) Insulin) levothyroxine 125 mcg tablet 125 mcg PO DAILY THRYROID 01/08/24 10/17/24 History gabapentin 400 mg capsule 400 mg PO TIDCM #90 caps 01/18/24 10/17/24 Rx oxycodone 5 mg tablet 10 mg (2 x 5 mg) PO Q4H PRN PRN 01/18/24 10/17/24 Rx Pain Score 4-10 7 days #40 tabs amlodipine 5 mg tablet 5 mg PO DAILY 10/17/24 10/17/24 History etanercept 50 mg/mL (1 mL) 50 mg subcut QWEEK 10/17/24 10/09/24 History subcutaneous pen injector (Enbrel SureClick) furosemide 20 mg tablet 20 mg PO DAILY 10/17/24 10/16/24 History insulin glargine 100 unit/mL (3 32 unit subcut QHS 10/17/24 10/16/24 History mL) subcutaneous pen (Lantus Solostar U-100 Insulin) losartan 100 1 tab PO DAILY 10/17/24 10/17/24 History mg-hydrochlorothiazide 12.5 mg tablet metoprolol succinate 50 mg 50 mg PO DAILY 10/17/24 10/17/24 History tablet,extended release 24 hr prednisone 5 mg tablet 10 mg PO DAILY diabetes mellitus 10/17/24 10/17/24 History Allergy/AdvReac Type Severity Reaction Status Date / Time morphine Allergy Itching Verified 10/17/24 09:31 meperidine (From Demerol) AdvReac Nausea/Vom/ Verified 10/17/24 09:31 Diarrhea Family History Mother Thyroid disorder Father Heart disease CAD (coronary artery disease) Hypertension Myocardial infarction Surgical History History of appendectomy History of facial surgery Status post ORIF of fracture of ankle Hx of hysterectomy History of spinal fusion Social History household members: none Smoking Status: Former smoker how long ago did patient quit smoking: Smoked age [age] ~1/2 ppd. alcohol intake: never substance use type: does not use ROS Cardiovascular Cardiovascular: Reports systems reviewed and no addt'l complaints, except as documented Respiratory/Chest Respiratory/Chest: Reports systems reviewed and no addt'l complaints, except as documented Gastrointestinal Gastrointestinal: Reports systems reviewed and no addt'l complaints, except as documented Genitourinary Genitourinary: Reports systems reviewed and no addt'l complaints, except as documented Musculoskeletal Musculoskeletal: Reports systems reviewed and no addt'l complaints, except as documented Physical Exam Const alert, oriented x3 and healthy appearing HEENT normocephalic Eyes PERRL Neck full ROM Neck Narrative: Examination the right side the neck does reveal a remote scar from a surgical procedure most likely a cervical fusion or discectomy Lab / Micro Data 10/21/24 05:17 10/21/24 05:17 Labs: Laboratory Results - last 24 hr 10/18/24 11:49: Double Strand DNA Ab Cancelled 10/20/24 16:48: POC Glucose 166 H 10/20/24 20:06: POC Glucose 235 H 10/21/24 05:17: WBC 8.7, RBC 3.17 L, Hgb 10.0 L, Hct 30.6 L, MCV 96.5, MCH 31.5, MCHC 32.7, RDW Std Deviation 54.8 H, RDW Coeff of John 15.5 H, Plt Count 247, MPV 12.1 H, Sodium 139, Potassium 5.1, Chloride 112 H, Carbon Dioxide 21.0, Anion Gap 6, BUN 123 H*, Creatinine 4.34 H, Estim Creat Clear Calc 12.45, Est GFR (MDRD) Af Amer 13 L, Est GFR (MDRD) Non-Af 11 L, BUN/Creatinine Ratio 28.3 H, Glucose 104, Calcium 8.1 L, Phosphorus 7.8 H, Magnesium 1.6 10/21/24 06:14: POC Glucose 98 10/21/24 10:29: POC Glucose 88 Charges/Coding Visit Charges Inpatient E&M: 71330 Init Hosp L3
[2024-10-21] MEDS: Heparin Injection (Vial) 5,000 UNIT/ML VIAL 5000 UNIT SC (16:08)
[2024-10-21] MEDS: Ondansetron 4 MG/2 ML Vial IV (16:08)
[2024-10-21 16:40] LABS: Bedside Glucose 148 mg/dL (74-106)
[2024-10-21] MEDS: Magnesium Chloride 64 MG Delay Rel.Tablet 128 MG PO (17:36)
[2024-10-21] MEDS: proMETHazine 25 MG/ML Syringe 12.5 MG IM (21:10)
[2024-10-22] VITALS (25 sets, daily range): BP systolic 133–193; BP diastolic 68–92; PULSE 69–78; RESP 15–18; TEMP 35.9–37.1; O2SAT 92–95; BMI 29.0
[2024-10-22] MEDS: hydrALAZINE 50 MG Tablet PO ×4 (01:20→23:17)
[2024-10-22] MEDS: Atorvastatin Calcium 80 MG Tablet PO ×2 (01:21→23:20)
[2024-10-22] MEDS: Magnesium Chloride 64 MG Delay Rel.Tablet 128 MG PO (01:21)
[2024-10-22] MEDS: amLODIPine 10 MG Tablet PO ×2 (01:22→23:20)
[2024-10-22] MEDS: 0.9% Saline Lock 10 ML Syringe IV ×2 (01:22→12:06)
[2024-10-22 01:46] LABS: Bedside Glucose 137 mg/dL (74-106)
[2024-10-22 05:58] LABS: Hematocrit 29.2 % (37-47); Hemoglobin 9.6 g/dL (12.0-15.0); Mean Corp Hgb Conc 32.9 g/dL (32-36); Mean Corpuscular Hgb 31.6 pg (27.0-32.0); Mean Corpuscular Volume 96.1 fL (81-99); Mean Platelet Vol. 12.6 fl (6.2-12.0); Platelet Count 231 K/mm3 (150-450); RBC Distribution Width CV 15.5 % (11.6-14.6); RBC Distribution Width SD 54.3 fl (35.1-43.9); Red Blood Count 3.04 M/mm3 (4.2-5.4); White Blood Count 8.1 K/mm3 (4.4-11.0)
[2024-10-22 06:08] LABS: Complement C3 108 mg/dL (82-167); Cytoplasmic Ab (C-ANCA) <1:20 titer (Neg:<1:20); PROEL- A/G Ratio 0.9 (0.7-1.7); PROEL- Albumin 2.5 g/dL (2.9-4.4); PROEL- Alpha-1 Globulin 0.3 g/dL (0.0-0.4); PROEL- Alpha-2 Globulin 0.5 g/dL (0.4-1.0); PROEL- Beta Globulin 1.1 g/dL (0.7-1.3); PROEL- Gamma Globulin 0.8 g/dL (0.4-1.8); PROEL- Globulin, Total 2.7 g/dL (2.2-3.9); PROEL- TOTAL PROTEIN 5.2 g/dL (6.0-8.5); PROEL-M-Spike Not Observed g/dL (Not Observed); Perinuclear Ab (P-ANCA) <1:20 titer (Neg:<1:20)
[2024-10-22 06:13] LABS: Partial Thromboplast Time 25.9 Seconds (24.1-36.2)
[2024-10-22] MEDS: Metoprolol(XL)Succ 50 MG Tablet PO (06:22)
[2024-10-22 06:39] LABS: Phosphorus 8.4 mg/dL (2.5-4.9)
[2024-10-22 06:44] LABS: Bedside Glucose 106 mg/dL (74-106)
[2024-10-22 06:44] LABS: Anion Gap 8 (5-15); BUN 131 mg/dL (7-18); BUN/Creat Ratio 24.3 RATIO (10-20); Calcium,Total 8.3 mg/dL (8.5-10.1); Chloride 111 mmol/L (98-107); Creatinine, Serum 5.39 mg/dL (0.55-1.02); EST Glomerular Filtration Rate 8 mL/min (>60); Est Glom Filt Rate - Afr Amer 10 mL/min (>60); Estimated Creatinine Clearance 10.02 ml/min; Glucose 116 mg/dL (74-106); Magnesium 1.5 mg/dL (1.6-2.6); Potassium 5.6 mmol/L (3.5-5.1); Sodium Level 138 mmol/L (136-145)
[2024-10-22 09:28] LABS: Hemoglobin A1c 7.6 % (3.8-5.6)
--- NOTE | 2024-10-22 11:28 | PN.RENAL_ITS ---
Subjective Subjective Following for BRAYAN Patient resting in bed. Denies any complaints. No overnight events. Planning for tunneled hemodialysis catheter this afternoon. Objective Data Objective Data Vital Signs: Vital Signs Temp Pulse Resp BP Pulse Ox O2 Del Method 97.9 F 69 16 133/68 H 92 Room Air 10/22/24 08:45 10/22/24 08:45 10/22/24 08:45 10/22/24 08:45 10/22/24 08:45 10/22/24 08:45 Oxygen Delivery Method Room Air Weight: 81.7 kg Body Mass Index (BMI) 29.0 Intake & Output: Intake and Output for Last 24 Hours 10/20/24 10/21/24 10/22/24 23:59 23:59 23:59 Intake Total 720 / 720 1120 / 1120 Output Total 400 / 400 500 / 510 Balance 320 / 320 620 / 610 - Lab / Micro Data 10/23/24 05:03 10/23/24 05:03 Labs: Laboratory Results - last 24 hr 10/18/24 11:49: Total Protein (PEP) 5.2 L, Albumin (PEP) 2.5 L, Globulin (PEP) 2.7, Albumin/Globulin (PEP) 0.9, Bmlhd-8-Mudhvmezr 0.3, Pwynn-0-Xnahxjvfi 0.5, Beta Globulins 1.1, Gamma Globulins 0.8, M-Ruben Not Observed, PEP Note Comment:, PEP Interpretation Comment, c-ANCA Antibody <1:20, Atypical p-ANCA <1:20, p-ANCA Antibody <1:20, Double Strand DNA Ab Cancelled, Complement C3 108, Complement C4 15 10/21/24 05:17: Phosphorus 7.8 H, Magnesium 1.6 10/21/24 10:29: POC Glucose 88 10/21/24 16:17: POC Glucose 148 H 10/22/24 01:14: POC Glucose 137 H 10/22/24 05:25: WBC 8.1, RBC 3.04 L, Hgb 9.6 L, Hct 29.2 L, MCV 96.1, MCH 31.6, MCHC 32.9, RDW Std Deviation 54.3 H, RDW Coeff of John 15.5 H, Plt Count 231, MPV 12.6 H, APTT 25.9, Sodium 138, Potassium 5.6 H, Chloride 111 H, Carbon Dioxide 19.0 L, Anion Gap 8, BUN 131 H*, Creatinine 5.39 H, Estim Creat Clear Calc 10.02, Est GFR (MDRD) Af Amer 10 L, Est GFR (MDRD) Non-Af 8 L, BUN/Creatinine Ratio 24.3 H, Glucose 116 H, Hemoglobin A1c 7.6 H, Calcium 8.3 L, Phosphorus 8.4 H, Magnesium 1.5 L 10/22/24 06:16: POC Glucose 106 Physical Exam Narrative Alert awake oriented x 3 no obvious distress s1s2 no murmurs lungs clear abdomen soft, nontender +++ edema/anasarca Assessment & Plan Assessment/Plan (1) Acute kidney injury: (2) Nephrotic syndrome: PLAN: Plan Assessment/Plan: The patient is a 73-year-old female with past history of CKD stage G3a, type 2 diabetes mellitus, hypertension, stroke, hypothyroidism, rheumatoid arthritis, and hyperlipidemia. Patient presented to hospital on 10/17/2024 with generalized weakness and malaise. Patient was also told to come to the hospital because of increasing edema/anasarca, dyspnea, and decreased kidney function found on outpatient labs. Nephrology is following for BRAYAN on CKD in the setting of nephrotic syndrome. BRAYAN on CKD stage G3a with nephrotic syndrome. The patient has baseline serum creatinine 1.20 mg/dL (January 2024). - Serum creatinine of 2.66 mg/dL on 10/17/2024 (presentation) with serum albumin of 2.6 g/dL. Urine albumin to creatinine ratio is 10 g/g. Despite holding diuretic since 10/18/2024 patient feels more edematous, kidney function is declining, received furosemide 60 mg IV 10/21 with only 500ml UOP for yesterday. - Serologies sent: C3, C4, pANCA, c-ANCA within normal range; phospholipase A2 receptor antibody and glomerular basement membrane antibody pending. The patient needs a kidney biopsy for definitive diagnosis to help guide therapy. Kidney biopsy scheduled 10/23/2024 because patient had been on clopidogrel. - Kidney function continues to worsen daily, serum creatinine up to 5.39, BUN 131 today. Patient will dialyze after placement of tunneled hemodialysis catheter today on 2K bath with around 500 mL liter fluid removal as patient/blood pressure tolerates. Will possibly plan for dialysis again tomorrow around kidney biopsy procedure. - Discussed outpatient dialysis plan with patient, she is in agreement. Discussed with case management to help arrange for outpatient hemodialysis at [facility] kidney connelly, diagnosis BRAYAN, she will be followed by Dr. Laughlin. Will obtain hep B surface antigen today. - bps acceptable on Toprol, hydralazine and amlodipine
[2024-10-22 12:24] LABS: Bedside Glucose 103 mg/dL (74-106)
--- NOTE | 2024-10-22 13:19 | PRE.ANES_ITS ---
ASA Classification* ASA Classification ASA Classification: 3 Assessment & Plan Anesthesia* Anesthesia Assessment Anesthesia Assessment: Discussed sedation and/or anesthesia options, risks, benefits, and alternatives with patient/parents/legal guardian/POA. Questions invited. The patient/parents/legal guardian/POA seems to understand and agrees to proceed with anesthesia plan. Reviewed the physical assessment, medical history, allergy history and patient home medications list prior to surgery/procedure/anesthetic and documented any changes. Performed airway and anesthesia risk assessments. Anesthesia Type Anesthesia Type: MAC History Source History Obtained from:: Patient and Chart Anesthesia Focused Assessment* Temperature: 98.2 F Pulse Rate: 70 Blood Pressure: 169/84 Respiratory Rate: 16 Pulse Ox: 94 Oxygen Delivery Method: Room Air Airway Assessment Mouth opens: >3 cm Mallampati Score: III Teeth Condition: Dentures (Patient has upper and lower dentures. They are out.) Neck Range of motion (ROM): Limited ROM (Slight decrease in extension) Focused Labs Anesthesia Preop lab: CBC WBC 8.1 K/mm3 (4.4-11.0) 10/22/24 05:25 RBC 3.04 M/mm3 (4.2-5.4) L 10/22/24 05:25 Hgb 9.6 g/dL (12.0-15.0) L 10/22/24 05:25 Hct 29.2 % (37-47) L 10/22/24 05:25 Plt Count 231 K/mm3 (150-450) 10/22/24 05:25 CHEMISTRY Potassium 5.6 mmol/L (3.5-5.1) H 10/22/24 05:25 Sodium 138 mmol/L (136-145) 10/22/24 05:25 Magnesium 1.5 mg/dL (1.6-2.6) L 10/22/24 05:25 Phosphorus 8.4 mg/dL (2.5-4.9) H 10/22/24 05:25 BUN 131 mg/dL (7-18) H* 10/22/24 05:25 Creatinine 5.39 mg/dL (0.55-1.02) H 10/22/24 05:25 Glucose 116 mg/dL (74-106) H 10/22/24 05:25 POC Glucose 103 mg/dL (74-106) 10/22/24 12:02 TSH 45.400 uIU/mL (0.358-3.740) H 10/17/24 10:45 COAG PT 14.6 SECONDS (11.7-14.9) 10/18/24 11:49 Pre-Assessment Diagnosis/Proposed Procedure Planned Operative Procedure(s): Insertion of tunneled dialysis catheter Anesthesia History Anesthesia History - manager placement: Anesthesia History - manager placement Hx Hospitalization Any Problems With Anesthesia Yes: N/V 10/22/24 07:50 Cholinesterase deficiency No 10/22/24 07:50 You/Your Family Experience No 10/22/24 07:50 fever (hyperthermia) with Relationship Recent Exposure to Contagious No 10/22/24 07:50 Disease Does patient have nerve No 10/22/24 07:50 stimulator Patient instructed to have No 10/22/24 07:50 device shut off --Does patient have Pacemaker No 10/22/24 07:50 or ICD? When Was Last Pacemaker Check QUESTION #4 FULL TEXT: You/Your Family Experience fever (hyperthermia) with Anesthesia Last Oral Intake Last Oral intake: Last Oral Intake NPO since 06:25 10/22/24 07:50 Meds taken in AM with sips of water? Meds patient instructed to METOPROLOL 10/22/24 07:50 take am of surgery HYDRALAZINE Any additional information?: Yes NPO since: 06:25 (Patient took her meds with sip of water at 6:25 AM.) Meds taken in AM with sips of water?: Yes PONV PONV - manager placement: PONV - manager placement Female HX of Motion Sickness HX of N/V After Surgery Non-Smoker Duration of Surgery greater than 60 minutes Number of Risk Factors PONV Score Height & Weight Height & Weight: Anesthesia: Height & Weight Height 5 ft 6 in 10/22/24 07:50 Weight: 81.7 kg 10/22/24 07:50 Body Mass Index (BMI) 29.0 10/22/24 07:50 Respiratory Assessment Respiratory Assessment - manager placement: Respiratory Tract Infection Hx - manager placement Hx Respiratory Tract Infection No 10/22/24 07:50 Any additional information?: Yes Hx Respiratory Tract Infection: Yes (Patient has had a slight cough for the past couple weeks.) STOP Sleep Apnea STOP Sleep Apnea - manager placement: STOP Sleep Apnea - manager placement Hx Hypertension Yes 10/17/24 14:50 Hx Sleep Apnea No 10/17/24 14:50 CPAP BIPAP Do you snore loudly (louder No 10/17/24 14:50 than talking or can be heard Do you often feel tired/ No 10/17/24 14:50 fatigued/ sleepy during daytime? Has anyone observed you stop No 10/17/24 14:50 breathing during sleep? STOP Results Negative 10/17/24 14:50 QUESTION #5 FULL TEXT : Do you snore loudly (louder than talking or can be heard through closed doors)? Tobacco Use History Tobacco Use History - manager placement: Tobacco Use History - manager placement Tobacco Use Smoking Status Former smoker 10/17/24 14:50 Hx Tobacco Use No 10/17/24 14:50 Years Smoking Packs Smoked per Day Smoking Cessation Date was No - quit smoking greater 10/17/24 14:50 within the last 15 years than 15 years ago Hx Smoking Cessation Date 10/09/69 10/17/24 14:50 Hx Smoking Cessation No 10/17/24 14:50 Counseling Hematologic Medial History Hematologic Hx - manager placement: Hematologic Medical Hx - manager intel Hx of Blood Transfusion No 10/17/24 14:50 Hx of Transfusion in last 3 No 10/17/24 14:50 Months Date of Last Transfusion (if within last 3 months) Ever experience any problems No 10/17/24 14:50 with transfusion(s)? Specify any problems Hx of Preganancy in last 3 N/A 10/17/24 14:50 Months Nurse Filling Out Transfusion FSTEINER 10/17/24 14:50 & Questions: Date: 10/17/24 10/17/24 14:50 Time: 14:52 10/17/24 14:50 Patient unable to answer at this time (ie. confused, unrespo /Reproduction History /Reproductive History - manager placement: /Reproductive Hx- manager placement Hx Now No 10/22/24 07:50 Gestational Age (in weeks): EDC: Hx Hx Para Hx Section SAB No 10/22/24 07:50 Active Medications Active Medications: Current Medications Generic Name Dose Route Start Last Admin Trade Name Freq PRN Reason Stop Dose Admin Acetaminophen 650 mg 10/17/24 14:43 10/19/24 09:14 Acetaminophen 325 Mg Tablet PO 650 mg Q6H PRN PRN Administration Pain 1-10 Or Fever >100.7 Amlodipine Besylate 10 mg 10/21/24 22:00 10/22/24 01:22 Amlodipine 10 Mg Tablet PO 10 mg QHS [facility] Administration Protocol Atorvastatin Calcium 80 mg 10/21/24 22:00 10/22/24 01:21 Atorvastatin Calcium 80 Mg Tablet PO 80 mg QHS CHERY Administration Gabapentin 100 mg 10/19/24 17:00 10/22/24 09:38 Gabapentin 100 Mg Capsule PO Not Given BIDCM CHERY Glucagon 1 mg 10/17/24 14:43 Glucagon 1 Mg/Ml Syringe IM X1 PRN HYPOGLYCEMIA Protocol Heparin Sodium (Porcine) 5,000 unit 10/17/24 14:43 10/22/24 02:48 Heparin Injection (Vial) 5,000 Unit/Ml Vial SC Not Given Q8 CHERY Hydralazine HCl 50 mg 10/20/24 15:00 10/22/24 06:21 Hydralazine 50 Mg Tablet PO 50 mg TID CHERY Administration Protocol Dextrose 250 mls @ 0 mls/hr 10/17/24 14:43 Dextrose 10%-Water IV .Q0M PRN HYPOGLYCEMIA Protocol As Directed Sodium Chloride 100 mls @ 15 mls/hr 10/17/24 14:45 IV .Q6H40M PRN SALINE FLUSH Sodium Chloride 100 mls @ 15 mls/hr 10/17/24 14:45 IV .Q6H40M PRN Saline Flush Sodium Chloride 100 mls @ 15 mls/hr 10/17/24 14:45 IV .Q6H40M PRN Additional IVPB Infusion Insulin Glargine 10 unit 10/21/24 22:00 10/22/24 01:18 Insulin Glargine-Yfgn 100 Unit/Ml Pen SC Not Given QHS [facility] Insulin Human Lispro 0 unit 10/17/24 16:00 10/22/24 12:12 Insulin Lispro 100 Unit/Ml Insuln.Pen SC Not Given ACHS [facility] Protocol Labetalol HCl 10 mg 10/21/24 12:41 10/21/24 16:08 Labetalol 20mg/4ml Syringe IV 10 mg Q4H PRN PRN Administration SBP >/= 175 Protocol Levothyroxine Sodium 125 mcg 10/18/24 06:00 10/22/24 05:26 Levothyroxine 125 Mcg Tablet PO Not Given DAILY@0600 CHERY Melatonin 3 mg 10/17/24 14:43 Melatonin 3 Mg Tablet PO QHS PRN PRN INSOMNIA Metoprolol Succinate 50 mg 10/18/24 10:00 10/22/24 06:22 Metoprolol(Xl)Succ 50 Mg Tablet PO 50 mg DAILY CHERY Administration Protocol Ondansetron HCl 4 mg 10/17/24 14:43 10/21/24 16:08 Ondansetron 4 Mg/2 Ml Vial IV 4 mg Q8H PRN PRN Administration NAUSEA/VOMITING Oxycodone HCl 5 mg 10/17/24 14:43 10/20/24 21:49 Oxycodone 5 Mg Tablet PO 5 mg Q4H PRN PRN Administration Pain Score 4-10 Pantoprazole Sodium 40 mg 10/18/24 10:00 10/21/24 10:15 Pantoprazole Sodium 40 Mg Tablet PO 40 mg DAILY CHERY Administration Promethazine HCl 12.5 mg 10/21/24 20:36 10/21/24 21:10 Promethazine 25 Mg/Ml Syringe IM 12.5 mg Q4H PRN PRN Administration NAUSEA/VOMITING Senna/Docusate Sodium 2 tablet 10/17/24 14:43 Senna/Docusate Sodium 1 Tablet PO BID PRN PRN Constipation Sodium Chloride 10 - 40 ml 10/17/24 14:45 10/22/24 12:06 0.9% Saline Lock 10 Ml Syringe IV 10 ml UD PRN Administration [facility] FL[facility] Medical History Hypothyroidism Diabetes Kidney disease TIA (transient ischemic attack) Intractable back pain Rheumatoid arthritis Former smoker Stroke/cerebrovascular accident Sciatica High cholesterol HTN (hypertension) HTN (hypertension) Hypothyroidism DM type 2 (diabetes mellitus, type 2) Home Medications ?Medication ?Instructions ?Recorded ?Last Taken ?Type atorvastatin 80 mg tablet 80 mg PO QHS CHOLESTEROL 03/29/18 10/17/24 History clopidogrel 75 mg tablet 75 mg PO DAILY BLOOD THINNER 03/29/18 10/17/24 History fenofibrate nanocrystallized 145 145 mg PO DAILY SUPLIMENT 03/29/18 10/17/24 History mg tablet omeprazole 40 mg capsule,delayed 40 mg PO DAILY n/v 03/29/18 10/17/24 History release potassium chloride 8 mEq 8 meq PO DAILY suppliment 03/29/18 10/17/24 History tablet,extended release (Klor-Con) dulaglutide 3 mg/0.5 mL 3 mg subcut THAO dm 01/08/24 10/13/24 History subcutaneous pen injector (Trulicity) insulin lispro 100 unit/mL 14 unit subcut TID GLUCOSE 01/08/24 10/16/24 History subcutaneous pen (Humalog KwikPen (U-100) Insulin) levothyroxine 125 mcg tablet 125 mcg PO DAILY THRYROID 01/08/24 10/17/24 History gabapentin 400 mg capsule 400 mg PO TIDCM #90 caps 01/18/24 10/17/24 Rx oxycodone 5 mg tablet 10 mg (2 x 5 mg) PO Q4H PRN PRN 01/18/24 10/17/24 Rx Pain Score 4-10 7 days #40 tabs amlodipine 5 mg tablet 5 mg PO DAILY 10/17/24 10/17/24 History etanercept 50 mg/mL (1 mL) 50 mg subcut QWEEK 10/17/24 10/09/24 History subcutaneous pen injector (Enbrel SureClick) furosemide 20 mg tablet 20 mg PO DAILY 10/17/24 10/16/24 History insulin glargine 100 unit/mL (3 32 unit subcut QHS 10/17/24 10/16/24 History mL) subcutaneous pen (Lantus Solostar U-100 Insulin) losartan 100 1 tab PO DAILY 10/17/24 10/17/24 History mg-hydrochlorothiazide 12.5 mg tablet metoprolol succinate 50 mg 50 mg PO DAILY 10/17/24 10/17/24 History tablet,extended release 24 hr prednisone 5 mg tablet 10 mg PO DAILY diabetes mellitus 10/17/24 10/17/24 History Allergy/AdvReac Type Severity Reaction Status Date / Time morphine Allergy Itching Verified 10/17/24 09:31 meperidine (From Demerol) AdvReac Nausea/Vom/ Verified 10/17/24 09:31 Diarrhea Family History Mother Thyroid disorder Father Heart disease CAD (coronary artery disease) Hypertension Myocardial infarction Surgical History History of appendectomy History of facial surgery Status post ORIF of fracture of ankle Hx of hysterectomy History of spinal fusion Social History household members: none Smoking Status: Former smoker how long ago did patient quit smoking: Smoked age [age] ~1/2 ppd. alcohol intake: never substance use type: does not use Review of Systems (Anesthesia) ROS Narrative System reviewed and no additional complaints, except as documented.
[2024-10-22 13:41] LABS: Hepatitis B Surface Antigen Non-Reactive (Nonreactive)
[2024-10-22] MEDS: Cefazolin 2 GM in Syringe IV (15:21)
[2024-10-22] MEDS: Lidocaine 1% (20 ml mdv) 20 ML Vial (15:26)
[2024-10-22] MEDS: Bupiv/Epi 0.25% 30 ML Vial (15:26)
[2024-10-22] MEDS: Heparin 10,000 UNITS/10 ML Vial 10000 UNITS (15:39)
--- NOTE | 2024-10-22 15:55 | OP.PCM_ITS ---
Procedures Cardiovascular CF Procedures [id number]-39xxx: 90204 Insert tunneled cv cath Operative Report (Standard) Operative Information Date of Procedure: 10/22/24 Pre-Operative Diagnosis: Renal failure Post-Operative Diagnosis: Same Surgery/Procedure Performed: Ultrasound-guided right internal jugular tunneled dialysis catheter placement cardiothoracic icu rn: No Type of Anesthesia: Local and MAC RN Documented Start/Stop Times: Operation Date: 10/22/24 13:45 Case Time Into Pre-Op 10/22/24 13:06 Out of Pre-Op 10/22/24 15:00 Anesthesia Start 10/22/24 15:04 Into Room 10/22/24 15:04 Procedure Start 10/22/24 15:26 Procedure End 10/22/24 15:49 Anesthesia End 10/22/24 15:53 Out of Room 10/22/24 15:53 Procedure Start Time: 15:26 Procedure Stop Time: 15:49 Select all DRAINS/GRAFTS/IMPLANTS that apply: Implanted device Implanted device details: 14 Lebanese 19 cm tunneled dialysis catheter Special Medications: 2 g Ancef preop Estimated Blood Loss: 20 mL Specimen collected: No Description of surgery: Patient is a 73-year-old female with a history of worsening renal function. She was recently admitted to [facility] with increasing lower extremity swelling and what was most likely some heart failure. It was noted that her kidney function was continuing to worsen to the point where nephrology was consulted and they recommended dialysis. It was recommended that she have a tunneled dialysis catheter placed within 24 to 48 hours. Surgical consult was obtained and I recommended proceeding with catheter placement. We discussed the details of the planned procedure including the risks benefits and alternatives. She wished to proceed. Patient was brought to the operating today following informed consent. 2 g of Ancef was given IV preoperatively. She was brought to the operating room today and placed supine on the operative table with arms initially outstretched on arm boards. MAC anesthesia was induced. Once adequately sedated, her arms were comfortably tucked at her side. An axillary roll was placed behind her upper back. Her neck and chest regions were then prepped and draped in the usual sterile manner. Ultrasound was utilized to locate the right internal jugular vein. Local anesthetic was infiltrated into this area. Next using the supplied needle and syringe, I was able to gain access to the left internal jugular vein under ultrasound guidance. The blood return was a dark red nonpulsatile venous appearing blood return. The supplied guidewire was then threaded through the aperture and the needle. This was then secured to the drapes using a curved hemostat. C-arm was then brought in to identify appropriate positioning of the guidewire. Dilators were then threaded over the guidewire and then the dilator/sheath were then threaded and advanced. The guidewire and dilator were then removed thus leaving the sheath in place. Previous to this small incision was made near the entry point of the guidewire. A small skin incision was made in the right upper chest for the insertion of the catheter. The tunneler was then tunneled into this opening and came out adjacent to the sheath of the neck. The catheter was then put in place and then the free end of the tubing was then threaded down the sheath. The sheath was extracted. The catheter was then tested with injectable saline. Both ports link and flushed nicely. This was then repeated with heparin into each port. 4-0 Vicryl was then used to close the skin incision at the neck. Nurolon was then used to secure the catheter to the skin. Skin glue was applied to the neck incision and then a sterile dressing was applied to both locations. She was then awakened from anesthesia and taken to recovery in good condition. A postoperative chest x-ray will be performed. C arm was utilized throughout the course of the procedure to ensure appropriate positioning of the catheter. Surgical Findings: See operative note Complications Complications: No Admit VTE Documentation VTE Present on Admission: No VTE Mechan Device Prophylaxis: SCD's VTE Pharm Prophylaxis ordered?: No Reason prophylaxis not ordered: Treatment Not Indicated
--- NOTE | 2024-10-22 16:02 | PCM.POST.ANE ---
Anesthesia: Postop Eval I Current Vital Signs Temperature: 98.4 F Pulse Rate: 73 Blood Pressure: 163/81 Respiratory Rate: 16 Pulse Ox: 94 Oxygen Delivery Method: Room Air Assessment Airway patent: Yes Spontaneous unlabored respirations: Yes Mental status: Awake nausea: No Vomiting: No Anesthesia Complication: No Fluid Hydration Crystalloid volume administer (ml): 300 Total IV fluid infused: 300 Progress Note Anesthesia document: Postop Eval 1 completed: Yes
--- NOTE | 2024-10-22 16:10 | RAD_ITS ---
INDICATION: HD PORT PLACED -- PORTABLE EXAMINATION/TECHNIQUE: X-RAY - XR Chest 1 View COMPARISON: October 17, 2024 FINDINGS: LINES/DEVICES: Interval placement of a right-sided dual-lumen venous line with tip in the distal SVC. LUNGS: Mild infiltrates/atelectasis at the costophrenic angles. No pneumothorax. MEDIASTINUM AND CARDIOVASCULAR STRUCTURES: Cardiac silhouette not enlarged. Central airways and mediastinal contour are unremarkable. BONES AND SOFT TISSUES: Lower cervical surgical fusion. RAD/CXR for Line Placement IMPRESSION: Mild infiltrates/atelectasis at the costophrenic angles. Electronically Signed: Dedrick Israel DO at 17:02 EST Reading Location ID and State: [facility] / [place] Tel [phone], Service support ,
--- NOTE | 2024-10-22 16:34 | PCM.PN.HOSP ---
Subjective Subjective Doing well, no issues overnight plan for tunneled dialysis catheter today Objective Data Objective Data Vital Signs: Vital Signs Temp Pulse Resp BP Pulse Ox O2 Del Method 98.8 F 71 18 181/87 H 94 Room Air 10/22/24 16:21 10/22/24 16:21 10/22/24 16:21 10/22/24 16:21 10/22/24 16:21 10/22/24 16:21 Oxygen Delivery Method Room Air Weight: 180 lb 1.883 oz Body Mass Index (BMI) 29.0 Intake & Output: Intake and Output for Last 24 Hours 10/21/24 10/22/24 10/23/24 03:59 03:59 03:59 Intake Total 720 / 720 1120 / 1120 Output Total 400 / 400 510 / 510 0 / 0 Balance 320 / 320 610 / 610 Lab / Micro Data 10/22/24 05:25 10/22/24 05:25 Labs: Laboratory Results - last 24 hr 10/18/24 11:49: Total Protein (PEP) 5.2 L, Albumin (PEP) 2.5 L, Globulin (PEP) 2.7, Albumin/Globulin (PEP) 0.9, Sgrfa-9-Jlkwhudsj 0.3, Uiqcr-3-Lhdkacwkf 0.5, Beta Globulins 1.1, Gamma Globulins 0.8, M-Ruben Not Observed, PEP Note Comment:, PEP Interpretation Comment, c-ANCA Antibody <1:20, Atypical p-ANCA <1:20, p-ANCA Antibody <1:20, Complement C3 108, Complement C4 15 10/21/24 16:17: POC Glucose 148 H 10/22/24 01:14: POC Glucose 137 H 10/22/24 05:25: WBC 8.1, RBC 3.04 L, Hgb 9.6 L, Hct 29.2 L, MCV 96.1, MCH 31.6, MCHC 32.9, RDW Std Deviation 54.3 H, RDW Coeff of John 15.5 H, Plt Count 231, MPV 12.6 H, APTT 25.9, Sodium 138, Potassium 5.6 H, Chloride 111 H, Carbon Dioxide 19.0 L, Anion Gap 8, BUN 131 H*, Creatinine 5.39 H, Estim Creat Clear Calc 10.02, Est GFR (MDRD) Af Amer 10 L, Est GFR (MDRD) Non-Af 8 L, BUN/Creatinine Ratio 24.3 H, Glucose 116 H, Hemoglobin A1c 7.6 H, Calcium 8.3 L, Phosphorus 8.4 H, Magnesium 1.5 L 10/22/24 06:16: POC Glucose 106 10/22/24 11:57: Hep Bs Antigen Non-Reactive 10/22/24 12:02: POC Glucose 103 Physical Exam Narrative General: Alert, Oriented x3, Cooperative, No apparent distress HEENT: Atraumatic, PERRLA, EOMI, Normocephalic Oral: Moist Mucosa Neck: Supple, No JVD Lungs: Clear to auscultation, Normal air movement, No rhonchi, No wheeze, No rales Cardiovascular: Regular rate, Regular Rhythm, Normal S1, Normal S2, No murmurs Abdomen: Soft, Non Tender, Non-Distended, No Hepato-splenomegaly Extremities: Edema, Capillary Refill Less than 3 Seconds Skin: No rashes, No breakdown Musculoskeletal: No Tenderness to Palpation of Joints or Extremities Neurological: No focal neurological deficits, Motor Exam 5/5 strength throughout, Sensory exam intact to light touch and pain Psych/Mental Status: Normal Affect, Appropriate Assessment & Plan Assessment/Plan (1) Acute kidney injury: PLAN: Plan # BRAYAN on CKD stage IIIa, concern for nephrotic syndrome -Creatinine 2.66 with a baseline around 1.2 -Will hold losartan -May be cardiorenal but cannot say definitively -Trialing small dose of IV Lasix as above and will monitor renal function closely -Will obtain bladder scan -Urine electrolytes -UA -Urine microalbumin -Low threshold for nephrology consult if worsening -Monitor I's and O's -10/18: Kidney function today similar to previous. Discussed with nephrology. In August she had a creatinine of 1 and her creatinine albumin ratio was 360, now she has nephrotic range proteinuria 10 g and microscopic hematuria with serum albumin 2.6, concern for nephrotic syndrome. Serology sent out patient will need kidney biopsy, Plavix held and will need kidney biopsy next week. -10/19: Kidney function further worsened with a creatinine of 3.16 and a BUN of 112, nephrology following, plan for kidney biopsy next week, Plavix on hold. Will further down titrate Neurontin given creatinine clearance -10/20: Continues to worsen, will need biopsy, nephrology following. CT-guided biopsy ordered but Plavix has to be held for 5 days, tentatively biopsy for Monday -10/21: Biopsy Monday, if kidney function continues to worsen she has decreased output may need dialysis, discussed with nephrology and is advised to consult surgery for tunneled dialysis catheter with anticipation that if patient needs dialysis will be in the next 24 to 48 hours. Last dose of Plavix morning of 10/18/2024. Patient to receive another dose of IV Lasix today 10/22/2024: Renal function continues to worsen appreciate nephrology's assistance. Plan for tunneled dialysis catheter today and renal biopsy tomorrow. Hopefully will receive short course of dialysis today # Hyperkalemia -10/20: Will order Kayexalate, hold potassium supplementation, notify nephrology. Potassium did downtrend with this -10/21: Renal diet, potassium 5.1 this a.m., repeat tomorrow # Fluid overload with anasarca, possibly due to nephrotic syndrome -Admit to telemetry -BNP 323 -CXR read as atelectasis -Will give small dose of IV Lasix to assess response clinically and with renal function -No echo available in our system -Echo ordered -Daily weights, I's and O's -Heart healthy diet -10/18: Initially thought new onset heart failure however patient's echo with normal EF but indeterminate diastolic function. Her anasarca is likely due to nephrotic syndrome, IV Lasix scheduled 40 every 8 by nephrology -10/19: Patient on IV Lasix, nephrology following, monitoring I's and O's -10/20: Patient has been diuresed, Lasix now held due to BRAYAN. Discussed with nephrology -10/21: Patient received another dose of IV Lasix, now feels swollen in her arms # Hypertensive urgency versus emergency -Patient with systolic blood pressure in the 200s down into the 190s the patient does report intermittent headaches and does have this renal failure and shortness of breath -Will increase patient's amlodipine -Continue metoprolol, may need to switch to carvedilol -given kidney function holding her lisinopril/HCTZ combination -Adding hydralazine as needed, will adjust medications based on labs and vitals moving forward -10/18: On amlodipine, Lasix added, voiding DARCI and HCTZ at this time -10/19: Patient is a BP still considerably variable but blood pressure/morning is 150/79 which is better than it had been -10/20: Continues to be quite variable, continue to monitor, has as needed hydralazine and on amlodipine -10/21: Scheduled hydralazine was added to her current scheduled regimen, also add as needed labetalol #Type 2 diabetes mellitus -Glucose checks and sliding scale insulin -Continue home long-acting insulin, will resume at slightly decreased dose as patient reports poor appetite and want to avoid hypoglycemia -10/18: Glucose fairly well-controlled on current regimen, will continue -10/19: Glucose only 94 today, decrease long-acting and hold short acting while continuing sliding scale. Can reuptitrate with worsening kidney function patient may have decreased clearance and want to avoid hypoglycemia -10/20: Will further decrease given patient's glucose is 80 today -10/21: Glucose continues to be low 100s to 80s which is tighter control than is necessary for acute hospitalization, decreasing glargine further Chronic medical problems: #Hypothyroidism -Continue Synthroid -Will check TSH -10/18: TSH 45, patient reports compliance with her medication and the way she is supposed to take it but unclear. Will continue her current Synthroid. Will need to repeat labs -10/19: Continuing Synthroid at this time #Hx CVA -Continue Plavix and atorvastatin -10/18: Holding Plavix to allow for kidney biopsy next week -10/19: Plavix remains on hold, continue statin and continue fenofibrate #GERD -Continue PPI DVT: Heparin Charges/Coding Visit Charges Inpatient E&M: 40140 Subs Hosp L2
[2024-10-22] MEDS: Pantoprazole Sodium 40 MG Tablet PO (17:08)
[2024-10-22] MEDS: Acetaminophen 325 MG Tablet 650 MG PO (17:09)
[2024-10-22] MEDS: Gabapentin 100 MG Capsule PO (17:17)
[2024-10-22] MEDS: Sodium Polystyrene Sulfonate 15 GM/60 ML UDC 30 GM PO (17:19)
[2024-10-22 17:24] LABS: Bedside Glucose 92 mg/dL (74-106)
--- NOTE | 2024-10-22 21:11 | POSTOPAN2_ITS ---
Anesthesia Postop Eval I Sum Postop Eval Completion status Anesthesia document: Postop Eval 1 completed: Yes Anesthesia Postop Eval I Summary Anesthesia Postop Eval I Summary: Anesthesia Postop Eval I: Assessment Summary Airway patent Yes 10/22/24 16:03 [employer] SAL[employer] [email or web address] [email or web address] Spontaneous unlabored Yes 10/22/24 16:03 [employer] SAL[employer] ENERGY ADVISOR.[email or web address] respirations Mental status Awake 10/22/24 16:03 [employer] SALES ENERGY [email or web address].[email or web address] nausea No 10/22/24 16:03 SOLAR SALES ENERGY ADVISOR.[email or web address] Vomiting No 10/22/24 16:03 SOLAR SALES ENERGY [email or web address] Anesthesia Postop Eval I: Fluid Summary Crystalloid volume administer 300 10/22/24 16:03 SOLAR SALES ENERGY [email or web address].[email or web address] (ml) Colloids volume administered ( ml) Blood Product volume administered (ml) Total IV fluid infused 300 10/22/24 16:03 SOLAR SALES ENERGY [email or web address] Anesthesia Postop Eval I: Summary Notes Anesthesia Complication No 10/22/24 16:03 SOLAR SALES ENERGY [email or web address] Anesthesia Complication Comment: Post-operative progress note Anesthesia: Postop Eval II Evaluation Mental status: Awake and Calm Pain Level: 1 nausea: No Vomiting: No Complications Anesthesia Complication: No
--- NOTE | 2024-10-22 21:11 | PCM.POSTANE2 ---
Anesthesia Postop Eval I Sum Postop Eval Completion status Anesthesia document: Postop Eval 1 completed: Yes Anesthesia Postop Eval I Summary Anesthesia Postop Eval I Summary: Anesthesia Postop Eval I: Assessment Summary Airway patent Yes 10/22/24 16:03 [email or web address] [email or web address] Spontaneous unlabored Yes 10/22/24 16:03 INDUSTRIAL [email or web address] respirations Mental status Awake 10/22/24 16:03 INDUSTRIAL [email or web address] nausea No 10/22/24 16:03 INDUSTRIAL ENG.RWOO Vomiting No 10/22/24 16:03 INDUSTRIAL ENG.[email or web address] Anesthesia Postop Eval I: Fluid Summary Crystalloid volume administer 300 10/22/24 16:03 INDUSTRIAL ENG.[email or web address] (ml) Colloids volume administered ( ml) Blood Product volume administered (ml) Total IV fluid infused 300 10/22/24 16:03 [email or web address] [email or web address] Anesthesia Postop Eval I: Summary Notes Anesthesia Complication No 10/22/24 16:03 INDUSTRIAL ENG.[email or web address] Anesthesia Complication Comment: Post-operative progress note Anesthesia: Postop Eval II Evaluation Mental status: Awake and Calm Pain Level: 1 nausea: No Vomiting: No Complications Anesthesia Complication: No
[2024-10-22] MEDS: Heparin Injection (Vial) 5,000 UNIT/ML VIAL 5000 UNIT SC (23:18)
[2024-10-23] VITALS (21 sets, daily range): BP systolic 117–221; BP diastolic 64–93; PULSE 76–925; RESP 12–24; TEMP 36.1–37.1; O2SAT 93–100; BMI 29.5
--- NOTE | 2024-10-23 | KI_PTH ---
PATIENT: GABRIELLE RIDLEY LOC: PCU U#:[id number] AGE/SX: 73/F ROOM: [facility] RE10/17/[address]: Dr. Noemi Simmons MD : 1950 BED: 1 DIS: 10/28/2024 SPEC #: [id number] RECD: 10/23/24 10:23 STATUS: RAKESH REGenoveva #: [id number] SUNIL: 10/23/24 00:[address]: Miguel Bailey DEPT: SURGICAL PATHOLOGY RECD BY: Eboni Xie ENTERED: 10/23/24 10:29 SP TYPE: KIDNEY BX OTHR DR: MD Dr. Carmen Rodriguez MD Dr. Steven A Wanek, MD Dr. 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 Underlying hypertensive and diabetic changes. Interstitial fibrosis. Acute tubule injury and necrosis. Arteriole thickening and hyalinosis. Ultrastructure examination supports mesangial deposits. See comment. 10/31/2024 COMMENT Correlate clinically with history and onset of symptoms. Slides reviewed with Dr. Patino who occurs. 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 Ultrastructure examination supports mesangial deposits. Columbia classification MEST-C scoring is M-1, E-1, S-1, T-1, C-0. There are underlying chronic renal disease changes including hypertensive and diabetic changes. MICROSCOPIC DESCRIPTION Slides are reviewed. Light microscopy examined with H&E, PAS, Mckeon silver, trichrome and Congo red stains yield adequate renal cortex for evaluation yielding 33 glomeruli; of which 7 are globally sclerosed. Glomeruli demonstrate proliferative mesangial changes (M-1,E1 scoring) with diffuse neutrophilic acute inflammation and rare fibrinoid necrotic change. There is expansion of the mesangium with focal segmental micronodularity and sclerosis (S1 changes) and focal Kimmelstiel-Gregorio like nodules. Focal areas of the Olson's capsule demonstrate subtle parietal cells, non-specific; but otherwise there are no definitive crescents (C0 score). The interstitium shows focal mild lymphocytic infiltrate. There are interstitial fibrosis changes seen with trichrome stain; interstitial fibrosis is approximately estimated at 30%. There is proportiante tubule atrophy (T1 score). There is evidence of acute tubular injury and focal acute tubule necrosis. Examination of the arterioles demonstrates thickening of the intima with hyalinosis changes. Congo red stain does not highlight any evidence of amyloid deposition or accumulation. Special stain positive controls are reviewed and deemed adequate. IMMUNOFLUORESCENCE: Tissue frozen and submitted for immunofluorescence evidence yields 5 glomeruli; of which 1 is globally sclerosed. There is a 2+ granular mesangial signal with IgG, IgA, and C3. There is a similar 1-2+ granular signal with lambda. Fibrinogen shows a single nonspecific focus of Olson's capsule signal. There is a background glomerular and cortex signal with albumin. [place], IgM, C1q, and fibrinogen are essentially negative. Positive and negative immunofluorescence controls are reviewed and deemed adequate. ELECTRON MICROSCOPY: Toluidine blue semithin sections demonstrate a glomerulus with proliferative inflammatory findings consistent with light microscopy. Ultrastructure examination demonstrates mesangial substance expansion by variably dense deposits. There is focal involvement of paramesangial and sob endothelial location by deposits. Podocytes demonstrate reactive changes including partial effacement as well as podocyte hypertrophy and microvillous change. There is evidence of mesangial sclerotic change. GROSS DESCRIPTION The entire specimen was sent to [facility] for diagnosis. MR 10/23/2024 A. Received within polytransport media labeled with the patient's name and kidney biopsy are 4 cores of charles-pink soft tissue, measuring 1.4cm, 1.3cm, 1.3cm, and 0.8cm in length and averaging 0.1cm in diameter. Glomeruli are seen under the dissecting microscope. Tissue is submitted fresh for immunofluorescence, in glutaraldehyde for electron microscopy, and the remaining in formalin for light microscopy (cassette A1). Mr 10/31/2024
[2024-10-23 00:07] LABS: Bedside Glucose 194 mg/dL (74-106)
[2024-10-23 05:29] LABS: Hematocrit 30.6 % (37-47); Hemoglobin 9.9 g/dL (12.0-15.0); Mean Corp Hgb Conc 32.4 g/dL (32-36); Mean Corpuscular Hgb 31.2 pg (27.0-32.0); Mean Corpuscular Volume 96.5 fL (81-99); Mean Platelet Vol. 12.3 fl (6.2-12.0); Platelet Count 254 K/mm3 (150-450); RBC Distribution Width CV 15.2 % (11.6-14.6); RBC Distribution Width SD 54.2 fl (35.1-43.9); Red Blood Count 3.17 M/mm3 (4.2-5.4); White Blood Count 7.8 K/mm3 (4.4-11.0)
[2024-10-23] MEDS: hydrALAZINE 50 MG Tablet PO ×3 (05:39→21:12)
[2024-10-23] MEDS: Levothyroxine 125 MCG Tablet PO (05:39)
[2024-10-23 05:56] LABS: Anion Gap 12 (5-15); BUN 141 mg/dL (7-18); BUN/Creat Ratio 21.5 RATIO (10-20); Calcium,Total 8.4 mg/dL (8.5-10.1); Chloride 108 mmol/L (98-107); Creatinine, Serum 6.56 mg/dL (0.55-1.02); EST Glomerular Filtration Rate 7 mL/min (>60); Est Glom Filt Rate - Afr Amer 8 mL/min (>60); Estimated Creatinine Clearance 8.29 ml/min; Glucose 206 mg/dL (74-106); Potassium 5.6 mmol/L (3.5-5.1); Sodium Level 137 mmol/L (136-145)
[2024-10-23 07:12] LABS: Bedside Glucose 175 mg/dL (74-106)
--- NOTE | 2024-10-23 07:22 | PCM.PN.SRG ---
Subjective Subjective Patient evaluated resting comfortably in bed. She notes soreness at the right chest tunneled dialysis catheter site. She notes having a headache this morning. She has not had dialysis yet. She is scheduled to start dialysis later today. Objective Data Objective Data Vital Signs: Vital Signs Temp Pulse Resp BP Pulse Ox O2 Del Method 96.9 F L 78 14 149/72 H 93 Room Air 10/23/24 05:28 10/23/24 05:39 10/23/24 05:28 10/23/24 05:28 10/23/24 05:28 10/23/24 05:36 Oxygen Delivery Method Room Air Weight: 182 lb 12.211 oz Body Mass Index (BMI) 29.5 Intake & Output: Intake and Output for Last 24 Hours 10/21/24 10/22/24 10/23/24 23:59 23:59 23:59 Intake Total 1120 / 1120 Output Total 500 / 510 Balance 620 / 610 Lab / Micro Data 10/23/24 05:03 10/23/24 05:03 Labs: Laboratory Results - last 24 hr 10/22/24 05:25: Hemoglobin A1c 7.6 H 10/22/24 11:57: Hep Bs Antigen Non-Reactive 10/22/24 12:02: POC Glucose 103 10/22/24 16:59: POC Glucose 92 10/22/24 23:12: POC Glucose 194 H 10/23/24 05:03: WBC 7.8, RBC 3.17 L, Hgb 9.9 L, Hct 30.6 L, MCV 96.5, MCH 31.2, MCHC 32.4, RDW Std Deviation 54.2 H, RDW Coeff of John 15.2 H, Plt Count 254, MPV 12.3 H, Sodium 137, Potassium 5.6 H, Chloride 108 H, Carbon Dioxide 17.0 L, Anion Gap 12, BUN 141 H*, Creatinine 6.56 H, Estim Creat Clear Calc 8.29, Est GFR (MDRD) Af Amer 8 L, Est GFR (MDRD) Non-Af 7 L, BUN/Creatinine Ratio 21.5 H, Glucose 206 H, Calcium 8.4 L 10/23/24 06:54: POC Glucose 175 H Radiography Diagnostic Testing: Radiology Impression Chest X-Ray 10/22/24 16:10 IMPRESSION: Mild infiltrates/atelectasis at the costophrenic angles. Electronically Signed: Dedrick Israel DO at 17:02 EST Reading Location ID and State: [facility] / [place] Tel [phone], Service support , Physical Exam Chest Chest Narrative: Right chest- tunneled dialysis catheter intact. Very minimal amount of dried blood noted by the port sites and a small flash of bright red blood at the catheter exit point, however appears to be contained and it does not appear to be actively oozing. Neck insertion site is c/d/i. No ecchymosis noted. Assessment & Plan Assessment/Plan (1) Acute kidney injury: PLAN: I am following this patient in conjunction with Dr. Gomez. Catheter appears to be intact and ready for use We will follow as needed Thank you for allowing us to participate in this patient's care Please reach out if there are any further needs. Thank you Charges/Coding Visit Charges Inpatient E&M: 01278 Subs Hosp L1 (No charge; post-op)
--- NOTE | 2024-10-23 08:54 | PN.RENAL_ITS ---
Subjective Subjective Following for BRAYAN/nephrotic syndrome. Patient is status post kidney biopsy. She is seen during hemodialysis treatment today. Patient is in better spirit. She denies current chest pain or shortness of breath. However, edema has worsened in severity. Objective Data Objective Data Vital Signs: Vital Signs Temp Pulse Resp BP Pulse Ox O2 Del Method 96.9 F L 78 14 149/72 H 93 Room Air 10/23/24 05:28 10/23/24 05:39 10/23/24 05:28 10/23/24 05:28 10/23/24 05:28 10/23/24 07:51 Oxygen Delivery Method Room Air Weight: 82.9 kg Body Mass Index (BMI) 29.5 Intake & Output: Intake and Output for Last 24 Hours 10/21/24 10/22/24 10/23/24 23:59 23:59 23:59 Intake Total 1120 / 1120 Output Total 500 / 510 Balance 620 / 610 Lab / Micro Data 10/23/24 05:03 10/23/24 05:03 Labs: Laboratory Results - last 24 hr 10/22/24 05:25: Hemoglobin A1c 7.6 H 10/22/24 11:57: Hep Bs Antigen Non-Reactive 10/22/24 12:02: POC Glucose 103 10/22/24 16:59: POC Glucose 92 10/22/24 23:12: POC Glucose 194 H 10/23/24 05:03: WBC 7.8, RBC 3.17 L, Hgb 9.9 L, Hct 30.6 L, MCV 96.5, MCH 31.2, MCHC 32.4, RDW Std Deviation 54.2 H, RDW Coeff of John 15.2 H, Plt Count 254, MPV 12.3 H, Sodium 137, Potassium 5.6 H, Chloride 108 H, Carbon Dioxide 17.0 L, Anion Gap 12, BUN 141 H*, Creatinine 6.56 H, Estim Creat Clear Calc 8.29, Est GFR (MDRD) Af Amer 8 L, Est GFR (MDRD) Non-Af 7 L, BUN/Creatinine Ratio 21.5 H, Glucose 206 H, Calcium 8.4 L 10/23/24 06:54: POC Glucose 175 H Radiography Diagnostic Testing: Radiology Impression Chest X-Ray 10/22/24 16:10 IMPRESSION: Mild infiltrates/atelectasis at the costophrenic angles. Electronically Signed: Dedrick Israel, DO at 17:02 EST Reading Location ID and State: [facility] / [place] Tel [phone], Service support , Physical Exam Narrative Alert awake oriented x 3 no obvious distress Normal s1s2 without no murmurs lungs are clear to auscultation anteriorly abdomen soft, nontender 3+ upper and lower extremity edema/anasarca Assessment & Plan Assessment/Plan (1) Acute kidney injury: (2) Nephrotic syndrome: PLAN: Plan Assessment/Plan: The patient is a 73-year-old female with past history of CKD stage G3a, type 2 diabetes mellitus, hypertension, stroke, hypothyroidism, rheumatoid arthritis, and hyperlipidemia. Patient presented to hospital on 10/17/2024 with generalized weakness and malaise. Patient was also told to come to the hospital because of increasing edema/anasarca, dyspnea, and decreased kidney function found on outpatient labs. Nephrology is following for BRAYAN on CKD in the setting of nephrotic syndrome. BRAYAN on CKD stage G3a with nephrotic syndrome. The patient has baseline serum creatinine 1.20 mg/dL (January 2024). Patient presented to hospital with serum creatinine of 2.66 mg/dL on 10/17/2024 with serum albumin of 2.6 g/dL. Urine albumin to creatinine ratio is 10 g/g. ANCAs are negative. Complements are normal. Result of double-stranded DNA antibody is pending. We also sent phospholipase A2 receptor antibody and glomerular basement membrane antibody to be complete. Results of the studies are pending. The patient is status post kidney biopsy today on 10/23/2024. Biopsy has been delayed because patient had been on clopidogrel. Because of worsening kidney function, the patient will be dialyzed today. Will plan on dialyzing patient again on 07/24/2025 and 07/25/2025 as well. Response to IV furosemide on 10/21/2024 was underwhelming. Therefore, we will not retreat the patient with diuretic. We will ultrafilter patient with hemodialysis to control volume. We can determine treatment and prognosis once we have a more definitive diagnosis from kidney biopsy. I suspect patient will need dialysis for a while, so we will start the process of finding outpatient dialysis unit for the patient. Hyperkalemia. Potassium level was 5.6 mmol/L today on 10/23/2024. Hyperkalemia is due to BRAYAN. We will dialyze patient today using 2K dialysate. Hyperphosphatemia. Phosphorus level was 8.4 mg/dL on 10/22/2024 with calcium level of 8.4 mg/dL today on 10/23/2024. Phosphorus level should improve with dialysis. However, I will start patient on sevelamer to bind phosphorus as well.
[2024-10-23] MEDS: 0.9% Saline Lock 10 ML Syringe IV ×3 (09:03→11:49)
[2024-10-23] MEDS: fentaNYL 100 MCG/2 ML Ampul IV ×2 (09:35→09:54)
[2024-10-23] MEDS: Midazolam 2 MG/2 ML Syringe IV (09:45)
[2024-10-23] MEDS: Lidocaine 2% (20 ml mdv) 20 ML Vial INFILT (10:00)
--- NOTE | 2024-10-23 10:16 | OP.PCM_ITS ---
Problems Associated Problem List Diagnoses (1) Nephrotic syndrome: Multi Select Codes Radiology Radiology CT Procedures: 16852 Biopsy Kidney and 44730-41 CT guidance parenchymal tissue Operative Report (Standard) Operative Information Date of Procedure: 10/23/24 Pre-Operative Diagnosis: Nephrotic syndrome Post-Operative Diagnosis: Nephrotic syndrome Surgery/Procedure Performed: CT-guided renal biopsy rock wool applicator: No Type of Anesthesia: IV Sedation and Local RN Documented Start/Stop Times: Operation Date: 10/22/24 13:45 Case Time Into Pre-Op 10/22/24 13:06 Out of Pre-Op 10/22/24 15:00 Anesthesia Start 10/22/24 15:04 Into Room 10/22/24 15:04 Procedure Start 10/22/24 15:26 Procedure End 10/22/24 15:49 Anesthesia End 10/22/24 15:53 Out of Room 10/22/24 15:53 Into Recovery 10/22/24 15:55 Out of Recovery 10/22/24 16:29 Procedure Start Time: 09:45 Procedure Stop Time: 10:09 Select all DRAINS/GRAFTS/IMPLANTS that apply: None Estimated Blood Loss: 5 cc Specimen collected: Yes Description of specimen(s) removed: For core biopsies Description of surgery: PROCEDURE: CT GUIDED RIGHT PERCUTANEOUS KIDNEY BIOPSY ORDERING PROVIDER: Dr. Bailey INDICATION: Female, 73 years old. Nephrotic syndrome. PROVIDER: Xochilt Guzman CNP CONSENT: Written informed consent was obtained having explained the risks, benefits and alternatives in detail with the patient. The specific risk of hemorrhage requiring further treatment or intervention was detailed and accepted. Informed consent was obtained. Laboratory review and clinical assessment was performed. PRE-PROCEDURE SEDATION ASSESSMENT: Current history and physical dictated by referring provider and reviewed. No clinical changes since date of exam. Patient has a Mallampati Score of Class 3 and ASA Class of 3. PROCEDURAL SEDATION PROTOCOL: The Drugs used were: 1 mg Versed, IV, and 100 mcg Fentanyl, IV. The sedation time was: starting at 9:45 AM and terminated at 10:09 AM. The procedural sedation protocol was independently monitored by the department nurse. RADIATION DOSAGE (If Supplied By Facility): CTDIvol = 15.98 mGy, DLP = 213.00 mGycm Individualized dose optimization techniques were used for this CT. TECHNIQUE The patient was placed on the CT table in the prone position. Multiple axial images were obtained from the lung base through the caudal extent of the kidneys. An appropriate entry site was identified and a carmella made on the skin. The skin overlying the right posterior flank was prepped with chlorhexidine and draped in sterile fashion. 2% lidocaine was administered subcutaneously for local anesthesia. Using CT guidance, an 18-gauge coaxial biopsy device was advanced to the avascular plane of Brodel, posterior to the lateral convex border of the kidney. A total of 4 core specimens were obtained. Specimens were microscopically reviewed by pathology in the CT suite and placed in appropriate solution for specimen for further analysis. The needle was withdrawn. Hemostasis was achieved with manual compression and a sterile dressing was applied. The patient tolerated the procedure well without immediate complications. The patient returned to the holding bay in stable condition for nursing monitoring, per protocol. IMPRESSION: Successful CT guided percutaneous right kidney biopsy. Pathology results are pending. Procedural Sedation protocol utilized with independent monitoring by the department nurse. Surgical Findings: None Complications Complications: No
[2024-10-23] MEDS: Heparin 10,000 UNITS/10 ML Vial IV (11:47)
[2024-10-23] MEDS: 0.9% Normal Saline 1,000 ML IV.SOLN. 1000 ML OPERA.SITE (11:48)
[2024-10-23] MEDS: PureFlow B 2K Dialysis Soln 1 BAG 6 BAG PF (11:48)
--- NOTE | 2024-10-23 11:55 | NURSING ---
During dialysis tx, pt's arterial pressure continued to alarm past high limits. Despite interventions, unable to complete pt's dialysis tx d/t catheter malfunction. environmental service aide Deepak notified nephrology and surgery JESSICA Medellin. This environmental service aide deaccessed pt from dialysis tx. Awaiting POC. Primary RN Saskia updated.
--- NOTE | 2024-10-23 12:15 | CASEMGMT ---
DOMINIQUE XAVIER updated by jackerman that patient will need outpatient HD at discharge. DOMINIQUE XAVIER in to discuss outpatient HD with patient. RN MORENITA reviewed HD facilities, patient prefers [facility]. Patient had no further questions or concerns. DOMINIQUE XAVIER completed referral via [employer], awaiting chair time. CM will continue to follow this patient and plan for a safe discharge.
--- NOTE | 2024-10-23 12:41 | NUR.TO.PHY ---
Discussed dialysis cath malfunction w/ motel front desk clerk, Dr. Thornton & Danni from surgery. Will attempt HD early on 10/24 to r/o surgical trauma/swelling as cause of malfunction. If cvc still not functional, cvc will be replaced.
[2024-10-23] MEDS: Gabapentin 100 MG Capsule PO ×2 (12:50→17:23)
[2024-10-23] MEDS: Pantoprazole Sodium 40 MG Tablet PO (12:51)
[2024-10-23] MEDS: Sodium Polystyrene Sulfonate 15 GM/60 ML UDC 30 GM PO (12:51)
[2024-10-23] MEDS: SEVELAMER CARBONATE 800 MG TABLET PO ×2 (12:51→19:25)
[2024-10-23] MEDS: Metoprolol(XL)Succ 50 MG Tablet PO (12:51)
[2024-10-23 13:16] LABS: Bedside Glucose 160 mg/dL (74-106)
--- NOTE | 2024-10-23 14:07 | PN.HOSP_ITS ---
Subjective Subjective Doing well, was unable to have dialysis yesterday may be a slight issue with the line. Will reattempt tomorrow morning Objective Data Objective Data Vital Signs: Vital Signs Temp Pulse Resp BP Pulse Ox O2 Del Method O2 Flow Rate 97.4 F L 88 14 117/68 97 Room Air 2 10/23/24 11:36 10/23/24 12:51 10/23/24 11:36 10/23/24 11:36 10/23/24 11:36 10/23/24 11:36 10/23/24 10:08 Oxygen Flow Rate (L/min) 2 Oxygen Delivery Method Room Air Weight: 182 lb 12.211 oz Body Mass Index (BMI) 29.5 Intake & Output: Intake and Output for Last 24 Hours 10/22/24 10/23/24 10/24/24 03:59 03:59 03:59 Intake Total 1120 / 1120 240 / 240 Output Total 510 / 510 0 / 0 180 / 180 Balance 610 / 610 60 / 60 Lab / Micro Data 10/23/24 05:03 10/23/24 05:03 Labs: Laboratory Results - last 24 hr 10/22/24 16:59: POC Glucose 92 10/22/24 23:12: POC Glucose 194 H 10/23/24 05:03: WBC 7.8, RBC 3.17 L, Hgb 9.9 L, Hct 30.6 L, MCV 96.5, MCH 31.2, MCHC 32.4, RDW Std Deviation 54.2 H, RDW Coeff of John 15.2 H, Plt Count 254, MPV 12.3 H, Sodium 137, Potassium 5.6 H, Chloride 108 H, Carbon Dioxide 17.0 L, Anion Gap 12, BUN 141 H*, Creatinine 6.56 H, Estim Creat Clear Calc 8.29, Est GFR (MDRD) Af Amer 8 L, Est GFR (MDRD) Non-Af 7 L, BUN/Creatinine Ratio 21.5 H, Glucose 206 H, Calcium 8.4 L 10/23/24 06:54: POC Glucose 175 H 10/23/24 12:53: POC Glucose 160 H Radiography Diagnostic Testing: Radiology Impression Chest X-Ray 10/22/24 16:10 IMPRESSION: Mild infiltrates/atelectasis at the costophrenic angles. Electronically Signed: Dedrick Israel DO at 17:02 EST Reading Location ID and State: [facility] / [place] Tel [phone], Service support , Physical Exam Narrative General: Alert, Oriented x3, Cooperative, No apparent distress HEENT: Atraumatic, PERRLA, EOMI, Normocephalic Oral: Moist Mucosa Neck: Supple, No JVD Lungs: Clear to auscultation, Normal air movement, No rhonchi, No wheeze, No rales Cardiovascular: Regular rate, Regular Rhythm, Normal S1, Normal S2, No murmurs Abdomen: Soft, Non Tender, Non-Distended, No Hepato-splenomegaly Extremities: Edema, Capillary Refill Less than 3 Seconds Skin: No rashes, No breakdown Musculoskeletal: No Tenderness to Palpation of Joints or Extremities Neurological: No focal neurological deficits, Motor Exam 5/5 strength throughout, Sensory exam intact to light touch and pain Psych/Mental Status: Normal Affect, Appropriate Assessment & Plan Assessment/Plan (1) Acute kidney injury: PLAN: Plan # BRAYAN on CKD stage IIIa, concern for nephrotic syndrome -Creatinine 2.66 with a baseline around 1.2 -Will hold losartan -May be cardiorenal but cannot say definitively -Trialing small dose of IV Lasix as above and will monitor renal function closely -Will obtain bladder scan -Urine electrolytes -UA -Urine microalbumin -Low threshold for nephrology consult if worsening -Monitor I's and O's -10/18: Kidney function today similar to previous. Discussed with nephrology. In August she had a creatinine of 1 and her creatinine albumin ratio was 360, now she has nephrotic range proteinuria 10 g and microscopic hematuria with serum albumin 2.6, concern for nephrotic syndrome. Serology sent out patient will need kidney biopsy, Plavix held and will need kidney biopsy next week. -10/19: Kidney function further worsened with a creatinine of 3.16 and a BUN of 112, nephrology following, plan for kidney biopsy next week, Plavix on hold. Will further down titrate Neurontin given creatinine clearance -10/20: Continues to worsen, will need biopsy, nephrology following. CT-guided biopsy ordered but Plavix has to be held for 5 days, tentatively biopsy for Monday -10/21: Biopsy Wednesday, if kidney function continues to worsen she has decreased output may need dialysis, discussed with nephrology and is advised to consult surgery for tunneled dialysis catheter with anticipation that if patient needs dialysis will be in the next 24 to 48 hours. Last dose of Plavix morning of 10/18/2024. Patient to receive another dose of IV Lasix today 10/22/2024: Renal function continues to worsen appreciate nephrology's assistance. Plan for tunneled dialysis catheter today and renal biopsy tomorrow. Hopefully will receive short course of dialysis today 10/23/2024: Unable to do dialysis last night due to issues with the line, it is felt to possibly be due to swelling so we will retry again tomorrow morning. If unable to dialyze tomorrow morning we will have to adjust her dialysis catheter # Hyperkalemia -10/20: Will order Kayexalate, hold potassium supplementation, notify nephrology. Potassium did downtrend with this -10/21: Renal diet, potassium 5.1 this a.m., repeat tomorrow 10/23/2024: Potassium 5.6 creatinine continues to climb with phosphorus of 8.4 # Fluid overload with anasarca, possibly due to nephrotic syndrome -Admit to telemetry -BNP 323 -CXR read as atelectasis -Will give small dose of IV Lasix to assess response clinically and with renal function -No echo available in our system -Echo ordered -Daily weights, I's and O's -Heart healthy diet -10/18: Initially thought new onset heart failure however patient's echo with normal EF but indeterminate diastolic function. Her anasarca is likely due to nephrotic syndrome, IV Lasix scheduled 40 every 8 by nephrology -10/19: Patient on IV Lasix, nephrology following, monitoring I's and O's -10/20: Patient has been diuresed, Lasix now held due to BRAYAN. Discussed with nephrology -10/21: Patient received another dose of IV Lasix, now feels swollen in her arms # Hypertensive urgency versus emergency -Patient with systolic blood pressure in the 200s down into the 190s the patient does report intermittent headaches and does have this renal failure and shortness of breath -Will increase patient's amlodipine -Continue metoprolol, may need to switch to carvedilol -given kidney function holding her lisinopril/HCTZ combination -Adding hydralazine as needed, will adjust medications based on labs and vitals moving forward -10/18: On amlodipine, Lasix added, voiding DARCI and HCTZ at this time -10/19: Patient is a BP still considerably variable but blood pressure/morning is 150/79 which is better than it had been -10/20: Continues to be quite variable, continue to monitor, has as needed hydralazine and on amlodipine -10/21: Scheduled hydralazine was added to her current scheduled regimen, also add as needed labetalol #Type 2 diabetes mellitus -Glucose checks and sliding scale insulin -Continue home long-acting insulin, will resume at slightly decreased dose as patient reports poor appetite and want to avoid hypoglycemia -10/18: Glucose fairly well-controlled on current regimen, will continue -10/19: Glucose only 94 today, decrease long-acting and hold short acting while continuing sliding scale. Can reuptitrate with worsening kidney function patient may have decreased clearance and want to avoid hypoglycemia -10/20: Will further decrease given patient's glucose is 80 today -10/21: Glucose continues to be low 100s to 80s which is tighter control than is necessary for acute hospitalization, decreasing glargine further Chronic medical problems: #Hypothyroidism -Continue Synthroid -Will check TSH -10/18: TSH 45, patient reports compliance with her medication and the way she is supposed to take it but unclear. Will continue her current Synthroid. Will need to repeat labs -10/19: Continuing Synthroid at this time #Hx CVA -Continue Plavix and atorvastatin -10/18: Holding Plavix to allow for kidney biopsy next week -10/19: Plavix remains on hold, continue statin and continue fenofibrate #GERD -Continue PPI DVT: Heparin Charges/Coding Visit Charges Inpatient E&M: 80791 Subs Hosp L2
--- NOTE | 2024-10-23 14:15 | CASEMGMT ---
DOMINIQUE XAVIER called Janny at [facility] to confirm chart time. Per Janny, patient will be TTS at 1130 with arrival for first appt 1045. DOMINIQUE XAVIER updated discharge plan and notified patient.
[2024-10-23] MEDS: Acetaminophen 325 MG Tablet 650 MG PO (14:34)
[2024-10-23] MEDS: Heparin Injection (Vial) 5,000 UNIT/ML VIAL 5000 UNIT SC ×2 (14:35→21:12)
[2024-10-23] MEDS: Insulin Lispro 100 UNIT/ML INSULN.PEN SC ×2 (17:23→21:23)
[2024-10-23 17:45] LABS: Bedside Glucose 197 mg/dL (74-106)
[2024-10-23] MEDS: Atorvastatin Calcium 80 MG Tablet PO (21:13)
[2024-10-23] MEDS: amLODIPine 10 MG Tablet PO (21:13)
[2024-10-23] MEDS: Insulin Glargine-YFGN 100 UNIT/ML Pen 10 UNIT SC (21:22)
[2024-10-23 22:14] LABS: Bedside Glucose 206 mg/dL (74-106)
[2024-10-24] VITALS (20 sets, daily range): BP systolic 86–204; BP diastolic 68–81; PULSE 63–82; RESP 14–18; TEMP 36.1–37.1; O2SAT 92–98; BMI 29.4; BMI 29.0
[2024-10-24 04:18] LABS: Hematocrit 24.4 % (37-47); Hemoglobin 8.1 g/dL (12.0-15.0); Mean Corp Hgb Conc 33.2 g/dL (32-36); Mean Corpuscular Volume 96.4 fL (81-99); Mean Platelet Vol. 12.2 fl (6.2-12.0); Platelet Count 194 K/mm3 (150-450); RBC Distribution Width CV 15.3 % (11.6-14.6); RBC Distribution Width SD 54.1 fl (35.1-43.9); Red Blood Count 2.53 M/mm3 (4.2-5.4); White Blood Count 9.6 K/mm3 (4.4-11.0)
[2024-10-24 04:41] LABS: Anion Gap 12 (5-15); BUN 139 mg/dL (7-18); BUN/Creat Ratio 19.4 RATIO (10-20); Calcium,Total 7.9 mg/dL (8.5-10.1); Chloride 108 mmol/L (98-107); Creatinine, Serum 7.16 mg/dL (0.55-1.02); EST Glomerular Filtration Rate 6 mL/min (>60); Est Glom Filt Rate - Afr Amer 7 mL/min (>60); Estimated Creatinine Clearance 7.59 ml/min; Glucose 134 mg/dL (74-106); Potassium 5.3 mmol/L (3.5-5.1); Sodium Level 136 mmol/L (136-145)
[2024-10-24] MEDS: hydrALAZINE 50 MG Tablet PO ×3 (05:18→21:35)
[2024-10-24] MEDS: Levothyroxine 125 MCG Tablet PO (05:18)
[2024-10-24] MEDS: Heparin Injection (Vial) 5,000 UNIT/ML VIAL 5000 UNIT SC ×2 (05:18→14:16)
[2024-10-24] MEDS: Acetaminophen 325 MG Tablet 650 MG PO ×2 (05:21→12:36)
[2024-10-24] MEDS: 0.9% Normal Saline 1,000 ML IV.SOLN. 1000 ML OPERA.SITE (07:48)
[2024-10-24] MEDS: 0.9% Saline Lock 10 ML Syringe IV ×3 (07:49→18:44)
[2024-10-24] MEDS: PureFlow B 2K Dialysis Soln 1 BAG 6 BAG PF (07:49)
[2024-10-24 08:11] LABS: Bedside Glucose 122 mg/dL (74-106)
--- NOTE | 2024-10-24 08:29 | PCM.PN.SRG ---
Subjective Subjective Patient evaluated resting comfortably in bed and on dialysis. Patient notes soreness at the catheter site. Catheter seems to be working well. Objective Data Objective Data Vital Signs: Vital Signs Temp Pulse Resp BP Pulse Ox O2 Del Method O2 Flow Rate 97.4 F L 63 15 134/76 H 92 Room Air 2 10/24/24 07:29 10/24/24 08:04 10/24/24 08:04 10/24/24 08:04 10/24/24 05:13 10/24/24 08:04 10/23/24 10:08 Oxygen Flow Rate (L/min) 2 Oxygen Delivery Method Room Air Weight: 182 lb 5.156 oz Body Mass Index (BMI) 29.4 Intake & Output: Intake and Output for Last 24 Hours 10/22/24 10/23/24 10/24/24 23:59 23:59 23:59 Intake Total 480 / 480 Output Total 480 / 480 Balance 0 / 0 Lab / Micro Data 10/24/24 04:06 10/24/24 04:06 Labs: Laboratory Results - last 24 hr 10/18/24 11:45: Double Strand DNA Ab 10/21/24 05:17: Miscellaneous Test COMMENT 10/23/24 12:53: POC Glucose 160 H 10/23/24 17:21: POC Glucose 197 H 10/23/24 21:21: POC Glucose 206 H 10/24/24 04:06: WBC 9.6, RBC 2.53 L, Hgb 8.1 L, Hct 24.4 L, MCV 96.4, MCH 32.0, MCHC 33.2, RDW Std Deviation 54.1 H, RDW Coeff of John 15.3 H, Plt Count 194, MPV 12.2 H, Sodium 136, Potassium 5.3 H, Chloride 108 H, Carbon Dioxide 17.0 L, Anion Gap 12, BUN 139 H*, Creatinine 7.16 H, Estim Creat Clear Calc 7.59, Est GFR (MDRD) Af Amer 7 L, Est GFR (MDRD) Non-Af 6 L, BUN/Creatinine Ratio 19.4, Glucose 134 H, Calcium 7.9 L 10/24/24 06:11: POC Glucose 122 H Physical Exam Chest Chest Narrative: Right chest- catheter intact Assessment & Plan Assessment/Plan (1) Acute kidney injury: PLAN: I am following this patient in conjunction with Dr. Gomez. I was notified yesterday that the catheter did not work for dialysis despite trying all the different methods Today, the catheter is working well Patient may have had some swelling from the surgery not allowing dialysis to be completed yesterday Pleased to see patient able to receive dialysis today We will sign off at this time. Please recontact if our services are needed. Thank you Charges/Coding Visit Charges Inpatient E&M: 40157 Subs Hosp L1 (Post-op; no charge)
[2024-10-24] MEDS: Pantoprazole Sodium 40 MG Tablet PO (10:13)
[2024-10-24] MEDS: Gabapentin 100 MG Capsule PO ×2 (10:13→17:37)
--- NOTE | 2024-10-24 10:23 | CASEMGMT ---
Addendum entered by Radames Gonzales 10/25/24 09:04: [facility] HD tx tomorrow, chair time 11:10 AM w/arrival time 10:45 AM tomorrow. Addendum entered by Radames Gonzales 10/24/24 16:14: Per Yoli, via [employer] portal, pt is financially and medically cleared and 1st treatment is scheduled @ [facility], 10/26. Addendum entered by Radames Gonzales 10/24/24 14:14: Per [employer], Esther Mathias, she has spoken [facility] and pt can to Sat SOC for 1st OP HD in the afternoon. Message sent to Yoli via [employer] to confirm. Original Note: DOMINIQUE XAVIER note: Per Yoli via [employer] portal, financial clearance has been obtained, but medical clearance is still pending. She also states the earliest patient can start OP HD is Sunday 10/29, pending medical clearance. José Antonio CHOW RN, CM
[2024-10-24] MEDS: Heparin 10,000 UNITS/10 ML Vial IV (10:59)
--- NOTE | 2024-10-24 11:07 | PN.HOSP_ITS ---
Subjective Subjective Doing well, no issues overnight able to tolerate dialysis today line is working fine Objective Data Objective Data Vital Signs: Vital Signs Temp Pulse Resp BP Pulse Ox O2 Del Method O2 Flow Rate 97.2 F L 69 14 158/81 H 97 Room Air 2 10/24/24 10:11 10/24/24 10:34 10/24/24 10:34 10/24/24 10:34 10/24/24 10:34 10/24/24 10:34 10/23/24 10:08 Oxygen Flow Rate (L/min) 2 Oxygen Delivery Method Room Air Weight: 182 lb 5.156 oz Body Mass Index (BMI) 29.4 Intake & Output: Intake and Output for Last 24 Hours 10/23/24 10/24/24 10/25/24 03:59 03:59 03:59 Intake Total 480 / 480 Output Total 0 / 0 480 / 480 Balance 0 / 0 Lab / Micro Data 10/24/24 04:06 10/24/24 04:06 Labs: Laboratory Results - last 24 hr 10/18/24 11:45: Double Strand DNA Ab 10/21/24 05:17: Miscellaneous Test COMMENT 10/23/24 12:53: POC Glucose 160 H 10/23/24 17:21: POC Glucose 197 H 10/23/24 21:21: POC Glucose 206 H 10/24/24 04:06: WBC 9.6, RBC 2.53 L, Hgb 8.1 L, Hct 24.4 L, MCV 96.4, MCH 32.0, MCHC 33.2, RDW Std Deviation 54.1 H, RDW Coeff of John 15.3 H, Plt Count 194, MPV 12.2 H, Sodium 136, Potassium 5.3 H, Chloride 108 H, Carbon Dioxide 17.0 L, Anion Gap 12, BUN 139 H*, Creatinine 7.16 H, Estim Creat Clear Calc 7.59, Est GFR (MDRD) Af Amer 7 L, Est GFR (MDRD) Non-Af 6 L, BUN/Creatinine Ratio 19.4, G lucose 134 H, Calcium 7.9 L 10/24/24 06:11: POC Glucose 122 H Physical Exam Narrative General: Alert, Oriented x3, Cooperative, No apparent distress HEENT: Atraumatic, PERRLA, EOMI, Normocephalic Oral: Moist Mucosa Neck: Supple, No JVD Lungs: Clear to auscultation, Normal air movement, No rhonchi, No wheeze, No rales Cardiovascular: Regular rate, Regular Rhythm, Normal S1, Normal S2, No murmurs Abdomen: Soft, Non Tender, Non-Distended, No Hepato-splenomegaly Extremities: Edema, Capillary Refill Less than 3 Seconds Skin: No rashes, No breakdown Musculoskeletal: No Tenderness to Palpation of Joints or Extremities Neurological: No focal neurological deficits, Motor Exam 5/5 strength throughout, Sensory exam intact to light touch and pain Psych/Mental Status: Normal Affect, Appropriate Assessment & Plan Assessment/Plan (1) Acute kidney injury: PLAN: Plan # BRAYAN on CKD stage IIIa, concern for nephrotic syndrome -Creatinine 2.66 with a baseline around 1.2 -Will hold losartan -May be cardiorenal but cannot say definitively -Trialing small dose of IV Lasix as above and will monitor renal function closely -Will obtain bladder scan -Urine electrolytes -UA -Urine microalbumin -Low threshold for nephrology consult if worsening -Monitor I's and O's -10/18: Kidney function today similar to previous. Discussed with nephrology. In August she had a creatinine of 1 and her creatinine albumin ratio was 360, now she has nephrotic range proteinuria 10 g and microscopic hematuria with serum albumin 2.6, concern for nephrotic syndrome. Serology sent out patient will need kidney biopsy, Plavix held and will need kidney biopsy next week. -10/19: Kidney function further worsened with a creatinine of 3.16 and a BUN of 112, nephrology following, plan for kidney biopsy next week, Plavix on hold. Will further down titrate Neurontin given creatinine clearance -10/20: Continues to worsen, will need biopsy, nephrology following. CT-guided biopsy ordered but Plavix has to be held for 5 days, tentatively biopsy for Monday -10/21: Biopsy Monday, if kidney function continues to worsen she has decreased output may need dialysis, discussed with nephrology and is advised to consult surgery for tunneled dialysis catheter with anticipation that if patient needs dialysis will be in the next 24 to 48 hours. Last dose of Plavix morning of 10/18/2024. Patient to receive another dose of IV Lasix today 10/22/2024: Renal function continues to worsen appreciate nephrology's assistance. Plan for tunneled dialysis catheter today and renal biopsy tomorrow. Hopefully will receive short course of dialysis today 10/23/2024: Unable to do dialysis last night due to issues with the line, it is felt to possibly be due to swelling so we will retry again tomorrow morning. If unable to dialyze tomorrow morning we will have to adjust her dialysis catheter 10/24/2024: Continue dialysis today # Hyperkalemia -10/20: Will order Kayexalate, hold potassium supplementation, notify nephrology. Potassium did downtrend with this -10/21: Renal diet, potassium 5.1 this a.m., repeat tomorrow 10/23/2024: Potassium 5.6 creatinine continues to climb with phosphorus of 8.4 10/24/2024: Received Kayexalate yesterday potassium today is 5.3 but receiving dialysis will recheck in the morning # Fluid overload with anasarca, possibly due to nephrotic syndrome -Admit to telemetry -BNP 323 -CXR read as atelectasis -Will give small dose of IV Lasix to assess response clinically and with renal function -No echo available in our system -Echo ordered -Daily weights, I's and O's -Heart healthy diet -10/18: Initially thought new onset heart failure however patient's echo with normal EF but indeterminate diastolic function. Her anasarca is likely due to nephrotic syndrome, IV Lasix scheduled 40 every 8 by nephrology -10/19: Patient on IV Lasix, nephrology following, monitoring I's and O's -10/20: Patient has been diuresed, Lasix now held due to BRAYAN. Discussed with nephrology -10/21: Patient received another dose of IV Lasix, now feels swollen in her arms 10/24/2024: Hopefully that she is starting dialysis her volume overload will improve, will monitor her anemia potentially dilutional # Hypertensive urgency versus emergency -Patient with systolic blood pressure in the 200s down into the 190s the patient does report intermittent headaches and does have this renal failure and shortness of breath -Will increase patient's amlodipine -Continue metoprolol, may need to switch to carvedilol -given kidney function holding her lisinopril/HCTZ combination -Adding hydralazine as needed, will adjust medications based on labs and vitals moving forward -10/18: On amlodipine, Lasix added, voiding DARCI and HCTZ at this time -10/19: Patient is a BP still considerably variable but blood pressure/morning is 150/79 which is better than it had been -10/20: Continues to be quite variable, continue to monitor, has as needed hydralazine and on amlodipine -10/21: Scheduled hydralazine was added to her current scheduled regimen, also add as needed labetalol #Type 2 diabetes mellitus -Glucose checks and sliding scale insulin -Continue home long-acting insulin, will resume at slightly decreased dose as patient reports poor appetite and want to avoid hypoglycemia -10/18: Glucose fairly well-controlled on current regimen, will continue -10/19: Glucose only 94 today, decrease long-acting and hold short acting while continuing sliding scale. Can reuptitrate with worsening kidney function patient may have decreased clearance and want to avoid hypoglycemia -10/20: Will further decrease given patient's glucose is 80 today -10/21: Glucose continues to be low 100s to 80s which is tighter control than is necessary for acute hospitalization, decreasing glargine further Chronic medical problems: #Hypothyroidism -Continue Synthroid -Will check TSH -10/18: TSH 45, patient reports compliance with her medication and the way she is supposed to take it but unclear. Will continue her current Synthroid. Will need to repeat labs -10/19: Continuing Synthroid at this time #Hx CVA -Continue Plavix and atorvastatin -10/18: Holding Plavix to allow for kidney biopsy next week -10/19: Plavix remains on hold, continue statin and continue fenofibrate #GERD -Continue PPI DVT: Heparin Charges/Coding Visit Charges Inpatient E&M: 50233 Subs Hosp L2
[2024-10-24] MEDS: SEVELAMER CARBONATE 800 MG TABLET PO ×2 (12:33→17:37)
[2024-10-24] MEDS: Metoprolol(XL)Succ 50 MG Tablet PO (12:34)
--- NOTE | 2024-10-24 13:05 | PN.RENAL_ITS ---
Subjective Subjective Patient sitting in chair eating lunch. Denies any complaints. Tolerated dialysis today. Objective Data Objective Data Vital Signs: Vital Signs Temp Pulse Resp BP Pulse Ox O2 Del Method O2 Flow Rate 97.2 F L 75 18 169/73 H 98 Room Air 2 10/24/24 12:30 10/24/24 12:34 10/24/24 12:30 10/24/24 12:34 10/24/24 12:30 10/24/24 12:30 10/23/24 10:08 Oxygen Flow Rate (L/min) 2 Oxygen Delivery Method Room Air Weight: 81.5 kg Body Mass Index (BMI) 29.0 Intake & Output: Intake and Output for Last 24 Hours 10/22/24 10/23/24 10/24/24 23:59 23:59 23:59 Intake Total 480 / 480 Output Total 480 / 480 1200 / 1200 Balance 0 / 0 -1200 / -1200 Lab / Micro Data 10/25/24 08:30 10/25/24 08:30 Labs: Laboratory Results - last 24 hr 10/18/24 11:45: Double Strand DNA Ab 10/21/24 05:17: Miscellaneous Test COMMENT 10/23/24 12:53: POC Glucose 160 H 10/23/24 17:21: POC Glucose 197 H 10/23/24 21:21: POC Glucose 206 H 10/24/24 04:06: WBC 9.6, RBC 2.53 L, Hgb 8.1 L, Hct 24.4 L, MCV 96.4, MCH 32.0, MCHC 33.2, RDW Std Deviation 54.1 H, RDW Coeff of John 15.3 H, Plt Count 194, MPV 12.2 H, Sodium 136, Potassium 5.3 H, Chloride 108 H, Carbon Dioxide 17.0 L, Anion Gap 12, BUN 139 H*, Creatinine 7.16 H, Estim Creat Clear Calc 7.59, Est GFR (MDRD) Af Amer 7 L, Est GFR (MDRD) Non-Af 6 L, BUN/Creatinine Ratio 19.4, G lucose 134 H, Calcium 7.9 L 10/24/24 06:11: POC Glucose 122 H Physical Exam Narrative Alert awake oriented x 3 no obvious distress Normal s1s2 without no murmurs lungs are clear to auscultation anteriorly abdomen soft, nontender 3+ upper and lower extremity edema/anasarca Tunneled HD catheter right chest dressing clean, dry and intact Assessment & Plan Assessment/Plan (1) Acute kidney injury: (2) Nephrotic syndrome: PLAN: Plan Assessment/Plan: The patient is a 73-year-old female with past history of CKD stage G3a, type 2 diabetes mellitus, hypertension, stroke, hypothyroidism, rheumatoid arthritis, and hyperlipidemia. Patient presented to hospital on 10/17/2024 with generalized weakness and malaise. Patient was also told to come to the hospital because of increasing edema/anasarca, dyspnea, and decreased kidney function found on outpatient labs. Nephrology is following for BRAYAN on CKD in the setting of nephrotic syndrome. BRAYAN on CKD stage G3a with nephrotic syndrome. The patient has baseline serum creatinine 1.20 mg/dL (January 2024). Patient presented to hospital with serum creatinine of 2.66 mg/dL on 10/17/2024 with serum albumin of 2.6 g/dL. Urine albumin to creatinine ratio is 10 g/g. ANCAs are negative. Complements and double-stranded DNA are normal. We also sent phospholipase A2 receptor antibody and glomerular basement membrane antibody to be complete, pending. The patient is status post kidney biopsy today on 10/23/2024. Biopsy delayed because patient had been on clopidogrel. Response to IV furosemide on 10/21/2024 was under-whelming. Therefore, we will not retreat the patient with diuretic. We will ultrafilter patient with hemodialysis to control volume. We can determine treatment and prognosis once we have a more definitive diagnosis from kidney biopsy, hopefully will have preliminary tomorrow. Discussed with patient to hold off on taking Enbrel until kidney biopsy results. Suspect patient will need dialysis for a while therefore arrangements have been started for outpatient hemodialysis at [facility] followed by Dr. Laughlin, diagnosis BRAYAN. Attempted first dialysis on 10/23 but unable to run due to sluggish hemodialysis catheter. Patient tolerated hemodialysis today with blood flow rate at 400, UF 1.2 L. Will plan for dialysis again tomorrow over 4 hours and attempt fluid removal as patient/blood pressure tolerates. -Hyperphosphatemia; started on Renvela. Will monitor phosphorus levels in outpatient setting. discharge planning discussed with Dr. Bailey and discharge planning team. Outpatient dialysis at [facility] schedule, chair time to still be confirmed.
[2024-10-24 14:13] LABS: Bedside Glucose 124 mg/dL (74-106)
[2024-10-24] MEDS: Insulin Lispro 100 UNIT/ML INSULN.PEN SC ×2 (17:36→21:33)
[2024-10-24 17:48] LABS: Bedside Glucose 164 mg/dL (74-106)
[2024-10-24] MEDS: Ondansetron 4 MG/2 ML Vial IV (18:43)
--- NOTE | 2024-10-24 21:20 | NURSING ---
Pt is nauseous and requesting to not be woke up if she is sleeping for vital signs. Ok to have them taken when giving meds.
[2024-10-24] MEDS: proMETHazine 25 MG/ML Syringe 12.5 MG IM (21:28)
[2024-10-24] MEDS: Insulin Glargine-YFGN 100 UNIT/ML Pen 10 UNIT SC (21:33)
[2024-10-24] MEDS: amLODIPine 10 MG Tablet PO (21:35)
[2024-10-25] VITALS (15 sets, daily range): BP systolic 30–228; BP diastolic 58–82; PULSE 70–85; RESP 14–18; TEMP 35.5–37.3; O2SAT 92–97; BMI 28.9; BMI 28.3
[2024-10-25] MEDS: Heparin Injection (Vial) 5,000 UNIT/ML VIAL 5000 UNIT SC ×3 (06:06→21:33)
[2024-10-25] MEDS: Acetaminophen 325 MG Tablet 650 MG PO ×2 (06:09→16:47)
[2024-10-25] MEDS: Levothyroxine 125 MCG Tablet PO (06:09)
[2024-10-25] MEDS: hydrALAZINE 50 MG Tablet PO ×3 (06:09→21:33)
[2024-10-25] MEDS: Ondansetron 4 MG/2 ML Vial IV (06:09)
[2024-10-25 07:07] LABS: Bedside Glucose 154 mg/dL (74-106)
[2024-10-25] MEDS: 0.9% Normal Saline 1,000 ML IV.SOLN. 1000 ML OPERA.SITE (07:51)
[2024-10-25] MEDS: PureFlow B 2K Dialysis Soln 1 BAG 6 BAG PF (07:51)
[2024-10-25 08:39] LABS: Hematocrit 26.7 % (37-47); Hemoglobin 8.6 g/dL (12.0-15.0); Mean Corp Hgb Conc 32.2 g/dL (32-36); Mean Corpuscular Hgb 31.2 pg (27.0-32.0); Mean Corpuscular Volume 96.7 fL (81-99); Mean Platelet Vol. 12.7 fl (6.2-12.0); Platelet Count 169 K/mm3 (150-450); RBC Distribution Width CV 15.1 % (11.6-14.6); RBC Distribution Width SD 53.6 fl (35.1-43.9); Red Blood Count 2.76 M/mm3 (4.2-5.4); White Blood Count 6.4 K/mm3 (4.4-11.0)
[2024-10-25] MEDS: proMETHazine 25 MG/ML Syringe 12.5 MG IM (08:55)
[2024-10-25 08:58] LABS: Anion Gap 7 (5-15); BUN 76 mg/dL (7-18); BUN/Creat Ratio 16.3 RATIO (10-20); Calcium,Total 8.4 mg/dL (8.5-10.1); Chloride 108 mmol/L (98-107); Creatinine, Serum 4.65 mg/dL (0.55-1.02); EST Glomerular Filtration Rate 10 mL/min (>60); Est Glom Filt Rate - Afr Amer 12 mL/min (>60); Estimated Creatinine Clearance 11.58 ml/min; Glucose 123 mg/dL (74-106); Magnesium 1.6 mg/dL (1.6-2.6); Potassium 3.9 mmol/L (3.5-5.1); Sodium Level 138 mmol/L (136-145)
[2024-10-25 09:03] LABS: Phosphorus 5.5 mg/dL (2.5-4.9)
--- NOTE | 2024-10-25 09:14 | PCM.PN.REN ---
Subjective Subjective Following for BRAYAN. The patient is seen during hemodialysis treatment. She feels a bit better. There is no chest pain, dyspnea or nausea today. Patient still has anasarca which is improved. Objective Data Objective Data Vital Signs: Vital Signs Temp Pulse Resp BP Pulse Ox O2 Del Method O2 Flow Rate 97.9 F 75 14 164/74 H 95 Room Air 2 10/25/24 07:05 10/25/24 09:01 10/25/24 09:01 10/25/24 09:01 10/25/24 07:05 10/25/24 09:01 10/23/24 10:08 Oxygen Flow Rate (L/min) 2 Oxygen Delivery Method Room Air Weight: 81.3 kg Body Mass Index (BMI) 28.9 Intake & Output: Intake and Output for Last 24 Hours 10/23/24 10/24/24 10/25/24 23:59 23:59 23:59 Intake Total 480 / 480 980 / 980 Output Total 480 / 480 1200 / 1200 Balance 0 / 0 -220 / -220 Lab / Micro Data 10/25/24 08:30 10/25/24 08:30 Labs: Laboratory Results - last 24 hr 10/20/24 05:49: Miscellaneous Test COMMENT 10/24/24 12:32: POC Glucose 124 H 10/24/24 17:29: POC Glucose 164 H 10/25/24 06:05: POC Glucose 154 H 10/25/24 08:30: WBC 6.4, RBC 2.76 L, Hgb 8.6 L, Hct 26.7 L, MCV 96.7, MCH 31.2, MCHC 32.2, RDW Std Deviation 53.6 H, RDW Coeff of John 15.1 H, Plt Count 169, MPV 12.7 H, Sodium 138, Potassium 3.9, Chloride 108 H, Carbon Dioxide 24.0, Anion Gap 7, BUN 76 H, Creatinine 4.65 H, Estim Creat Clear Calc 11.58, Est GFR (MDRD) Af Amer 12 L, Est GFR (MDRD) Non-Af 10 L, BUN/Creatinine Ratio 16.3, Glucose 123 H, Calcium 8.4 L, Phosphorus 5.5 H, Magnesium 1.6 Physical Exam Narrative Alert awake oriented x 3 no obvious distress Normal s1s2 without no murmurs lungs are clear to auscultation anteriorly abdomen soft, nontender 2+ upper and lower extremity edema/anasarca Tunneled HD catheter right chest dressing clean, dry and intact Assessment & Plan Assessment/Plan (1) Acute kidney injury: (2) Nephrotic syndrome: PLAN: Plan Assessment/Plan: The patient is a 73-year-old female with past history of CKD stage G3a, type 2 diabetes mellitus, hypertension, stroke, hypothyroidism, rheumatoid arthritis, and hyperlipidemia. Patient presented to hospital on 10/17/2024 with generalized weakness and malaise. Patient was also told to come to the hospital because of increasing edema/anasarca, dyspnea, and decreased kidney function found on outpatient labs. Nephrology is following for BRAYAN on CKD in the setting of nephrotic syndrome. BRAYAN on CKD stage G3a with nephrotic syndrome. The patient has baseline serum creatinine 1.20 mg/dL (January 2024). Patient presented to hospital with serum creatinine of 2.66 mg/dL on 10/17/2024 with serum albumin of 2.6 g/dL. Urine albumin to creatinine ratio is 10 g/g. ANCAs are negative. Complements are normal. Result of double-stranded DNA antibody is pending. We also sent phospholipase A2 receptor antibody and glomerular basement membrane antibody to be complete. Results of the phospholipase A2 receptor antibody and glomerular basement membrane antibody are pending. The patient is status post kidney biopsy on 10/23/2024. I will see if I can get some pulmonary finding from pathology today. Because of worsening kidney function, the patient was started on dialysis on 10/24/2024. Will plan on dialyzing patient again today on 10/25/2024 and on 10/26/2024 as well. Response to IV furosemide on 10/21/2024 was underwhelming. Therefore, we will not retreat the patient with diuretic. Urine output is still poor. We will ultrafilter patient with hemodialysis to control volume. The patient is seen during hemodialysis treatment today. We will try to ultrafilter more fluid today and tomorrow. We can decide on more specific treatment and prognosis once we have a more definitive diagnosis from kidney biopsy. I suspect patient will need dialysis for a while, so we will start the process of finding outpatient dialysis unit for the patient. Hyperkalemia. Potassium level was 5.6 mmol/L on 10/23/2024. Hyperkalemia is due to BRAYAN. Potassium level has improved with hemodialysis. Potassium level was 3.9 mmol/L today on 10/25/2024. We will dialyze patient today using 3K dialysate. Hyperphosphatemia. Phosphorus level was 8.4 mg/dL on 10/22/2024 with calcium level of 8.4 mg/dL today on 10/23/2024. Phosphorus level should improve with dialysis. However, I will start patient on sevelamer to bind phosphorus as well. Recheck calcium/phosphorus again tomorrow.
--- NOTE | 2024-10-25 09:54 | PCM.PN.HOSP ---
Subjective Subjective Feels washed out today after her round of dialysis yesterday Objective Data Objective Data Vital Signs: Vital Signs Temp Pulse Resp BP Pulse Ox O2 Del Method O2 Flow Rate 97.9 F 72 14 160/71 H 95 Room Air 2 10/25/24 07:05 10/25/24 09:35 10/25/24 09:35 10/25/24 09:35 10/25/24 07:05 10/25/24 09:35 10/23/24 10:08 Oxygen Flow Rate (L/min) 2 Oxygen Delivery Method Room Air Weight: 179 lb 3.773 oz Body Mass Index (BMI) 28.9 Intake & Output: Intake and Output for Last 24 Hours 10/24/24 10/25/24 10/26/24 03:59 03:59 03:59 Intake Total 480 / 480 980 / 980 Output Total 480 / 480 1200 / 1200 Balance 0 / 0 -220 / -220 Lab / Micro Data 10/25/24 08:30 10/25/24 08:30 Labs: Laboratory Results - last 24 hr 10/20/24 05:49: Miscellaneous Test COMMENT 10/24/24 12:32: POC Glucose 124 H 10/24/24 17:29: POC Glucose 164 H 10/25/24 06:05: POC Glucose 154 H 10/25/24 08:30: WBC 6.4, RBC 2.76 L, Hgb 8.6 L, Hct 26.7 L, MCV 96.7, MCH 31.2, MCHC 32.2, RDW Std Deviation 53.6 H, RDW Coeff of John 15.1 H, Plt Count 169, MPV 12.7 H, Sodium 138, Potassium 3.9, Chloride 108 H, Carbon Dioxide 24.0, Anion Gap 7, BUN 76 H, Creatinine 4.65 H, Estim Creat Clear Calc 11.58, Est GFR (MDRD) Af Amer 12 L, Est GFR (MDRD) Non-Af 10 L, BUN/Creatinine Ratio 16.3, Glucose 123 H, Calcium 8.4 L, Phosphorus 5.5 H, Magnesium 1.6 Physical Exam Narrative General: Alert, Oriented x3, Cooperative, No apparent distress HEENT: Atraumatic, PERRLA, EOMI, Normocephalic Oral: Moist Mucosa Neck: Supple, No JVD Lungs: Clear to auscultation, Normal air movement, No rhonchi, No wheeze, No rales Cardiovascular: Regular rate, Regular Rhythm, Normal S1, Normal S2, No murmurs Abdomen: Soft, Non Tender, Non-Distended, No Hepato-splenomegaly Extremities: Edema, Capillary Refill Less than 3 Seconds Skin: No rashes, No breakdown Musculoskeletal: No Tenderness to Palpation of Joints or Extremities Neurological: No focal neurological deficits, Motor Exam 5/5 strength throughout, Sensory exam intact to light touch and pain Psych/Mental Status: Normal Affect, Appropriate, fatigued Assessment & Plan Assessment/Plan (1) Acute kidney injury: PLAN: Plan # BRAYAN on CKD stage IIIa, concern for nephrotic syndrome -Creatinine 2.66 with a baseline around 1.2 -Will hold losartan -May be cardiorenal but cannot say definitively -Trialing small dose of IV Lasix as above and will monitor renal function closely -Will obtain bladder scan -Urine electrolytes -UA -Urine microalbumin -Low threshold for nephrology consult if worsening -Monitor I's and O's -10/18: Kidney function today similar to previous. Discussed with nephrology. In August she had a creatinine of 1 and her creatinine albumin ratio was 360, now she has nephrotic range proteinuria 10 g and microscopic hematuria with serum albumin 2.6, concern for nephrotic syndrome. Serology sent out patient will need kidney biopsy, Plavix held and will need kidney biopsy next week. -10/19: Kidney function further worsened with a creatinine of 3.16 and a BUN of 112, nephrology following, plan for kidney biopsy next week, Plavix on hold. Will further down titrate Neurontin given creatinine clearance -10/20: Continues to worsen, will need biopsy, nephrology following. CT-guided biopsy ordered but Plavix has to be held for 5 days, tentatively biopsy for Monday -10/21: Biopsy Monday, if kidney function continues to worsen she has decreased output may need dialysis, discussed with nephrology and is advised to consult surgery for tunneled dialysis catheter with anticipation that if patient needs dialysis will be in the next 24 to 48 hours. Last dose of Plavix morning of 10/18/2024. Patient to receive another dose of IV Lasix today 10/22/2024: Renal function continues to worsen appreciate nephrology's assistance. Plan for tunneled dialysis catheter today and renal biopsy tomorrow. Hopefully will receive short course of dialysis today 10/23/2024: Unable to do dialysis last night due to issues with the line, it is felt to possibly be due to swelling so we will retry again tomorrow morning. If unable to dialyze tomorrow morning we will have to adjust her dialysis catheter 10/24/2024: Continue dialysis today 10/25/2024: Continue with a full run of dialysis today she will have an outpatient dialysis schedule of Monday, , Monday. # Hyperkalemia -10/20: Will order Kayexalate, hold potassium supplementation, notify nephrology. Potassium did downtrend with this -10/21: Renal diet, potassium 5.1 this a.m., repeat tomorrow 10/23/2024: Potassium 5.6 creatinine continues to climb with phosphorus of 8.4 10/24/2024: Received Kayexalate yesterday potassium today is 5.3 but receiving dialysis will recheck in the morning 10/25/2024: Resolved # Fluid overload with anasarca, possibly due to nephrotic syndrome -Admit to telemetry -BNP 323 -CXR read as atelectasis -Will give small dose of IV Lasix to assess response clinically and with renal function -No echo available in our system -Echo ordered -Daily weights, I's and O's -Heart healthy diet -10/18: Initially thought new onset heart failure however patient's echo with normal EF but indeterminate diastolic function. Her anasarca is likely due to nephrotic syndrome, IV Lasix scheduled 40 every 8 by nephrology -10/19: Patient on IV Lasix, nephrology following, monitoring I's and O's -10/20: Patient has been diuresed, Lasix now held due to BRAYAN. Discussed with nephrology -10/21: Patient received another dose of IV Lasix, now feels swollen in her arms 10/24/2024: Hopefully that she is starting dialysis her volume overload will improve, will monitor her anemia potentially dilutional 10/25/2024: Improving # Hypertensive urgency versus emergency -Patient with systolic blood pressure in the 200s down into the 190s the patient does report intermittent headaches and does have this renal failure and shortness of breath -Will increase patient's amlodipine -Continue metoprolol, may need to switch to carvedilol -given kidney function holding her lisinopril/HCTZ combination -Adding hydralazine as needed, will adjust medications based on labs and vitals moving forward -10/18: On amlodipine, Lasix added, voiding DARCI and HCTZ at this time -10/19: Patient is a BP still considerably variable but blood pressure/morning is 150/79 which is better than it had been -10/20: Continues to be quite variable, continue to monitor, has as needed hydralazine and on amlodipine -10/21: Scheduled hydralazine was added to her current scheduled regimen, also add as needed labetalol #Type 2 diabetes mellitus -Glucose checks and sliding scale insulin -Continue home long-acting insulin, will resume at slightly decreased dose as patient reports poor appetite and want to avoid hypoglycemia -10/18: Glucose fairly well-controlled on current regimen, will continue -10/19: Glucose only 94 today, decrease long-acting and hold short acting while continuing sliding scale. Can reuptitrate with worsening kidney function patient may have decreased clearance and want to avoid hypoglycemia -10/20: Will further decrease given patient's glucose is 80 today -10/21: Glucose continues to be low 100s to 80s which is tighter control than is necessary for acute hospitalization, decreasing glargine further Chronic medical problems: #Hypothyroidism -Continue Synthroid -Will check TSH -10/18: TSH 45, patient reports compliance with her medication and the way she is supposed to take it but unclear. Will continue her current Synthroid. Will need to repeat labs -10/19: Continuing Synthroid at this time #Hx CVA -Continue Plavix and atorvastatin -10/18: Holding Plavix to allow for kidney biopsy next week -10/19: Plavix remains on hold, continue statin and continue fenofibrate #GERD -Continue PPI DVT: Heparin Charges/Coding Visit Charges Inpatient E&M: 32274 Subs Hosp L2
[2024-10-25] MEDS: SEVELAMER CARBONATE 800 MG TABLET PO ×3 (10:20→16:37)
[2024-10-25] MEDS: Gabapentin 100 MG Capsule PO ×2 (10:20→16:37)
[2024-10-25] MEDS: Heparin 10,000 UNITS/10 ML Vial IV (10:42)
[2024-10-25] MEDS: 0.9% Saline Lock 10 ML Syringe IV (10:42)
--- NOTE | 2024-10-25 11:16 | PCM.PN.BLA ---
Progress Note Nephrology addendum: I spoke to pathology at [facility]. 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 There is no crescents. EM is still pending. Given the fact that patient had serum creatinine of 1.20 mg/dL as recently as January 2024, we will treat patient more aggressively. I will start patient on pulse IV methylprednisolone x 3 days. Once we get results of final pathology report with EM on 10/28/2024, MEST-C scoring will help guide therapy further. Will discuss with Dr. Bailey. Mehran Thornton MD
[2024-10-25] MEDS: Pantoprazole Sodium 40 MG Tablet PO (13:01)
[2024-10-25] MEDS: Metoprolol(XL)Succ 50 MG Tablet PO (13:01)
--- NOTE | 2024-10-25 14:03 | CASEMGMT ---
DOMINIQUE XAVIER NOTE: Per Dr Bailey, pt will not be ready for discharge until Monday, at the earliest. Yoli @ [facility] made aware via portal. Janny @ [facility] also made aware. Pt's chair time was confirmed with both Yoli and Janny for TTS @ 11:10 AM, pt to arrive @ 10:45 AM. 1st OP HD now slated for Sunday 10/29. Treatment schedule provided to pt with this updated information. She voices understanding. José Antonio CHOW RN CM
[2024-10-25] MEDS: MethylPREDNISolone 1,000 MG in 0.9% Normal Saline (100mL Bag) 100 ML 100 MG IV (14:33)
[2024-10-25 16:12] LABS: Bedside Glucose 114 mg/dL (74-106)
[2024-10-25] MEDS: Insulin Lispro 100 UNIT/ML INSULN.PEN SC ×2 (16:39→21:34)
[2024-10-25 21:06] LABS: Anti-Glomerular Basement Memb < 0.2 units (0.0-0.9)
[2024-10-25] MEDS: Atorvastatin Calcium 80 MG Tablet PO (21:33)
[2024-10-25] MEDS: amLODIPine 10 MG Tablet PO (21:33)
[2024-10-25] MEDS: Insulin Glargine-YFGN 100 UNIT/ML Pen 10 UNIT SC (21:34)
[2024-10-25 21:40] LABS: Bedside Glucose 221 mg/dL (74-106)
[2024-10-26] VITALS (8 sets, daily range): BP systolic 141–161; BP diastolic 74–79; PULSE 71–79; RESP 14–17; TEMP 35.7–36.6; O2SAT 95–97; BMI 30.2
[2024-10-26] MEDS: Levothyroxine 125 MCG Tablet PO (05:35)
[2024-10-26] MEDS: Heparin Injection (Vial) 5,000 UNIT/ML VIAL 5000 UNIT SC ×3 (05:35→21:44)
[2024-10-26] MEDS: hydrALAZINE 50 MG Tablet PO ×3 (05:35→21:45)
[2024-10-26] MEDS: Insulin Lispro 100 UNIT/ML INSULN.PEN SC ×4 (06:47→21:45)
[2024-10-26 07:38] LABS: Anion Gap 9 (5-15); BUN 71 mg/dL (7-18); BUN/Creat Ratio 12.8 RATIO (10-20); Chloride 104 mmol/L (98-107); Creatinine, Serum 5.54 mg/dL (0.55-1.02); EST Glomerular Filtration Rate 8 mL/min (>60); Est Glom Filt Rate - Afr Amer 10 mL/min (>60); Estimated Creatinine Clearance 9.93 ml/min; Glucose 233 mg/dL (74-106); Potassium 4.5 mmol/L (3.5-5.1); Sodium Level 136 mmol/L (136-145)
--- NOTE | 2024-10-26 08:43 | PCM.PN.REN ---
Subjective Subjective Following for BRAYAN. The patient feels better today. She denies chest pain, dyspnea, or nausea. Patient thinks that urine output may be picking up subjectively. Objective Data Objective Data Vital Signs: Vital Signs Temp Pulse Resp BP Pulse Ox O2 Del Method O2 Flow Rate 96.3 F L 71 16 143/78 H 95 Room Air 2 10/26/24 03:00 10/26/24 05:35 10/26/24 03:00 10/26/24 05:35 10/26/24 03:00 10/26/24 03:00 10/23/24 10:08 Oxygen Flow Rate (L/min) 2 Oxygen Delivery Method Room Air Weight: 85 kg Body Mass Index (BMI) 30.2 Intake & Output: Intake and Output for Last 24 Hours 10/24/24 10/25/24 10/26/24 23:59 23:59 23:59 Intake Total 980 / 980 716 / 956 240 / 240 Output Total 1200 / 1200 1750 / 1750 0 / 0 Balance -220 / -220 -1034 / -794 240 / 240 Lab / Micro Data 10/25/24 08:30 10/26/24 06:20 Labs: Laboratory Results - last 24 hr 10/22/24 11:57: Glomerular Base Memb Ab < 0.2 10/25/24 08:30: Sodium 138, Potassium 3.9, Chloride 108 H, Carbon Dioxide 24.0, Anion Gap 7, BUN 76 H, Creatinine 4.65 H, Estim Creat Clear Calc 11.58, Est GFR (MDRD) Af Amer 12 L, Est GFR (MDRD) Non-Af 10 L, BUN/Creatinine Ratio 16.3, Glucose 123 H, Calcium 8.4 L, Phosphorus 5.5 H, Magnesium 1.6 10/25/24 12:52: POC Glucose 114 H 10/25/24 21:15: POC Glucose 221 H 10/26/24 06:20: Sodium 136, Potassium 4.5, Chloride 104, Carbon Dioxide 23.0, Anion Gap 9, BUN 71 H, Creatinine 5.54 H, Estim Creat Clear Calc 9.93, Est GFR (MDRD) Af Amer 10 L, Est GFR (MDRD) Non-Af 8 L, BUN/Creatinine Ratio 12.8, Glucose 233 H, Calcium 9.0 Physical Exam Narrative Alert awake oriented x 3 no obvious distress Normal s1s2 without no murmurs lungs are clear to auscultation anteriorly abdomen soft, nontender 2+ upper and lower extremity edema/anasarca Tunneled HD catheter right chest dressing clean, dry and intact Assessment & Plan Assessment/Plan (1) Acute kidney injury: (2) Nephrotic syndrome: (3) IgA nephropathy: PLAN: Plan Assessment/Plan: The patient is a 73-year-old female with past history of CKD stage G3a, type 2 diabetes mellitus, hypertension, stroke, hypothyroidism, rheumatoid arthritis, and hyperlipidemia. Patient presented to hospital on 10/17/2024 with generalized weakness and malaise. Patient was also told to come to the hospital because of increasing edema/anasarca, dyspnea, and decreased kidney function found on outpatient labs. Nephrology is following for BRAYAN on CKD in the setting of nephrotic syndrome. BRAYAN on CKD stage G3a with nephrotic syndrome secondary to IgA nephropathy. The patient has baseline serum creatinine 1.20 mg/dL (January 2024). Patient presented to hospital with serum creatinine of 2.66 mg/dL on 10/17/2024 with serum albumin of 2.6 g/dL. Urine albumin to creatinine ratio is 10 g/g. ANCAs are negative. Complements are normal. Result of double-stranded DNA antibody is pending. We also sent phospholipase A2 receptor antibody and glomerular basement membrane antibody to be complete. Results of the phospholipase A2 receptor antibody and glomerular basement membrane antibody are pending. I discussed the preliminary finding of kidney biopsy with pathology on 10/25/2024. Patient has proliferative glomerulonephritis. There is granular staining for IgA on immunofluorescence. Electron microscopy finding is still pending. Working diagnosis at this point is IgA nephropathy We will see what the final pathology report is on 10/28/2024. For now, we have started patient on pulse IV corticosteroid. Patient received 1 g of IV methylprednisolone on 10/25/2024. We plan on 2 more doses on 10/26/2024 and 10/27/2024. I appreciate 's help with glycemic control while she is receiving high-dose IV corticosteroid. Once we get final pathology report back on 10/28/2024, we can decide on longer-term therapy. Because of worsening kidney function, the patient was started on dialysis on 10/24/2024. Will plan on dialyzing patient again today on 10/26/2024 as well. Response to IV furosemide on 10/21/2024 was underwhelming. Therefore, we will not retreat the patient with diuretic. Urine output is still poor. We will ultrafilter patient with hemodialysis to control volume. I suspect patient will need dialysis for a while, so she has been placed at outpatient dialysis unit. She will be dialyzing at [facility] on TTS schedule after discharge. Hyperkalemia. Potassium level was 5.6 mmol/L on 10/23/2024. Hyperkalemia is due to BRAYAN. Potassium level has improved with hemodialysis. Potassium level is 4.5 mmol/L today on 10/26/2024. We will dialyze patient today using 3K dialysate. Hyperphosphatemia. Phosphorus level was 8.4 mg/dL on 10/22/2024 with calcium level of 8.4 mg/dL on 10/23/2024. Phosphorus level has improved with dialysis. Phosphorus level was 5.5 mg/dL on 10/25/2024. However, I will start patient on sevelamer to bind phosphorus as well. Recheck calcium/phosphorus periodically.
[2024-10-26] MEDS: SEVELAMER CARBONATE 800 MG TABLET PO ×3 (09:01→17:05)
[2024-10-26] MEDS: Pantoprazole Sodium 40 MG Tablet PO (09:01)
[2024-10-26] MEDS: Metoprolol(XL)Succ 50 MG Tablet PO (09:01)
[2024-10-26] MEDS: Gabapentin 100 MG Capsule PO ×2 (09:13→17:05)
[2024-10-26] MEDS: MethylPREDNISolone 1,000 MG in 0.9% Normal Saline (100mL Bag) 100 ML 100 MG IV (10:27)
--- NOTE | 2024-10-26 10:30 | PN.HOSP_ITS ---
Subjective Subjective Doing well, no issues overnight Objective Data Objective Data Vital Signs: Vital Signs Temp Pulse Resp BP Pulse Ox O2 Del Method O2 Flow Rate 97.8 F 79 17 161/78 H 95 Room Air 2 10/26/24 08:57 10/26/24 09:01 10/26/24 08:57 10/26/24 08:57 10/26/24 08:57 10/26/24 08:57 10/23/24 10:08 Oxygen Flow Rate (L/min) 2 Oxygen Delivery Method Room Air Weight: 187 lb 6.287 oz Body Mass Index (BMI) 30.2 Intake & Output: Intake and Output for Last 24 Hours 10/25/24 10/26/24 10/27/24 03:59 03:59 03:59 Intake Total 980 / 980 956 / 956 Output Total 1200 / 1200 1750 / 1750 Balance -220 / -220 -794 / -794 Lab / Micro Data 10/25/24 08:30 10/26/24 06:20 Labs: Laboratory Results - last 24 hr 10/22/24 11:57: Glomerular Base Memb Ab < 0.2 10/25/24 12:52: POC Glucose 114 H 10/25/24 21:15: POC Glucose 221 H 10/26/24 06:20: Sodium 136, Potassium 4.5, Chloride 104, Carbon Dioxide 23.0, Anion Gap 9, BUN 71 H, Creatinine 5.54 H, Estim Creat Clear Calc 9.93, Est GFR (MDRD) Af Amer 10 L, Est GFR (MDRD) Non-Af 8 L, BUN/Creatinine Ratio 12.8, G lucose 233 H, Calcium 9.0 Physical Exam Narrative General: Alert, Oriented x3, Cooperative, No apparent distress HEENT: Atraumatic, PERRLA, EOMI, Normocephalic Oral: Moist Mucosa Neck: Supple, No JVD Lungs: Clear to auscultation, Normal air movement, No rhonchi, No wheeze, No rales Cardiovascular: Regular rate, Regular Rhythm, Normal S1, Normal S2, No murmurs Abdomen: Soft, Non Tender, Non-Distended, No Hepato-splenomegaly Extremities: Edema, Capillary Refill Less than 3 Seconds Skin: No rashes, No breakdown Musculoskeletal: No Tenderness to Palpation of Joints or Extremities Neurological: No focal neurological deficits, Motor Exam 5/5 strength throughout, Sensory exam intact to light touch and pain Psych/Mental Status: Normal Affect, Appropriate, fatigued Assessment & Plan Assessment/Plan (1) Acute kidney injury: PLAN: Plan # BRAYAN on CKD stage IIIa, due to IgA nephropathy -Creatinine 2.66 with a baseline around 1.2 -Will hold losartan -May be cardiorenal but cannot say definitively -Trialing small dose of IV Lasix as above and will monitor renal function closely -Will obtain bladder scan -Urine electrolytes -UA -Urine microalbumin -Low threshold for nephrology consult if worsening -Monitor I's and O's -10/18: Kidney function today similar to previous. Discussed with nephrology. In August she had a creatinine of 1 and her creatinine albumin ratio was 360, now she has nephrotic range proteinuria 10 g and microscopic hematuria with serum albumin 2.6, concern for nephrotic syndrome. Serology sent out patient will need kidney biopsy, Plavix held and will need kidney biopsy next week. -10/19: Kidney function further worsened with a creatinine of 3.16 and a BUN of 112, nephrology following, plan for kidney biopsy next week, Plavix on hold. Will further down titrate Neurontin given creatinine clearance -10/20: Continues to worsen, will need biopsy, nephrology following. CT-guided biopsy ordered but Plavix has to be held for 5 days, tentatively biopsy for Monday -10/21: Biopsy Monday, if kidney function continues to worsen she has decreased output may need dialysis, discussed with nephrology and is advised to consult surgery for tunneled dialysis catheter with anticipation that if patient needs dialysis will be in the next 24 to 48 hours. Last dose of Plavix morning of 10/18/2024. Patient to receive another dose of IV Lasix today 10/22/2024: Renal function continues to worsen appreciate nephrology's assistance. Plan for tunneled dialysis catheter today and renal biopsy tomorrow. Hopefully will receive short course of dialysis today 10/23/2024: Unable to do dialysis last night due to issues with the line, it is felt to possibly be due to swelling so we will retry again tomorrow morning. If unable to dialyze tomorrow morning we will have to adjust her dialysis catheter 10/24/2024: Continue dialysis today 10/25/2024: Continue with a full run of dialysis today she will have an outpatient dialysis schedule of Monday, , Monday. 08/26/2025: Continue with high-dose steroids through the weekend # Hyperkalemia -10/20: Will order Kayexalate, hold potassium supplementation, notify nephrology. Potassium did downtrend with this -10/21: Renal diet, potassium 5.1 this a.m., repeat tomorrow 10/23/2024: Potassium 5.6 creatinine continues to climb with phosphorus of 8.4 10/24/2024: Received Kayexalate yesterday potassium today is 5.3 but receiving dialysis will recheck in the morning 10/25/2024: Resolved # Fluid overload with anasarca, possibly due to nephrotic syndrome -Admit to telemetry -BNP 323 -CXR read as atelectasis -Will give small dose of IV Lasix to assess response clinically and with renal function -No echo available in our system -Echo ordered -Daily weights, I's and O's -Heart healthy diet -10/18: Initially thought new onset heart failure however patient's echo with normal EF but indeterminate diastolic function. Her anasarca is likely due to nephrotic syndrome, IV Lasix scheduled 40 every 8 by nephrology -10/19: Patient on IV Lasix, nephrology following, monitoring I's and O's -10/20: Patient has been diuresed, Lasix now held due to BRAYAN. Discussed with nephrology -10/21: Patient received another dose of IV Lasix, now feels swollen in her arms 10/24/2024: Hopefully that she is starting dialysis her volume overload will improve, will monitor her anemia potentially dilutional 10/25/2024: Improving # Hypertensive urgency versus emergency -Patient with systolic blood pressure in the 200s down into the 190s the patient does report intermittent headaches and does have this renal failure and shortness of breath -Will increase patient's amlodipine -Continue metoprolol, may need to switch to carvedilol -given kidney function holding her lisinopril/HCTZ combination -Adding hydralazine as needed, will adjust medications based on labs and vitals moving forward -10/18: On amlodipine, Lasix added, voiding DARCI and HCTZ at this time -10/19: Patient is a BP still considerably variable but blood pressure/morning is 150/79 which is better than it had been -10/20: Continues to be quite variable, continue to monitor, has as needed hydralazine and on amlodipine -10/21: Scheduled hydralazine was added to her current scheduled regimen, also add as needed labetalol #Type 2 diabetes mellitus -Glucose checks and sliding scale insulin -Continue home long-acting insulin, will resume at slightly decreased dose as patient reports poor appetite and want to avoid hypoglycemia -10/18: Glucose fairly well-controlled on current regimen, will continue -10/19: Glucose only 94 today, decrease long-acting and hold short acting while continuing sliding scale. Can reuptitrate with worsening kidney function patient may have decreased clearance and want to avoid hypoglycemia -10/20: Will further decrease given patient's glucose is 80 today -10/21: Glucose continues to be low 100s to 80s which is tighter control than is necessary for acute hospitalization, decreasing glargine further 10/26/2024: Will start increasing her insulin as she is going to be on 1 g of Solu-Medrol daily for 3 days Chronic medical problems: #Hypothyroidism -Continue Synthroid -Will check TSH -10/18: TSH 45, patient reports compliance with her medication and the way she is supposed to take it but unclear. Will continue her current Synthroid. Will need to repeat labs -10/19: Continuing Synthroid at this time #Hx CVA -Continue Plavix and atorvastatin -10/18: Holding Plavix to allow for kidney biopsy next week -10/19: Plavix remains on hold, continue statin and continue fenofibrate #GERD -Continue PPI DVT: Heparin Charges/Coding Visit Charges Inpatient E&M: 50963 Subs Hosp L2
[2024-10-26 11:36] LABS: Bedside Glucose 213 mg/dL (74-106)
[2024-10-26] MEDS: Acetaminophen 325 MG Tablet 650 MG PO (12:04)
[2024-10-26 12:17] LABS: Bedside Glucose 298 mg/dL (74-106)
[2024-10-26 14:17] LABS: Hematocrit 33.6 % (37-47); Hemoglobin 10.9 g/dL (12.0-15.0); Mean Corp Hgb Conc 32.4 g/dL (32-36); Mean Corpuscular Hgb 31.9 pg (27.0-32.0); Mean Corpuscular Volume 98.2 fL (81-99); Mean Platelet Vol. 13.9 fl (6.2-12.0); Platelet Count 222 K/mm3 (150-450); Red Blood Count 3.42 M/mm3 (4.2-5.4); White Blood Count 12.2 K/mm3 (4.4-11.0)
[2024-10-26 17:16] LABS: Bedside Glucose 171 mg/dL (74-106)
[2024-10-26 17:16] LABS: Bedside Glucose 191 mg/dL (74-106)
[2024-10-26 17:26] LABS: Bedside Glucose 328 mg/dL (74-106)
[2024-10-26] MEDS: amLODIPine 10 MG Tablet PO (21:44)
[2024-10-26] MEDS: Atorvastatin Calcium 80 MG Tablet PO (21:45)
[2024-10-26] MEDS: Insulin Glargine-YFGN 100 UNIT/ML Pen 15 UNIT SC (21:46)
[2024-10-26 23:15] LABS: Bedside Glucose 328 mg/dL (74-106)
[2024-10-27] VITALS (13 sets, daily range): BP systolic 1–164; BP diastolic 68–82; PULSE 66–80; RESP 14–16; TEMP 36.3–36.7; O2SAT 95–100; BMI 29.0; BMI 28.4
[2024-10-27] MEDS: Heparin Injection (Vial) 5,000 UNIT/ML VIAL 5000 UNIT SC ×3 (06:24→21:52)
[2024-10-27] MEDS: Levothyroxine 125 MCG Tablet PO (06:24)
[2024-10-27] MEDS: hydrALAZINE 50 MG Tablet PO ×3 (06:24→21:51)
[2024-10-27] MEDS: Insulin Lispro 100 UNIT/ML INSULN.PEN SC ×4 (06:28→21:52)
[2024-10-27 06:51] LABS: Bedside Glucose 225 mg/dL (74-106)
[2024-10-27 07:02] LABS: Hematocrit 27.8 % (37-47); Hemoglobin 9.2 g/dL (12.0-15.0); Mean Corp Hgb Conc 33.1 g/dL (32-36); Mean Corpuscular Hgb 31.9 pg (27.0-32.0); Mean Corpuscular Volume 96.5 fL (81-99); Mean Platelet Vol. 13.2 fl (6.2-12.0); Platelet Count 191 K/mm3 (150-450); RBC Distribution Width CV 14.8 % (11.6-14.6); RBC Distribution Width SD 52.1 fl (35.1-43.9); Red Blood Count 2.88 M/mm3 (4.2-5.4); White Blood Count 14.8 K/mm3 (4.4-11.0)
[2024-10-27 07:17] LABS: Anion Gap 10 (5-15); BUN 87 mg/dL (7-18); BUN/Creat Ratio 13.3 RATIO (10-20); Calcium,Total 8.5 mg/dL (8.5-10.1); Chloride 104 mmol/L (98-107); Creatinine, Serum 6.56 mg/dL (0.55-1.02); EST Glomerular Filtration Rate 7 mL/min (>60); Est Glom Filt Rate - Afr Amer 8 mL/min (>60); Estimated Creatinine Clearance 8.23 ml/min; Glucose 249 mg/dL (74-106); Potassium 5.2 mmol/L (3.5-5.1); Sodium Level 136 mmol/L (136-145)
[2024-10-27 07:29] LABS: Phosphorus 8.3 mg/dL (2.5-4.9)
--- NOTE | 2024-10-27 10:49 | PN.HOSP_ITS ---
Subjective Subjective Doing well, no issues overnight Objective Data Objective Data Vital Signs: Vital Signs Temp Pulse Resp BP Pulse Ox O2 Del Method O2 Flow Rate 97.6 F L 66 14 164/82 H 99 Room Air 2 10/27/24 09:00 10/27/24 10:29 10/27/24 10:29 10/27/24 10:29 10/27/24 10:29 10/27/24 10:29 10/23/24 10:08 Oxygen Flow Rate (L/min) 2 Oxygen Delivery Method Room Air Weight: 179 lb 14.355 oz Body Mass Index (BMI) 29.0 Intake & Output: Intake and Output for Last 24 Hours 10/26/24 10/27/24 10/28/24 03:59 03:59 03:59 Intake Total 956 / 956 1336 / 1336 Output Total 1750 / 1750 0 / 0 Balance -794 / -794 1336 / 1336 Lab / Micro Data 10/27/24 06:16 10/27/24 06:16 Labs: Laboratory Results - last 24 hr 10/24/24 21:32: POC Glucose 171 H 10/25/24 16:38: POC Glucose 191 H 10/26/24 06:20: WBC 12.2 H, RBC 3.42 L, Hgb 10.9 L, Hct 33.6 L, MCV 98.2, MCH 31.9, MCHC 32.4, RDW Std Deviation 54.0 H, RDW Coeff of John 15.0 H, Plt Count 222, MPV 13.9 H 10/26/24 06:31: POC Glucose 213 H 10/26/24 11:56: POC Glucose 298 H 10/26/24 17:03: POC Glucose 328 H 10/26/24 21:42: POC Glucose 328 H 10/27/24 06:16: WBC 14.8 H, RBC 2.88 L, Hgb 9.2 L, Hct 27.8 L, MCV 96.5, MCH 31.9, MCHC 33.1, RDW Std Deviation 52.1 H, RDW Coeff of John 14.8 H, Plt Count 191, MPV 13.2 H, Sodium 136, Potassium 5.2 H, Chloride 104, Carbon Dioxide 22.0, Anion Gap 10, BUN 87 H, Creatinine 6.56 H, Estim Creat Clear Calc 8.23, Est GFR (MDRD) Af Amer 8 L, Est GFR (MDRD) Non-Af 7 L, BUN/Creatinine Ratio 13.3, G lucose 249 H, Calcium 8.5, Phosphorus 8.3 H 10/27/24 06:23: POC Glucose 225 H Physical Exam Narrative General: Alert, Oriented x3, Cooperative, No apparent distress HEENT: Atraumatic, PERRLA, EOMI, Normocephalic Oral: Moist Mucosa Neck: Supple, No JVD Lungs: Clear to auscultation, Normal air movement, No rhonchi, No wheeze, No rales Cardiovascular: Regular rate, Regular Rhythm, Normal S1, Normal S2, No murmurs Abdomen: Soft, Non Tender, Non-Distended, No Hepato-splenomegaly Extremities: Edema, Capillary Refill Less than 3 Seconds Skin: No rashes, No breakdown Musculoskeletal: No Tenderness to Palpation of Joints or Extremities Neurological: No focal neurological deficits, Motor Exam 5/5 strength throughout, Sensory exam intact to light touch and pain Psych/Mental Status: Normal Affect, Appropriate, fatigued Assessment & Plan Assessment/Plan (1) Acute kidney injury: PLAN: Plan 1. BRAYAN on CKD 3a secondary to IgA nephropathy with hypertensive urgency ? Continue with 1 g of Solu-Medrol daily ? Will monitor for another 24 hours to make sure her blood sugars do okay ? Also awaiting recommendations on discharge medications for the IgA nephropathy with outpatient follow-up to nephrology ? She has dialysis scheduled for Monday, , Monday though her last dialysis was this Monday due to scheduling ? Continue to hold nephrotoxic agents ? Fluid overload due to nephropathy is much improved now with dialysis ? Continue with scheduled hydralazine and metoprolol. Anticipate improvement with control once steroids are completed and she has had a few more rounds of dialysis 2. DM2 ? Continue with sign scale insulin ? Accu-Cheks ACHS ? Will monitor make adjustments as necessary especially in the setting of the high-dose steroids 3. Hypothyroidism ? Stable ? Continue with Synthroid ? Her TSH was elevated to 45 on 10/18/2024, recommend recheck at an outpatient as there is some concern about compliance 4. History of CVA ? Continue with statin and fenofibrate ? Restart Plavix when able 5. GERD ? Stable ? Continue with PPI DVT: Heparin Charges/Coding Visit Charges Inpatient E&M: 78784 Subs Hosp L2
[2024-10-27] MEDS: 0.9% Normal Saline 1,000 ML IV.SOLN. 1000 ML OPERA.SITE (11:44)
[2024-10-27] MEDS: PureFlow B 2K Dialysis Soln 1 BAG 6 BAG PF (11:44)
[2024-10-27] MEDS: Heparin 10,000 UNITS/10 ML Vial IV (11:45)
[2024-10-27] MEDS: 0.9% Saline Lock 10 ML Syringe IV (11:45)
[2024-10-27] MEDS: Gabapentin 100 MG Capsule PO ×2 (12:40→17:13)
[2024-10-27] MEDS: Metoprolol(XL)Succ 50 MG Tablet PO (12:41)
[2024-10-27] MEDS: Pantoprazole Sodium 40 MG Tablet PO (12:42)
[2024-10-27] MEDS: SEVELAMER CARBONATE 800 MG TABLET PO ×2 (12:45→17:08)
[2024-10-27] MEDS: MethylPREDNISolone 1,000 MG in 0.9% Normal Saline (100mL Bag) 100 ML 100 MG IV (12:48)
[2024-10-27 13:15] LABS: Bedside Glucose 242 mg/dL (74-106)
[2024-10-27 17:27] LABS: Bedside Glucose 291 mg/dL (74-106)
[2024-10-27] MEDS: Atorvastatin Calcium 80 MG Tablet PO (21:51)
[2024-10-27] MEDS: Insulin Glargine-YFGN 100 UNIT/ML Pen 15 UNIT SC (21:52)
[2024-10-27] MEDS: amLODIPine 10 MG Tablet PO (21:52)
[2024-10-27] MEDS: oxyCODONE 5 MG Tablet PO (21:53)
[2024-10-28 00:37] LABS: Bedside Glucose 298 mg/dL (74-106)
[2024-10-28 03:45] VITALS: BP 148/75; PULSE 76; RESP 14; TEMP 36.6; O2SAT 95
[2024-10-28 04:37] VITALS: BMI 29.5
[2024-10-28 06:02] LABS: Absolute Lymphocyte Count 0.29 X10^3/uL (0.83-4.51); Basophil# 0.01 X10^3/uL; Basophil% 0.1 % (0-1); Hematocrit 24.6 % (37-47); Hemoglobin 8.1 g/dL (12.0-15.0); Lymphocyte # 0.29 X10^3/ul (0.83-4.51); Mean Corp Hgb Conc 32.9 g/dL (32-36); Mean Corpuscular Hgb 31.8 pg (27.0-32.0); Mean Corpuscular Volume 96.5 fL (81-99); Mean Platelet Vol. 14.2 fl (6.2-12.0); Monocyte# 0.46 X10^3/uL; Monocyte% 3.1 % (0-10); NRBC Flagged by Analyzer 0 % (0-5); Neutrophil # 13.98 X10^3/uL (2.7-7.7); Neutrophil % 94.1 % (47-70); POSITIVE DIFFERENTIAL YES; Platelet Count 161 K/mm3 (150-450); RBC Distribution Width CV 14.9 % (11.6-14.6); RBC Distribution Width SD 52.8 fl (35.1-43.9); Red Blood Count 2.55 M/mm3 (4.2-5.4); White Blood Count 14.8 K/mm3 (4.4-11.0)
[2024-10-28] MEDS: Levothyroxine 125 MCG Tablet PO (06:20)
[2024-10-28] MEDS: Insulin Lispro 100 UNIT/ML INSULN.PEN SC ×2 (06:21→11:42)
[2024-10-28 06:24] LABS: Anion Gap 9 (5-15); BUN 79 mg/dL (7-18); BUN/Creat Ratio 13.5 RATIO (10-20); Calcium,Total 8.4 mg/dL (8.5-10.1); Chloride 104 mmol/L (98-107); Creatinine, Serum 5.85 mg/dL (0.55-1.02); EST Glomerular Filtration Rate 8 mL/min (>60); Est Glom Filt Rate - Afr Amer 9 mL/min (>60); Estimated Creatinine Clearance 9.29 ml/min; Glucose 266 mg/dL (74-106); Potassium 5.1 mmol/L (3.5-5.1); Sodium Level 132 mmol/L (136-145)
[2024-10-28 06:25] VITALS: BP 150/75; PULSE 77
[2024-10-28] MEDS: hydrALAZINE 50 MG Tablet PO (06:25)
[2024-10-28] MEDS: Heparin Injection (Vial) 5,000 UNIT/ML VIAL 5000 UNIT SC (06:26)
[2024-10-28 07:23] LABS: Bedside Glucose 230 mg/dL (74-106)
[2024-10-28 08:39] VITALS: BP 149/72; PULSE 76; RESP 14; TEMP 36.4; O2SAT 98
[2024-10-28] MEDS: Gabapentin 100 MG Capsule PO (08:41)
[2024-10-28] MEDS: SEVELAMER CARBONATE 800 MG TABLET PO ×2 (08:41→11:43)
[2024-10-28 09:17] VITALS: PULSE 76
[2024-10-28] MEDS: Metoprolol(XL)Succ 50 MG Tablet PO (09:17)
[2024-10-28] MEDS: Pantoprazole Sodium 40 MG Tablet PO (09:17)
--- NOTE | 2024-10-28 10:30 | PN.SURG_ITS ---
Subjective Subjective Patient evaluated resting comfortably in bed. She has had multiple successful dialysis treatments through the chest catheter. Today, I was contacted because the patient's catheter appeared to be oozing from the exit site. Patient denies any trauma to the area. The dressing was changed yesterday after dialysis without any known concerns. Patient notes minimal soreness at the catheter site. Objective Data Objective Data Vital Signs: Vital Signs Temp Pulse Resp BP Pulse Ox O2 Del Method O2 Flow Rate 97.6 F L 76 14 149/72 H 98 Room Air 2 10/28/24 08:39 10/28/24 09:17 10/28/24 08:39 10/28/24 08:39 10/28/24 08:39 10/28/24 10:00 10/23/24 10:08 Oxygen Flow Rate (L/min) 2 Oxygen Delivery Method Room Air Weight: 182 lb 12.211 oz Body Mass Index (BMI) 29.5 Intake & Output: Intake and Output for Last 24 Hours 10/26/24 10/27/24 10/28/24 23:59 23:59 23:59 Intake Total 1456 / 1576 476 / 716 340 / 340 Output Total 0 / 0 3490 / 3490 Balance 1456 / 1576 -3014 / -2774 340 / 340 Lab / Micro Data 10/28/24 04:56 10/28/24 04:56 Labs: Laboratory Results - last 24 hr 10/27/24 12:53: POC Glucose 242 H 10/27/24 17:05: POC Glucose 291 H 10/27/24 21:46: POC Glucose 298 H 10/28/24 04:56: WBC 14.8 H, RBC 2.55 L, Hgb 8.1 L, Hct 24.6 L, MCV 96.5, MCH 31.8, MCHC 32.9, RDW Std Deviation 52.8 H, RDW Coeff of John 14.9 H, Plt Count 161, MPV 14.2 H, Immature Gran % (Auto) 0.700, Neut % (Auto) 94.1 H, Lymph % (Auto) 2.0 L, [place] % (Auto) 3.1, Eos % (Auto) 0.0, Baso % (Auto) 0.1, Absolute Neuts (auto) 14.0 H, Absolute Lymphs (auto) 0.29 L, Nucleated RBC % 0, Sodium 132 L, Potassium 5.1, Chloride 104, Carbon Dioxide 19.0 L, Anion Gap 9, BUN 79 H , Creatinine 5.85 H, Estim Creat Clear Calc 9.29, Est GFR (MDRD) Af Amer 9 L, E st GFR (MDRD) Non-Af 8 L, BUN/Creatinine Ratio 13.5, Glucose 266 H, Calcium 8.4 L 10/28/24 06:19: POC Glucose 230 H Physical Exam Chest Chest Narrative: Right chest tunneled catheter site- Op site was removed from the neck insertion site. Dialysis dressing was removed. All of the blood clots were removed with saline. There was a very small amount of dried blood on the lateral portion of the catheter at the exit site that I left in place. I placed a small piece of surgicel around the catheter exit site followed by the dialysis telfa dressing. No active oozing was noted. Assessment & Plan Assessment/Plan (1) Acute kidney injury: PLAN: I was asked by dialysis to evaluate patient's dialysis catheter for oozing Surgicel was placed around the exit site of the catheter. This will dissolve. If it does not in 2 weeks, you may remove the surgicel Catheter may continue to be used. We will follow-up with this patient as needed as an outpatient. Charges/Coding Visit Charges Inpatient E&M: 57676 Subs Hosp L1 (no charge; post-op)
--- NOTE | 2024-10-28 11:03 | PCM.PN.REN ---
Subjective Subjective Patient is resting in bed. Denies any complaints. Hopeful to go home today. No overnight events. Objective Data Objective Data Vital Signs: Vital Signs Temp Pulse Resp BP Pulse Ox O2 Del Method O2 Flow Rate 97.6 F L 76 14 149/72 H 98 Room Air 2 10/28/24 08:39 10/28/24 09:17 10/28/24 08:39 10/28/24 08:39 10/28/24 08:39 10/28/24 10:00 10/23/24 10:08 Oxygen Flow Rate (L/min) 2 Oxygen Delivery Method Room Air Weight: 82.9 kg Body Mass Index (BMI) 29.5 Intake & Output: Intake and Output for Last 24 Hours 10/26/24 10/27/24 10/28/24 23:59 23:59 23:59 Intake Total 1456 / 1576 476 / 716 340 / 340 Output Total 0 / 0 3490 / 3490 Balance 1456 / 1576 -3014 / -2774 340 / 340 Lab / Micro Data 10/28/24 04:56 10/28/24 04:56 Labs: Laboratory Results - last 24 hr 10/27/24 12:53: POC Glucose 242 H 10/27/24 17:05: POC Glucose 291 H 10/27/24 21:46: POC Glucose 298 H 10/28/24 04:56: WBC 14.8 H, RBC 2.55 L, Hgb 8.1 L, Hct 24.6 L, MCV 96.5, MCH 31.8, MCHC 32.9, RDW Std Deviation 52.8 H, RDW Coeff of John 14.9 H, Plt Count 161, MPV 14.2 H, Immature Gran % (Auto) 0.700, Neut % (Auto) 94.1 H, Lymph % (Auto) 2.0 L, [place] % (Auto) 3.1, Eos % (Auto) 0.0, Baso % (Auto) 0.1, Absolute Neuts (auto) 14.0 H, Absolute Lymphs (auto) 0.29 L, Nucleated RBC % 0, Sodium 132 L, Potassium 5.1, Chloride 104, Carbon Dioxide 19.0 L, Anion Gap 9, BUN 79 H, Creatinine 5.85 H, Estim Creat Clear Calc 9.29, Est GFR (MDRD) Af Amer 9 L, Est GFR (MDRD) Non-Af 8 L, BUN/Creatinine Ratio 13.5, Glucose 266 H, Calcium 8.4 L 10/28/24 06:19: POC Glucose 230 H Physical Exam Narrative Alert awake oriented x 3 no obvious distress Normal s1s2 without no murmurs lungs are clear to auscultation abdomen soft, nontender 2+ upper and lower extremity edema Tunneled HD catheter right chest dressing clean, dry and intact Assessment & Plan Assessment/Plan (1) Acute kidney injury: (2) Nephrotic syndrome: (3) IgA nephropathy: PLAN: Plan Assessment/Plan: The patient is a 73-year-old female with past history of CKD stage G3a, type 2 diabetes mellitus, hypertension, stroke, hypothyroidism, rheumatoid arthritis, and hyperlipidemia. Patient presented to hospital on 10/17/2024 with generalized weakness and malaise. Patient was also told to come to the hospital because of increasing edema/anasarca, dyspnea, and decreased kidney function found on outpatient labs. Nephrology is following for BRAYAN on CKD in the setting of nephrotic syndrome. BRAYAN on CKD stage G3a with nephrotic syndrome secondary to IgA nephropathy. The patient has baseline serum creatinine 1.20 mg/dL (January 2024). Patient presented to hospital with serum creatinine of 2.66 mg/dL on 10/17/2024 with serum albumin of 2.6 g/dL. Urine albumin to creatinine ratio is 10 g/g. ANCAs are negative. Complements are normal. double-stranded DNA antibody normal, <1. GB membrane normal I discussed the preliminary finding of kidney biopsy with pathology on 10/25/2024. Patient has proliferative glomerulonephritis. There is granular staining for IgA on immunofluorescence. Electron microscopy finding is still pending. Working diagnosis at this point is IgA nephropathy. We will see what the final pathology report is on 10/28/2024. Patient received 1 g of IV methylprednisolone on 10/25/2024. We plan on 2 more doses on 10/26/2024 and 10/27/2024. Once we get final pathology report back on 10/28/2024, we can decide on longer-term therapy. Because of worsening kidney function, the patient was started on dialysis on 10/24/2024, SCr peaked 7.16. Response to IV furosemide on 10/21/2024 was underwhelming. Patient reports very minimal to no urine output currently. No acute indication for DEPUTY EDITOR IN CHIEF today. Patient had dialysis yesterday and tolerated fluid removal. Next dialysis will be tomorrow. Hyperphosphatemia. Started on sevelamer, will monitor phosphorus levels at kidney [facility] for discharge per renal standpoint, outpatient hemodialysis arranged at [facility] [place] Monday schedule. Patient aware of her hemodialysis facility and chair time. For discharge patient to go home on prednisone 60 mg daily, Bactrim single strength 400/80 mg daily and pantoprazole.
--- NOTE | 2024-10-28 11:41 | PCM.DC ---
Discharge Instructions Diet Discharge Diet: Low fat / Low cholesterol DC O2, CPAP, BIPAP needs Home O2 Discharge instructions: No Dressing / Incision Discharge Activity: Return to Normal Activity Weight Bearing Status: Weight bearing as tolerated Dressing / Incision Call your doctor if you observe: Fever of 101 or Higher, Shortness of breath, Dizziness, Swelling in the ankles and Chest pain Follow Up Care Test Results: Test results from this visit will be discussed in further detail at your follow-up appointment, if applicable. Discharge Plan Admission Admit Date/Time: 10/17/24 12:22 Primary Reason for Your Visit: BRAYAN on CKD 3a Attending Provider: Noemi Simmons Primary Care Provider: Vincent Beal Consulting Providers: Daljit Laughlin; Joey Gomez; Carmen Jain; Miguel Bailey Instructions Patient Instructions: BRIT farmworker bulbs Instructions for Kidney Biopsy, BRIT RN Procedural Sedation Discharge Orders/Prescriptions Prescriptions: New hydralazine 50 mg Tablet 50 mg PO TID Qty: 90 2RF sevelamer carbonate 800 mg Tablet 800 mg PO TIDCM Qty: 90 2RF prednisone 20 mg tablet 60 mg PO DAILY 14 Days Qty: 42 0RF sulfamethoxazole-trimethoprim [Bactrim] 400-80 mg tablet 1 tab PO DAILY Qty: 14 0RF insulin glargine-yfgn 100 unit/mL (3 mL) Insulin Pen 15 unit subcut QHS Qty: 15 2RF Continued atorvastatin 80 MG tablet 80 mg PO QHS clopidogrel 75 MG tablet 75 mg PO DAILY omeprazole 40 MG capsule,delayed release(DR/EC) 40 mg PO DAILY fenofibrate nanocrystallized 145 MG tablet 145 mg PO DAILY gabapentin 400 mg Capsule 400 mg PO TIDCM Qty: 90 0RF oxycodone 5 mg Tablet 10 mg PO Q4H PRN PRN (Reason: Pain Score 4-10) 7 Days Qty: 40 0RF Rx Instructions: 1-2 every 4 hours as needed for left leg pain levothyroxine 125 mcg tablet 125 mcg PO DAILY insulin lispro [Humalog KwikPen Insulin] 100 unit/mL insulin pen 14 unit subcut TID Trulicity 3 mg/0.5 mL pen injector 3 mg subcut THAO Patient Comments: Take it on Sundays metoprolol succinate 50 mg tablet extended release 24 hr 50 mg PO DAILY prednisone 5 mg tablet 10 mg PO DAILY amlodipine 5 mg tablet 5 mg PO DAILY Enbrel SureClick 50 mg/mL (1 mL) pen injector 50 mg subcut QWEEK Discontinued potassium chloride [Klor-Con 8] 8 MEQ tablet extended release 8 meq PO DAILY furosemide 20 mg tablet 20 mg PO DAILY losartan-hydrochlorothiazide 100-12.5 mg tablet 1 tab PO DAILY insulin glargine [Lantus Solostar U-100 Insulin] 100 unit/mL (3 mL) insulin pen 32 unit subcut QHS Referrals / Follow Up: [facility] [Outside] (Outpatient HD will be on Monday, , Monday at 1130 patient will need to arrival at first appointment at 1045. Please bring ID and insurance cards to appts. ) Daljit Laughlin MD [Med Staff - Consulting] - Within 2 Weeks Vincent Beal MD [Primary Care Provider] - Within 1 Week Disposition Disposition (needs filled in before D/C Order can be placed): Home, Self Care
--- NOTE | 2024-10-28 11:42 | PCM.DC.SUM ---
Providers Date of Admission: 10/17/24 Date of Discharge: 10/28/24 Primary Care Physician: Dr. Vincent Beal MD Consultations 10/18/24 08:00 Consult: Nephrology Routine Consulting Provider: Daljit Laughlin Reason for Consult: new onset renal failure EMERGENT Consult: No MD Notified: Yes Date Notified: 10/18/24 Time Notified: 08:32 Method of Notification: Answering Service 10/21/24 10:56 Consult: General Surgery Routine Consulting Provider: Joey Gomez Reason for Consult: Needs tunnel dialysis catheter for HD in 24-48 hrs, last plavix 10/18 in AM EMERGENT Consult: No MD Notified: Yes Date Notified: 10/21/24 Time Notified: 11:22 Method of Notification: Text Reason For Visit: ?NEW ONSET HF, KIDNEY FAILURE Diagnosis Discharge Diagnosis (1) Acute kidney injury: Status: Acute Code(s): N17.9 - Acute kidney failure, unspecified (2) Nephrotic syndrome: Status: Acute Code(s): N04.9 - Nephrotic syndrome with unspecified morphologic changes (3) IgA nephropathy: Status: Acute Code(s): N02.B9 - Other recurrent and persistent immunoglobulin A nephropathy Medications at Discharge Home Medications atorvastatin 80 mg tablet 80 mg PO QHS CHOLESTEROL 03/29/18 clopidogrel 75 mg tablet 75 mg PO DAILY BLOOD THINNER 03/29/18 fenofibrate nanocrystallized 145 mg tablet 145 mg PO DAILY SUPLIMENT 03/29/18 omeprazole 40 mg capsule,delayed release 40 mg PO DAILY n/v 03/29/18 dulaglutide 3 mg/0.5 mL subcutaneous pen injector (Trulicity) 3 mg subcut THAO dm 01/08/24 insulin lispro 100 unit/mL subcutaneous pen (Humalog KwikPen (U-100) Insulin) 14 unit subcut TID GLUCOSE 01/08/24 levothyroxine 125 mcg tablet 125 mcg PO DAILY THRYROID 01/08/24 gabapentin 400 mg capsule 400 mg PO TIDCM #90 caps 01/18/24 oxycodone 5 mg tablet 10 mg (2 x 5 mg) PO Q4H PRN PRN Pain Score 4-10 7 days #40 tabs 01/18/24 amlodipine 5 mg tablet 5 mg PO DAILY 10/17/24 etanercept 50 mg/mL (1 mL) subcutaneous pen injector (Enbrel SureClick) 50 mg subcut QWEEK 10/17/24 metoprolol succinate 50 mg tablet,extended release 24 hr 50 mg PO DAILY 10/17/24 prednisone 5 mg tablet 10 mg PO DAILY diabetes mellitus 10/17/24 hydralazine 50 mg tablet 50 mg PO TID #90 tabs 10/28/24 insulin glargine-yfgn 100 unit/mL (3 mL) subcutaneous pen 15 unit (0.15 mL) subcut QHS #15 mL 10/28/24 prednisone 20 mg tablet 60 mg (3 x 20 mg) PO DAILY 2 weeks #42 tabs 10/28/24 sevelamer carbonate 800 mg tablet 800 mg PO TIDCM #90 tabs 10/28/24 sulfamethoxazole 400 mg-trimethoprim 80 mg tablet (Bactrim) 1 tab PO DAILY #14 tabs 10/28/24 Hospital Course Operations None Procedures - (kidney biopsy) Summary of Care Provided Minutes Spent on Discharge: 50 Hospital Course: Patient is a 73-year-old female with past medical history as outlined including CKD stage III AAA who was admitted through the ED on 10/17/2024 at the urging of her primary care physician due to worsening lower extremity swelling and shortness of breath. Her labs are also showed worsening kidney function. On admission BNP was elevated over 300 blood pressure was also markedly elevated at 234/120. Creatinine had also gone up to 2.66 from a baseline of 1.2. She was admitted due to concerns for new onset heart failure as well as chronic kidney failure patient admitted to worsening lower extremity swelling and shortness of breath especially with exertion as well as weight gain over the last few months. She had also noted a decrease in her urine output. CXR showed mild left basilar atelectasis. She was admitted to be managed for BRAYAN on CKD IIIa as well as hypertensive urgency. Nephrology was consulted. She was initially started on IV Lasix. She had 2D echo which showed EF of 70% with inability to assess diastolic function and no regional wall motion abnormalities noted. Per nephrology there was concern for nephrotic range proteinuria she had proteinuria of 10 g. There was therefore component of renal cortex syndrome. Serologies were sent out. She had kidney biopsy done, results of which was still pending at time of discharge. She did have a protracted hospital course and required initiation of dialysis. ANCA was negative and complements were normal. Double-stranded DNA antibody was also normal and GB membrane was normal. Preliminary findings of the kidney biopsy showed proliferative glomerulonephritis with granular staining for IgA on immunofluorescence with electron microscopy findings still pending. Working diagnosis was therefore IgA nephropathy. She was started on IV Solu-Medrol per nephrology. She did not respond very well to IV Lasix and nurses states in the onset of dialysis. She was started on sevelamer for hyperphosphatemia. She was discharged on 10/28/2024. Per nephrology recommendation she was discharged on p.o. prednisone 60 mg daily for 2-week course as well as p.o. Bactrim 400-80 1 tablet daily for 2 weeks. She is follow-up with nephrology within the 2 weeks to determine whether they will continue with this course of prednisone and Bactrim otherwise. She was also continued on her home omeprazole. She is to follow-up with her primary care doctor within 1 to 2 weeks. Patient seen and examined prior to discharge. She had no complaints. Review of systems otherwise negative. Labs and vitals reviewed. Home medication reviewed and reconciled. Physical Exam Const alert, oriented x3 and no apparent distress General Appearance: cooperative, comfortable and well kempt Orientation / Consciousness: awake Exam Limitations: no limitations HEENT normocephalic, head/scalp atraumatic, hearing grossly normal bilaterally, moist oral mucous membranes and oropharynx normal Mouth: oral and palatal mucosa normal Eyes PERRL Neck no lymphadenopathy and supple Resp normal respiratory effort and no retractions Cardio regular rate, regular rhythm, S1 normal heart sound, S2 normal heart sound and no murmurs GI normal to inspection, nondistended, normoactive bowel sounds, soft to palpation, non-tender and non-distended Extremity normal to inspection, full ROM and no clubbing, cyanosis or edema Skin no rashes or lesions noted Neuro oriented x3, CN's II-XII intact bilaterally, moves all extremities and no focal motor deficits Motor Exam: strength 5/5 throughout Psych affect normal Weight / BMI Weight Weight: 182 lb 12.211 oz Body Mass Index (BMI) 29.5 ABG / Lab / Microbiology Data 10/28/24 04:56 10/28/24 04:56 Laboratory: Laboratory Results - last 24 hr 10/27/24 17:05: POC Glucose 291 H 10/27/24 21:46: POC Glucose 298 H 10/28/24 04:56: WBC 14.8 H, RBC 2.55 L, Hgb 8.1 L, Hct 24.6 L, MCV 96.5, MCH 31.8, MCHC 32.9, RDW Std Deviation 52.8 H, RDW Coeff of John 14.9 H, Plt Count 161, MPV 14.2 H, Immature Gran % (Auto) 0.700, Neut % (Auto) 94.1 H, Lymph % (Auto) 2.0 L, [place] % (Auto) 3.1, Eos % (Auto) 0.0, Baso % (Auto) 0.1, Absolute Neuts (auto) 14.0 H, Absolute Lymphs (auto) 0.29 L, Nucleated RBC % 0, Sodium 132 L, Potassium 5.1, Chloride 104, Carbon Dioxide 19.0 L, Anion Gap 9, BUN 79 H, Creatinine 5.85 H, Estim Creat Clear Calc 9.29, Est GFR (MDRD) Af Amer 9 L, Est GFR (MDRD) Non-Af 8 L, BUN/Creatinine Ratio 13.5, Glucose 266 H, Calcium 8.4 L 10/28/24 06:19: POC Glucose 230 H D/C Instructions Discharge Diet: Low fat / Low cholesterol Discharge Activity: Return to Normal Activity Weight Bearing Status: Weight bearing as tolerated Call your doctor if you observe: Fever of 101 or Higher, Shortness of breath, Dizziness, Swelling in the ankles and Chest pain DC O2, CPAP, BIPAP Needs Home O2 Discharge instructions: No Meaningful Use Info Meaningful Use Meaningful Use Diagnoses (Choose all that apply): None applicable Ischemic Stroke Statin Dosing Therapy Reference: STATIN DOSE THERAPY REFERENCE: * Patients > 75 years receive moderate or high dose statin therapy. * Patients 75 years or YOUNGER should receive HIGH intensity statin dose unless contraindicated. You will be required to document reason for non-treatment if statin daily dose does not meet guidelines. HIGH DOSE STATIN THERAPY DAILY Atorvastatin > than or = to 40 mg Rosuvastatin > than or = to 20 mg Amlodipine + Atorvastatin > than or = to 2.5/40 mg Ezetimibe + Simvastatin 10/80 mg Simvastatin 80mg Discharge Plan Admission Admit Date/Time: 10/17/24 12:22 Primary Reason for Your Visit: BRAYAN on CKD 3a Attending Provider: Noemi Simmons Primary Care Provider: Vincent Beal Consulting Providers: Daljit Laughlin; Joey Gomez; Carmen Jain; Miguel Bailey Instructions Patient Instructions: RAD building trades instructor Instructions for Kidney Biopsy, RAD RN Procedural Sedation Discharge Orders/Prescriptions Prescriptions: New hydralazine 50 mg Tablet 50 mg PO TID Qty: 90 2RF sevelamer carbonate 800 mg Tablet 800 mg PO TIDCM Qty: 90 2RF prednisone 20 mg tablet 60 mg PO DAILY 14 Days Qty: 42 0RF sulfamethoxazole-trimethoprim [Bactrim] 400-80 mg tablet 1 tab PO DAILY Qty: 14 0RF insulin glargine-yfgn 100 unit/mL (3 mL) Insulin Pen 15 unit subcut QHS Qty: 15 2RF Continued atorvastatin 80 MG tablet 80 mg PO QHS clopidogrel 75 MG tablet 75 mg PO DAILY omeprazole 40 MG capsule,delayed release(DR/EC) 40 mg PO DAILY fenofibrate nanocrystallized 145 MG tablet 145 mg PO DAILY gabapentin 400 mg Capsule 400 mg PO TIDCM Qty: 90 0RF oxycodone 5 mg Tablet 10 mg PO Q4H PRN PRN (Reason: Pain Score 4-10) 7 Days Qty: 40 0RF Rx Instructions: 1-2 every 4 hours as needed for left leg pain levothyroxine 125 mcg tablet 125 mcg PO DAILY insulin lispro [Humalog KwikPen Insulin] 100 unit/mL insulin pen 14 unit subcut TID Trulicity 3 mg/0.5 mL pen injector 3 mg subcut THAO Patient Comments: Take it on Sundays metoprolol succinate 50 mg tablet extended release 24 hr 50 mg PO DAILY prednisone 5 mg tablet 10 mg PO DAILY amlodipine 5 mg tablet 5 mg PO DAILY Enbrel SureClick 50 mg/mL (1 mL) pen injector 50 mg subcut QWEEK Discontinued potassium chloride [Klor-Con 8] 8 MEQ tablet extended release 8 meq PO DAILY furosemide 20 mg tablet 20 mg PO DAILY losartan-hydrochlorothiazide 100-12.5 mg tablet 1 tab PO DAILY insulin glargine [Lantus Solostar U-100 Insulin] 100 unit/mL (3 mL) insulin pen 32 unit subcut QHS Referrals / Follow Up: [facility] [Outside] - 10/29/24 10:45 am (Outpatient HD will be on Monday, , Monday at 1130 patient will need to arrival at first appointment at 1045. Please bring ID and insurance cards to appts. ) Daljit Laughlin MD [Med Staff - Consulting] - Within 2 Weeks ('s office will call to schedule follow up appointment.) Vincent Beal MD [Primary Care Provider] - 11/01/24 1:40 pm (Please arrive 15 minutes prior to appointment.) Disposition Disposition (needs filled in before D/C Order can be placed): Home, Self Care Charges/Coding Visit Charges Inpatient E&M: 11591 Disch Hosp >30min
--- NOTE | 2024-10-28 12:18 | CASEMGMT ---
Patient has order for discharge. DOMINIQUE XAVIER called [facility] to confirm start of care for tomorrow for outpatient HD, patient is to arrive at 1045 tomorrow 10/29/24. DOMINIQUE XAVIER updated appt on discharge plan. DOMINIQUE XAVIER in to discuss needs at discharge. DOMINIQUE XAVIER updated patient on outpatient HD appt tomorrow. Patient up independent in room. Patient denies needs or help at discharge. Patient had no further questions or concerns.
[2024-10-28 17:44] LABS: Bedside Glucose 300 mg/dL (74-106)
== END 2024-10-28 12:34 | disposition home or self-care (01) | DRG 699 ==
LOC: ED 12:04 → PCU 14:23
PROVIDERS: Anesthesiology; Family Medicine; Internal Medicine Nephrology; Nurse Practitioner Adult Health; Surgery; Admitting Provider Internal Medicine; Emergency Provider Emergency Medicine; PCP Internal Medicine; Visit Provider Student in an Organized Health Care Education/Training Program
PROC: 0JH63XZ Insertion of Tunneled Vascular Access Device into Chest Subcutaneous Tissue and Fascia, Percutaneous Approach (ICD-10-PCS; principal; 2024-10-22 13:30)
DX: N02.B1 Recurrent and persistent immunoglobulin A nephropathy with glomerular lesion (principal); I13.0 Hypertensive heart and chronic kidney disease with heart failure and stage 1 through stage 4 chronic kidney disease, or unspecified chronic kidney disease; E83.39 Other disorders of phosphorus metabolism; I50.9 Heart failure, unspecified; E11.22 Type 2 diabetes mellitus with diabetic chronic kidney disease; N18.31 Chronic kidney disease, stage 3a; M06.9 Rheumatoid arthritis, unspecified; E03.9 Hypothyroidism, unspecified; I16.0 Hypertensive urgency; N17.9 Acute kidney failure, unspecified; K21.9 Gastro-esophageal reflux disease without esophagitis; Z79.4 Long term (current) use of insulin; E87.5 Hyperkalemia; E78.5 Hyperlipidemia, unspecified; N04.9 Nephrotic syndrome with unspecified morphologic changes; Z87.891 Personal history of nicotine dependence; Z79.890 Hormone replacement therapy; Z79.85 Long-term (current) use of injectable non-insulin antidiabetic drugs; Z79.52 Long term (current) use of systemic steroids; Z79.02 Long term (current) use of antithrombotics/antiplatelets; Z90.710 Acquired absence of both cervix and uterus; Z86.73 Personal history of transient ischemic attack (TIA), and cerebral infarction without residual deficits; Z79.891 Long term (current) use of opiate analgesic
CPT/HCPCS: 36415; 71045; 76770; 77001; 77012; 80048; 80053; 81001; 82043; 82436; 82570; 82962; 83036; 83520; 83735; 83880; 84100; 84133; 84165; 84300; 84443; 84484; 84540; 85025; 85027; 85610; 85730; 86037; 86160; 86225; 87340; 88300; 90937; 93005; 93306; 93970; 97802; 97803; 99156; 99284; Q9957; A4216; C1750; C8929; G0257; J1940; J2405; J2919

== ENCOUNTER 2024-12-30 11:43 | Emergency (ER) | payer MEDICARE, MEDICAID, SELFPAY ==
[2024-12-30 11:44] VITALS: BP 159/87; PULSE 93; RESP 16; TEMP 36.6; O2SAT 95; BMI 27.8
[2024-12-30 11:49] VITALS: BP 159/87; PULSE 93; RESP 19; TEMP 36.6; O2SAT 95
[2024-12-30 12:46] LABS: Absolute Lymphocyte Count 1.65 X10^3/uL (0.83-4.51); Absolute Neutrophil Count 8.5 X10^3/uL (2.0-7.7); Basophil# 0.04 X10^3/uL; Basophil% 0.4 % (0-1); Eosinophil# 0.13 X10^3/uL; Eosinophils% 1.2 % (0-5); Hematocrit 24.7 % (37-47); Lymphocyte # 1.65 X10^3/ul (0.83-4.51); Lymphocyte % 14.8 % (19-41); Mean Corp Hgb Conc 32.4 g/dL (32-36); Mean Corpuscular Hgb 31.1 pg (27.0-32.0); Mean Corpuscular Volume 96.1 fL (81-99); Mean Platelet Vol. 11.7 fl (6.2-12.0); Monocyte% 7.2 % (0-10); NRBC Flagged by Analyzer 0 % (0-5); Neutrophil # 8.45 X10^3/uL (2.7-7.7); Neutrophil % 75.9 % (47-70); Platelet Count 204 K/mm3 (150-450); RBC Distribution Width CV 16.8 % (11.6-14.6); RBC Distribution Width SD 58.7 fl (35.1-43.9); Red Blood Count 2.57 M/mm3 (4.2-5.4); White Blood Count 11.1 K/mm3 (4.4-11.0)
[2024-12-30 13:22] LABS: Magnesium 1.6 mg/dL (1.5-2.2)
[2024-12-30 13:44] VITALS: BP 172/104; PULSE 95; RESP 19; O2SAT 98
[2024-12-30 15:00] VITALS: BP 178/89; PULSE 90; RESP 20; O2SAT 98
--- NOTE | 2024-12-30 15:28 | CM.ED ---
Social Work SW met with patient who stated she has just been discharged from a nursing facility in [place] yesterday, was supposed to go to dialysis today however was not able to go as patient cannot ambulate, there is no ramp at the home and GD was not able to get patient to a vehicle. Patient called 911 to bring her to the emergency room. Patient gave permission for SW to contact patients granddaughter as she is her primary care information associate in the home. Granddaughter stated that tomorrow their ramp and a hospital bed will be delivered and home health will be coming out to the home. SW asked GD is she had any concerns that the delivery of the ramp could get delayed, GD stated she was certain it would be there. GD stated since all equipment and services are beginning tomorrow, that she is confident she can get patient to dialysis on Monday. Physician aware of same. Brenda Duque, COMPRESSED YEAST SUPERVISOR, HOME SECURITY PROFESSIONAL
[2024-12-30 15:34] LABS: Anion Gap 14 (5-15); BUN 52 mg/dL (4-19); BUN/Creat Ratio 10.9 RATIO (10-20); Calcium,Total 8.1 mg/dL (7.6-11.0); Chloride 97 mmol/L (98-108); Creatinine, Serum 4.77 mg/dL (0.70-1.20); EST Glomerular Filtration Rate 9 (>60); Estimated Creatinine Clearance 10.54 ml/min (50-250); Glucose 214 mg/dL (70-99); Potassium 4.1 mmol/L (3.3-5.1); Sodium Level 137 mmol/L (133-145)
--- NOTE | 2024-12-30 15:44 | EX.ED.DYSGE1 ---
HPI History of Present Illness Chief Complaint: General Illness Narrative Narrative: Chief complaint and HPI: Hemodialysis concern. 74-year-old female with past medical history of diabetes, ESRD on hemodialysis, and other comorbidities presents for hemodialysis concern. Patient states yesterday she was discharged home from a nursing facility. She is in a wheelchair as she cannot ambulate. She states that a ramp was supposed to be installed at home but was not. She states that she receives hemodialysis on Monday, Monday, Monday. She states she had no way of getting to dialysis today so she called the dialysis clinic. They told her to call EMS to bring her to the emergency department for possible dialysis. Patient denies any fever, chills, chest pain, shortness of breath, abdominal pain, nausea, vomiting, dysuria. She denies any significant swelling. States she only came here for dialysis. Review of systems: See HPI Medications: As listed on the chart Allergies: As listed on the chart PFSH: Per chart Vital signs: As listed on the chart. Reviewed. Physical exam: Gen: A&O x3, NAD Head: Normocephalic, atraumatic Eyes: No sclera icterus, conjunctiva clear ENT: Moist mucous membranes Neck: Trachea midline, No JVD CV: RRR, no murmurs, +1 pitting peripheral edema Resp: Lungs CTA BL, no w/r/c GI: Abd soft, non-distended, non-tender, no r/r/g Musc: Moves all extremities, no deformity Skin: Warm, dry Neuro: Alert, oriented, grossly intact, sensation intact Psych: Cooperative, appropriate mood and affect [facility] Medical History IgA nephropathy Nephrotic syndrome Congestive heart failure Uncontrolled hypertension Peripheral edema Acute kidney injury Hypothyroidism Diabetes Kidney disease TIA (transient ischemic attack) Intractable back pain Rheumatoid arthritis Former smoker Stroke/cerebrovascular accident Sciatica High cholesterol HTN (hypertension) HTN (hypertension) Hypothyroidism DM type 2 (diabetes mellitus, type 2) Home Medications ?Medication ?Instructions ?Recorded ?Last Taken ?Type atorvastatin 80 mg tablet 80 mg PO QHS CHOLESTEROL 03/29/18 10/17/24 History clopidogrel 75 mg tablet 75 mg PO DAILY BLOOD THINNER 03/29/18 10/17/24 History fenofibrate nanocrystallized 145 145 mg PO DAILY SUPLIMENT 03/29/18 10/17/24 History mg tablet omeprazole 40 mg capsule,delayed 40 mg PO DAILY n/v 03/29/18 10/17/24 History release dulaglutide 3 mg/0.5 mL 3 mg subcut THAO dm 01/08/24 10/13/24 History subcutaneous pen injector (Trulicity) insulin lispro 100 unit/mL 14 unit subcut TID GLUCOSE 01/08/24 10/16/24 History subcutaneous pen (Humalog KwikPen (U-100) Insulin) levothyroxine 125 mcg tablet 125 mcg PO DAILY THRYROID 01/08/24 10/17/24 History gabapentin 400 mg capsule 400 mg PO TIDCM #90 caps 01/18/24 10/17/24 Rx oxycodone 5 mg tablet 10 mg (2 x 5 mg) PO Q4H PRN PRN 01/18/24 10/17/24 Rx Pain Score 4-10 7 days #40 tabs amlodipine 5 mg tablet 5 mg PO DAILY 10/17/24 10/17/24 History etanercept 50 mg/mL (1 mL) 50 mg subcut QWEEK 10/17/24 10/09/24 History subcutaneous pen injector (Enbrel SureClick) metoprolol succinate 50 mg 50 mg PO DAILY 10/17/24 10/17/24 History tablet,extended release 24 hr prednisone 5 mg tablet 10 mg PO DAILY diabetes mellitus 10/17/24 10/17/24 History hydralazine 50 mg tablet 50 mg PO TID #90 tabs 10/28/24 Unknown Rx insulin glargine-yfgn 100 unit/mL 15 unit (0.15 mL) subcut QHS #15 mL 10/28/24 Unknown Rx (3 mL) subcutaneous pen prednisone 20 mg tablet 60 mg (3 x 20 mg) PO DAILY 2 weeks 10/28/24 Unknown Rx #42 tabs sevelamer carbonate 800 mg tablet 800 mg PO TIDCM #90 tabs 10/28/24 Unknown Rx Allergy/AdvReac Type Severity Reaction Status Date / Time morphine Allergy Itching Verified 12/30/24 11:49 meperidine (From Demerol) AdvReac Nausea/Vom/ Verified 12/30/24 11:49 Diarrhea Family History Mother Thyroid disorder Father Heart disease CAD (coronary artery disease) Hypertension Myocardial infarction Surgical History History of insertion of tunneled central venous catheter (CVC) with port History of appendectomy History of facial surgery Status post ORIF of fracture of ankle Hx of hysterectomy History of spinal fusion Social History (Updated 12/30/24 @ 11:50 by Natalie Hernadez) household members: none housing: house Smoking Status: Former smoker how long ago did patient quit smoking: Smoked age [age] ~1/2 ppd. alcohol intake: never substance use type: does not use EXAM Physical Exam Const Vital Signs: 12/30/24 11:44 12/30/24 11:49 12/30/24 11:49 Temperature 97.9 F 97.9 F Temperature Source Oral Oral Pulse Rate 93 93 Respiratory Rate 16 19 H Respiratory Effort Normal Non-Labored Respiratory Pattern Normal Blood Pressure 159/87 H 159/87 H Blood Pressure Mean 111 111 Pulse Ox 95 95 Oxygen Delivery Method Room Air Room Air 12/30/24 13:44 12/30/24 15:00 12/30/24 16:05 Temperature 98.3 F Temperature Source Pulse Rate 95 90 90 Respiratory Rate 19 H 20 H 20 H Respiratory Effort Respiratory Pattern Blood Pressure 172/104 H 178/89 H 178/89 H Blood Pressure Mean 126 118 118 Pulse Ox 98 98 98 Oxygen Delivery Method MDM MDM MDM Narrative Medical decision making narrative: 74-year-old female with past medical history of DM2 and ESRD on HD Monday, Monday, Monday presents for evaluation for dialysis concern. Patient states she is supposed to receive dialysis today. She is unable to get to the facility so she called 911 to bring her to the emergency department for possible dialysis as this is what was recommended to her. Patient denies any complaints. On presentation, vitals are stable other than some mild hypertension. Will consult social work given patient has limited resources and dialysis concerns. Patient is not hypoxic or overtly fluid overloaded. Will obtain basic labs to assess if emergent dialysis is needed. Social work spoke with the patient as well as her granddaughter who is the primary caregiver. Granddaughter stated that tomorrow their ramp and a hospital bed will be delivered. Patient will also have home health care coming to the home. Given that all resources will be available to the patient and granddaughter tomorrow, granddaughter feels confident that the patient will receive dialysis on Monday. Patient had a prolonged stay here in the emergency department as labs were unable to be obtained given issues with lab machine. There was multiple phone calls to the laboratory staff and they are working on the issue. CBC with mild leukocytosis of 11.1. Patient has baseline anemia. BMP without significant electrolyte abnormality or hyperkalemia. Patient is at her baseline renal function and BUN/creatinine is actually improved from October. Magnesium level unremarkable. This point in time, there is no emergent dialysis need for the patient. She received dialysis on Monday and will receive dialysis on Monday. Patient updated of all the results and the plan for discharge home and dialysis on Monday. Patient is in agreement with this. Granddaughter is in agreement with this. Patient discharged home. Impression: 1. Hemodialysis concern 2. History of ESRD on hemodialysis Lab Data Labs: Laboratory Results - last 24 hr 12/30/24 12:01 WBC 11.1 H RBC 2.57 L Hgb 8.0 L Hct 24.7 L MCV 96.1 MCH 31.1 MCHC 32.4 RDW Std Deviation 58.7 H RDW Coeff of John 16.8 H Plt Count 204 MPV 11.7 Immature Gran % (Auto) 0.500 Neut % (Auto) 75.9 H Lymph % (Auto) 14.8 L [place] % (Auto) 7.2 Eos % (Auto) 1.2 Baso % (Auto) 0.4 Absolute Neuts (auto) 8.5 H Absolute Lymphs (auto) 1.65 Nucleated RBC % 0 Sodium 137 Potassium 4.1 Chloride 97 L Carbon Dioxide 26.0 Anion Gap 14 BUN 52 H Creatinine 4.77 H Estim Creat Clear Calc 10.54 L Est GFR (MDRD) Non-Af 9 L BUN/Creatinine Ratio 10.9 Glucose 214 H Calcium 8.1 Magnesium 1.6 Discharge Plan Triage Chief Complaint: General Illness ED Provider: Derick Young Dx/Rx/DC Orders Clinical Impression: Hemodialysis patient Instructions: Hemodialysis Prescriptions: No Action atorvastatin 80 MG tablet 80 mg PO QHS clopidogrel 75 MG tablet 75 mg PO DAILY omeprazole 40 MG capsule,delayed release(DR/EC) 40 mg PO DAILY fenofibrate nanocrystallized 145 MG tablet 145 mg PO DAILY gabapentin 400 mg Capsule 400 mg PO TIDCM Qty: 90 0RF oxycodone 5 mg Tablet 10 mg PO Q4H PRN PRN (Reason: Pain Score 4-10) 7 Days Qty: 40 0RF Rx Instructions: 1-2 every 4 hours as needed for left leg pain levothyroxine 125 mcg tablet 125 mcg PO DAILY insulin lispro [Humalog KwikPen Insulin] 100 unit/mL insulin pen 14 unit subcut TID Trulicity 3 mg/0.5 mL pen injector 3 mg subcut THAO Patient Comments: Take it on Sundays metoprolol succinate 50 mg tablet extended release 24 hr 50 mg PO DAILY prednisone 5 mg tablet 10 mg PO DAILY amlodipine 5 mg tablet 5 mg PO DAILY Enbrel SureClick 50 mg/mL (1 mL) pen injector 50 mg subcut QWEEK hydralazine 50 mg Tablet 50 mg PO TID Qty: 90 2RF sevelamer carbonate 800 mg Tablet 800 mg PO TIDCM Qty: 90 2RF prednisone 20 mg tablet 60 mg PO DAILY 14 Days Qty: 42 0RF insulin glargine-yfgn 100 unit/mL (3 mL) Insulin Pen 15 unit subcut QHS Qty: 15 2RF Primary Care Provider: Vincent Beal Referrals: Vincent Beal MD [Primary Care Provider] - 3-5 Days Activity Restrictions/Additional Instructions: Services will be set up at her house tomorrow in order to get you to dialysis on Monday. Return back to the emergency department if symptoms change or worsen. Print Language: Moroccan Disposition Disposition: Home, Self Care Discharge Date/Time: 12/30/24 16:41
[2024-12-30 16:05] VITALS: BP 178/89; PULSE 90; RESP 20; TEMP 36.8; O2SAT 98
--- NOTE | 2024-12-30 16:24 | PCA ---
CALLED PHYSICIANS AT 1552 FOR A RIDE HOME THEY ARRIVED @ 1615
== END 2024-12-30 16:41 | disposition home or self-care (01) ==
PROVIDERS: Emergency Provider Surgery; PCP Internal Medicine; Visit Provider Surgery
DX: Z99.2 Dependence on renal dialysis (principal); I13.2 Hypertensive heart and chronic kidney disease with heart failure and with stage 5 chronic kidney disease, or end stage renal disease; N18.6 End stage renal disease; I50.9 Heart failure, unspecified; E11.22 Type 2 diabetes mellitus with diabetic chronic kidney disease; Z87.891 Personal history of nicotine dependence; E78.00 Pure hypercholesterolemia, unspecified
CPT/HCPCS: 80048; 83735; 85025; 99285

== ENCOUNTER 2025-01-26 12:26 | Emergency (ER) | payer MEDICARE, MEDICAID, SELFPAY ==
[2025-01-26 12:27] VITALS: BP 177/107; PULSE 86; RESP 17; TEMP 36.6; O2SAT 98; BMI 25.6
--- NOTE | 2025-01-26 12:31 | EX.ED.DYSGE1 ---
HPI History of Present Illness Chief Complaint: Weakness Detail of Chief Complaint: Generalized weakness with nausea and vomiting x 2 weeks Informant: patient Onset/Context/Timing Onset: Today (Diarrhea this morning) and Weeks (Nausea and vomiting x 2 weeks.) Context: Sudden Onset Timing: Intermittent Quality: Nausea vomiting up to 5 times a day for the last 2 weeks[address] She had loose st Location: GI Current Severity: Moderate Maximum Severity: Severe Worsened by: Nothing specific Relieved by: Nothing Associated Symptoms Associated Symptoms: Thirst and decreased urine output Narrative Narrative: Patient is a 74-year-old woman. She is on hemodialysis Monday, Monday. She has been on hemodialysis for the past 4 to 5 months. She has a dialysis catheter noted right subclavian. Patient states she has told her corporate financial analyst. She denies fever, chills night sweats. She denies headache, visual, ocular auditory symptoms. She denies upper respiratory tract infectious symptoms. She denies sore throat. She denies chest discomfort. She denies abdominal pain. She states she had watery stool this morning. She has not had watery stool prior to this in the past 2 weeks. She states her urine output is decreased. She did not miss her dialysis appointment on Monday. She has history of hypertension, diabetes type 2 on insulin, GERD, hypothyroidism and neuropathy. Patient denies dysuria, Reeves, urgency or hematuria. Patient denies low back pain or or flank pain. Prior similar symptoms: Yes Recent Illness/Hospitalization: No [facility] Medical History IgA nephropathy Nephrotic syndrome Congestive heart failure Uncontrolled hypertension Peripheral edema Acute kidney injury Hypothyroidism Diabetes Kidney disease TIA (transient ischemic attack) Intractable back pain Rheumatoid arthritis Former smoker Stroke/cerebrovascular accident Sciatica High cholesterol HTN (hypertension) HTN (hypertension) Hypothyroidism DM type 2 (diabetes mellitus, type 2) Home Medications ?Medication ?Instructions ?Recorded ?Last Taken ?Type atorvastatin 80 mg tablet 80 mg PO QHS CHOLESTEROL 03/29/18 10/17/24 History clopidogrel 75 mg tablet 75 mg PO DAILY BLOOD THINNER 03/29/18 10/17/24 History fenofibrate nanocrystallized 145 145 mg PO DAILY SUPLIMENT 03/29/18 10/17/24 History mg tablet omeprazole 40 mg capsule,delayed 40 mg PO DAILY n/v 03/29/18 10/17/24 History release dulaglutide 3 mg/0.5 mL 3 mg subcut THAO dm 01/08/24 10/13/24 History subcutaneous pen injector (Trulicity) insulin lispro 100 unit/mL 14 unit subcut TID GLUCOSE 01/08/24 10/16/24 History subcutaneous pen (Humalog KwikPen (U-100) Insulin) levothyroxine 125 mcg tablet 125 mcg PO DAILY THRYROID 01/08/24 10/17/24 History gabapentin 400 mg capsule 400 mg PO TIDCM #90 caps 01/18/24 10/17/24 Rx oxycodone 5 mg tablet 10 mg (2 x 5 mg) PO Q4H PRN PRN 01/18/24 10/17/24 Rx Pain Score 4-10 7 days #40 tabs amlodipine 5 mg tablet 5 mg PO DAILY 10/17/24 10/17/24 History etanercept 50 mg/mL (1 mL) 50 mg subcut QWEEK 10/17/24 10/09/24 History subcutaneous pen injector (Enjuliana Gonzalez) metoprolol succinate 50 mg 50 mg PO DAILY 10/17/24 10/17/24 History tablet,extended release 24 hr prednisone 5 mg tablet 10 mg PO DAILY diabetes mellitus 10/17/24 10/17/24 History hydralazine 50 mg tablet 50 mg PO TID #90 tabs 10/28/24 Unknown Rx insulin glargine-yfgn 100 unit/mL 15 unit (0.15 mL) subcut QHS #15 mL 10/28/24 Unknown Rx (3 mL) subcutaneous pen prednisone 20 mg tablet 60 mg (3 x 20 mg) PO DAILY 2 weeks 10/28/24 Unknown Rx #42 tabs sevelamer carbonate 800 mg tablet 800 mg PO TIDCM #90 tabs 10/28/24 Unknown Rx Allergy/AdvReac Type Severity Reaction Status Date / Time morphine Allergy Itching Verified 01/26/25 12:27 meperidine (From Demerol) AdvReac Nausea/Vom/ Verified 01/26/25 12:27 Diarrhea Family History Mother Thyroid disorder Father Heart disease CAD (coronary artery disease) Hypertension Myocardial infarction Surgical History History of insertion of tunneled central venous catheter (CVC) with port History of appendectomy History of facial surgery Status post ORIF of fracture of ankle Hx of hysterectomy History of spinal fusion Social History household members: none housing: house Smoking Status: Former smoker how long ago did patient quit smoking: Smoked age [age] ~1/2 ppd. alcohol intake: never substance use type: does not use ROS ROS ED Constitutional Constitutional ED: Denies chills, fever(s), subjective or sweats Eyes Eyes: Denies blurry vision or change in vision ENT ENT ED: Denies ear pain, rhinorrhea or sore throat Cardiovascular Cardiovascular: Denies chest pain, orthopnea, palpitations or paroxysmal nocturnal dyspnea Respiratory/Chest Respiratory/Chest: Denies cough, dyspnea, dyspnea on exertion, orthopnea or paroxysmal nocturnal dyspnea Gastrointestinal Gastrointestinal: Reports diarrhea, nausea and vomiting; Denies abdominal pain or melena Genitourinary Genitourinary ED: Reports other Details: Decreased urine output. ; Denies dysuria, hematuria or urinary frequency Musculoskeletal Musculoskeletal: Denies arthralgias or myalgias Integumentary Denies rash Neurologic Neurologic: Reports weakness Psychiatric Psychiatric: Reports depression; Denies suicidal ideation Endocrine Endocrinology: Denies cold intolerance or heat intolerance Hematologic/Lymphatic Hematologic/Lymphatic: Reports systems reviewed and no addt'l complaints, except as documented EXAM Physical Exam Const Vital Signs: 01/26/25 12:27 01/26/25 12:27 Temperature 97.8 F Temperature Source Oral Pulse Rate 86 Respiratory Rate 17 Respiratory Pattern Normal Blood Pressure 177/107 H Blood Pressure Mean 130 Pulse Ox 98 Positive well nourished and well developed Constitutional Narrative: Patient looks pale and ill. General Appearance ED: well developed and pallor; Negative for cyanotic or diaphoretic HEENT Reports dry mucous membranes HEENT Narrative: Head is atraumatic normocephalic. Ears normal. Nares patent. Uvula midline. No deviation with protrusion. 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 Mouth ED: Yes dry mucous membranes Mouth: dry mucous membranes Eyes PERRL and EOMs intact bilaterally General Eye ED: Yes pale conjunctiva; Negative for scleral icterus Neck no lymphadenopathy and supple Resp normal respiratory effort and clear to auscultation bilaterally Cardio regular rhythm, S1 normal heart sound, S2 normal heart sound and no murmurs GI normal to inspection, nondistended, normoactive bowel sounds, non-tender, non-distended and no masses; Negative for hepatosplenomegaly Palpation: soft Back/Spine no CVA tenderness Extremity Extremity Narrative: There is no clubbing or cyanosis. General Extremety ED: Negative for tenderness Neuro oriented x3 and CN's II-XII intact bilaterally Sensorium / Orientation: alert Psych Mood & Affect: depressed Skin no rashes or lesions noted, no wounds and No skin turgor normal General Skin Exam: pallor; Negative for jaundice MDM MDM MDM Narrative Medical decision making narrative: Patient appears unwell. Mucosas dry. Will obtain electrolyte panel to assess for hypokalemia, acid-base disturbance on top of her chronic acidosis, will assess for white count differential which may be suggestive of infection. IV fluids ordered. Old records were reviewed. History & Record Review Additional record(s) reviewed:: Prior outpatient record (There are numerous home care orders noted. There is also copy of document from outside facility.), Prior ED visit (December 30 of this year seen in the ER. She presented for she presented for generalized weakness. Final diagnosis was concerns regarding hemodialysis.) and Prior labs Lab Data Attestation: I reviewed the patient's lab results. Lab results narrative: CBC reveals mild elevation of white count with slight shift. H&H reveals hemoconcentration with a hemoglobin of 10.9 and 34.8 compared to baseline in the 8 9 region. Electrolyte panel is remarked for potassium of 2.7. BUN and creatinine are 6 and 3.62 respectively. This is not surprising in light of the fact that she is on hemodialysis. Glucose is slightly elevated 113 with normal CO2 anion gap. Patient did receive potassium for hypokalemia. Will see if she is able to ambulate. Labs: Laboratory Results - last 24 hr 01/26/25 12:45 WBC 11.2 H RBC 3.75 L Hgb 10.9 L Hct 34.8 L MCV 92.8 MCH 29.1 MCHC 31.3 L RDW Std Deviation 60.2 H RDW Coeff of John 18.1 H Plt Count 190 MPV 12.2 H Immature Gran % (Auto) 0.400 Neut % (Auto) 77.6 H Lymph % (Auto) 14.8 L [place] % (Auto) 6.4 Eos % (Auto) 0.6 Baso % (Auto) 0.2 Absolute Neuts (auto) 8.7 H Absolute Lymphs (auto) 1.65 Nucleated RBC % 0 Sodium 137 Potassium 2.7 L* Chloride 98 Carbon Dioxide 27.7 Anion Gap 11 BUN 6 Creatinine 3.62 H Estim Creat Clear Calc 13.37 L Est GFR (MDRD) Non-Af 13 L BUN/Creatinine Ratio 1.5 L Glucose 113 H Calcium 7.6 Total Bilirubin 0.94 AST 48 H ALT 73 H Alkaline Phosphatase 67 Total Protein 5.3 L Albumin 2.5 L Globulin 2.8 Albumin/Globulin Ratio 0.9 Treatment and Re-Evaluation :: Nurse informing that she does not ambulate. She is wheelchair dependent. Therefore will discharge to home as generalized weakness of unknown etiology, elevated blood pressure, hypokalemia Discharge Plan Triage Chief Complaint: Weakness ED Provider: Chava Cleveland Dx/Rx/DC Orders Clinical Impression: Weakness generalized, Elevated blood pressure reading with diagnosis of hypertension, Type 2 diabetes mellitus treated with insulin, Type 2 diabetes mellitus with hyperglycemia, End-stage renal disease on hemodialysis, Acute hypokalemia, Unable to ambulate Instructions: ED Weakness Uncertain Cause Prescriptions: No Action atorvastatin 80 MG tablet 80 mg PO QHS clopidogrel 75 MG tablet 75 mg PO DAILY omeprazole 40 MG capsule,delayed release(DR/EC) 40 mg PO DAILY fenofibrate nanocrystallized 145 MG tablet 145 mg PO DAILY gabapentin 400 mg Capsule 400 mg PO TIDCM Qty: 90 0RF oxycodone 5 mg Tablet 10 mg PO Q4H PRN PRN (Reason: Pain Score 4-10) 7 Days Qty: 40 0RF Rx Instructions: 1-2 every 4 hours as needed for left leg pain levothyroxine 125 mcg tablet 125 mcg PO DAILY insulin lispro [Humalog KwikPen Insulin] 100 unit/mL insulin pen 14 unit subcut TID Trulicity 3 mg/0.5 mL pen injector 3 mg subcut THAO Patient Comments: Take it on Sundays metoprolol succinate 50 mg tablet extended release 24 hr 50 mg PO DAILY prednisone 5 mg tablet 10 mg PO DAILY amlodipine 5 mg tablet 5 mg PO DAILY Enbrel SureClick 50 mg/mL (1 mL) pen injector 50 mg subcut QWEEK hydralazine 50 mg Tablet 50 mg PO TID Qty: 90 2RF sevelamer carbonate 800 mg Tablet 800 mg PO TIDCM Qty: 90 2RF prednisone 20 mg tablet 60 mg PO DAILY 14 Days Qty: 42 0RF insulin glargine-yfgn 100 unit/mL (3 mL) Insulin Pen 15 unit subcut QHS Qty: 15 2RF Primary Care Provider: Vincent Beal Referrals: Vincent Beal MD [Primary Care Provider] - 3-5 Days if not improving Print Language: Yakut Disposition Disposition: Home, Self Care
[2025-01-26] MEDS: 0.9% Normal Saline (1000mL) 1,000 ML 250 ML IV (12:59)
[2025-01-26] MEDS: Ondansetron 4 MG/2 ML Vial IV (12:59)
[2025-01-26 13:03] LABS: Absolute Lymphocyte Count 1.65 X10^3/uL (0.83-4.51); Absolute Neutrophil Count 8.7 X10^3/uL (2.0-7.7); Basophil# 0.02 X10^3/uL; Basophil% 0.2 % (0-1); Eosinophil# 0.07 X10^3/uL; Eosinophils% 0.6 % (0-5); Hematocrit 34.8 % (37-47); Hemoglobin 10.9 g/dL (12.0-15.0); Lymphocyte # 1.65 X10^3/ul (0.83-4.51); Lymphocyte % 14.8 % (19-41); Mean Corp Hgb Conc 31.3 g/dL (32-36); Mean Corpuscular Hgb 29.1 pg (27.0-32.0); Mean Corpuscular Volume 92.8 fL (81-99); Mean Platelet Vol. 12.2 fl (6.2-12.0); Monocyte# 0.72 X10^3/uL; Monocyte% 6.4 % (0-10); NRBC Flagged by Analyzer 0 % (0-5); Neutrophil # 8.68 X10^3/uL (2.7-7.7); Neutrophil % 77.6 % (47-70); Platelet Count 190 K/mm3 (150-450); RBC Distribution Width CV 18.1 % (11.6-14.6); RBC Distribution Width SD 60.2 fl (35.1-43.9); Red Blood Count 3.75 M/mm3 (4.2-5.4); White Blood Count 11.2 K/mm3 (4.4-11.0)
[2025-01-26 13:35] LABS: ALB/GLOB Ratio 0.9 RATIO (0.9-2.4); AST(SGOT) 48 U/L (<=31); Alanine Aminotransfer ALT/SGPT 73 U/L (<=34); Albumin, Serum 2.5 g/dL (3.4-4.8); Alkaline Phosphatase 67 U/L (35-104); Anion Gap 11 (5-15); BUN 6 mg/dL (4-19); BUN/Creat Ratio 1.5 RATIO (10-20); Calcium,Total 7.6 mg/dL (7.6-11.0); Carbon Dioxide 27.7 mmol/L (21.0-32.0); Chloride 98 mmol/L (98-108); Creatinine, Serum 3.62 mg/dL (0.70-1.20); EST Glomerular Filtration Rate 13 (>60); Estimated Creatinine Clearance 13.37 ml/min (50-250); Globulin 2.8 g/dL (2.2-4.2); Glucose 113 mg/dL (70-99); Potassium 2.7 mmol/L (3.3-5.1); Protein, Total 5.3 g/dL (5.9-8.4); Sodium Level 137 mmol/L (133-145); Total Bilirubin 0.94 mg/dL (0.00-1.30)
--- NOTE | 2025-01-26 13:35 | ED.RN ---
Critical K+ of 2.7. Dr. Cleveland notified
[2025-01-26] MEDS: Potassium Chloride Oral Soln 20 MEQ/15 ML UDC 40 MEQ PO (14:18)
[2025-01-26] MEDS: amLODIPine 5 MG Tablet PO (14:38)
[2025-01-26 14:43] VITALS: BP 214/115; PULSE 85; RESP 18; O2SAT 97
[2025-01-26] MEDS: hydrALAZINE 50 MG Tablet PO (15:00)
== END 2025-01-26 15:50 | disposition home or self-care (01) ==
PROVIDERS: Emergency Provider Emergency Medicine; PCP Internal Medicine; Visit Provider Emergency Medicine
DX: R53.1 Weakness (principal); I13.2 Hypertensive heart and chronic kidney disease with heart failure and with stage 5 chronic kidney disease, or end stage renal disease; N18.6 End stage renal disease; I50.9 Heart failure, unspecified; E11.65 Type 2 diabetes mellitus with hyperglycemia; E11.40 Type 2 diabetes mellitus with diabetic neuropathy, unspecified; E11.22 Type 2 diabetes mellitus with diabetic chronic kidney disease; Z79.4 Long term (current) use of insulin; Z87.891 Personal history of nicotine dependence; R11.2 Nausea with vomiting, unspecified; E87.6 Hypokalemia; E78.00 Pure hypercholesterolemia, unspecified; Z99.2 Dependence on renal dialysis; K21.9 Gastro-esophageal reflux disease without esophagitis; E03.9 Hypothyroidism, unspecified; F32.A Depression, unspecified; E87.29 Other acidosis; R26.89 Other abnormalities of gait and mobility
CPT/HCPCS: 80053; 85025; 96361; 96374; 99284; A4216; J2405